=== PATIENT | female | born 1945 | race Caucasian/White ===

== ENCOUNTER 2019-07-12 19:02 | Inpatient (IN) | payer MEDICARE, SELFPAY ==
[2019-07-12 19:03] VITALS: BP 140/75; PULSE 77; RESP 18; TEMP 36.3; O2SAT 95; BMI 32.1
--- NOTE | 2019-07-12 19:20 | US_ITS ---
HISTORY: Right upper quadrant pain for one day. Intolerance to greasy foods. TECHNIQUE: Peoples scale and color doppler imaging was performed of the pancreas, liver, and gallbladder. COMPARISON: None FINDINGS: # of images incl. paperwork: 90 The liver is coarse in echotexture. Within the perceived right hepatic lobe there is an anechoic structure with well-defined margins and increased through transmission measuring 2.2 x 1.7 x 1.3 cm. Color Doppler imaging over this lesion fails to demonstrate flow. This likely represents a benign hepatic cyst.. No biliary dilatation. Within the gallbladder there are gallstones. One of the larger stones measures 4 x 2.4 x 2.9 cm Gallbladder wall measures 4 mm. Common bile duct measures 3 mm. Tenderness upon insonation the gallbladder. Visualized pancreas is normal in appearance. Right is atrophic, with echogenic parenchyma, but without hydronephrosis or evidence of nephrolithiasis within the periphery of the right kidney there is an anechoic structure with well-defined margins and increased through transmission measuring 9 x 7 mm consistent with a benign cyst. Visualized abdominal aorta has normal caliber. IVC is patent. Hepatopedal flow is present within the central portal vein. US/Gallbladder IMPRESSION: Distended gallbladder with gallstones and pain upon insonation of the gallbladder consistent with acute cholecystitis and cholelithiasis. at 2211 Reported and signed by: Tristian Farrar MD Electronically Signed: Tristian Farrar MD at 22:10 EDT Tel , Service support ,
--- NOTE | 2019-07-12 19:21 | ED.DCSUM_ITS ---
History of Present Illness Chief Complaint: Abd Pain Informant: Patient, Significant Other Onset: Today - Context: Sudden Onset Timing: Continuous, Waxes and wanes Quality: Pain Location: Right upper quadrant radiating to back Current Severity: Moderate Maximum Severity: Severe Worsened by: [place] and fried foods Relieved by: Nothing Associated Symptoms: Nausea and dry heaves Narrative: Patient's an elderly woman whose had intermittent intolerance to greasy and fried foods for greater than 1 year. She has been awakened several times a little night with right upper quadrant pain rating through to back. This morning the pain did not subside. She has had nothing to eat today. She denies fever, chills night sweats. She denies HEENT symptoms. Denies cardiac or respiratory symptoms. She denies dysuria, frequency, urgency or hematuria. There is no history of renal or ureterolithiasis. She is status post x3 and bilateral total knee arthroplasty. There is no history of trauma. She has not noted a rash. Prior similar symptoms: Yes Recent Illness/Hospitalization: No Past Medical History - Allergies and Home Meds Allergies/Adverse Reactions: Allergies amoxicillin trihydrate [From Augmentin] Adverse Reaction (Verified 07/12/19 19:05) Upset Stomach potassium clavulanate [From Augmentin] Adverse Reaction (Verified 07/12/19 19:05) Upset Stomach Primary Care Physician: Ammy Avery MD [Primary Care Provider] - Prior records reviewed: Yes - Of type 2 diabetes and hypertension Surgical History: total knee arthroplasty - Bilateral, - - x3 Lives: Spouse/ Significant Other Smoking Status: Unknown if ever smoked Alcohol: None Drugs: None Review of Systems General: Denies: Chills, Fever, Malaise, Sweats ENT: Denies: Rhinorrhea, Sore throat Cardiovascular: Denies: Chest pain, Palpitations Respiratory: Denies: Dyspnea, Cough, Dyspnea on exertion Gastrointestinal: Reports: Abdominal pain, Nausea. Denies: Vomiting, Diarrhea, Constipation, Melena, Hematochezia, -, - Genitourinary: Denies: Dysuria, Hematuria, Frequency Musculoskeletal: Reports: Back pain. Denies: Myalgias, Arthralgias, Neck pain, Swelling, Extremity Pain, -, - Neurological: Denies: Headache, Weakness Hematologic: Denies: Easy bruising, Easy bleeding Physical Exam Vital Signs/Narrative: Vital Signs Temp Pulse Resp BP Pulse Ox 07/12/19 19:03 97.3 F L 77 18 140/75 H 95 Inital Vital Signs reviewed: Yes General: Well nourished, Well developed, Acute Distress Head: Normocephalic, Atraumatic Eyes: Perrl, EOMI. Negative for: Pale conjunctiva, Scleral icterus ENT: Moist mucous membranes, No rhinorrhea Neck: Supple, Nontender, No lymphadenopathy, No JVD Cardiovascular: Regular rate, Regular rhythm, No murmurs, Normal S1, Normal S2 Respiratory: No distress, CTA bilaterally, Chest nontender Abdomen: Soft, Nondistended, No masses, Tender, Guarding, Hypoactive bowel sounds, Alvarado's sign. Negative for: Nontender, Normal bowel sounds, Rebound tenderness, Hepatomegaly, Splenomegaly Rectal: Deferred Back: Nontender, Normal Inspection. Negative for: CVA tenderness Extremities: Nontender, No edema Skin: Normal color, No rash Neurological: Alert, Oriented x3, Cranial nerves II-XII grossly intact, Normal Strength, Normal Sensation Psychological: Normal affect, Normal Mood Diagnostic/Tx/Re-eval Impressions Gallbladder Ultrasound 07/12/19 19:20 IMPRESSION: Distended gallbladder with gallstones and pain upon insonation of the gallbladder consistent with acute cholecystitis and cholelithiasis. at 2211 Reported and signed by: Tristian Farrar MD Electronically Signed: Tristian Farrar MD at 22:10 EDT Tel , Service support , 07/12/19 19:20 Gallbladder [US] Stat Laboratory Results 07/12/19 07/12/19 19:17 19:17 WBC 10.1 RBC 5.08 Hgb 14.4 Hct 43.2 MCV 85.0 MCH 28.3 MCHC 33.3 RDW Std Deviation 38.1 RDW Coeff of Kvng 12.4 Plt Count 164 MPV 9.8 Immature Gran % (Auto) 0.300 Neut % (Auto) 82.5 H Lymph % (Auto) 8.2 L Dukes % (Auto) 7.4 Eos % (Auto) 1.2 Baso % (Auto) 0.4 Absolute Neuts (auto) 8.4 H Absolute Lymphs (auto) 0.83 Nucleated RBC % 0 Sodium 136 Potassium 3.7 Chloride 103 Carbon Dioxide 25.0 Anion Gap 8 BUN 16 Creatinine 1.09 H Estim Creat Clear Calc 46.04 Est GFR (MDRD) Af Amer 64 Est GFR (MDRD) Non-Af 53 L BUN/Creatinine Ratio 14.7 Glucose 172 H Calcium 10.1 Total Bilirubin 0.70 AST 20 ALT 35 Alkaline Phosphatase 120 H Total Protein 7.3 Albumin 4.1 Globulin 3.2 Albumin/Globulin Ratio 1.3 Lipase 122 Ultrasound reveals acute cholecystitis with cholelithiasis. Dr. Angel John was paged who is on-call for surgery. - EKG Initial EKG Interpretation: Sinus Rhythm - Ventricular rate is 64. WA interval is 136 ms. QS duration 84 ms. QT duration 402 ms. The EKG is absolutely normal. - Medical Decision Making IV was established. She was medicated with Zofran and morphine. Patient was made n.p.o. With right upper quadrant pain need to evaluate for biliary pathology, hepatic pathology, pancreatitis gastritis lower lobe pneumonia. Based on history and physical exam concern for acute on chronic cholecystitis. Appropriate blood work was ordered as well as ultrasound right upper quadrant. Dr. John was made aware the patient at 2220. He will evaluate patient determine if he will admit to his service or to hospitalist. Dr. John spoke with me after reviewing images. He requested CT of the abdomen with IV contrast to evaluate the 4 mm mass. He is concerned this may not be a stone. ED Disposition - Plan for ED Patient: Disposition: Acute Care Hospital [facility] Diagnosis: Cholecystitis, acute with cholelithiasis Referrals: Ammy Avery MD [Primary Care Provider] -
[2019-07-12] MEDS: Morphine 4 MG/ML Syringe IV (19:33)
[2019-07-12] MEDS: Ondansetron 4 MG/2 ML Vial IV (19:33)
[2019-07-12 19:40] LABS: Absolute Lymphocyte Count 0.83 X10^3/uL (0.83-4.51); Absolute Neutrophil Count 8.4 X10^3/uL (2.0-7.7); Basophil# 0.04 X10^3/uL; Basophil% 0.4 % (0-1); Eosinophil# 0.12 X10^3/uL; Eosinophils% 1.2 % (0-5); Hematocrit 43.2 % (37-47); Hemoglobin 14.4 g/dL (12.0-15.0); Lymphocyte # 0.83 X10^3/ul (4.0); Lymphocyte % 8.2 % (19-41); Mean Corp Hgb Conc 33.3 g/dL (32-36); Mean Corpuscular Hgb 28.3 pg (27.0-32.0); Mean Platelet Vol. 9.8 fl (6.2-12.0); Monocyte# 0.75 X10^3/uL; Monocyte% 7.4 % (0-10); NRBC Flagged by Analyzer 0 % (0-5); Neutrophil # 8.35 X10^3/uL (2.7-7.7); Neutrophil % 82.5 % (47-70); Platelet Count 164 K/mm3 (150-450); RBC Distribution Width CV 12.4 % (11.6-14.6); RBC Distribution Width SD 38.1 fl (35.1-43.9); Red Blood Count 5.08 M/mm3 (4.2-5.4); White Blood Count 10.1 K/mm3 (4.4-11.0)
[2019-07-12 19:50] LABS: ALB/GLOB Ratio 1.3 RATIO (0.9-2.4); AST(SGOT) 20 U/L (15-37); Alanine Aminotransfer ALT/SGPT 35 U/L (13-56); Albumin, Serum 4.1 g/dL (3.2-5.0); Alkaline Phosphatase 120 U/L (45-117); Anion Gap 8 (5-15); BUN 16 mg/dL (7-18); BUN/Creat Ratio 14.7 RATIO (10-20); Calcium,Total 10.1 mg/dL (8.5-10.1); Chloride 103 mmol/L (98-107); Creatinine, Serum 1.09 mg/dL (0.55-1.02); EST Glomerular Filtration Rate 53 mL/min (>60); Est Glom Filt Rate - Afr Amer 64 mL/min (>60); Estimated Creatinine Clearance 46.04 ml/min; Globulin 3.2 g/dL (2.2-4.2); Glucose 172 mg/dL (74-106); Lipase 122 U/L (73-393); Potassium 3.7 mmol/L (3.5-5.1); Protein, Total 7.3 g/dL (6.4-8.2); Sodium Level 136 mmol/L (136-145)
[2019-07-12] MEDS: 0.9% Normal Saline 1,000 ML 125 ML IV (19:58)
--- NOTE | 2019-07-12 22:22 | EKG12_ITS ---
Test Reason : PRE-OP Blood Pressure : / mmHG Vent. Rate : 064 BPM Atrial Rate : 064 BPM P-R Int : 136 ms QRS Dur : 084 ms QT Int : 402 ms P-R-T Axes : 045 008 059 degrees QTc Int : 414 ms Normal sinus rhythm Normal ECG Confirmed by DAVID BURNS ([id number]), clinical editor MICHAEL AUSTIN ([id number]) on 07/20/2019 3:51:53 PM Referred By: Angel John Confirmed By:DAVID BURNS
--- NOTE | 2019-07-12 22:36 | CT_ITS ---
HISTORY: ABD PAIN RUQ SINCE 200 WITH PAIN RADIATING TO THE BACK, CONSTIPATION, NAUSEA, HX HTN, DIAB, C-SECTIONS TECHNIQUE: Helically acquired images were obtained of the abdomen following the intravenous administration of 100ML ml of 100mL Isovue-300 Iodinated contrast. No oral contrast was administered. A radiation dose optimization technique was used for this scan. COMPARISON: Ultrasound from about an hour and a half earlier that demonstrated acute cholecystitis FINDINGS: # of images incl. paperwork: 415 Atherosclerotic plaque within the aortic arch. Pulmonary hypoexpansion. Elevation of the right hemidiaphragm. Right basilar atelectasis and additional airspace disease which could possibly be pneumonia. Minimal cardiomegaly. No significant pericardial or pleural effusion. The gallbladder is distended with many calcified gallstones. One of these gallstones is likely within the cystic duct causing obstruction. The common bile duct is not pathologically dilated. Within the medial segment of the left hepatic lobe, consistent with the findings from the ultrasound there is a 19 mm cyst. Contrary to the findings on the ultrasound of the common bile duct above the pancreatic head is distended to 8 mm. No common bile duct or common hepatic duct stones are perceived. The 2 stones within the cystic duct, likely occluding the cystic duct, measuring 13 mm. The spleen, pancreas, adrenal glands are normal. Kidneys are atrophic. Atherosclerotic plaque within the abdominal aorta without aneurysm or dissection. The stomach is decompressed. Bowel gas pattern is normal. Gallbladder wall thickening is suggested. No significant pericholecystic fluid. Minimal induration of the fat adjacent to the stone within the cystic duct. CT/Abdomen WITH IV Contrast IMPRESSION: Two, 13 mm cystic duct stones with many additional gallbladder stones and findings consistent with acute cholecystitis Individualized dose optimization techniques were used for this CT. at 2325 Reported and signed by: Tristian Farrar MD Electronically Signed: Tristian Farrar MD at 23:24 EDT Tel , Service support ,
[2019-07-12 23:22] VITALS: BP 153/67; PULSE 65; RESP 17; O2SAT 97
--- NOTE | 2019-07-12 23:25 | HP.PCM_ITS ---
Problem List (1) Cholecystitis, acute with cholelithiasis Status: Acute Qualifiers: Biliary obstruction: without biliary obstruction Qualified Code(s): K80.00 - Calculus of gallbladder with acute cholecystitis without obstruction History of Present Illness Date of Admission: 07/12/19 The patient is a 73 year old F presented with pain for the last 20 hours. She reports that the pain is in her right upper quadrant radiates the back. She does have subjective fever and chills. She is also having nausea with no vomiting. She says she has been having intolerance of greasy foods for the last 2 years with intermittent right upper quadrant pain. She has never had acute cholecystitis in the past. She denies any other symptoms. Past Medical History Allergies amoxicillin trihydrate [From Augmentin] Adverse Reaction (Verified 07/12/19 19:05) Upset Stomach potassium clavulanate [From Augmentin] Adverse Reaction (Verified 07/12/19 19:05) Upset Stomach Home Medications: Ambulatory Orders Medication Instructions Recorded Amlodipine Besylate/Benazepril 1 tab PO DAILY 07/12/19 [Amlodipine-Benazepril 10-20 mg] Aspirin [Aspirin, Baby] 81 mg PO DAILY@0800 07/12/19 Carvedilol [Coreg] 12.5 mg PO BID 07/12/19 Metformin HCl 500 mg PO BID 07/12/19 Rosuvastatin Calcium 10 ng PO DAILY 07/12/19 Surgical History: total knee arthroplasty - Bilateral, - - x3 Lives: Spouse/ Significant Other Smoking Status: Never smoker Alcohol: None Drugs: None - *Family History Maternal History Items: No pertinent history Review of Systems Constitutional: Reports: Anorexia, Chills, Fever Eyes: Denies: Blurred vision HEENT: Denies: Difficulty Swallowing Cardiovascular: Denies: Chest Pain Respiratory: Denies: Cough, Shortness of Breath Gastrointestinal: Reports: Abdominal Pain, Nausea. Denies: Constipation, Diarrhea, Hematemesis, Hematochezia, Vomiting Genitourinary: Reports: Frequency. Denies: Dysuria Skin: Denies: Dryness, Jaundice Neurological: Denies: Balance problems Hematologic/ Lymphatic: Denies: Anemia VTE Information - Inpt Only VTE Present on Admission: No VTE Mechan Device Prophylaxis: SCD's Patient Problems: Active and Suspected Problems Cholecystitis, acute with cholelithiasis (Acute) - Physical Exam General: Alert, Oriented x3, Cooperative, No apparent distress HEENT: Atraumatic Neck: No JVD Lungs: Clear to auscultation, Normal air movement Cardiovascular: Regular rate, Regular Rhythm Abdomen: Soft, Non-Distended, Tender - Tender in the right upper quadrant with no guarding or rebound. Extremities: No clubbing Skin: No rashes Musculoskeletal: No Muscle Wasting Neurological: Cranial nerves II-XII grossly intact Psych/Mental Status: Normal Affect Vital Signs Temp Pulse Resp BP Pulse Ox 97.3 F L 65 17 153/67 H 97 07/12/19 19:03 07/12/19 23:22 07/12/19 23:22 07/12/19 23:22 07/12/19 23:22 Oxygen Delivery Method Room Air Weight: 205 lb Body Mass Index (BMI) 32.1 Laboratory Tests Past 24 Hrs 07/12/19 07/12/19 19:17 19:17 WBC 10.1 RBC 5.08 Hgb 14.4 Hct 43.2 MCV 85.0 MCH 28.3 MCHC 33.3 RDW Std Deviation 38.1 RDW Coeff of Kvng 12.4 Plt Count 164 MPV 9.8 Immature Gran % (Auto) 0.300 Neut % (Auto) 82.5 H Lymph % (Auto) 8.2 L Bath % (Auto) 7.4 Eos % (Auto) 1.2 Baso % (Auto) 0.4 Absolute Neuts (auto) 8.4 H Absolute Lymphs (auto) 0.83 Nucleated RBC % 0 Sodium 136 Potassium 3.7 Chloride 103 Carbon Dioxide 25.0 Anion Gap 8 BUN 16 Creatinine 1.09 H Estim Creat Clear Calc 46.04 Est GFR (MDRD) Af Amer 64 Est GFR (MDRD) Non-Af 53 L BUN/Creatinine Ratio 14.7 Glucose 172 H Calcium 10.1 Total Bilirubin 0.70 AST 20 ALT 35 Alkaline Phosphatase 120 H Total Protein 7.3 Albumin 4.1 Globulin 3.2 Albumin/Globulin Ratio 1.3 Lipase 122 Clinical Impression(s) from Imaging Studies Gallbladder Ultrasound 07/12/19 19:20 IMPRESSION: Distended gallbladder with gallstones and pain upon insonation of the gallbladder consistent with acute cholecystitis and cholelithiasis. at 2211 Reported and signed by: Tristian Farrar MD Electronically Signed: Tristian Farrar MD at 22:10 EDT Tel , Service support , Abdomen CT 07/12/19 22:36 IMPRESSION: Two, 13 mm cystic duct stones with many additional gallbladder stones and findings consistent with acute cholecystitis Individualized dose optimization techniques were used for this CT. at 2325 Reported and signed by: Tristian Farrar MD Electronically Signed: Tristian Farrar MD at 23:24 EDT Tel , Service support , Assessment/Plan All Active Problems Cholecystitis, acute with cholelithiasis (Acute) 73-year-old female with acute cholecystitis 1. Patient has left shift and acute right upper quadrant pain with fevers. CT scan shows multiple calcified gallstones 2 of which are lodged in the cystic duct. Patient has gallbladder wall thickening as well suggestive of acute cholecystitis. 2. I discussed the patient's findings with her. I discussed the treatment including laparoscopic cholecystectomy. I discussed the procedure in detail with the patient. I discussed the risks, benefits, and alternatives of the procedure. I discussed the risks including but not limited to bleeding, infection, injury to surrounding organs such as the liver, bile duct, bowels. I did discuss the possibility of having to convert to an open procedure as well as the possibility that if any injuries occurred this may necessitate further surgery at a tertiary care center. 3. I will admit the patient to the floor and start Zosyn. Patient reports that her penicillin allergy is only upset stomach and was many years ago. There is no sign of anaphylaxis or hives. I also start IV fluids and hold metformin due to the IV contrast. Start insulin sliding scale for diabetes. SCDs for DVT prophylaxis. Angel John MD Pager: [facility] [address] [place] [address], [address] [place] [address] Office:
[2019-07-13] VITALS (13 sets, daily range): BP systolic 104–136; BP diastolic 56–75; PULSE 63–75; RESP 14–18; TEMP 35.9–37.1; O2SAT 87–98; BMI 31.8
--- NOTE | 2019-07-13 | GALL_PTH ---
PATIENT: MABEL RAZA LOC: MS3 U#:[id number] AGE/SX: 73/F ROOM: MS316 RE07/12/[address]: Dr. Angel John MD : 1945 BED: 1 DIS: 07/14/2019 SPEC #: [id number] RECD: 07/14/19 08:14 STATUS: PARVEEN LOPEZFredrick #: [id number] DEMETRIUS: 07/13/19 00:[address]: Angel John DEPT: SURGICAL PATHOLOGY RECD BY: Mich Duncan ENTERED: 07/14/19 09:30 SP TYPE: VIVIAN ECHEVERRIA DR: Dr. Ammy Avery MD Tissues: Gallbladder, NOS Procedures: Surgery Specimen Level III HEADER OPERATION: Laparoscopic cholecystectomy with IOC PRE-OP DIAGNOSIS: Acute cholecystitis with cholelithiasis TISSUE SUBMITTED: Gallbladder MICROSCOPIC DIAGNOSIS Gallbladder, cholecystectomy: Chronic cholecystitis and cholelithiasis. AM:neha 07/15/19 MICROSCOPIC DESCRIPTION Slides are reviewed. GROSS DESCRIPTION Received is one container labeled with the patient's name and designated gallbladder. The specimen consists of a gallbladder measuring 8 cm in length and 3.5 cm in diameter. The external surface is pink-reyes, smooth and glistening for the most part. Focally it is granular, hemorrhagic and contains cautery artifact. The gallbladder contains a small amount of green-yellow mucoid bile, bile sludge and multiple brownish, multifaceted stones measuring in aggregate 4.5 x 3 x 1.5 cm and 0.2 to 1.5 cm in greatest dimension. The mucosa is bile-stained and without any mass lesions. The gallbladder wall measures up to 0.7 cm in thickness. An increased amount of subserosal fat is noted. Interviewing Clerk sections from the gallbladder and the cystic duct are submitted in one cassette. / ANG:neha 07/14/19 TC:3 CPT: 93891
[2019-07-13] MEDS: Piperacil/Tazobactam 3.375 GM/50 ML ML IV ×4 (00:56→21:40)
[2019-07-13] MEDS: Acetaminophen 325 MG Tablet 650 MG PO (00:58)
[2019-07-13] MEDS: 0.9% Normal Saline 1,000 ML 100 ML IV ×2 (01:05→11:09)
[2019-07-13 01:16] LABS: Bedside Glucose 150 mg/dL (70-110)
[2019-07-13 04:35] LABS: Bacteria 0 SEEN /hpf (None Seen); Mucous, Urine 0 SEEN /hpf (<or=2+); Red Blood Cells-Urine 0 SEEN /hpf (0-5); Squamous Epithelial Cells - UA 0 SEEN /hpf (5-10); White Blood Cells 0 SEEN /hpf (0-5)
[2019-07-13 05:10] LABS: Color, Urine Yellow (Yellow); Glucose, Dipstick 100 mg/dl (Normal); Ketone-Dipstick 5 mg/dl (Negative); Leukocyte Esterase-Dipstick Negative /ul (Negative); Nitrite-Dipstick Negative (Negative); Occult Blood-Urine Negative /ul (Negative); Protein-Dipstick Negative (Negative); Urine Bilirubin Dipstick Negative (Negative); Urine Clarity Clear (Clear); Urine Urobilinogen Normal (Normal)
[2019-07-13] MEDS: Insulin Lispro 100 UNIT/ML INSULN.PEN SC ×2 (06:27→11:11)
[2019-07-13 06:36] LABS: Bedside Glucose 175 mg/dL (70-110)
[2019-07-13 06:55] LABS: Absolute Lymphocyte Count 0.88 X10^3/uL (0.83-4.51); Absolute Neutrophil Count 5.7 X10^3/uL (2.0-7.7); Basophil# 0.03 X10^3/uL; Basophil% 0.4 % (0-1); Eosinophil# 0.19 X10^3/uL; Eosinophils% 2.6 % (0-5); Hemoglobin 12.5 g/dL (12.0-15.0); Lymphocyte # 0.88 X10^3/ul (4.0); Lymphocyte % 11.9 % (19-41); Mean Corp Hgb Conc 32.9 g/dL (32-36); Mean Corpuscular Hgb 28.3 pg (27.0-32.0); Mean Platelet Vol. 9.9 fl (6.2-12.0); Monocyte# 0.57 X10^3/uL; Monocyte% 7.7 % (0-10); NRBC Flagged by Analyzer 0 % (0-5); Neutrophil # 5.72 X10^3/uL (2.7-7.7); Neutrophil % 77.1 % (47-70); Platelet Count 141 K/mm3 (150-450); RBC Distribution Width CV 12.8 % (11.6-14.6); RBC Distribution Width SD 39.5 fl (35.1-43.9); Red Blood Count 4.42 M/mm3 (4.2-5.4); White Blood Count 7.4 K/mm3 (4.4-11.0)
[2019-07-13 07:16] LABS: ALB/GLOB Ratio 1.3 RATIO (0.9-2.4); AST(SGOT) 18 U/L (15-37); Alanine Aminotransfer ALT/SGPT 30 U/L (13-56); Albumin, Serum 3.5 g/dL (3.2-5.0); Alkaline Phosphatase 96 U/L (45-117); Anion Gap 9 (5-15); BUN 13 mg/dL (7-18); BUN/Creat Ratio 12.5 RATIO (10-20); Chloride 108 mmol/L (98-107); Creatinine, Serum 1.04 mg/dL (0.55-1.02); EST Glomerular Filtration Rate 55 mL/min (>60); Est Glom Filt Rate - Afr Amer 67 mL/min (>60); Estimated Creatinine Clearance 48.25 ml/min; Globulin 2.7 g/dL (2.2-4.2); Glucose 164 mg/dL (74-106); Potassium 3.7 mmol/L (3.5-5.1); Protein, Total 6.2 g/dL (6.4-8.2); Sodium Level 142 mmol/L (136-145)
[2019-07-13 08:13] LABS: Hemoglobin A1c 7.9 % (4.2-6.3)
[2019-07-13] MEDS: amLODIPine 10 MG Tablet PO (10:28)
[2019-07-13] MEDS: Lisinopril 20 MG Tablet PO (10:28)
[2019-07-13] MEDS: Carvedilol 12.5 MG Tablet PO ×2 (10:28→21:18)
--- NOTE | 2019-07-13 11:20 | CASEMGMT ---
RN ZAINAB Face to Face with patient for initial transition planning/care coordination assessment. RN CM introduced self and role at [facility]. Patient lying in bed, alert and oriented, daughter at bedside. Patient willing to participate in assessment and is able to answer all questions appropriately. Care providers, pharmacy, and demographics verified. Patient wishes to discharge home, denies need for home health at this time. Patient states she has no further needs or concerns at this time. CM to follow for discharge planning needs that may arise. PCP: Bennie Specialists: none Preferred Pharmacy: [facility], [place] Insurance: [employer] [facility] Prescription Benefit: yes Living Will/HPOA: none LNOK: , daughter Living Arrangements: Patient lives with in 1 story home with 2 steps and railing to enter the home. Transportation: self/ DME/HHC: Patient has raised toilet seat, cane, and walker. Patient denies previous SNF or HHC Disposition Plan: Patient to discharge home with family support and follow-up plans in place. Peace SILVAN, RN, CM
[2019-07-13 11:30] LABS: Bedside Glucose 170 mg/dL (70-110)
--- NOTE | 2019-07-13 14:01 | CHAPLAIN ---
Type of Pastoral Visit _x__ Initial Visit ___ Follow-up Visit ___ On-call Visit ___ General Patient Visit ___ Spiritual Assessment ___ Family Conference ___ Bereavement ___ Rapid Response ___ Code Blue ___ Other (describe below) Pastoral Care Referral From _x__ Patient ___ Family ___ Nurse ___ Physician ___ Curriculum Designer ___ [employer] ___ Other (describe below) Sacrament/Intervention _x__ Active listening ___ Anointing ___ Oriental Orthodox ___ Bereavement ___ Communion ___ Huma exploration ___ ___ Life review ___ Prayer ___ Reconciliation ___ Sacrament of Sick _x__ Supportive presence ___ Wedding ___ Other (describe below) Pastoral Comments
--- NOTE | 2019-07-13 16:35 | RAD_ITS ---
PROCEDURE: INTRAOPERATIVE CHOLANGIOGRAM. REASON FOR EXAM: Female, 73 years old. Abdominal pain. Cholelithiasis with stone caught in cystic duct. FLUOROSCOPY TIME: 28.6 seconds. RADIATION DOSAGE (If Supplied By Facility): 12.75 mGy TECHNIQUE: Real-time fluoroscopy was provided during intraoperative contrast infusion via the cystic duct. A cine run comprising 187 images was submitted. COMPARISON: CT abdomen and ultrasound abdomen July 12, 2019. FINDINGS: A filling defect consistent with a retained stone is seen in the cystic duct near the point of injection. There is an elongated, normal caliber cystic duct with a relatively low insertion area and no extravasation. Normal caliber intra-and extrahepatic bile ducts. A few very small filling defects consistent with small stones, debris, or gas bubbles noted in the common bile duct just below the cystic duct confluence. Contrast flows to the duodenum. RAD/Cholangiogram/ O R,Initial IMPRESSION: 1. Retained stone in the cystic duct near the point of injection. There is a normal caliber, elongated, low inserting cystic duct beyond this point. 2. Very small stones, debris, or gas-filled seen in the common bile duct below the cystic duct confluence. There is normal antegrade emptying into the duodenum. 3. Normal visualized proximal hepatic ducts. Electronically Signed: Carlos Jackson MD at 19:55 EDT , Service support ,
[2019-07-13] MEDS: Lactated Ringers 1,000 ML 100 ML IV ×2 (17:00→19:32)
--- NOTE | 2019-07-13 17:57 | OP.PCM_ITS ---
Problem List (1) Cholecystitis, acute with cholelithiasis Status: Acute Qualifiers: Biliary obstruction: without biliary obstruction Qualified Code(s): K80.00 - Calculus of gallbladder with acute cholecystitis without obstruction Report of Operation Date of Procedure: 07/13/19 Pre-Operative Diagnosis: Acute cholecystitis Post-Operative Diagnosis: Same Surgery/Procedure Performed:: Laparoscopic cholecystectomy with cholangiogram Specimen's removed: Gallbladder and contents Description of Procedure: After obtaining informed consent patient was brought back to the operating room. General anesthesia was induced. The abdomen was prepped and draped in usual sterile fashion. A small midline incision was made superior to the umbilicus and deepened to the level of fascia. The fascia was elevated and incised. Next the peritoneum was elevated and incised in the same fashion. Finger sweep was performed and the Wiggins trocar was placed into the abdomen. The balloon was inflated. The abdomen was inflated to 15 mmHg. Next a camera was introduced into the abdomen and the abdomen was inspected. Next under direct visualization three 5-mm ports were placed one subxiphoid and 2 subcostal. Next the gallbladder was elevated and retracted toward the right shoulder. The gallbladder was extremely thickened and very inflamed. The peritoneum was stripped from the gallbladder. The infundibulum was located and retracted laterally. The gallbladder was dissected free from the liver bed and its medial portion. A Jose Rafael drain was placed around the gallbladder and this was used to retract the gallbladder laterally. Dissection was carried inferiorly. Next the triangle of Calot was dissected and the cystic duct and cystic artery were identified. Cholangiograms were performed. The Seth clamp was used to clamp across the infundibulum and the catheter needle was inserted into the gallbladde r. Under fluoroscopy contrast was instilled into the gallbladder and the common duct, cystic duct as well as proximal hepatic ducts were identified. There was good filling of the duodenum. There were no filling defects noted in the common bile duct. There was a filling defect in the cystic duct. The clamp was removed as well as the needle and the infundibulum was grasped once more. Three hemolock clips were placed across the cystic duct distal to the filling defect. The cystic duct was then divided leaving 2 clips on the stump. The cystic artery was clipped and divided in the same fashion. The hook cautery was then used to take the gallbladder off of the gallbladder bed. Hemostasis was obtained. Gallbladder fossa was irrigated and no active bleeding or bile leakage was noted. Next the camera switched to a 5 mm camera and introduced in the subxiphoid port. An Endopouch bag was placed through the umbilical port and the gallbladder was placed into it. The gallbladder was then removed through the umbilical incision. The camera was then reinserted through the umbilical port. The gallbladder fossa was inspected once more and noted to be hemostatic with no leaking bile. The abdomen was suctioned dry. The 5 mm ports were removed under direct visualization. The umbilical port was then removed and the air was removed from the abdomen. Next using 2 0-Vicryl sutures the umbilical fascia was closed in a [id number] fashion. The umbilical port site was irrigated local anesthetic was administered to all the incisions. All the incisions were closed with interrupted subcuticular 4-0 Monocryl sutures followed by Steri-Strips and dressings. The patient was awoken and taken to PACU in stable condition. - Admit VTE Documentation VTE Present on Admission: No VTE Mechan Device Prophylaxis: SCD's
[2019-07-13 18:25] LABS: Bedside Glucose 256 mg/dL (70-110)
[2019-07-13] MEDS: Insulin Lispro 100 UNIT/ML INSULN.PEN 6 UNIT SC (18:30)
[2019-07-13] MEDS: Atorvastatin Calcium 20 MG Tablet PO (21:18)
[2019-07-13] MEDS: 0.9% NaCl IVPB Med Flush (250 mL) 15 ML IV (21:40)
[2019-07-14] MEDS: Insulin Lispro 100 UNIT/ML INSULN.PEN SC (00:01)
[2019-07-14 00:06] LABS: Bedside Glucose 175 mg/dL (70-110)
[2019-07-14 05:00] VITALS: BP 112/59; PULSE 69; RESP 18; TEMP 36.6; O2SAT 95
[2019-07-14] MEDS: Piperacil/Tazobactam 3.375 GM/50 ML ML IV (05:05)
[2019-07-14 07:01] LABS: Bedside Glucose 127 mg/dL (70-110)
[2019-07-14 07:31] LABS: ALB/GLOB Ratio 1.1 RATIO (0.9-2.4); AST(SGOT) 241 U/L (15-37); Alanine Aminotransfer ALT/SGPT 299 U/L (13-56); Albumin, Serum 3.1 g/dL (3.2-5.0); Alkaline Phosphatase 109 U/L (45-117); Anion Gap 9 (5-15); BUN 15 mg/dL (7-18); BUN/Creat Ratio 15.8 RATIO (10-20); Calcium,Total 8.8 mg/dL (8.5-10.1); Chloride 108 mmol/L (98-107); Creatinine, Serum 0.95 mg/dL (0.55-1.02); EST Glomerular Filtration Rate 62 mL/min (>60); Est Glom Filt Rate - Afr Amer 75 mL/min (>60); Estimated Creatinine Clearance 52.82 ml/min; Globulin 2.8 g/dL (2.2-4.2); Glucose 133 mg/dL (74-106); Potassium 3.9 mmol/L (3.5-5.1); Protein, Total 5.9 g/dL (6.4-8.2); Sodium Level 142 mmol/L (136-145)
--- NOTE | 2019-07-14 07:51 | DCINST_ITS ---
Discharge Diet: Light diet - advance as tolerated Discharge Activity: Return to Normal Activity, May Not Drive - for 2-3 days or while taking narcotic pain medicataions., May Shower Additional Activity Instructions:: Pain medication may cause nausea. You should typically eat light foods as you take your pain medications. Pain medication may also cause constipation. If this is a problem for you, please discuss with your doctor. Call your doctor if your incision/area has: Continuous Slow Oozing, Sudden Increased Bleeding, Increased Pain/ Swelling, Increased Redness, Foul Smelling Discharge, Fever of 101 or Higher Call your doctor if you observe: Fever of 101 or Higher Suture Line Care: Avoid Pulling/Pushing, Avoid Pinching/Bending Additional Dressing/Incision Instructions:: Leave operative bandaids on for 2 days. When you remove dressing, leave Steri-Strips on until your follow-up appointment, or until the Steri-Strips fall off on their own. Additional Instructions: Resume metformin Saturday Allergies/Adverse Reactions: Allergies amoxicillin trihydrate [From Augmentin] Adverse Reaction (Verified 07/12/19 19:05) Upset Stomach potassium clavulanate [From Augmentin] Adverse Reaction (Verified 07/12/19 19:05) Upset Stomach Medications to take at Discharge Amlodipine Besylate/Benazepril [Amlodipine-Benazepril 10-20 mg] 1 tab PO DAILY 07/12/19 Aspirin [Aspirin, Baby] 81 mg PO DAILY@0800 07/12/19 Carvedilol [Coreg] 12.5 mg PO BID 07/12/19 Metformin HCl 500 mg PO BID 07/12/19 Rosuvastatin Calcium 10 ng PO QHS 07/12/19 Acetaminophen [Tylenol Tablet] 650 mg PO Q6H PRN PRN tablet 07/14/19 Primary Care Physician: Ammy Avery MD [Primary Care Provider] - Test Results: Test results from this visit will be discussed in further detail at your follow- up appointment, if applicable. Please Follow Up With: Angel John MD When: Please call to schedule 2 week follow up appointment. [phone]
[2019-07-14 07:54] VITALS: BP 119/68; PULSE 67; RESP 16; TEMP 36.7; O2SAT 92
[2019-07-14] MEDS: Acetaminophen 325 MG Tablet 650 MG PO (08:27)
[2019-07-14 10:11] VITALS: BP 120/70; PULSE 69; O2SAT 94
[2019-07-14 14:24] LABS: Absolute Neutrophil Count 5.3 X10^3/uL (2.0-7.7); Basophil# 0.04 X10^3/uL; Basophil% 0.6 % (0-1); Eosinophil# 0.14 X10^3/uL; Eosinophils% 2.1 % (0-5); Hematocrit 37.2 % (37-47); Hemoglobin 12.2 g/dL (12.0-15.0); Lymphocyte % 7.5 % (19-41); Mean Corp Hgb Conc 32.8 g/dL (32-36); Mean Corpuscular Hgb 28.7 pg (27.0-32.0); Mean Corpuscular Volume 87.5 fL (81-99); Mean Platelet Vol. 9.8 fl (6.2-12.0); Monocyte# 0.68 X10^3/uL; Monocyte% 10.2 % (0-10); NRBC Flagged by Analyzer 0 % (0-5); Neutrophil # 5.26 X10^3/uL (2.7-7.7); Neutrophil % 79.1 % (47-70); POSITIVE DIFFERENTIAL YES; Platelet Count 129 K/mm3 (150-450); RBC Distribution Width SD 40.9 fl (35.1-43.9); Red Blood Count 4.25 M/mm3 (4.2-5.4); White Blood Count 6.7 K/mm3 (4.4-11.0)
[2019-07-14 14:28] LABS: Differential Indicated SCAN CRITERIA MET
== END 2019-07-14 10:53 | disposition home or self-care (01) | DRG 419 ==
LOC: ED 22:22 → MS3 07-13 00:01
PROVIDERS: Anesthesiology; Admitting Provider Surgery; Emergency Provider Emergency Medicine; Family Provider Family Medicine; PCP Family Medicine; Referring Provider Surgery; Visit Provider Surgery
PROC: 0FT44ZZ Resection of Gallbladder, Percutaneous Endoscopic Approach (ICD-10-PCS; CPT 47610; principal; 2019-07-13 16:00)
DX: K80.12 Calculus of gallbladder with acute and chronic cholecystitis without obstruction (principal); Z96.653 Presence of artificial knee joint, bilateral; E11.9 Type 2 diabetes mellitus without complications; Z79.84 Long term (current) use of oral hypoglycemic drugs; Z79.82 Long term (current) use of aspirin; I10 Essential (primary) hypertension; Z79.899 Other long term (current) drug therapy
CPT/HCPCS: 36415; 74160; 74300; 76000; 76705; 80053; 81001; 82962; 83036; 83690; 85025; 88304; 93005; 99284; J7030; J7040; J7050; J7120; Q9967; J1610; J2405

== ENCOUNTER → 2021-01-16 14:23 | Outpatient (CLI) | payer MEDICARE, SELFPAY ==
[2021-01-16 13:44] VITALS: BMI 31.3
[2021-01-16 15:20] LABS: Absolute Lymphocyte Count 1.13 X10^3/uL (0.83-4.51); Absolute Neutrophil Count 4.4 X10^3/uL (2.0-7.7); Basophil# 0.06 X10^3/uL; Basophil% 0.9 % (0-1); Eosinophil# 0.69 X10^3/uL; Hematocrit 43.2 % (37-47); Hemoglobin 14.2 g/dL (12.0-15.0); Lymphocyte # 1.13 X10^3/ul (4.0); Lymphocyte % 16.4 % (19-41); Mean Corp Hgb Conc 32.9 g/dL (32-36); Mean Corpuscular Hgb 28.7 pg (27.0-32.0); Mean Corpuscular Volume 87.3 fL (81-99); Mean Platelet Vol. 10.7 fl (6.2-12.0); Monocyte% 8.7 % (0-10); NRBC Flagged by Analyzer 0 % (0-5); Neutrophil # 4.38 X10^3/uL (2.7-7.7); Neutrophil % 63.6 % (47-70); Platelet Count 157 K/mm3 (150-450); RBC Distribution Width CV 12.8 % (11.6-14.6); RBC Distribution Width SD 40.6 fl (35.1-43.9); Red Blood Count 4.95 M/mm3 (4.2-5.4); White Blood Count 6.9 K/mm3 (4.4-11.0)
[2021-01-16 15:54] LABS: ALB/GLOB Ratio 1.2 RATIO (0.9-2.4); AST(SGOT) 18 U/L (15-37); Alanine Aminotransfer ALT/SGPT 31 U/L (13-56); Albumin, Serum 4.1 g/dL (3.2-5.0); Alkaline Phosphatase 90 U/L (45-117); Anion Gap 6 (5-15); BUN 22 mg/dL (7-18); BUN/Creat Ratio 19.6 RATIO (10-20); Calcium,Total 10.5 mg/dL (8.5-10.1); Chloride 107 mmol/L (98-107); Cholesterol 162 mg/dL (200); Creatinine, Serum 1.12 mg/dL (0.55-1.02); EST Glomerular Filtration Rate 51 mL/min (>60); Est Glom Filt Rate - Afr Amer 61 mL/min (>60); Globulin 3.4 g/dL (2.2-4.2); Glucose 142 mg/dL (74-106); High Density Lipoprotein 41 mg/dL; Potassium 4.5 mmol/L (3.5-5.1); Protein, Total 7.5 g/dL (6.4-8.2); Sodium Level 138 mmol/L (136-145); Triglycerides 334 mg/dL; Very Low Density Lipoprotein 67 mg/dL (5-40)
== END ==
PROVIDERS: PCP Internal Medicine; Visit Provider Internal Medicine
DX: E11.9 Type 2 diabetes mellitus without complications (principal); I10 Essential (primary) hypertension
CPT/HCPCS: 36415; 80053; 80061; 85025

== ENCOUNTER → 2021-01-25 09:17 | Outpatient (CLI) | payer MEDICARE, SELFPAY ==
[2021-01-16 13:44] VITALS: BMI 31.3
--- NOTE | 2021-01-25 09:23 | BD_ITS ---
STUDY: DUAL ENERGY X-RAY ABSORPTIOMETRY / DXA REASON FOR EXAM: Female, 75 years old. Osteopenia TECHNIQUE: Bone Mineral Density (BMD) measurements of lumbar spine and bilateral hips were obtained. COMPARISON: None. FINDINGS: Lumbar Spine (L1-L4): g/cm2 (1.266) / T-score (0.8) / Z-score (2.6) Findings are suggestive of normal bone density with a low fracture risk. Left Femur Total: g/cm2 (0.818) / T-score (-1.5) / Z-score (0.1) Left Femoral Neck: g/cm2 (0.777) / T-score (-1.9) / Z-score (0.0) Right Femur Total: g/cm2 (0.876) / T-score (-1.0) / Z-score (0.6) Right Femoral Neck: g/cm2 (0.778) / T-score (-1.9) / Z-score (0.0) BD/Dexa Bone Density Study IMPRESSION: The patient is considered osteopenic as outlined below according to World [employer] Organization (WHO) criteria with a moderate fracture risk. Reference Information: The T-score is the number of standard deviations above or below the standard which is normal for young adults at their peak bone mineral density. The World Health Organization (WHO) interprets the T-scores as follows: Above -1 Normal bone density Between -1 and -2.5 Osteopenia Equal to / or below -2.5 Osteoporosis As a practical clinical guideline, osteopenia may be graded as follows: Mild -1 through -1.5 Moderate -1.6 through -2.0 Severe -2.1 through -2.4 The Z-score is the number of standard deviations above or below age-matched controls. A Z-score of less than -1.5 would be considered abnormal. References: 1. NIH Osteoporosis and Related Bone Diseases www osteo.org 2. International Society for Clinical Densitometry www iscd.org 3. National Osteoporosis Foundation www nof.org Electronically Signed: Aureliano Scott MD at 15:38 EDT , Service support ,
== END ==
PROVIDERS: PCP Internal Medicine; Referring Provider Internal Medicine; Visit Provider Internal Medicine
DX: Z78.0 Asymptomatic menopausal state (principal)
CPT/HCPCS: 77080

== ENCOUNTER → 2021-05-18 08:05 | Outpatient (CLI) | payer MEDICARE, SELFPAY ==
[2021-04-17 10:54] VITALS: BMI 31.3
[2021-05-18 12:27] LABS: ALB/GLOB Ratio 1.3 RATIO (0.9-2.4); AST(SGOT) 17 U/L (15-37); Alanine Aminotransfer ALT/SGPT 40 U/L (13-56); Albumin, Serum 3.9 g/dL (3.2-5.0); Alkaline Phosphatase 77 U/L (45-117); Anion Gap 9 (5-15); BUN 20 mg/dL (7-18); Calcium,Total 10.2 mg/dL (8.5-10.1); Chloride 104 mmol/L (98-107); Cholesterol 218 mg/dL (200); Creatinine, Serum 1.11 mg/dL (0.55-1.02); EST Glomerular Filtration Rate 51 mL/min (>60); Est Glom Filt Rate - Afr Amer 62 mL/min (>60); Glucose 154 mg/dL (74-106); High Density Lipoprotein 35 mg/dL; Potassium 4.1 mmol/L (3.5-5.1); Protein, Total 6.9 g/dL (6.4-8.2); Sodium Level 137 mmol/L (136-145); Triglycerides 348 mg/dL; Very Low Density Lipoprotein 70 mg/dL (5-40)
== END ==
PROVIDERS: PCP Internal Medicine; Referring Provider Internal Medicine; Visit Provider Internal Medicine
DX: I10 Essential (primary) hypertension (principal); E11.9 Type 2 diabetes mellitus without complications
CPT/HCPCS: 36415; 80053; 80061

== ENCOUNTER → 2021-08-30 09:16 | Outpatient (CLI) | payer MEDICARE, SELFPAY ==
[2021-08-30 12:18] LABS: Anion Gap 9 (5-15); BUN 32 mg/dL (7-18); BUN/Creat Ratio 25.4 RATIO (10-20); Chloride 106 mmol/L (98-107); Cholesterol 218 mg/dL (200); Creatinine, Serum 1.26 mg/dL (0.55-1.02); EST Glomerular Filtration Rate 44 mL/min (>60); Est Glom Filt Rate - Afr Amer 53 mL/min (>60); Glucose 156 mg/dL (74-106); High Density Lipoprotein 44 mg/dL; Potassium 4.4 mmol/L (3.5-5.1); Sodium Level 140 mmol/L (136-145); Triglycerides 122 mg/dL; Very Low Density Lipoprotein 24 mg/dL (5-40)
[2021-08-30 12:22] LABS: Hemoglobin A1c 6.5 % (3.8-5.6)
[2021-08-30 12:26] LABS: Microalbumin,Random Urine 16.5 mg/L (NO RANGE EST.); Microalbumin:Creatinine Ratio 15.3 mg/g CRE (<30 mg/g CRE)
[2021-08-30 13:25] LABS: PTHIN 100.1 pg/mL (18.4-80.1)
== END ==
PROVIDERS: PCP Internal Medicine; Visit Provider Internal Medicine
DX: I10 Essential (primary) hypertension (principal); E11.9 Type 2 diabetes mellitus without complications
CPT/HCPCS: 36415; 80048; 80061; 82043; 82570; 83036; 83970

== ENCOUNTER → 2021-09-01 09:53 | Outpatient (CLI) | payer MEDICARE, SELFPAY ==
[2021-04-17 10:54] VITALS: BMI 31.3
--- NOTE | 2021-09-01 09:58 | BI_ITS ---
MAMMOGRAPHY - BILATERAL SCREENING REASON FOR EXAM: Female, 76 years old. Routine annual screening examination. PERTINENT HISTORY: Non-contributory. TECHNIQUE: Digital bilateral breast cristóbal (3D mammographic acquisition) in the CC and MLO projections. 2-D mediolateral oblique (MLO) and craniocaudad (CC) views of both breasts were obtained. CAD: Full Field Digital Mammography with Computer Added Detection was performed. COMPARISON: Comparison is made with prior outside examination dated 07/01/2020. FINDINGS: Breast Composition: The breasts are heterogeneously dense, which may obscure small masses. There are no dominant masses or suspicious calcifications. No other significant abnormalities are identified. There has been no significant change since the prior study. BI/SCRN MAMM (CAD)W/CRISTÓBAL BILAT IMPRESSION: Stable bilateral screening mammogram. Yearly follow-up mammogram recommended. (A) ASSESSMENT CATEGORY: BIRADS Category 1: Negative. A letter regarding these results will be sent to the patient by the facility within 30 days. Approximately 10% of breast cancers are not detected by mammography. A normal mammogram should not delay biopsy of a clinically suspicious abnormality. [id number] Electronically Signed: Aureliano Scott MD at 14:50 EST , Service support ,
== END ==
PROVIDERS: PCP Internal Medicine; Referring Provider Internal Medicine; Visit Provider Internal Medicine
DX: Z12.31 Encounter for screening mammogram for malignant neoplasm of breast (principal)
CPT/HCPCS: 77063; 77067

== ENCOUNTER 2022-01-17 09:57 | Outpatient (CLI) | payer MEDICARE, SELFPAY ==
--- NOTE | 2022-01-17 09:58 | US_ITS ---
STUDY: THYROID ULTRASOUND REASON FOR EXAM: Female, 76 years old. Hyperparathyroidism -- attn parathyroid also pls TECHNIQUE: Ultrasound evaluation of the thyroid was performed with real-time and static zhu-scale imaging. COMPARISON: None. FINDINGS: RIGHT LOBE: The right lobe of the thyroid gland is enlarged and measures 5.8 cm x 2.7 cm x 2.6 cm. There is a heterogeneous echotexture. There is a 4 mm x 4 mm x 4 mm hypoechoic nodule with thick calcification in the midpole. There is a 5 mm x 5 mm x 3 mm cyst in the right lobe as well as a 6 mm x 4 mm x 4 mm heterogeneous nodule in the lower pole. LEFT LOBE: The left lobe of the thyroid gland is enlarged and measures 6.2 cm x 1.9 cm x 2.5 cm. There is a homogeneous echotexture. There is a solid heterogeneous nodule measuring 1.97 x 2 side of by 1.5 cm in the upper pole. A similar appearing nodule measuring 1.4 cm x 1.1 cm x 0.9 cm is seen in the upper pole. ISTHMUS: The isthmus measures 4 mm. The parathyroid glands were not visualized. The regional lymph nodes are normal. US/Thyroid IMPRESSION: Enlargement of the left lobe of the thyroid with 2 dominant solid nodules as described. Biopsy recommended. Electronically Signed: Aureliano Scott MD at 13:09 EDT ,
== END 2022-01-17 23:59 | disposition home or self-care (01) ==
PROVIDERS: PCP Internal Medicine; Visit Provider Surgery
DX: E21.3 Hyperparathyroidism, unspecified (principal); E83.52 Hypercalcemia
CPT/HCPCS: 76536

== ENCOUNTER 2022-01-22 14:52 | Outpatient (CLI) | payer MEDICARE, SELFPAY ==
[2022-01-22 16:47] LABS: Vitamin D,25 Hydroxy 53.5 ng/mL
[2022-01-22 16:48] LABS: Free T3 2.2 pg/mL (2.18-3.98); T4 Total, Thyroxin 8.2 ug/dL (4.8-13.9); Thyroid Stim Hormone (TSH) 0.54 uIU/mL (0.358-3.74)
[2022-01-23 09:03] LABS: PTHIN 64.3 pg/mL (18.4-80.1)
== END 2022-01-22 23:59 | disposition home or self-care (01) ==
LOC: BIMLAB 14:55
PROVIDERS: PCP Internal Medicine; Referring Provider Surgery; Visit Provider Surgery
DX: E21.3 Hyperparathyroidism, unspecified (principal); E83.52 Hypercalcemia
CPT/HCPCS: 36415; 82306; 82310; 83970; 84436; 84443; 84481

== ENCOUNTER → 2022-02-15 | Outpatient (CLI) | payer MEDICARE, SELFPAY ==
[2022-02-15 10:29] VITALS: BP 137/72; PULSE 68; RESP 16; TEMP 36.4; O2SAT 97; BMI 29.2
[2022-02-15] MEDS: 0.9% NaCl Peripheral Flush Adult/Peds IV (10:40)
[2022-02-15] MEDS: Zoledronic Acid 5 MG 100 ML 300 MG IV (10:40)
[2022-02-15 11:16] VITALS: BP 137/69; PULSE 66; RESP 16; TEMP 36.3; O2SAT 97
[2022-02-15 12:40] LABS: Cholesterol 213 mg/dL (200); High Density Lipoprotein 34 mg/dL; Triglycerides 326 mg/dL; Very Low Density Lipoprotein 65 mg/dL (5-40)
== END | disposition home or self-care (01) ==
PROVIDERS: PCP Internal Medicine; Referring Provider Internal Medicine Endocrinology, Diabetes & Metabolism; Visit Provider Internal Medicine Endocrinology, Diabetes & Metabolism
DX: M85.80 Other specified disorders of bone density and structure, unspecified site (principal); E11.69 Type 2 diabetes mellitus with other specified complication
CPT/HCPCS: 96365; 36415; 80061; A4216; J3489

== ENCOUNTER 2022-04-11 18:57 | Emergency (ER) | payer MEDICARE, SELFPAY ==
[2022-04-11 19:01] VITALS: BP 161/84; PULSE 72; RESP 16; TEMP 36.2; O2SAT 96; BMI 29.0
--- NOTE | 2022-04-11 19:13 | CT_ITS ---
STUDY: CT BRAIN WITHOUT CONTRAST REASON FOR EXAM: Female, 76 years old. HEADACHE fall Technologist Notes Fell, hit head, on blood thinners. TECHNIQUE: Transaxial CT imaging of the brain was performed without administration of intravenous contrast material. Individualized dose optimization techniques were used for this CT. COMPARISON: None FINDINGS: Normal calvarium. Normal soft tissues. Normal size ventricles and extra-axial spaces for the patient''s age. There are areas of decreased attenuation within the white matter tracts of the supratentorial brain, consistent with microvascular disease changes. Normal basal ganglia and thalami. Normal brainstem. Normal cerebellum. There is no intracranial hemorrhage. There are no findings of an acute ischemic infarction. There are calcifications noted in the distal vertebral arteries. There are calcifications noted in the cavernous carotid arteries. This is consistent for atherosclerotic disease. Normal visualized paranasal sinuses. ASPECTS 10 CT/Brain/Head without Contrast IMPRESSION: There are no acute intracranial findings. Electronically Signed: Guanaco Marin MD at 19:55 EDT ,
--- NOTE | 2022-04-11 19:15 | EDS_ITS ---
HPI History of Present Illness Chief Complaint: Fall Informant: patient Onset/Context/Timing Onset: Today Location of pain/injuries: Left knee Quality of Pain: Aching and Throbbing Current Severity: Mild Maximum Severity: Moderate Worsened by: Movement Narrative Narrative: Patient presents after fall. Patient states that she and her were walking down the street and she slipped in mud. Her left leg went behind her. She did strike her head but denies loss of consciousness. She is complaining of left knee pain. She has not been able to bear weight. 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 [facility] Medical History Cholecystitis, acute with cholelithiasis Diabetes Flu vaccine need GERD (gastroesophageal reflux disease) Health care maintenance Hoarseness Hypercalcemia Hyperlipidemia Hyperparathyroidism Osteopenia determined by x-ray Other and unspecified hyperlipidemia Home Medications aspirin 81 mg chewable tablet 81 mg PO DAILY@0800 heart [facility] 07/12/19 [History Last Taken 07/10/19] acetaminophen 325 mg tablet 650 mg PO Q6H PRN PRN Pain Score 1-07/1607/14/19 [Rx Last Taken Unknown] amlodipine 5 mg tablet 5 mg PO DAILY #90 tabs 06/22/21 [Rx Last Taken Unknown] benazepril 20 mg tablet 20 mg PO DAILY #90 tabs 06/22/21 [Rx Last Taken Unknown] gemfibrozil 600 mg tablet 600 mg PO BID #120 tabs 09/25/21 [Rx Last Taken Unknown] metformin 500 mg tablet 1,000 mg PO BID diabetes 3 months #360 tabs 11/24/21 [Rx Last Taken Unknown] cholecalciferol (vitamin D3) 25 mcg (1,000 unit) capsule 25 mcg PO DAILY 01/22/22 [History Last Taken Unknown] elderberry fruit 200 mg capsule 1,000 mg PO DAILY 01/22/22 [History Last Taken Unknown] flaxseed oil 1,000 mg capsule 1,000 mg PO DAILY 01/22/22 [History Last Taken Unknown] multivitamin 1 tab PO DAILY 01/22/22 [History Last Taken Unknown] zoledronic acid 5 mg/100 mL in mannitol 5 %-water intravenous piggybck 1 ea .Route ONCE #100 mL 01/23/22 [Rx Last Taken Unknown] omeprazole 40 mg capsule,delayed release 40 mg PO DAILY #60 caps 01/24/22 [Rx Last Taken Unknown] carvedilol 12.5 mg tablet 12.5 mg PO BID blood pressure #180 tabs 04/06/22 [Rx Last Taken Unknown] Allergy/AdvReac Type Severity Reaction Status Date / Time adhesive tape AdvReac Other Verified 04/11/22 19:00 amoxicillin trihydrate AdvReac Upset Verified 04/11/22 19:00 [From Augmentin] Stomach potassium clavulanate AdvReac Upset Verified 04/11/22 19:00 [From Augmentin] Stomach Family History Mother Cancer Thyroid disorder Sister Cancer Surgical History History of section Hx of cholecystectomy Total knee replacement status Total knee replacement status Social History Smoking Status: Never smoker alcohol intake: never substance use type: does not use ROS ROS ED Constitutional Constitutional ED: Denies chills or fever(s) Eyes Eyes: Denies change in vision or discharge from eye(s) ENT ENT ED: Denies discharge from eye(s), rhinorrhea or sore throat Cardiovascular Cardiovascular: Denies chest pain or palpitations Respiratory/Chest Respiratory/Chest: Denies cough or dyspnea Gastrointestinal Gastrointestinal: Denies abdominal pain, diarrhea, nausea or vomiting Genitourinary Genitourinary ED: Denies dysuria Musculoskeletal Musculoskeletal: Reports extremity pain; Denies back pain Integumentary Denies Abrasions or rash Neurologic Neurologic: Denies headache(s) or weakness Psychiatric Psychiatric: Denies anxiety or depression Allergic/Immunologic Allergic/Immunologic ED: Denies lip swelling or urticaria EXAM Physical Exam Const Vital Signs: 04/11/22 19:01 04/11/22 19:09 Temperature 97.1 F L Temperature Source Temporal Pulse Rate 72 Respiratory Rate 16 Respiratory Effort Normal Respiratory Depth Normal Respiratory Pattern Normal Blood Pressure 161/84 H Blood Pressure Mean 109 Pulse Ox 96 Oxygen Delivery Method Room Air Room Air Positive well nourished and well developed General Appearance ED: well developed HEENT Reports normocephalic and head/scalp atraumatic Eyes PERRL and EOMs intact bilaterally Neck supple Neck Narrative: No C-spine tenderness. Chest Wall inspection of chest normal and palpation of chest normal Resp normal respiratory effort and clear to auscultation bilaterally Cardio regular rate and regular rhythm GI non-tender Palpation: soft Extremity Extremity Narrative: Mild edema noted to the left knee. No calf tenderness. No tenderness of the left hip. Decreased range of motion secondary to pain. Other extremities unremarkable. Neuro oriented x3 and no sensory deficits noted Sensorium / Orientation: alert Psych mental status grossly normal Skin no rashes or lesions noted MDM MDM MDM Narrative Medical decision making narrative: Head CT obtained along with left knee x-rays. Patient given Tylenol. Ice packs applied to the left knee. Radiography Diagnostic Testing: Clinical Impression(s) from Imaging Studies Brain CT 04/11/22 19:13 IMPRESSION: There are no acute intracranial findings. Electronically Signed: Guanaco Marin MD at 19:55 EDT , Knee X-Ray 04/11/22 19:31 IMPRESSION: Effusion, as described above. Electronically Signed: Guanaco Marin MD at 19:51 EDT , Treatment and Re-Evaluation Narrative: Left knee x-rays per my interpretation reveal no acute hardware or bony injury. Radiology interpretation is reviewed. Head CT is unremarkable. Test results discussed with patient and at bedside. She will be placed in an Jaciel wrap and has a walker at home to use. She will be given information for [place] orthopedic follow-up as needed. Discharge Plan Triage Chief Complaint: Fall ED Provider: Eliana Melendez Dx/Rx/DC Orders Clinical Impression: Left knee sprain, Fall, Contusion of head Instructions: ED Mechanical Fall, ED Head Injury (Adult), ED Knee Sprain Prescriptions: No Action amlodipine 5 mg tablet 5 mg PO DAILY Qty: 90 3RF benazepril 20 mg tablet 20 mg PO DAILY Qty: 90 3RF omeprazole 40 mg capsule,delayed release(DR/EC) 40 mg PO DAILY Qty: 60 2RF zoledronic [id number] 5 mg/100 mL piggyback 1 ea .Route ONCE Qty: 100 0RF Rx Instructions: infuse over 20 minutes cholecalciferol (vitamin D3) 25 mcg (1,000 unit) capsule 25 mcg PO DAILY multivitamin Tablet 1 tab PO DAILY flaxseed oil 1,000 mg capsule 1,000 mg PO DAILY Rx Instructions: administer with a meal elderberry fruit 200 mg capsule 1,000 mg PO DAILY aspirin 81 MG tablet,chewable 81 mg PO DAILY@0800 acetaminophen 325 MG tablet 650 mg PO Q6H PRN PRN (Reason: Pain Score 1-10/10) 0RF gemfibrozil 600 mg tablet 600 mg PO BID Qty: 120 1RF Label Comments: pt not currently taking metformin 500 mg tablet 1,000 mg PO BID 90 Days Qty: 360 2RF carvedilol 12.5 mg tablet 12.5 mg PO BID Qty: 180 2RF Primary Care Provider: Robby Riddle Referrals: Robby Riddle MD [Primary Care Provider] - Rashaad Martinez DO [STAFF PHYSICIAN] - As Needed Disposition Disposition: Home, Self Care
--- NOTE | 2022-04-11 19:31 | RAD_ITS ---
STUDY: XR Knee Complete 4 Views or More 04/11/2022 7:49 PM REASON FOR EXAM: Female, 76 years old. injury pain TECHNIQUE: XR Knee Complete 4 Views or More LEFT COMPARISON: None FINDINGS: Total knee arthroplasty. Normal visualized proximal tibia and fibula. Normal proximal tibiofibular articulation. There are atherosclerotic vascular calcifications. Normal medial femorotibial compartment. Normal lateral femorotibial compartment. Normal patellofemoral articulation. There is a soft tissue prominence in the suprapatellar region suggesting a small volume joint effusion. The soft tissue structures are unremarkable. RAD/Knee 4 or More Views IMPRESSION: Effusion, as described above. Electronically Signed: Guanaco Marin MD at 19:51 EDT ,
[2022-04-11] MEDS: Acetaminophen 500 MG Tablet 1000 MG PO (20:01)
[2022-04-11 21:00] VITALS: BP 132/78; PULSE 66; RESP 14; TEMP 37.1; O2SAT 100
== END 2022-04-11 21:17 | disposition home or self-care (01) ==
PROVIDERS: Emergency Provider Emergency Medicine; PCP Internal Medicine; Visit Provider Emergency Medicine
DX: S83.92XA Sprain of unspecified site of left knee, initial encounter (principal); S00.93XA Contusion of unspecified part of head, initial encounter; W19.XXXA Unspecified fall, initial encounter
CPT/HCPCS: 70450; 73564; 99283

== ENCOUNTER → 2022-05-09 | Outpatient (CLI) | payer MEDICARE, SELFPAY ==
[2022-05-09 12:07] LABS: Absolute Lymphocyte Count 1.09 X10^3/uL (0.83-4.51); Absolute Neutrophil Count 3.6 X10^3/uL (2.0-7.7); Basophil# 0.04 X10^3/uL; Basophil% 0.7 % (0-1); Eosinophil# 0.33 X10^3/uL; Eosinophils% 5.9 % (0-5); Hematocrit 38.4 % (37-47); Hemoglobin 12.5 g/dL (12.0-15.0); Lymphocyte # 1.09 X10^3/ul (0.83-4.51); Lymphocyte % 19.6 % (19-41); Mean Corp Hgb Conc 32.6 g/dL (32-36); Mean Corpuscular Hgb 29.2 pg (27.0-32.0); Mean Corpuscular Volume 89.7 fL (81-99); Mean Platelet Vol. 10.3 fl (6.2-12.0); Monocyte# 0.51 X10^3/uL; Monocyte% 9.2 % (0-10); NRBC Flagged by Analyzer 0 % (0-5); Neutrophil # 3.57 X10^3/uL (2.7-7.7); Neutrophil % 64.4 % (47-70); Platelet Count 156 K/mm3 (150-450); RBC Distribution Width CV 13.3 % (11.6-14.6); RBC Distribution Width SD 43.4 fl (35.1-43.9); Red Blood Count 4.28 M/mm3 (4.2-5.4); White Blood Count 5.6 K/mm3 (4.4-11.0)
[2022-05-09 12:26] LABS: ALB/GLOB Ratio 1.3 RATIO (0.9-2.4); AST(SGOT) 19 U/L (15-37); Alanine Aminotransfer ALT/SGPT 33 U/L (13-56); Albumin, Serum 3.8 g/dL (3.2-5.0); Alkaline Phosphatase 69 U/L (45-117); Anion Gap 6 (5-15); BUN 19 mg/dL (7-18); Calcium,Total 10.1 mg/dL (8.5-10.1); Chloride 105 mmol/L (98-107); Creatinine, Serum 1.12 mg/dL (0.55-1.02); EST Glomerular Filtration Rate 50 mL/min (>60); Est Glom Filt Rate - Afr Amer 61 mL/min (>60); Glucose 140 mg/dL (74-106); Potassium 4.5 mmol/L (3.5-5.1); Protein, Total 6.8 g/dL (6.4-8.2); Sodium Level 137 mmol/L (136-145)
[2022-05-09 12:33] LABS: PTHIN 76.8 pg/mL (18.4-80.1)
== END | disposition home or self-care (01) ==
LOC: BIMLAB 08:26
PROVIDERS: PCP Internal Medicine; Visit Provider Internal Medicine
DX: K80.00 Calculus of gallbladder with acute cholecystitis without obstruction (principal); E11.9 Type 2 diabetes mellitus without complications; E83.52 Hypercalcemia
CPT/HCPCS: 36415; 80053; 83970; 85025

== ENCOUNTER → 2022-10-12 | Outpatient (CLI) | payer MEDICARE, SELFPAY ==
--- NOTE | 2022-10-12 10:05 | BI_ITS ---
MAMMOGRAPHY - BILATERAL SCREENING REASON FOR EXAM: Female, 77 years old. Routine annual screening examination. PERTINENT HISTORY: Non-contributory. TECHNIQUE: Digital bilateral breast cristóbal (3D mammographic acquisition) in the CC and MLO projections. 2-D mediolateral oblique (MLO) and craniocaudad (CC) views of both breasts were obtained. CAD: Full Field Digital Mammography with Computer Added Detection was performed. COMPARISON: Comparison is made with prior examination dated 09/01/2021. FINDINGS: Breast Composition: The breasts are heterogeneously dense, which may obscure small masses. There are no dominant masses or suspicious calcifications. No other significant abnormalities are identified. There has been no significant change since the prior study. BI/SCRN MAMM (CAD)W/CRISTÓBAL BILAT IMPRESSION: Stable bilateral screening mammogram. Yearly follow-up mammogram recommended. (A) ASSESSMENT CATEGORY: BIRADS Category 1: Negative. A letter regarding these results will be sent to the patient by the facility within 30 days. Approximately 10% of breast cancers are not detected by mammography. A normal mammogram should not delay biopsy of a clinically suspicious abnormality. [id number] Electronically Signed: Aureliano Scott MD at 12:06 EST ,
== END | disposition home or self-care (01) ==
LOC: OPBI 10:03
PROVIDERS: PCP Internal Medicine; Visit Provider Obstetrics & Gynecology
DX: Z12.31 Encounter for screening mammogram for malignant neoplasm of breast (principal)
CPT/HCPCS: 77063; 77067

== ENCOUNTER → 2022-10-31 | Outpatient (CLI) | payer MEDICARE, SELFPAY ==
[2022-10-31 12:16] LABS: Absolute Lymphocyte Count 0.76 X10^3/uL (0.83-4.51); Absolute Neutrophil Count 5.8 X10^3/uL (2.0-7.7); Basophil# 0.05 X10^3/uL; Basophil% 0.7 % (0-1); Eosinophil# 0.37 X10^3/uL; Eosinophils% 4.9 % (0-5); Hematocrit 41.9 % (37-47); Hemoglobin 13.6 g/dL (12.0-15.0); Lymphocyte # 0.76 X10^3/ul (0.83-4.51); Lymphocyte % 10.1 % (19-41); Mean Corp Hgb Conc 32.5 g/dL (32-36); Mean Corpuscular Hgb 28.2 pg (27.0-32.0); Mean Corpuscular Volume 86.7 fL (81-99); Mean Platelet Vol. 9.9 fl (6.2-12.0); Monocyte# 0.51 X10^3/uL; Monocyte% 6.7 % (0-10); NRBC Flagged by Analyzer 0 % (0-5); Neutrophil # 5.82 X10^3/uL (2.7-7.7); Neutrophil % 76.9 % (47-70); Platelet Count 197 K/mm3 (150-450); RBC Distribution Width SD 40.2 fl (35.1-43.9); Red Blood Count 4.83 M/mm3 (4.2-5.4); White Blood Count 7.6 K/mm3 (4.4-11.0)
[2022-10-31 12:42] LABS: ALB/GLOB Ratio 1.2 RATIO (0.9-2.4); AST(SGOT) 25 U/L (15-37); Alanine Aminotransfer ALT/SGPT 42 U/L (13-56); Albumin, Serum 3.8 g/dL (3.2-5.0); Alkaline Phosphatase 66 U/L (45-117); Anion Gap 7 (5-15); BUN 18 mg/dL (7-18); BUN/Creat Ratio 15.5 RATIO (10-20); Calcium,Total 10.3 mg/dL (8.5-10.1); Chloride 107 mmol/L (98-107); Creatinine, Serum 1.16 mg/dL (0.55-1.02); EST Glomerular Filtration Rate 48 mL/min (>60); Est Glom Filt Rate - Afr Amer 59 mL/min (>60); Ferritin 210 ng/mL (8-252); Globulin 3.2 g/dL (2.2-4.2); Glucose 233 mg/dL (74-106); Iron 93 ug/dL (50-170); Iron Binding Capacity,Total 269 ug/dL (250-450); Potassium 4.3 mmol/L (3.5-5.1); Sodium Level 138 mmol/L (136-145); Thyroid Stim Hormone (TSH) 0.77 uIU/mL (0.358-3.74)
== END | disposition home or self-care (01) ==
LOC: BIMLAB 09:48
PROVIDERS: PCP Internal Medicine; Referring Provider Internal Medicine; Visit Provider Internal Medicine
DX: K80.00 Calculus of gallbladder with acute cholecystitis without obstruction (principal); E21.3 Hyperparathyroidism, unspecified; E11.9 Type 2 diabetes mellitus without complications; L65.9 Nonscarring hair loss, unspecified
CPT/HCPCS: 36415; 80053; 82728; 83540; 83550; 84439; 84443; 85025

== ENCOUNTER → 2023-01-23 | Outpatient (CLI) | payer MEDICARE, SELFPAY ==
--- NOTE | 2023-01-23 12:04 | US_ITS ---
STUDY: THYROID ULTRASOUND REASON FOR EXAM: Female, 77 years old. Compare 2021, TIRADS please -- f/u nodules TECHNIQUE: Ultrasound evaluation of the thyroid was performed with real-time and static zhu-scale imaging. COMPARISON: Thyroid ultrasound 01/17/2022. FINDINGS: RIGHT LOBE: The right lobe of the thyroid gland measures 5.7 x 2.9 x 2.4 cm. There is a homogeneous echotexture. There are multiple thyroid nodules. Nodule 1 located in the upper pole measures 0.7 x 0.7 x 0.5 cm and is solid. Nodule 2 located in the mid thyroid lobe measures 0.8 x 0.6 x 0.4 cm. Nodule 3:00 in the lower thyroid lobe is calcified nodule measuring 0.4 x 0.4 x 0.4 cm. Nodule 4 located in the lower thyroid lobe is cystic measuring 0.6 x 0.6 x 0.3 cm. LEFT LOBE: The left lobe of the thyroid gland measures 6.0 x 2.9 x 2.4 cm. There is a homogeneous echotexture. There are multiple thyroid nodules. Nodule 1 located in the upper pole measures 1.4 x 1.5 x 1.0 cm. This is solid nodule. Nodule 2 located in the lower pole measures 2.8 x 2.6 x 1.8 cm. This is solid and vascular nodule. Nodule 3 located in the upper pole is cyst measuring 0.4 x 0.4 x 0.3 cm. ISTHMUS: The isthmus measures 5 mm. US/Thyroid IMPRESSION: 1. Right upper thyroid solid nodule 1 measures 0.7 x 0.7 x 0.5 cm, previously 0.6 x 0.4 x 0.4 cm. This nodule is solid or almost completely solid, hyperechoic or isoechoic, [id number], smoothly marginated and contains no echogenic foci. This nodule is mildly suspicious but no FNA or follow-up is necessary given the small size of this nodule. 2. Right mid thyroid lobe solid nodule 2 measures 0.8 x 0.6 x 0.4 cm. This was not mentioned but reported previously. This is most likely technique related due to small size. This nodule is solid or almost completely solid, hypoechoic, [id number], smoothly marginated and contains no echogenic foci. This nodule is moderately suspicious but no FNA or follow-up is necessary given the small size of this nodule. 3. Right lower thyroid lobe nodule 3 is calcified nodule measuring 0.4 x 0.4 x 0.4 cm. The calcifications obscure most of the thyroid nodule. This is unchanged. This nodule is of uncertain composition due to calcification, is of indeterminate echogenicity, [id number], margins cannot be determined, contains microcalcifications and is peripherally calcified. This nodule is moderately suspicious but no FNA or follow-up is necessary given the small size of this nodule. 4. Right lower nodule 4 is cystic measuring 0.6 x 0.6 x 0.3 cm, previously 0.5 x 0.5 x 0.3 cm. Considering multi purpose machine operator dependency, this is most likely unchanged. This nodule is cystic or nearly completely cystic. This nodule is benign and no FNA or follow-up is necessary. 5. Left upper thyroid solid nodule 1 measures 1.4 x 1.5 x 1.0 cm, previously 1.4 x 1.1 x 0.9 cm. There is slight increase in size but this is multi purpose machine operator dependent. This nodule is solid or almost completely solid, hyperechoic or isoechoic, [id number], smoothly marginated and contains no echogenic foci. This nodule is mildly suspicious but no FNA or follow-up is necessary given the small size of this nodule. 6. Left lower thyroid solid nodule 2 measures 2.8 x 2.6 x 1.8 cm, previously 1.9 x 2.0 x 1.5 cm. This has increased in size. This nodule is solid or almost completely solid, hyperechoic or isoechoic, [id number], smoothly marginated and contains no echogenic foci. This nodule is mildly suspicious. Recommend FNA evaluation. 7. Left upper thyroid lobe nodule 3 cystic measuring 0.4 x 0.4 x 0.3 cm. This was not found report described previously. This is most likely multi purpose machine operator dependent rather than de emerita cyst. This nodule is cystic or nearly completely cystic. This nodule is benign and no FNA or follow-up is necessary. Electronically Signed: Thomas Chaudhry MD at 10:30 EDT ,
== END | disposition home or self-care (01) ==
PROVIDERS: PCP Internal Medicine; Referring Provider Internal Medicine Endocrinology, Diabetes & Metabolism; Visit Provider Internal Medicine Endocrinology, Diabetes & Metabolism
DX: E04.2 Nontoxic multinodular goiter (principal)
CPT/HCPCS: 76536

== ENCOUNTER → 2023-02-01 | Outpatient (CLI) | payer MEDICARE, SELFPAY ==
--- NOTE | 2023-02-01 11:28 | RAD_ITS ---
EXAM: XR RIGHT HIP WITH PELVIS WHEN PERFORMED, 2 OR 3 VIEWS CLINICAL INDICATION: Right Hip Pain TECHNIQUE: Two or three views of the right hip with pelvis when performed. COMPARISON: No relevant prior studies available. FINDINGS: BONES/JOINTS: Unremarkable. No displaced fracture. No destructive or sclerotic lesions. Note that overlapping bowel shadows may however obscure fine detail. Sacroiliac joint is unremarkable. No widening of the pubic symphysis. The articular structures are unremarkable. SOFT TISSUES: Unremarkable. No soft tissue swelling or gas. RAD/HIP, UNI W/ Pelvis 2-3 Views IMPRESSION: No evidence of displaced pelvic or hip fracture. Electronically Signed: Alexandru Espinoza MD at 0:02 EDT ,
--- NOTE | 2023-02-01 11:28 | RAD_ITS ---
HISTORY: Low back pain. TECHNIQUE: XR Spine Lumbar Min 4 Views. COMPARISON: CT 07/12/2019. FINDINGS: VERTEBRAE: Vertebral body heights preserved. Degenerative changes of the posterior elements. Bridging osteophyte of L3-4. ALIGNMENT: No significant anterior or posterior subluxation. Mild levoscoliosis. INTERVERTEBRAL DISCS: Moderate intervertebral disc space narrowing with endplate change and anterior osteophytes of L1-2, L2-3, and L3-4. RAD/L/S Spine Min 4 Views IMPRESSION: No acute fracture or dislocation identified in the lumbar spine. Moderate multilevel degenerative change. Mild scoliosis. Electronically Signed: Ammy Bowman MD at 10:40 EDT ,
== END | disposition home or self-care (01) ==
LOC: RAD 11:26
PROVIDERS: PCP Internal Medicine; Referring Provider Internal Medicine; Visit Provider Internal Medicine
DX: M25.551 Pain in right hip (principal); M54.50 Low back pain, unspecified
CPT/HCPCS: 72110; 73502

== ENCOUNTER → 2023-02-15 | Outpatient (CLI) | payer MEDICARE, SELFPAY ==
--- NOTE | 2023-02-15 10:15 | FLU_PTH ---
PATIENT: MABEL RAZA LOC: [facility] U#:[id number] AGE/SX: 77/F ROOM: RE02/15/[address]: Dr. Aquiles Marin MD : 1945 BED: DIS: 02/15/2023 SPEC #: [id number] RECD: 02/15/23 11:36 STATUS: PARVEEN GOLDEN #: [id number] DEMETRIUS: 02/15/23 10:[address]: Aquiles Marin DEPT: CYTOLOGY RECD BY: Theresa Mishra ENTERED: 02/15/23 13:16 SP TYPE: Fluid OTHR DR: Dr. Robby Riddle MD Tissues: A - Thyroid gland, NOS B - Thyroid gland, NOS C - Thyroid gland, NOS D - Thyroid gland, NOS Procedures: Special Stain Group II Surgery Specimen Level IV Cytospin Fluid Cytology Other HEADER OPERATION: Left thyroid nodule fine needle aspiration x2 PRE-OP DIAGNOSIS: Thyroid nodules TISSUE SUBMITTED: A - Left thyroid nodule mid fluid, B - Left thyroid nodule mid x4 slides, C - Left thyroid nodule inferior fluid, D - Left thyroid nodule inferior x4 slides DIAGNOSIS CYTOLOGY A. Left thyroid nodule mid fluid, fine needle aspiration (cytospin and cell block): Consistent with benign follicular/colloid nodule ([place] Category II). Adequate for evaluation. See comment. B. Left thyroid nodule mid, fine needle aspiration (smears): Consistent with benign follicular/colloid nodule ([place] Category II). Adequate for evaluation. See comment. C. Left thyroid nodule inferior fluid, fine needle aspiration (cytospin and cell block): Consistent with benign follicular/colloid nodule ([place] Category II). Adequate for evaluation. See comment. D. Left thyroid nodule inferior, fine needle aspiration (smears): Consistent with benign follicular/colloid nodule ([place] Category II). Adequate for evaluation. See comment. SJ:rg 02/18/2023 COMMENT A-D. Correlation with clinical, radiologic findings and appropriate follow up are necessary. The [place] System for thyroid diagnostic categorization was used in the evaluation of this case. CYTOLOGY STUDY Slides are reviewed. CYTOLOGY GROSS A - Received is 20 ml of red cloudy fluid labeled with the patient's name and and designated per the requisition as left thyroid nodule mid. Submitted for cytology preparation including cell block. B - Received are four smears labeled with the patient's name and designated per the requisition as left thyroid nodule mid. Submitted for staining. C - Received is 20 ml of red cloudy fluid labeled with the patient's name and and designated per the requisition as left thyroid nodule inferior. Submitted for cytology preparation including cell block. D - Received are four smears labeled with the patient's name and designated per the requisition as left thyroid nodule inferior. Submitted for staining. / neha 02/15/2023 TC:5 CPT: 24405 x4, 06836 x2
== END | disposition home or self-care (01) ==
LOC: LABSPEC 12:20
PROVIDERS: PCP Internal Medicine; Referring Provider Surgery; Visit Provider Surgery
DX: E04.1 Nontoxic single thyroid nodule (principal)
CPT/HCPCS: 88108; 88161; 88305; 88313

== ENCOUNTER → 2023-02-18 | Outpatient (CLI) | payer MEDICARE, SELFPAY ==
[2023-02-18 13:09] LABS: Cholesterol 216 mg/dL (200); High Density Lipoprotein 34 mg/dL; Triglycerides 417 mg/dL
[2023-02-18 13:16] LABS: PTHIN 72.1 pg/mL (18.4-80.1)
[2023-02-18 13:18] LABS: Vitamin D,25 Hydroxy 87.3 ng/mL
[2023-02-18 14:25] LABS: ALB/GLOB Ratio 1.3 RATIO (0.9-2.4); AST(SGOT) 20 U/L (15-37); Alanine Aminotransfer ALT/SGPT 33 U/L (13-56); Albumin, Serum 3.7 g/dL (3.2-5.0); Alkaline Phosphatase 64 U/L (45-117); Anion Gap 9 (5-15); BUN 23 mg/dL (7-18); BUN/Creat Ratio 21.5 RATIO (10-20); Calcium,Total 10.6 mg/dL (8.5-10.1); Chloride 108 mmol/L (98-107); Creatinine, Serum 1.07 mg/dL (0.55-1.02); EST Glomerular Filtration Rate 53 mL/min (>60); Est Glom Filt Rate - Afr Amer 64 mL/min (>60); Globulin 2.9 g/dL (2.2-4.2); Glucose 171 mg/dL (74-106); Potassium 4.1 mmol/L (3.5-5.1); Protein, Total 6.6 g/dL (6.4-8.2); Sodium Level 141 mmol/L (136-145)
== END | disposition home or self-care (01) ==
LOC: BIMLAB 09:09
PROVIDERS: PCP Internal Medicine; Visit Provider Internal Medicine Endocrinology, Diabetes & Metabolism
DX: E21.3 Hyperparathyroidism, unspecified (principal); E11.69 Type 2 diabetes mellitus with other specified complication; E55.9 Vitamin D deficiency, unspecified
CPT/HCPCS: 36415; 80053; 80061; 82306; 83970

== ENCOUNTER 2023-02-25 08:20 | Outpatient (CLI) | payer MEDICARE, SELFPAY ==
[2023-02-25 08:35] VITALS: BP 128/71; PULSE 79; RESP 16; TEMP 36.2; O2SAT 95; BMI 29.7
[2023-02-25] MEDS: 0.9% NaCl Peripheral Flush Adult/Peds IV (08:52)
[2023-02-25] MEDS: Zoledronic Acid 5 MG 100 ML 300 MG IV (08:52)
[2023-02-25 09:21] VITALS: BP 128/70; PULSE 73; RESP 16; TEMP 36.4; O2SAT 96
== END 2023-02-25 08:21 | disposition home or self-care (01) ==
LOC: MEDOUTP 08:21
PROVIDERS: PCP Internal Medicine; Referring Provider Internal Medicine Endocrinology, Diabetes & Metabolism; Visit Provider Internal Medicine Endocrinology, Diabetes & Metabolism
DX: M85.80 Other specified disorders of bone density and structure, unspecified site (principal)
CPT/HCPCS: 96365; A4216; J3489

== ENCOUNTER → 2023-03-08 | Outpatient (CLI) | payer MEDICARE, SELFPAY ==
--- NOTE | 2023-03-08 09:59 | NM_ITS ---
CLINICAL: 77-year-old female with history of thyroid nodularity. 99m Tc SESTAMIBI DUAL PHASE PLANAR and SPECT-CT PARATHYROID SCINTIGRAPHY COMPARISON: Thyroid ultrasound report 01/23/2023 FINDINGS: Following the intravenous administration of 26.0 mCi of 99m Tc sestamibi, planar image acquisitions of the anterior neck at approximately 15 minutes and 2.0 hours post radiopharmaceutical provision and SPECT reconstructions obtained at 2 hours reveal: 1. Immediate static blood pool acquisitions demonstrate distribution of the radiopharmaceutical in the right height and left lobes of a U-shaped thyroid gland. 2. Delayed planar images depict incomplete washout symmetrically apparent in the right and left thyroid colloid. Emission computed tomographic reconstructions of the anterior neck reveal confirmation of the planar projection findings. NM/Parathyroid SPECT w/ CONCUR CT IMPRESSION: 1. NEGATIVE 99m Tc SESTAMIBI PLANAR-SPECT PARATHYROID IMAGING DUAL PHASE EXAMINATION. 2. Incomplete-delayed washout of the radiopharmaceutical from the entire functioning thyroid colloid may be secondary to multinodular goiter, chronic lymphocytic thyroiditis. (Villavicencio, Radiographics 19: 601, 1999). Electronically Signed: Chip Maldonado, at 7:51 EDT ,
== END | disposition home or self-care (01) ==
PROVIDERS: PCP Internal Medicine; Referring Provider Surgery; Visit Provider Surgery
DX: E04.2 Nontoxic multinodular goiter (principal)
CPT/HCPCS: 78072; A9500

== ENCOUNTER → 2023-04-04 | Outpatient (CLI) | payer MEDICARE, SELFPAY ==
--- NOTE | 2023-04-04 08:00 | RAD_ITS ---
STUDY: X-RAY - ESOPHAGUS (BARIUM SWALLOW) WITH FLUOROSCOPY REASON FOR EXAM: Female, 77 years old. DYSPHAGIA TECHNIQUE: 22 view(s) of the esophagus were obtained following swallowing of barium. FLUOROSCOPY TIME (if supplied): (1 minute and 5 seconds) minutes/seconds. 6.3 mGy COMPARISON: None. FINDINGS: There is no demonstrated esophageal foreign body. There is no demonstrated stricture or mucosal abnormality. Normal gastroesophageal junction, without a demonstrated hiatal hernia. The patient ingested a 12 mm tablet of barium without any difficulty. There is atherosclerotic tortuosity of the aortic arch and descending thoracic aorta. Normal visualized pulmonary parenchyma. There are diffuse degenerative changes of the visualized thoracic spine. RAD/Esophagus Dual Contrast IMPRESSION: Normal plain film x-ray examination (barium swallow) of the esophagus. Electronically Signed: Aureliano Scott MD at 13:42 EDT ,
== END | disposition home or self-care (01) ==
LOC: RAD 07:48
PROVIDERS: PCP Internal Medicine; Referring Provider Otolaryngology; Visit Provider Otolaryngology
DX: R13.14 Dysphagia, pharyngoesophageal phase (principal)
CPT/HCPCS: 74221

== ENCOUNTER → 2023-07-12 | Outpatient (CLI) | payer MEDICARE, SELFPAY ==
[2023-07-12 12:14] LABS: Absolute Lymphocyte Count 0.96 X10^3/uL (0.83-4.51); Absolute Neutrophil Count 4.5 X10^3/uL (2.0-7.7); Basophil# 0.05 X10^3/uL; Basophil% 0.8 % (0-1); Eosinophil# 0.33 X10^3/uL; Eosinophils% 5.2 % (0-5); Hemoglobin 13.1 g/dL (12.0-15.0); Lymphocyte # 0.96 X10^3/ul (0.83-4.51); Lymphocyte % 15.2 % (19-41); Mean Corp Hgb Conc 32.8 g/dL (32-36); Mean Corpuscular Volume 88.5 fL (81-99); Mean Platelet Vol. 10.1 fl (6.2-12.0); Monocyte# 0.47 X10^3/uL; Monocyte% 7.4 % (0-10); NRBC Flagged by Analyzer 0 % (0-5); Neutrophil # 4.46 X10^3/uL (2.7-7.7); Neutrophil % 70.8 % (47-70); Platelet Count 166 K/mm3 (150-450); RBC Distribution Width CV 12.9 % (11.6-14.6); RBC Distribution Width SD 41.4 fl (35.1-43.9); Red Blood Count 4.52 M/mm3 (4.2-5.4); White Blood Count 6.3 K/mm3 (4.4-11.0)
[2023-07-12 13:13] LABS: Anion Gap 5 (5-15); BUN 21 mg/dL (7-18); BUN/Creat Ratio 18.1 RATIO (10-20); Chloride 107 mmol/L (98-107); Creatinine, Serum 1.16 mg/dL (0.55-1.02); EST Glomerular Filtration Rate 48 mL/min (>60); Est Glom Filt Rate - Afr Amer 58 mL/min (>60); Glucose 211 mg/dL (74-106); Hemoglobin A1c 7.6 % (3.8-5.6); Potassium 4.2 mmol/L (3.5-5.1); Sodium Level 138 mmol/L (136-145)
== END | disposition home or self-care (01) ==
LOC: BIMLAB 08:36
PROVIDERS: PCP Internal Medicine; Referring Provider Internal Medicine; Visit Provider Internal Medicine
DX: E11.69 Type 2 diabetes mellitus with other specified complication (principal); I10 Essential (primary) hypertension
CPT/HCPCS: 36415; 80048; 83036; 85025

== ENCOUNTER → 2023-12-11 | Outpatient (CLI) | payer MEDICARE, SELFPAY ==
--- NOTE | 2023-12-11 16:04 | BI_ITS ---
MAMMOGRAPHY - BILATERAL SCREENING 3-D TOMOSYNTHESIS REASON FOR EXAM: Female, 78 years old. SCREENING PERTINENT HISTORY: No significant family history. TECHNIQUE: 2-D mammograms and 3-D Tomosynthesis of the breast (s) were performed. CAD was performed. COMPARISON: 10/12/2022 FINDINGS: The breast composition is heterogeneously dense that can obscure small breast masses. Scattered benign calcifications are seen. No dense spiculated masses or suspicious microcalcifications are identified. No architectural distortion is identified. There is no skin thickening or retraction. There has been no significant change since the prior study. BI/SCRN MAMM (CAD)W/CRISTÓBAL BILAT IMPRESSION: No mammographic signs of malignancy. Routine yearly mammograms recommended. ASSESSMENT CATEGORY: BIRADS Category 1: Negative. A letter regarding these results will be sent to the patient by the facility within 30 days. FOLLOW UP RECOMMENDATION: Yearly follow up mammogram recommended. (A) Approximately 10% of breast cancers are not detected by mammography. A normal mammogram should not delay biopsy of a clinically suspicious abnormality. Electronically Signed: Chip Boyd MD at 18:24 EST ,
== END | disposition home or self-care (01) ==
LOC: OPBI 16:03
PROVIDERS: PCP Internal Medicine; Referring Provider Obstetrics & Gynecology; Visit Provider Obstetrics & Gynecology
DX: Z12.31 Encounter for screening mammogram for malignant neoplasm of breast (principal)
CPT/HCPCS: 77063; 77067

== ENCOUNTER → 2024-01-15 | Outpatient (CLI) | payer MEDICARE, SELFPAY ==
[2024-01-15 12:13] LABS: Absolute Lymphocyte Count 1.01 X10^3/uL (0.83-4.51); Absolute Neutrophil Count 3.6 X10^3/uL (2.0-7.7); Basophil# 0.05 X10^3/uL; Basophil% 0.9 % (0-1); Eosinophil# 0.42 X10^3/uL; Eosinophils% 7.4 % (0-5); Hematocrit 41.2 % (37-47); Hemoglobin 13.5 g/dL (12.0-15.0); Lymphocyte # 1.01 X10^3/ul (0.83-4.51); Lymphocyte % 17.8 % (19-41); Mean Corp Hgb Conc 32.8 g/dL (32-36); Mean Corpuscular Hgb 28.4 pg (27.0-32.0); Mean Corpuscular Volume 86.7 fL (81-99); Mean Platelet Vol. 10.2 fl (6.2-12.0); Monocyte# 0.57 X10^3/uL; Monocyte% 10.1 % (0-10); NRBC Flagged by Analyzer 0 % (0-5); Neutrophil % 63.4 % (47-70); Platelet Count 142 K/mm3 (150-450); RBC Distribution Width CV 12.8 % (11.6-14.6); Red Blood Count 4.75 M/mm3 (4.2-5.4); White Blood Count 5.7 K/mm3 (4.4-11.0)
[2024-01-15 12:36] LABS: ALB/GLOB Ratio 1.3 RATIO (0.9-2.4); AST(SGOT) 41 U/L (15-37); Alanine Aminotransfer ALT/SGPT 55 U/L (13-56); Albumin, Serum 3.7 g/dL (3.2-5.0); Alkaline Phosphatase 67 U/L (45-117); Anion Gap 6 (5-15); BUN 18 mg/dL (7-18); BUN/Creat Ratio 16.1 RATIO (10-20); Calcium,Total 10.2 mg/dL (8.5-10.1); Chloride 106 mmol/L (98-107); Cholesterol 206 mg/dL (200); Creatinine, Serum 1.12 mg/dL (0.55-1.02); EST Glomerular Filtration Rate 50 mL/min (>60); Est Glom Filt Rate - Afr Amer 61 mL/min (>60); Globulin 2.9 g/dL (2.2-4.2); Glucose 167 mg/dL (74-106); High Density Lipoprotein 34 mg/dL; Potassium 4.1 mmol/L (3.5-5.1); Protein, Total 6.6 g/dL (6.4-8.2); Sodium Level 137 mmol/L (136-145); Triglycerides 303 mg/dL; Very Low Density Lipoprotein 61 mg/dL (5-40)
[2024-01-15 18:33] LABS: Microalbumin,Random Urine 56.5 mg/L (NO RANGE EST.); Microalbumin:Creatinine Ratio 32.1 mg/g CRE (<30 mg/g CRE)
== END | disposition home or self-care (01) ==
LOC: BIMLAB 09:37
PROVIDERS: PCP Internal Medicine; Referring Provider Internal Medicine; Visit Provider Internal Medicine
DX: E11.9 Type 2 diabetes mellitus without complications (principal); K80.00 Calculus of gallbladder with acute cholecystitis without obstruction
CPT/HCPCS: 36415; 80053; 80061; 82043; 82570; 85025

== ENCOUNTER → 2024-02-01 | Outpatient (CLI) | payer MEDICARE, SELFPAY ==
--- NOTE | 2024-02-01 10:13 | US_ITS ---
STUDY: THYROID ULTRASOUND REASON FOR EXAM: Female, 78 years old. Known nodules, previous biopsies TECHNIQUE: Ultrasound evaluation of the thyroid was performed with real-time and static zhu-scale imaging. COMPARISON: None. FINDINGS: RIGHT LOBE: The right lobe of the thyroid gland measures 5.7 x 2. 4 x 2.2 cm. There is a heterogeneous echotexture. There are stable partially calcified and solid and cystic nodules in the right thyroid lobe largest again measures 1.3 cm. No interval change is noted since the previous study. LEFT LOBE: The left lobe of the thyroid gland measures 6.3 x 1.9 x 2.8 cm. There is a heterogeneous echotexture. 2 separate solid nodules, larger solid measuring 3 cm, smaller is complex solid and cystic measuring 1.5 cm. No interval change is noted since the previous study ISTHMUS: The isthmus measures 0.52 cm. The regional lymph nodes are normal. US/Thyroid IMPRESSION: Enlarged heterogeneous thyroid gland with stable bilateral nodules unchanged dating back to 01/17/2022. Findings again suggestive of goiter. Continued yearly follow-up to assess stability Electronically Signed: Carlos Glass MD at 15:33 EDT ,
== END | disposition home or self-care (01) ==
LOC: US 10:09
PROVIDERS: PCP Internal Medicine; Referring Provider Internal Medicine Endocrinology, Diabetes & Metabolism; Visit Provider Internal Medicine Endocrinology, Diabetes & Metabolism
DX: E04.2 Nontoxic multinodular goiter (principal)
CPT/HCPCS: 76536

== ENCOUNTER 2024-03-06 08:17 | Outpatient (CLI) | payer MEDICARE, SELFPAY ==
[2024-03-06 08:28] VITALS: BP 133/75; PULSE 70; RESP 16; TEMP 36.5; O2SAT 95
[2024-03-06] MEDS: Zoledronic Acid 5 MG 100 ML 300 MG IV (08:40)
[2024-03-06] MEDS: 0.9% NaCl Peripheral Flush Adult/Peds IV (08:40)
[2024-03-06 09:04] VITALS: BP 120/61; PULSE 64; RESP 16; TEMP 36.6; O2SAT 97
== END 2024-03-06 23:59 | disposition home or self-care (01) ==
LOC: MEDOUTP 08:18
PROVIDERS: PCP Internal Medicine; Referring Provider Internal Medicine Endocrinology, Diabetes & Metabolism; Visit Provider Internal Medicine Endocrinology, Diabetes & Metabolism
DX: M85.80 Other specified disorders of bone density and structure, unspecified site (principal); E21.3 Hyperparathyroidism, unspecified
CPT/HCPCS: 96365; A4216; J3489

== ENCOUNTER → 2024-04-10 | Outpatient (CLI) | payer MEDICARE, SELFPAY ==
[2024-04-10 12:28] LABS: Anion Gap 10 (5-15); BUN 22 mg/dL (7-18); BUN/Creat Ratio 16.7 RATIO (10-20); Calcium,Total 10.2 mg/dL (8.5-10.1); Chloride 111 mmol/L (98-107); Creatinine, Serum 1.32 mg/dL (0.55-1.02); EST Glomerular Filtration Rate 42 mL/min (>60); Est Glom Filt Rate - Afr Amer 50 mL/min (>60); Glucose 201 mg/dL (74-106); Potassium 4.1 mmol/L (3.5-5.1); Sodium Level 142 mmol/L (136-145)
[2024-04-10 13:04] LABS: Microalbumin,Random Urine 12.1 mg/L (NO RANGE EST.); Microalbumin:Creatinine Ratio 6.6 mg/g CRE (<30 mg/g CRE)
== END | disposition home or self-care (01) ==
LOC: BIMLAB 10:01
PROVIDERS: PCP Internal Medicine; Referring Provider Internal Medicine; Visit Provider Internal Medicine
DX: E11.22 Type 2 diabetes mellitus with diabetic chronic kidney disease (principal); N18.31 Chronic kidney disease, stage 3a
CPT/HCPCS: 36415; 80048; 82043; 82570

== ENCOUNTER → 2024-12-16 | Outpatient (CLI) | payer MEDICARE, SELFPAY ==
[2024-12-16 12:48] LABS: ALB/GLOB Ratio 1.8 RATIO (0.9-2.4); AST(SGOT) 31 U/L (<=31); Alanine Aminotransfer ALT/SGPT 33 U/L (<=34); Albumin, Serum 4.4 g/dL (3.4-4.8); Alkaline Phosphatase 67 U/L (35-104); Anion Gap 12 (5-15); BUN 23 mg/dL (4-19); BUN/Creat Ratio 19.1 RATIO (10-20); Calcium,Total 11.4 mg/dL (7.6-11.0); Carbon Dioxide 23.5 mmol/L (21.0-32.0); Chloride 104 mmol/L (98-108); Cholesterol 217 mg/dL (<=200); Creatinine, Serum 1.19 mg/dL (0.70-1.20); EST Glomerular Filtration Rate 47 (>60); Globulin 2.5 g/dL (2.2-4.2); Glucose 129 mg/dL (70-99); High Density Lipoprotein 39 mg/dL; Low Density Lipoprotein Calc. 130 mg/dL; Potassium 4.8 mmol/L (3.3-5.1); Protein, Total 6.8 g/dL (5.9-8.4); Sodium Level 139 mmol/L (133-145); Triglycerides 240 mg/dL; Very Low Density Lipoprotein 48 mg/dL (5-40); cholesterol:hdl ratio screen 5.55
[2024-12-16 12:57] LABS: PTHIN 65 pg/mL (11-61)
[2024-12-16 18:08] LABS: Vitamin D,25 Hydroxy 99.9 ng/mL (30-100)
== END | disposition home or self-care (01) ==
PROVIDERS: Internal Medicine Endocrinology, Diabetes & Metabolism; PCP Internal Medicine; Referring Provider Internal Medicine; Visit Provider Internal Medicine
DX: E78.2 Mixed hyperlipidemia (principal); E11.9 Type 2 diabetes mellitus without complications; E21.3 Hyperparathyroidism, unspecified; I10 Essential (primary) hypertension
CPT/HCPCS: 80053; 80061; 82306; 83036; 83970

== ENCOUNTER → 2025-02-01 | Outpatient (CLI) | payer MEDICARE, SELFPAY ==
--- NOTE | 2025-02-01 13:50 | US_ITS ---
PROCEDURE: THYROID 02/01/2025 REASON FOR EXAM: FU THYROID NODULES TECHNIQUE: High-frequency thyroid ultrasound, including grayscale and color-flow images. REFERENCE LINKS: TI-RADS Chart: [email or web address] TI-RADS Calculator Tool with Reference Images: [email or web address]/ FINDINGS: Right thyroid lobe size: 5.6 x 2.1 x 2.2 cm Left thyroid lobe size: 5.4 x 2.1 x 1.6 cm Isthmus: 0.3 cm Background parenchymal echotexture is heterogeneous Nodules: Multiple subcentimeter hypoechoic and anechoic nodules consistent with adenomas and colloid cysts. US/Thyroid IMPRESSION: Thyroiditis with a multiple tiny adenomas and colloid cyst. RECOMMENDATION: Based on most suspicious nodule. Nodule size = largest diameter Only evaluate nodule if =>5 mm. Growth > 20% in 2 dimensions = worsening. Follow up to 4 nodules. Recommend biopsy for no more than 2 nodules. Reading Location: [id number]
--- NOTE | 2025-02-01 14:00 | BI_ITS ---
EXAM: SCRN MAMM (CAD)W/CRISTÓBAL BILAT DATE: 02/01/2025 CLINICAL HISTORY: F, Age 79 y/o , BREAST CANCER SCREENING BREAST CANCER RISK ASSESSMENT: Has not been calculated. TECHNIQUE: Bilateral screening digital breast tomosynthesis with 2D and 3D images. Computer aided detection. COMPARISON: Prior exam(s) dated 12/11/2023 and 10/12/2022. FINDINGS: TISSUE DENSITY: The breast tissue is composed of scattered area of fibroglandular density. Bilateral Breast Mammographic Findings: There are no suspicious masses, suspicious cluster of microcalcifications, architectural distortion or secondary sign of malignancy is identified in either breast. Benign-appearing round calcifications are seen in both breasts. Stable nodular masslike densities are seen in both breasts. BI/SCRN MAMM (CAD)W/CRISTÓBAL BILAT IMPRESSION: OVERALL FINAL ASSESSMENT: BIRADS 2 BENIGN FINDING RECOMMENDATION: Routine annual follow-up in 1 Year A letter with findings and recommendations will be mailed to the patient. Reading Location: [id number]
== END | disposition home or self-care (01) ==
PROVIDERS: PCP Internal Medicine; Referring Provider Internal Medicine; Visit Provider Internal Medicine
DX: Z12.31 Encounter for screening mammogram for malignant neoplasm of breast (principal); E04.1 Nontoxic single thyroid nodule
CPT/HCPCS: 76536; 77063; 77067

== ENCOUNTER 2025-03-17 12:44 | Outpatient (CLI) | payer MEDICARE, SELFPAY ==
[2025-03-17 12:58] VITALS: BP 133/67; PULSE 74; RESP 16; TEMP 35.7; O2SAT 96
[2025-03-17] MEDS: 0.9% NaCl IVPB Med Flush (100mL) 15 ML IV (13:09)
[2025-03-17] MEDS: 0.9% NaCl Peripheral Flush Adult IV (13:09)
[2025-03-17] MEDS: Zoledronic Acid 5 MG 100 ML 300 MG IV (13:17)
[2025-03-17 13:51] VITALS: BP 117/59; PULSE 69; RESP 14; TEMP 36.1; O2SAT 93
== END 2025-03-17 23:59 | disposition home or self-care (01) ==
LOC: MEDOUTP 12:46
PROVIDERS: PCP Internal Medicine; Referring Provider Internal Medicine Endocrinology, Diabetes & Metabolism; Visit Provider Internal Medicine Endocrinology, Diabetes & Metabolism
DX: M85.80 Other specified disorders of bone density and structure, unspecified site (principal)
CPT/HCPCS: 96365; A4216; J3489

== ENCOUNTER → 2025-04-02 | Outpatient (CLI) | payer MEDICARE, SELFPAY ==
--- NOTE | 2025-04-02 14:18 | CT_ITS ---
PROCEDURE: SOFT TISSUE NECK W/WO CONTRAST 04/02/2025 REASON FOR EXAM: PARATHYROID/ THYROID NODULE TECHNIQUE: SOFT TISSUE NECK W/WO CONTRAST CONTRAST: 75 cc Isovue 370 One or more dose reduction techniques were used (e.g., Automated exposure control, adjustment of the mA and/or kV according to patient size, use of iterative reconstruction technique). RADIATION DOSE SUMMARY: DLP: 839.30 mGycm COMPARISON: February 01, 2025 thyroid ultrasound FINDINGS: Airway: Patent Salivary glands: Symmetric Lymph nodes: There is no pathologic adenopathy by size criteria Thyroid: A multinodular goiter is noted. Vasculature: Atherosclerotic calcifications are noted. Orbits: Unremarkable Paranasal sinuses and mastoids: Clear Lung apices: There is a 1.2 cm solid nodule in the left upper lung, image 105/111. Upper mediastinum: Unremarkable Bones: There is no acute bony abnormality CT/Soft Tissue Neck W/WO Contrast IMPRESSION: A multinodular goiter is noted. There is a 1.2 cm solid nodule in the left upper lung, image 105/111. chest CT correlation is recommended. Reading Location: [facility]
[2025-04-02 14:50] LABS: CREATININE FINGERSTICK 1.2 mg/dL (0.55-1.02)
== END | disposition home or self-care (01) ==
LOC: CT 14:15
PROVIDERS: PCP Internal Medicine; Referring Provider Surgery; Visit Provider Surgery
DX: E04.1 Nontoxic single thyroid nodule (principal); R05.3 Chronic cough; E83.52 Hypercalcemia
CPT/HCPCS: 70492; Q9967

== ENCOUNTER → 2025-04-20 | Outpatient (CLI) | payer MEDICARE, SELFPAY ==
--- NOTE | 2025-04-20 12:16 | CT_ITS ---
PROCEDURE: CHEST WITHOUT CONTRAST 04/20/2025 REASON FOR EXAM: CHECK LUNG NODULE History of small nodule in the left lung apex on prior CT scan of the neck. TECHNIQUE: Chest CT without contrast. Coronal and Sagittal reconstruction series were provided. One or more dose reduction techniques were used (e.g., Automated exposure control, adjustment of the mA and/or kV according to patient size, use of iterative reconstruction technique RADIATION DOSE SUMMARY: CTDlvol: 13.72 mGy DLP: 395.07 mGycm COMPARISON: None FINDINGS: Punctate calcification in the posterior aspect of the upper pole of the enlargement of the left lobe of the thyroid with substernal extension. Hardware: None Lymph nodes: Small benign-appearing mediastinal lymph nodes. Heart and Vasculature: The heart is nonenlarged. Atherosclerotic calcifications of the thoracic aorta. Thoracic aorta and pulmonary arteries have normal contours; noncontrast technique limits evaluation. Coronary Artery Calcifications: Present Lungs and Airways: There is a 10.5 mm noncalcified nodule in the peripheral lateral aspect of the left upper lobe as seen on axial image number 45. Six-month follow-up recommended. There is elevation of the right hemidiaphragm with the atelectasis and/or scarring at the right lung base. Pleura: No evidence of pleural effusion. Upper Abdomen: 1.9 cm cyst in the right lobe of the liver. The patient is status post cholecystectomy. Bones: Degenerative changes of the thoracic spine. CT/Chest without Contrast IMPRESSION: Coronary artery calcification (CAC) is is present 10.5 mm noncalcified nodule in the peripheral lateral aspect of the left upper lobe as seen on axial image number 45 six-month follow-up recommended. Elevation of the right hemidiaphragm with right basilar atelectasis. Reading Location: [place] [id number]
== END | disposition home or self-care (01) ==
LOC: CT 12:15
PROVIDERS: PCP Internal Medicine; Referring Provider Surgery; Visit Provider Surgery
DX: R91.1 Solitary pulmonary nodule (principal)
CPT/HCPCS: 71250

== ENCOUNTER → 2025-05-07 | Outpatient (CLI) | payer MEDICARE, SELFPAY ==
[2025-05-07 16:18] LABS: PTHIN 68 pg/mL (11-61)
[2025-05-07 16:38] LABS: Free T3 2.7 pg/mL (2.18-3.98); Vitamin D,25 Hydroxy 64.2 ng/mL (30-100)
== END | disposition home or self-care (01) ==
LOC: BIMLAB 13:09
PROVIDERS: PCP Internal Medicine; Referring Provider Surgery; Visit Provider Surgery
DX: E04.2 Nontoxic multinodular goiter (principal); E21.3 Hyperparathyroidism, unspecified
CPT/HCPCS: 36415; 82306; 83970; 84439; 84443; 84481

== ENCOUNTER → 2025-05-20 | Outpatient (CLI) | payer MEDICARE, SELFPAY ==
--- NOTE | 2025-05-20 09:30 | BD_ITS ---
PROCEDURE: DEXA BONE DENSITY STUDY 05/20/2025 REASON FOR EXAM: HYPERPARATHYROIDISM F, age 79 y/o . Postmenopausal. TECHNIQUE: DEXA BONE DENSITY STUDY COMPARISON: 2020 FINDINGS: BMD and T-SCORES Lumbar spine: 1.258 g/cm2, T-score 1.9 Levels: L1 through L4 Change from prior: Increase of 1.9%. Left femoral neck: 0.675 g/cm2, T-score -1.6 Femoral neck comparison data not recommended for monitoring change. Prior T-score Left total hip: 0.820 g/cm2, T-score -1.0 Change from prior: Increase of 8.3%. Right femoral neck: 0.718 g/cm2, T-score -1.2 Femoral neck comparison data not recommended for monitoring change. Prior T-score Right total hip: 0.852 g/cm2, T-score -0.7 Change from prior: Increase of 4.7%. The World Health Organization has defined the following categories based on bone density: Normal bone density: T-score equal to or greater than -1.0 Osteopenia: T-score between -1.0 and -2.5 Osteoporosis: T-score equal to or less than -2.5 FRAX (or Comparable) Fracture Risk Assessment: 10 Year Probability of Fracture: Major Osteoporotic Fracture: 12% Hip Fracture: 2.5% (Note: FRAX is not to be reported in setting of normal range bone density, osteoporosis on DEXA, known history of osteoporosis, prior osteoporotic hip or vertebral fracture, or for any patient undergoing pharmacological treatment for bone loss.) The National Osteoporosis Foundation (NOF) recommends pharmacological treatment for patients with a FRAX 10-year risk of 3% or higher for a hip fracture, or 20% or higher for a major osteoporotic fracture, to prevent osteoporosis and reduce fracture risk. The patient does not meet the pharmacological treatment recommendations for prevention of osteoporosis. BD/Dexa Bone Density Study IMPRESSION: OSTEOPENIA. Recommend follow-up as clinically warranted. Reading Location: [id number]
--- OUTSIDE RECORDS SUMMARY | 2025-05-20 10:26 | XMS RPT_ITS | CCD ---
Author Organization [facility] CliniSyin Care Team Providers Care Master Control Supervisor Name Role Phone Dr. Robby Riddle Primary Care Provider [phone]) Dr. Robby Riddle Referring Provider [phone] Dr. Aquiles Marin Attending Provider [phone] Drake Cifuentes Attending Provider Dr. Robby Riddle Attending Provider [phone] Dr. Robby Riddle Primary Care Provider 1(33 0) Dr. Robby Riddle Attending Provider [phone])2 Dr. Robby Riddle Referring Provider [phone])2 Dr. Drake Cifuentes Attending Provider Dr. Robby Riddle Primary Care Provider 1(33 0) Dr. Robby Riddle Referring Provider [phone])2 Dr. Robby Riddle Attending Provider [phone])2 Dr. Aquiles Marin Attending Provider Dr. Robby Riddle Primary Care Provider 1(33 0) Dr. Robby Riddle Referring Provider [phone])2 Dr. Eliana Chung Attending Provider 1(3 30) Dr. Robby Riddle Attending Provider [phone] Dr. Drake Cifuentes Attending Provider Dr. Robby Riddle MD Primary Care Provider Janessa HILL, Dr. Bustamante Attending Provider 1(33 0) Janessa HILL, Dr. Bustamante Referring Provider 1(33 0) Tania HILL, Dr. Kwan Attending Provider King SERGIO, Dr. Juan Attending Provider King SERGIO, Dr. Juan Referring Provider Tania HILL, Dr. Kwan Referring Provider Janessa HILL, Dr. Bustamante Primary Care Provider Janessa HILL, Dr. Bustamante Attending Provider 1(33 0) Janessa HILL, Dr. Bustamante Referring Provider 1(33 0) Drake Cifuentes Attending Unavailable Drake Cifuentes Referring Unavailable Oleghe, Efewongbe Primary Care Unavailable Aquiles Marin Attending Unavailable Aquiles Marin Referring Unavailable Oleghe, Efewongbe Primary Care Unavailable Oleghe, Efewongbe Attending Unavailable Oleghe, Efewongbe Referring Unavailable Oleghe, Efewongbe Primary Care Unavailable Oleghe, Efewongbe Attending Unavailable Oleghe, Efewongbe Referring Unavailable Oleghe, Efewongbe Primary Care Unavailable Aquiles Marin Attending Unavailable Aquiles Marin Referring Unavailable Oleghe, Efewongbe Primary Care Unavailable Aquiles Marin Attending Unavailable Oleghe, Efewongbe Primary Care Unavailable Aquiles Marin Attending Unavailable Aquiles Marin Referring Unavailable Oleghe, Efewongbe Primary Care Unavailable Drake Cifuentes Attending Unavailable Oleghe, Efewongbe Referring Unavailable Oleghe, Efewongbe Primary Care Unavailable Aquiles Marin Attending Unavailable Oleghe, Efewongbe Referring Unavailable Oleghe, Efewongbe Primary Care Unavailable Aquiles Marin Attending Unavailable Oleghe, Efewongbe Referring Unavailable Oleghe, Efewongbe Primary Care Unavailable Oleghe, Efewongbe Attending Unavailable Oleghe, Efewongbe Referring Unavailable Oleghe, Efewongbe Primary Care Unavailable Aquiles Marin Attending Unavailable Aquiles Marin Referring Unavailable Oleghe, Efewongbe Primary Care Unavailable Allergies Allergy Classification Reported Allergen(s) Allergy Type Date of Onset Reaction(s) Facility (19 sources) Amoxicillin; Translations: [amoxicillin trihydrate] Drug Allergy 2 Upset Stomach [facility] (19 sources) potassium clavulanate; Translations: [potassium clavulanate] Propensity to adverse reactions 2 Upset Stomach [facility] (17 sources) Adhesive Tape; Translations: [adhesive tape] Propensity to adverse reactions 2 Other [facility] Comment on above: redness/irritation Medications Current Medications Medication Drug Class(es) Dates Sig (Normalized) Sig (Original) acetaminophen 325 mg oral tablet (18 sources) Start: 07-14-2019 take 2 tablets by mouth every six hours as needed for pain Acetaminophen 325 MG tablet Active 650 mg PO EVERY 6 HOURS NEEDED as needed for Pain Score 1-07/16 0 July 14, 2019 12:00am Start: 07-14-2019 take 650 mg by mouth every six hours as needed Acetaminophen Active 650 MG PO EVERY 6 HOURS NEEDED July 14, 2019 12:00am aspirin 81 mg chewable tablet (18 sources) Platelet Aggregation Inhibitor, Nonsteroidal Anti-inflammatory Drug Start: 07-12-2019 take 1 tablet by mouth once daily Aspirin 81 MG tablet,chewable Active 81 mg PO DAILY@0800 July 12, 2019 12:00am [employer] Biotin-Lutein (7 sources) Start: 01-28-2023 take 1 tablet by mouth once daily Biotin-Lutein Active 1 TABLET PO DAILY January 28, 2023 12:00am Start: 01-28-2023 Biotin-Lutein Active TABLET PO January 28, 2023 12:00am Biotin-Lutein 5,000 mcg- 10 mg tablet (7 sources) Start: 01-28-2023 Biotin-Lutein 5,000 mcg- 10 mg tablet Active 1 {tbl} PO DAILY January 28, 2023 12:00am cholecalciferol 0.125 mg oral capsule (20 sources) Vitamin D Start: 03-13-2024 End: 03-16-2025 take 1 capsule by mouth once daily Cholecalciferol (Vitamin D3) 125 mcg (5,000 unit) capsule Active 5000 U PO DAILY 90 90 3 March 16, 2025 11:20am Start: 01-27-2024 End: 03-13-2024 take 1 capsule by mouth once daily Cholecalciferol (Vitamin D3) 25 mcg (1,000 unit) capsule Discontinued 5000 U PO DAILY January 27, 2024 10:07am March 13, 2024 2:24pm Start: 01-22-2022 End: 01-27-2024 take 1 capsule by mouth once daily Cholecalciferol (Vitamin D3) 25 mcg (1,000 unit) capsule Discontinued 25 ug PO DAILY January 22, 2022 12:00am January 27, 2024 10:07am ELDERBERRY FRUIT (18 sources) Start: 01-22-2022 take 1000 mg by mout h once daily Elderberry Fruit Active 1000 MG PO DAILY January 22, 2022 1:22pm Start: 01-22-2022 take 1 capsule by mo uth once daily Elderberry Fruit 200 mg capsule Active 1000 mg PO DAILY January 22, 2022 12:00am Start: 01-22-2022 take 1000 mg by mouth once yassine ly Elderberry Fruit Active 1000 MG PO DAILY January 22, 2022 12:00am linseed oil 1000 mg oral capsule (18 sources) Start: 01-22-2022 take 1 capsule by mouth once daily Flaxseed Oil 1,000 mg capsule Active 1000 mg PO DAILY January 22, 2022 12:00am administer with a meal Multivitamin preparation (11 sources) Start: 01-22-2022 take 1 tablet by mouth once daily Multivitamin Active 1 TABLET PO DAILY January 22, 2022 1:20pm Start: 01-22-2022 take 1 tablet by natali th once daily Multivitamin Active 1 TABLET PO DAILY January 22, 2022 12:00am Multivitamin tablet (7 sources) Start: 01-22-2022 Multivitamin t ablet Active 1 {tbl} PO DAILY January 22, 2022 12:00am [place]-3 Fatty Acids-Fish Oil (Fish Oil) 300-500 mg capsule (10 sources) Start: 07-12-2023 [place]-3 Fatty Acids-Fish Oil (Fish Oil) 300-500 mg capsule Active 1 NMA PO DAILY July 12, 2023 12:00am Start: 07-12-2023 [place]-3 Fatty Acids-Fish Oil (Fish Oil) 300-500 mg capsule Active NMA PO DAILY July 12, 2023 12:00am Start: 07-12-2023 [place]-3 Fatty Acids-Fish Oil (Fish Oil) 300-500 mg capsule Active CAP PO July 12, 2023 12:00am Completed/Discontinued Medications Medication Drug Class(es) Dates Sig (Normalized) Sig (Original) alendronic acid 35 mg oral tablet (18 sources) Bisphosphonate Start: 09-04-2021 End: 01-23-2022 take 1 tablet by mouth every week Alendronate 35 mg tablet Discontinued 35 mg PO EVERY WEEK 30 0 September 04, 2021 1:00am January 23, 2022 11:00am amLODIPine 5 mg oral tablet (20 sources) Dihydropyridine Calcium Channel Angelo Start: 06-22-2021 End: 03-22-2025 take 1 tablet by mouth once daily Amlodipine 5 mg tablet Discontinued 5 mg PO DAILY 90 March 13, 2024 2:23pm March 22, 2025 8:01am amLODIPine 10 mg / benazepril hydrochloride 20 mg oral capsule (20 sources) Dihydropyridine Calcium Channel Angelo, Angiotensin Converting Enzyme Inhibitor Start: 07-12-2019 End: 06-22-2021 Amlodipine-Benaze pril 10-20 mg capsule Discontinued 1 NMA PO DAILY 90 March 09, 2021 2:01pm June 22, 2021 6:05pm bp Start: 07-12-2019 End: 06-22-2021 take 1 capsule by mouth once daily Amlodipine-Benazepril Discontinued 1 CAP PO DAILY March 09, 2021 2:01pm June 22, 2021 6:05pm benazepril hydrochloride 20 mg oral tablet (20 sources) Angiotensin Converting Enzyme Inhibitor Start: 07-12-2023 End: 07-12-2023 take 1 tablet by mouth every other day Benazepril 20 mg tablet Discontinued 20 mg PO .qod July 12, 2023 7:57am July 12, 2023 8:24am Start: 06-22-2021 End: 07-12-2023 take 1 tablet by mouth once daily Benazepril 20 mg tablet Discontinued 20 mg PO DAILY 90 3 June 22, 2022 4:40pm July 12, 2023 7:58am calcium carbonate 1500 mg oral tablet (18 sources) Start: 01-22-2022 End: 01-24-2022 take 1 tablet by mouth twice daily Calcium Carbonate (Calcium 600) 600 mg calcium (1,500 mg) tablet Discontinued 600 mg PO TWICE A DAY January 22, 2022 12:00am January 24, 2022 10:59am carvedilol 12.5 mg oral tablet (20 sources) alpha-Adrenergic Angelo, beta-Adrenergic Angelo Start: 07-12-2019 End: 03-11-2025 take 1 tablet by mouth twice daily Carvedilol 12.5 mg tablet Discontinued 0 .ROUTE .COMPLEX 180 September 09, 2024 11:15am March 11, 2025 9:41am TAKE 1 TABLET BY MOUTH TWICE DAILY FOR BLOOD PRESSURE dapagliflozin 10 mg oral tablet (20 sources) Sodium-Glucose Cotransporter 2 Inhibitor Start: 01-27-2024 End: 07-27-2024 take 1 tablet by mouth once daily Dapagliflozin Propanediol (Farxiga) 10 mg tablet Discontinued 10 mg PO DAILY 90 July 01, 2024 12:33pm July 27, 2024 9:26am gemfibrozil 600 mg oral tablet (20 sources) Peroxisome Proliferator Receptor alpha Agonist Start: 05-18-2021 End: 04-27-2022 take 1 tablet by mouth twice daily Gemfibrozil 600 mg tablet Discontinued 600 mg PO TWICE A DAY 120 September 25, 2021 2:14pm April 27, 2022 10:17am glimepiride 2 mg oral tablet (20 sources) Sulfonylurea Start: 01-13-2024 End: 09-10-2024 take 1 tablet by mouth once daily at breakfast Glimepiride 2 mg tablet Discontinued 2 mg PO EVERY MORNING 90 March 24, 2024 7:59am July 27, 2024 9:26am administer with breakfast metFORMIN hydrochloride 500 mg oral tablet (20 sources) Biguanide Start: 01-16-2021 End: 03-11-2025 take 2 tablets by mouth twice daily Metformin 500 mg tablet Discontinued 1000 mg PO TWICE A DAY 360 90 September 09, 2024 11:15am March 11, 2025 1:50pm diabetes Start: 01-16-2021 End: 10-01-2023 take 1000 mg by mouth twice daily Metformin Discontinued 1000 MG PO TWICE A DAY 360 90 September 11, 2022 10:28am October 01, 2023 2:53pm Start: 07-12-2019 End: 01-16-2021 take 1 tablet by mouth twice daily Metformin 500 MG tablet Discontinued 500 mg PO TWICE A DAY July 12, 2019 12:00am January 16, 2021 2:19pm diabetes omeprazole 40 mg delayed release oral capsule (18 sources) Proton Pump Inhibitor Start: 01-24-2022 End: 04-27-2022 take 1 capsule by mouth once daily Omeprazole 40 mg capsule,delayed release(DR/EC) Discontinued 40 mg PO DAILY 60 2 January 24, 2022 12:00am April 27, 2022 10:17am rosuvastatin calcium 10 mg oral tablet (20 sources) HMG-CoA Reductase Inhibitor Start: 03-09-2021 End: 04-17-2021 take 1 tablet by mouth at bedtime Rosuvastatin 10 mg tablet Discontinued 10 mg PO AT BEDTIME 90 March 09, 2021 2:00pm April 17, 2021 10:53am cholesterol Start: 07-12-2019 End: 03-09-2021 Rosuvastatin 10 MG tablet Di scontinued 10 ng PO AT BEDTIME July 12, 2019 12:00am March 09, 2021 2:01pm cholesterol Start: 07-12-2019 End: 03-09-2021 Rosuvastatin Discontinued 10 NG PO AT BEDTIME July 12, 2019 12:00am March 09, 2021 2:01pm valsartan 80 mg oral tablet (20 sources) Angiotensin 2 Receptor Angelo Start: 11-04-2023 End: 12-30-2023 take 1 tablet by mouth once daily Valsartan Discontinued 0 .ROUTE .COMPLEX November 04, 2023 9:17am December 30, 2023 4:00pm Take 1 tablet by mouth once daily Start: 11-04-2023 take 1 tablet by natali once daily Valsartan Active 0 .ROUTE .COMPLEX November 04, 2023 9:17am Take 1 tablet by mouth once daily Start: 07-12-2023 End: 03-11-2025 take 1 tablet by mouth once daily Valsartan 80 mg tablet Discontinued 80 mg PO DAILY 90 September 09, 2024 11:15am March 11, 2025 9:41am 100 ml zoledronic acid 0.05 mg/ml injection (20 sources) Bisphosphonate Start: 01-23-2022 End: 01-29-2025 Zoledronic Dqpx-Tmriwiwf-Apbwx 5 mg/100 mL piggyback Discontinued 1 NMA .Route ONCE 100 0 January 27, 2024 10:35am January 29, 2025 7:12am infuse over 20 minutes Problems Active Problems Problem Classification Problem Date Documented Date Episodic/Chronic Biliary tract disease (18 sources) Calculus of gallbladder with acute cholecystitis; Translations: [Calculus of gallbladder with acute cholecystitis without obstruction] 07-27-2019 Episodic Chronic kidney disease (1 source) Chronic kidney disease; Translations: [Chronic kidney disease, stage 3a] Onset: 4 Diabetes mellitus with complications (1 source) Type 2 diabetes mellitus with diabetic chronic kidney disease; Translations: [Type 2 diabetes mellitus with diabetic chronic kidney disease] Onset: 4 Chronic Diabetes mellitus without complication (20 sources) Type 2 diabetes mellitus; Translations: [Type 2 diabetes mellitus without complications] Chronic Disorders of lipid metabolism (20 sources) Hyperlipidemia; Translations: [Hyperlipidemia, unspecified] Onset: 5 08-30-2021 Chronic E Codes: Fall (16 sources) Fall; Translations: [Unspecified fall, initial encounter] 04-19-2022 Episodic Esophageal disorders (20 sources) Gastroesophageal reflux disease; Translations: [Gastro-esophageal reflux disease without esophagitis] Chronic Essential hypertension (20 sources) Hypertensive disorder; Translations: [Essential (primary) hypertension] Chronic Immunizations and screening for infectious disease (18 sources) Needs influenza immunization; Translations: [Encounter for immunization] 07-30-2022 Episodic Comment on above: Patient declined. Other bone disease and musculoskeletal deformities (8 sources) X-ray evidence of poor mineralization; Translations: [Other specified disorders of bone density and structure, unspecified site] 01-23-2022 Episodic Other bone disease and musculoskeletal deformities (10 sources) Other specified disorders of bone density and structure, unspecified site; Translations: [Disorder of bone and cartilage, unspecified] Onset: 5 Episodic Other bone disease and musculoskeletal deformities (10 sources) Osteopenia; Translations: [Other specified disorders of bone density and structure, unspecified site] 01-23-2022 Episodic Other connective tissue disease (4 sources) Plantar fasciitis; Translations: [Plantar fascial fibromatosis] 10-31-2022 Episodic Other connective tissue disease (2 sources) Plantar fascial fibromatosis; Translations: [Plantar fascial fibromatosis] 10-31-2022 Episodic Other connective tissue disease (10 sources) Plantar fasciitis of left foot; Translations: [Plantar fascial fibromatosis] 10-31-2022 Episodic Other ear and sense organ disorders (11 sources) Impacted cerumen; Translations: [Impacted cerumen, unspecified ear] 12-16-2024 Episodic Other endocrine disorders (20 sources) Hyperparathyroidism; Translations: [Hyperparathyroidism, unspecified] 08-30-2021 Chronic Comment on above: Patient with what ap pears to be stable hyperparathyroidism that was nonlocalizing at first evaluation. Patient does have a history of osteopenia. Is difficult to interpret her calcium in light of a change in the reference range. I shared with patient that I believe any consideration of repeating her sestamibi will be low yield given her multiple thyroid nodules. I repeated her thyroid ultrasound during today's visit and find 2 candidates in both the mid polar and inferior pole regions on the left. I suggested to her that this could make for an optimal arrangement if we ultimately concluded that she does have some compressive signs that can be attributed to her left thyroid lobe which morphologically is significantly more abnormal than the right side. I suggested that we could potentially consider left thyroid lobectomy with isthmusectomy and concurrent parathyroidectomy. I also suggested that a 4D CT scan is generally reserved for nonlocalizing parathyroid disease in a reoperative phase but could be duly beneficial in her case as it may give us a more definitive indication for an adenoma and provide information to clarify whether she is suffering any compressive signs (see multiple thyroid nodules above). Patient with what ap pears to be stable hyperparathyroidism that was nonlocalizing at first evaluation. Patient does have a history of osteopenia. Is difficult to interpret her calcium in light of a change in the reference range. I shared with patient that I believe any consideration of repeating her sestamibi will be low yield given her multiple thyroid nodules. I repeated her thyroid ultrasound during today's visit and find 2 candidates in both the mid polar and inferior pole regions on the left. I suggested to her that this could make for an optimal arrangement if we ultimately concluded that she does have some compressive signs that can be attributed to her left thyroid lobe which morphologically is significantly more abnormal than the right side. I suggested that we could potentially consider left thyroid lobectomy with isthmusectomy and concurrent parathyroidectomy. I also suggested that a 4D CT scan is generally reserved for nonlocalizing parathyroid disease in a reoperative phase but could be duly beneficial in her case as it may give us a more definitive indication for an adenoma and provide information to clarify whether she is suffering any compressive signs (see multiple thyroid nodules above).Update 05/11/2025: Patient with rather stable hyperparathyroidism. Last PTH noted at 68. Calcium remains elevated. I reviewed the surgical indications for hyperparathyroidism and discussed that we have not obtained a recent bone density study (last being 2020). Recommended we obtain a baseline. 4D CT imaging was positive with probable parathyroid localized posterior to the inferior pole on the left. I shared with family that this is advantageous given that the patient's largest lobe was also on the left side. I discussed the possibility of concurrent left thyroid lobectomy and parathyroidectomy. Procedure specific risks were discussed to include risk for hypoparathyroidism. I also discussed that patient's marginally elevated PTH puts her at somewhat higher associative risk for 4 gland hyperplasia. I discussed the different operations available for management of hyperparathyroidism, however, patient reiterated to her conservative stance and clearly articulates that she would prefer I limit my operation to removal of the parathyroid gland seen on CT and examination for a superior parathyroid gland but not proceed to the contralateral side even if indicated by failure of the PTH to drop. I stressed that hyperparathyroidism is 80 to 90% of the time caused by a single adenoma so I would hope patient abides by his population statistic, however, I did discuss there would be a potential risk for persistent hyperparathyroidism. I shared that and marking the left superior parathyroid gland we could potentially create a more advantageous situation if patient were to go on to require reoperation by not inciting inflammatory change on the right. Patient and her family discussed this at some length but ultimately provided their consensus that they would like to proceed with left thyroid lobectomy and isthmusectomy and concurrent parathyroidectomy. I shared with family possibility of needing to observe patient overnight for ongoing calcium/PTH monitoring, but favored outpatient disposition. Other endocrine disorders (13 sources) Hyperparathyroidism, unspecified; Translations: [Hyperparathyroidism, unspecified] Onset: 5 Chronic Other lower respiratory disease (14 sources) Dry cough; Translations: [Persistent dry cough] 03-14-2023 Episodic Other lower respiratory disease (3 sources) Nodule of lung; Translations: [Solitary pulmonary nodule] 04-08-2025 Episodic Other lower respiratory disease (1 source) Solitary pulmonary nodule; Translations: [Solitary pulmonary nodule] Onset: 5 Episodic Other non-traumatic joint disorders (16 sources) Pain in left knee; Translations: [Left knee pain] Episodic Other non-traumatic joint disorders (14 sources) Hip pain; Translations: [Pain in right hip] 01-28-2023 Episodic Other non-traumatic joint disorders (4 sources) Pain in right hip; Translations: [Pain in joint, pelvic region and thigh] 01-28-2023 Episodic Other nutritional; endocrine; and metabolic disorders (18 sources) Hypercalcemia; Translations: [Hypercalcemia] 01-24-2022 Chronic Other nutritional; endocrine; and metabolic disorders (12 sources) Hypercalcemia; Translations: [Hypercalcemia] Chronic Other skin disorders (14 sources) Non-scarring alopecia; Translations: [Nonscarring hair loss, unspecified] 10-31-2022 Episodic Other skin disorders (2 sources) Nonscarring hair loss, unspecified; Translations: [Other alopecia] 10-31-2022 Episodic Other upper respiratory disease (18 sources) Hoarse; Translations: [Dysphonia] 01-23-2022 Episodic Other upper respiratory disease (6 sources) Dysphonia; Translations: [Dysphonia] Episodic Spondylosis; intervertebral disc disorders; other back problems (18 sources) Low back pain; Translations: [Low back pain] 01-28-2023 Episodic Sprains and strains (16 sources) Sprain of knee; Translations: [Sprain of unspecified site of left knee, initial encounter] 04-19-2022 Episodic Superficial injury; contusion (16 sources) Contusion of head; Translations: [Contusion of unspecified part of head, initial encounter] 04-19-2022 Episodic Thyroid disorders (20 sources) Multinodular goiter; Translations: [Nontoxic multinodular goiter] Onset: Chronic Comment on above: Patient is a 79-year -old female known to me for history of multiple thyroid nodule status post FNA with Sutton 2 diagnosis who presents for surveillance after thyroid ultrasound was repeated by her primary care provider 02/01/2025. Interestingly, radiology did not draw out any significant nodules but stated that she simply exhibited appearance of thyroiditis with multiple tiny adenomas and a colloid cyst. In review of her imaging there does appear to be a dominant left-sided thyroid nodule, however, when I compare this to her imaging from 2022 and performed a dimensional comparison using the [employer] change in volume calculator this nodule has only increased in volume by approximately 25%. At the same time I examined the overall size of her thyroid from 2022 to 2024 and find a general reduction in the size of the gland as a whole. Therefore I am cautious about interpreting her interval health update that suggest possible progression of some compressive symptoms. I suggest possible workup could include laryngoscopy versus EGD versus CT imaging to assess for spatial relationship to surrounding anatomy. Patient reminds me that we did complete laryngoscopy in 2022 when she first complained raspiness and ENT reported normal cord mobility. There is also no suggestion of reflux disease with that exam. Therefore combined with items to I recommend that we proceed with CT imaging to assess for any signs of compression from the thyroid. Patient is a 79-year -old female known to me for history of multiple thyroid nodule status post FNA with Sutton 2 diagnosis who presents for surveillance after thyroid ultrasound was repeated by her primary care provider 02/01/2025. Interestingly, radiology did not draw out any significant nodules but stated that she simply exhibited appearance of thyroiditis with multiple tiny adenomas and a colloid cyst. In review of her imaging there does appear to be a dominant left-sided thyroid nodule, however, when I compare this to her imaging from 2022 and performed a dimensional comparison using the [employer] change in volume calculator this nodule has only increased in volume by approximately 25%. At the same time I examined the overall size of her thyroid from 2022 to 2024 and find a general reduction in the size of the gland as a whole. Therefore I am cautious about interpreting her interval health update that suggest possible progression of some compressive symptoms. I suggest possible workup could include laryngoscopy versus EGD versus CT imaging to assess for spatial relationship to surrounding anatomy. Patient reminds me that we did complete laryngoscopy in 2022 when she first complained raspiness and ENT reported normal cord mobility. There is also no suggestion of reflux disease with that exam. Therefore combined with items to I recommend that we proceed with CT imaging to assess for any signs of compression from the thyroid.Update 05/11/2025: CT imaging of the neck was obtained, however, radiology did not comment significantly on the impact of the thyroid to the surrounding anatomy. My independent review I do not see significant compression of the trachea by the thyroid, however, patient's thyroid nodule is growing posteriorly and looks to be nearing impingement of the esophagus. Associated with this observation, there looks to be risk for distraction of the left recurrent laryngeal nerve. Patient is now complaining of more swallowing difficulty, hoarseness of her voice, and cough corroborating these concerns. Notably, however, there is no evidence of substernal extension. With these observations I have recommended we consider left thyroid lobectomy with isthmusectomy using intraoperative nerve monitoring. Original CT imaging was reviewed with patient and her family. I reviewed use of intraoperative nerve monitoring as a means of trying to minimize the risk to the recurrent laryngeal nerve. Hand drawings were used to illustrate relevant points. Patient emphasizes that she would like to proceed conservatively and is interested in minimizing her anesthetic time where possible. Past or Other Problems Problem Classification Problem Date Documented Da te Episodic/Chronic Other ear and sense organ disorders (1 source) Impacted cerumen, bilateral; Translations: [Impacted cerumen, bilateral] Onset: 12-16-2024 Episodic Other screening for suspected conditions (not mental disorders or infectious disease) (1 source) Encounter for screening mammogram for malignant neoplasm of breast; Translations: [Encounter for screening mammogram for malignant neoplasm of breast] Onset: 02-04-2025 Episodic Results Test Name Value Interpretation Reference Range Facility Surgery Visit Reporton 05-11 Surgery Visit Report [facility] [address] [place], [place] [address] OFFICE VISIT Date of Service: 05/11/25 MR#: [id number] Acct: [id number] Name: MABEL RAZA Rep #: [id number] : 1945 Provider: Dr. Aquiles renee MD Age/Sex: 79/F Location: [facility] Status: Signed Intake Vital Signs 03/17/25 12:58 05/11/25 10:07 Height 5 ft 7 in 5 ft 7 in Weight: 198 lb BMI 31.0 BP 138/84 H Blood Pressure Location Rt brachial Position Sitting Respiration 16 Intake Visit Reasons: DISCUSS THYROID SX Chief Complaint: discuss parathyroidectomy Inventory Specialist Manager Required: No Is patient in pain?: No Allergies adhesive tape Adverse Reaction (Verified 05/11/25 10:07) Other amoxicillin trihydrate (From Augmentin) Adverse Reaction (Verified 05/11/25 10:07) Upset Stomach potassium clavulanate (From Augmentin) Adverse Reaction (Verified 05/11/25 10:07) Upset Stomach Medications ???Medication ???Instructions ???Recorded ???Confirmed ???Type aspirin 81 mg chewable tablet 81 mg PO DAILY@0800 heart health 1 05/11/25 History acetaminophen 325 mg tablet 650 mg (2 x 325 mg) PO Q6H PRN PRN 07/14/19 05/11/25 Rx Pain Score 1-07/16 elderberry fruit 200 mg capsule 1,000 mg PO DAILY 01/22/22 5 History flaxseed oil 1,000 mg capsule 1,000 mg PO DAILY 01/22/22 5 History multivitamin 1 tab PO DAILY 01/22/22 05/11/25 H istory biotin 5,000 mcg-lutein 10 mg 1 tab PO DAILY 01/28/23 05/11/25 H istory tablet omega-3 fatty acids-fish oil 300 1 cap PO DAILY 07/12/23 05/11/25 H istory mg-500 mg capsule (Fish Oil) blood sugar diagnostic (OneTouch #200 ea 04/15/24 05/11/25 Rx Ultra Test strips) lancets 30 gauge (OneTouch #200 ea 04/15/24 05/11/25 Rx UltraSoft 2 Lancet) dapagliflozin propanediol 10 mg 10 mg PO DAILY #90 tabs 07/27/24 0 05/11/25 Rx tablet (Farxiga) glimepiride 2 mg tablet 2 mg PO QAM #90 tabs 09/10/2402/28 Rx zoledronic acid 5 mg/100 mL in 1 ea .Route ONCE #100 mL 01/29/25 05/11/25 Rx mannitol 5 %-water intravenous piggybck carvedilol 12.5 mg tablet See Rx Instructions .Route 5 05/11/25 Rx .COMPLEX #180 tabs metformin 500 mg tablet 1,000 mg (2 x 500 mg) PO BID 03/1105/11/25 Rx diabetes 3 months #360 tabs valsartan 80 mg tablet 80 mg PO DAILY #90 TABLETS 5 05/11/25 Rx cholecalciferol (vitamin D3) 125 5,000 unit PO DAILY 3 months #90 0 03/16/25 05/11/25 Rx mcg (5,000 unit) capsule caps amlodipine 5 mg tablet 5 mg PO DAILY #90 tabs 03/22/25 Rx Have you fallen in the past year?: No PFSH Medical History Cerumen impaction Thyroid nodule Low back pain Right hip pain Plantar fasciitis of left foot Nonscarring hair loss Left knee pain GERD (gastroesophageal reflux disease) Osteopenia determined by x-ray Hoarseness Hyperparathyroidism Hypercalcemia Flu vaccine need Health care maintenance Hyperlipidemia Other and unspecified hyperlipidemia Diabetes Cholecystitis, acute with cholelithiasis Surgical History Total knee replacement status History of section Total knee replacement status Hx of cholecystectomy Family History Mother Cancer liver Thyroid disorder Heart disease Sister Cancer leukemia Brother Diabetes Pancreatitis Social History Smoking Status: Never smoker alcohol intake: never substance use type: does not use caffeine: No additional social history: -Balwinder HPI HPI HPI: Last visit 03/05/2025. Patient is 79-year-old female who arrives today to discuss operative planning. She is followed for a history of thyroid nodularity (particularly left) as well as hyperparathyroidism. She was last seen 03/05/2025. She is joined today by both her and her daughter. She initially denies any new developments, however, later in the course of our discussion she notes that she is choked twice in the last week on food. She reports ongoing difficulty with changes of her voice and a cough. Below is recapitulated from patient's prior visit for ease of review: Patient makes follow-up for surveillance of thyroid nodularity as well as a diagnosis of primary hyperparathyroidism. Patient last seen 02/15/2023. She presents today by herself. She states that she has some occasional raspiness but questions whether this is age-related. She states she is still singing. She had previously complained of this issue but states that it has been pretty consistent over the past 6 months. She denies any new dry cough. She also reports some difficulty swallowing whe (more content not included)... Normal [facility] Free T3on 05-07-2025 Free T3 [Mass/Vol] 2.7 pg/mL Normal 2.18-3.98 [facility] Comment on above: Performed By: #### L 501.20514, L501.9520, L506.0400, L509.1000, L506.1001 ####[facility] [address] [place], [address] Free R0Nsqgrkv By: Aquiles heredia on 05-07-2025 Free T3 [Mass/Vol] 2.7 pg/mL 2.18-3.98 [facility] PTHINon 05-07-2025 PTH 68 pg/mL High 11-61 [facility] Comment on above: Performed By: #### L 501.59077, L501.9520, L506.0400, L509.1000, L506.1001 ####[facility] [address] [place], [address] T4 Free Directon 05-07-2025 T4 FREE DIRECT 1.30 ng/dL Normal 0.76-1.46 [facility] Comment on above: Performed By: #### L 501.21256, L501.9520, L506.0400, L509.1000, L506.1001 ####[facility] [address] [place], [address] T4 freeOrdered By: Aquiles heredia on 05-07-2025 Free T4 [Mass/Vol] 1.30 ng/dL 0.76-1.46 [facility] TSH DL <= 0.005 mIU/L QnOrde red By: Aquiles Marin on 05-07-2025 TSH Qn 0.637 uIU/mL 0.300-4.200 [facility] Thyroid Stim Hormone (TSH)on 05-07-2025 TSH 0.637 uIU/mL Normal 0.300-4.200 [facility] Comment on above: Performed By: #### L 501.49467, L501.9520, L506.0400, L509.1000, L506.1001 ####[facility] [id number], [address] Vitamin D,25 Hydroxyon 05-07 Vitamin D 25-OH 64.2 ng/mL Normal 30-100 [facility] Comment on above: Result Comment: Pat min D Status Deficiency: <20 ng/mL (50nmol/L) Insufficiency: 20-30 ng/mL (50-75 nmol/L) Sufficiency: 30-100 ng/mL (75-250 nmol/L) Toxicity: >100 ng/mL (>250 nmol/L) Performed By: #### L 501.29856, L501.9520, L506.0400, L509.1000, L506.1001 ####[facility] [id number] [facility] [place], [address] Chest without Contraston Chest without Contrast [facility] Services [address] [place] [address] Chest without Contrast MR#: [id number] Acct: [id number] Name: MABEL RAZA Rep #: [id number] : 1945 F 79 From: Aureliano murillo MD PCP: Dr. Robby Riddle MD Status: REG CLI Study: Chest without Contrast Date of Exam: 04/20/25 Exam# [id number] Ordering Dr: Aquiles Marin MD PROCEDURE: CHEST WITHOUT CONTRAST 04/20/2025 REASON FOR EXAM: CHECK LUNG NODULE History of small nodule in the left lung apex on prior CT scan of the neck. TECHNIQUE: Chest CT without contrast. Coronal and Sagittal reconstruction series were provided. One or more dose reduction techniques were used (e.g., Automated exposure control, adjustment of the mA and/or kV according to patient size, use of iterative reconstruction technique RADIATION DOSE SUMMARY: CTDlvol: 13.72 mGy DLP: 395.07 mGycm COMPARISON: None FINDINGS: Punctate calcification in the posterior aspect of the upper pole of the enlargement of the left lobe of the thyroid with substernal extension. Hardware: None Lymph nodes: Small benign-appearing mediastinal lymph nodes. Heart and Vasculature: The heart is nonenlarged. Atherosclerotic calcifications of the thoracic aorta. Thoracic aorta and pulmonary arteries have normal contours; noncontrast technique limits evaluation. Coronary Artery Calcifications: Present Lungs and Airways: There is a 10.5 mm noncalcified nodule in the peripheral lateral aspect of the left upper lobe as seen on axial image number 45. Six-month follow-up recommended. There is elevation of the right hemidiaphragm with the atelectasis and/or scarring at the right lung base. Pleura: No evidence of pleural effusion. Upper Abdomen: 1.9 cm cyst in the right lobe of the liver. The patient is status post cholecystectomy. Bones: Degenerative changes of the thoracic spine. CT/Chest without Contrast IMPRESSION: Coronary artery calcification (CAC) is is present 10.5 mm noncalcified nodule in the peripheral lateral aspect of the left upper lobe as seen on axial image number 45 six-month follow-up recommended. Elevation of the right hemidiaphragm with right basilar atelectasis. Reading Location: [place] [address] CC: Dr. Robby Riddle MD; Dr. Aquiles Marin MD Development Director: Signed Normal [facility] CREATININE FINGERSTICKon Creatinine [Mass/Vol] 1.2 mg/dL High 0.55-1.02 [facility] Comment on above: Performed By: #### L 9100.0200 #### [facility] Laboratory [address] [place], [address] GFR/1.73 sq M.predicted among non-blacks MDRD (S/P/Bld) [Vol rate/Area] 44.0000 mL/min/{1.73_m2} Low >60 [facility] Comment on above: Performed By: #### L 9100.0200 #### [facility] [address] [place], [address] Creatinine measurement at dsideOrdered By: Aquiles Marin on 04-02-2025 Creatinine [Mass/Vol] 1.2 mg/dL High 0.55-1.02 [facility] EGFROrdered By: Aquiles renee on 04-02-2025 GFR/1.73 sq M.predicted among non-blacks MDRD (S/P/Bld) [Vol rate/Area] 44.0000 mL/min/{1.73_m2} Low >60 [facility] Soft Tissue Neck W/WO Contra ston 04-02-2025 Soft Tissue Neck W/WO Contrast [facility] Imaging Services [address] [place], [place] [address] Soft Tissue Neck W/WO Contrast MR#: [id number] Acct: [id number] Name: MABEL RAZA Rep #: [id number] : 1945 F 79 From: Alejandro Hinds MD PCP: Dr. Robby Riddle MD Status: DEP CLI Study: Soft Tissue Neck W/WO Contrast Date of Exam: 0 04/02/25 Exam# [id number] Ordering Dr: Aquiles Marin MD ADDENDUM by Dr. Alejandro Hinds MD on 04/08/25 at 0905 There is a candidate for parathyroid adenoma at the posterior inferior margin of the left thyroid lobe, axial image 87/111, measuring 1 point 0 cm x 1.2 cm, with the superior aspect of this density at the level of the superior margin of the manubrium, sagittal image 49/97, and with the posterior margin of the density adjacent to the left anterior aspect of the trachea. This lesion shows decreased density compared to the adjacent thyroid on the delayed series with washout noted. Reading Location[facility] 04/08/25 0906 Date cc: Dr. Robby Riddle MD; Dr. Aquiles Marin MD * Signed PROCEDURE: SOFT TISSUE NECK W/WO CONTRAST 04/02/2025 REASON FOR EXAM: PARATHYROID/ THYROID NODULE TECHNIQUE: SOFT TISSUE NECK W/WO CONTRAST CONTRAST: 75 cc Isovue 370 One or more dose reduction techniques were used (e.g., Automated exposure control, adjustment of the mA and/or kV according to patient size, use of iterative reconstruction technique). RADIATION DOSE SUMMARY: DLP: 839.30 mGycm COMPARISON: February 01, 2025 thyroid ultrasound FINDINGS: Airway: Patent Salivary glands: Symmetric Lymph nodes: There is no pathologic adenopathy by size criteria Thyroid: A multinodular goiter is noted. Vasculature: Atherosclerotic calcifications are noted. Orbits: Unremarkable Paranasal sinuses and mastoids: Clear Lung apices: There is a 1.2 cm solid nodule in the left upper lung, image 105/111. Upper mediastinum: Unremarkable Bones: There is no acute bony abnormality CT/Soft Tissue Neck W/WO Contrast IMPRESSION: A multinodular goiter is noted. There is a 1.2 cm solid nodule in the left upper lung, image 105/111. chest CT correlation is recommended. Reading Location: [facility] CC: Dr. Robby Riddle MD; Dr. Aquiles Marin MD Development Director: Signed Normal [facility] Surgery Visit Reporton 03-05 Surgery Visit Report [facility] [address] [place] [address] OFFICE VISIT Date of Service: 03/05/25 MR#: [id number] Acct: [id number] Name: MABEL RAZA Rep #: [id number] : 1945 Provider: Dr. Aquiles renee MD Age/Sex: 79/F Location: [facility] Status: Signed Intake Vital Signs 12/16/24 10:08 03/05/25 13:10 Height 5 ft 7 in 5 ft 7 in Weight: 201 lb BMI 31.4 BP 135/84 H Blood Pressure Location Rt brachial Position Sitting Respiration 17 Pulse 76 Pulse Source Monitor Pulse Oximetry (%) 97 Oxygen Delivery Method room air Intake Visit Reasons: THYROID NODULE Chief Complaint: thyroid nodule Is patient in pain?: No Allergies adhesive tape Adverse Reaction (Verified 03/05/25 13:11) Other amoxicillin trihydrate (From Augmentin) Adverse Reaction (Verified 03/05/25 13:11) Upset Stomach potassium clavulanate (From Augmentin) Adverse Reaction (Verified 03/05/25 13:11) Upset Stomach Medications ???Medication ???Instructions ???Recorded ???Confirmed ???Type aspirin 81 mg chewable tablet 81 mg PO DAILY@0800 heart health 1 03/05/25 History acetaminophen 325 mg tablet 650 mg (2 x 325 mg) PO Q6H PRN PRN 07/14/19 03/05/25 Rx Pain Score 1-07/16 elderberry fruit 200 mg capsule 1,000 mg PO DAILY 01/22/22 5 History flaxseed oil 1,000 mg capsule 1,000 mg PO DAILY 01/22/22 5 History multivitamin 1 tab PO DAILY 01/22/22 03/05/25 H istory biotin 5,000 mcg-lutein 10 mg 1 tab PO DAILY 01/28/23 03/05/25 H istory tablet omega-3 fatty acids-fish oil 300 cap PO DAILY 07/12/23 03/05/25 His tory mg-500 mg capsule (Fish Oil) amlodipine 5 mg tablet 5 mg PO DAILY #90 tabs 03/13/24 Rx cholecalciferol (vitamin D3) 125 5,000 unit PO DAILY 3 months #90 0 03/13/24 03/05/25 Rx mcg (5,000 unit) capsule caps blood sugar diagnostic (OneTouch #200 ea 04/15/24 03/05/25 Rx Ultra Test strips) lancets 30 gauge (OneTouch #200 ea 04/15/24 03/05/25 Rx UltraSoft 2 Lancet) dapagliflozin propanediol 10 mg 10 mg PO DAILY #90 tabs 07/27/24 0 03/05/25 Rx tablet (Farxiga) carvedilol 12.5 mg tablet See Rx Instructions .Route 4 03/05/25 Rx .COMPLEX #180 tabs metformin 500 mg tablet 1,000 mg (2 x 500 mg) PO BID 09/0903/05/25 Rx diabetes 3 months #360 tabs valsartan 80 mg tablet 80 mg PO DAILY #90 TABLETS 4 03/05/25 Rx glimepiride 2 mg tablet 2 mg PO QAM #90 tabs 09/10/2402/06 Rx zoledronic acid 5 mg/100 mL in 1 ea .Route ONCE #100 mL 01/29/25 03/05/25 Rx mannitol 5 %-water intravenous piggybck Have you fallen in the past year?: No PFSH Medical History Cerumen impaction Thyroid nodule Low back pain Right hip pain Plantar fasciitis of left foot Nonscarring hair loss Left knee pain GERD (gastroesophageal reflux disease) Osteopenia determined by x-ray Hoarseness Hyperparathyroidism Hypercalcemia Flu vaccine need Health care maintenance Hyperlipidemia Other and unspecified hyperlipidemia Diabetes Cholecystitis, acute with cholelithiasis Surgical History Total knee replacement status History of section Total knee replacement status Hx of cholecystectomy Family History (Updated 03/05/25 @ 13:10 by Liz Blank) Mother Cancer liver Thyroid disorder Heart disease Sister Cancer leukemia Brother Diabetes Pancreatitis Social History Smoking Status: Never smoker alcohol intake: never substance use type: does not use caffeine: No additional social history: -Balwinder HPI HPI HPI: Patient makes follow-up for surveillance of thyroid nodularity as well as a diagnosis of primary hyperparathyroidism. Patient last seen 02/15/2023. She presents today by herself. She states that she has some occasional raspiness but questions whether this is age-related. She states she is still singing. She had previously complained of this issue but states that it has been pretty consistent over the past 6 months. She denies any new dry cough. She also reports some difficulty swallowing where she states she feels a difference and slowly commits to a declaration that she has some choking with bigger bites of food (citing sandwiches as a particular problem some food). She also notes that she currently feels tight. She admits to some seasonal allergies and states that her eyes are watering presently. She denies any history of gastroesophageal reflux disease. She follows up today after ultrasound exam was performed at the request of her primary care provider because they believed her thyroid to be enlarged. This s (more content not included)... Normal [facility] SCRN MAMM (CAD)W/CRISTÓBAL Cook n 02-01-2025 SCRN MAMM (CAD)W/CRISTÓBAL BILAT [facility] Imaging Services [address] [place], [place] [address] SCRN MAMM (CAD)W/CRISTÓBAL BILAT MR#: [id number] Acct: [id number] Name: MABEL RAZA Rep #: [id number] : 1945 F 79 From: Chloé Blake PCP: Dr. Robby Riddle MD Status: REG CLI Study: SCRN MAMM (CAD)W/CRISTÓBAL BILAT Date of Exam: 01/06 05/31 Exam# [id number] Ordering Dr: Robby Riddle MD EXAM: SCRN MAMM (CAD)W/CRISTÓBAL BILAT DATE: 02/01/2025 CLINICAL HISTORY: F, Age 79 y/o , BREAST CANCER SCREENING BREAST CANCER RISK ASSESSMENT: Has not been calculated. TECHNIQUE: Bilateral screening digital breast tomosynthesis with 2D and 3D images. Computer aided detection. COMPARISON: Prior exam(s) dated 12/11/2023 and 10/12/2022. FINDINGS: TISSUE DENSITY: The breast tissue is composed of scattered area of fibroglandular density. Bilateral Breast Mammographic Findings: There are no suspicious masses, suspicious cluster of microcalcifications, architectural distortion or secondary sign of malignancy is identified in either breast. Benign-appearing round calcifications are seen in both breasts. Stable nodular masslike densities are seen in both breasts. BI/SCRN MAMM (CAD)W/CRISTÓBAL BILAT IMPRESSION: OVERALL FINAL ASSESSMENT: BIRADS 2 BENIGN FINDING RECOMMENDATION: Routine annual follow-up in 1 Year A letter with findings and recommendations will be mailed to the patient. Reading Location: [id number] CC: Dr. Robby Riddle MD Development Director: Signed Normal [facility] Thyroidon 02-01-2025 Thyroid [facility] Imaging Services [address] [place], [place] [address] Thyroid MR#: [id number] Acct: [id number] Name: MABEL RAZA Rep #: [id number] : 1945 F 79 From: Chip Boyd MD PCP: Dr. Robby Riddle MD Status: REG CLI Study: Thyroid Date of Exam: 02/01/25 Exam# [id number] Ordering Dr: Robby Riddle MD PROCEDURE: THYROID 02/01/2025 REASON FOR EXAM: FU THYROID NODULES TECHNIQUE: High-frequency thyroid ultrasound, including grayscale and color-flow images. REFERENCE LINKS: TI-RADS Chart: [email or web address]-[email or web address] TI-RADS Calculator Tool with Reference Images: [email or web address]/[email or web address] -[email or web address]/ FINDINGS: Right thyroid lobe size: 5.6 x 2.1 x 2.2 cm Left thyroid lobe size: 5.4 x 2.1 x 1.6 cm Isthmus: 0.3 cm Background parenchymal echotexture is heterogeneous Nodules: Multiple subcentimeter hypoechoic and anechoic nodules consistent with adenomas and colloid cysts. US/Thyroid IMPRESSION: Thyroiditis with a multiple tiny adenomas and colloid cyst. RECOMMENDATION: Based on most suspicious nodule. Nodule size = largest diameter Only evaluate nodule if =>5 mm. Growth > 20% in 2 dimensions = worsening. Follow up to 4 nodules. Recommend biopsy for no more than 2 nodules. Reading Location: [facility] CC: Dr. Robby Riddle MD Development Director: Signed Normal [facility] Anion gap in Serum or Plasma Ordered By: Robby Riddle on 12-16-2024 Anion gap [Moles/Vol] 12 mmol/L 5-15 [facility] BUN/creatinine ratioOrdered By: Robby Riddle on 12-16-2024 Urea nitrogen/Creatinine [Mass ratio] 19.1 mg/mg 10-20 [facility] Bilirubin, totalOrdered By: Robby Riddle on 12-16-2024 Bilirubin [Mass/Vol] 0.60 mg/dL 0.00-1.30 [facility] Calculated very low density lipoprotein (VLDL) cholesterol measurementOrdered By: Robby Riddle on 12-16-2024 Calculated very low density lipoprotein (VLDL) cholesterol measurement 48 mg/dL High 5-40 [facility] VLDL Cholesterol 48 mg/dL High 5-40 [facility] Carbon dioxide, total [Moles /volume] in Central venous bloodOrdered By: Robby Riddle on 12-16-2024 CO2 [Moles/Vol] 23.5 mmol/L 21.0-32.0 [facility] Chloride assayOrdered By: Jonny Riddle on 12-16-2024 Chloride [Moles/Vol] 104 mmol/L 98-108 [facility] Comprehensive Metabolic Prof ilon 12-16-2024 Albumin [Mass/Vol] 4.4 g/dL Normal 3.4-4.8 [facility] Comment on above: Performed By: #### L 500.4100, L500.4050, L501.9985 #### [facility] [address] [place], [address] Albumin/Globulin [Mass ratio] 1.8 {ratio} Normal 0.9-2.4 [facility] Comment on above: Performed By: #### L 500.4100, L500.4050, L501.9985 #### [facility] [address] [place], [address] ALK PHOS 67 U/L Normal 35-104 [facility] Comment on above: Performed By: #### L 500.4100, L500.4050, L501.9985 #### [facility] [address] [place], [address] ALT [Catalytic activity/Vol] 33 U/L Normal <=34 [facility] Comment on above: Performed By: #### L 500.4100, L500.4050, L501.9985 #### [facility] [address] [place], [address] AST [Catalytic activity/Vol] 31 U/L Normal <=31 [facility] Comment on above: Performed By: #### L 500.4100, L500.4050, L501.9985 #### [facility] [address] [place], [address] Bilirubin [Mass/Vol] 0.60 mg/dL Normal 0.00-1.30 [facility] Comment on above: Performed By: #### L 500.4100, L500.4050, L501.9985 #### [facility] [address] [place], [address] BUN/CRE 19.1 RATIO Normal 10-20 [facility] Comment on above: Performed By: #### L 500.4100, L500.4050, L501.9985 #### [facility] [address] [place], [address] Calcium [Mass/Vol] 11.4 mg/dL High 7.6-11.0 [facility] Comment on above: Performed By: #### L 500.4100, L500.4050, L501.9985 #### [facility] [address] [place], [address] Chloride [Moles/Vol] 104 mmol/L Normal 98-108 [facility] Comment on above: Performed By: #### L 500.4100, L500.4050, L501.9985 #### [facility] [address] [place], [address] CO2 [Moles/Vol] 23.5 mmol/L Normal 21.0-32.0 [facility] Comment on above: Performed By: #### L 500.4100, L500.4050, L501.9985 #### [facility] [address] [place], [address] Creatinine [Mass/Vol] 1.19 mg/dL Normal 0.70-1.20 [facility] Comment on above: Performed By: #### L 500.4100, L500.4050, L501.9985 #### [facility] [address] [place], [address] GAP 12 Normal 5-15 [facility] Comment on above: Performed By: #### L 500.4100, L500.4050, L501.9985 #### [facility] [address] [place], [address] GFR/1.73 sq M.predicted among non-blacks MDRD (S/P/Bld) [Vol rate/Area] 47 mL/min/{1.73_m2} Low >60 [facility] Comment on above: Result Comment: mL/m in/1.73m2 CKD-EPI Creatinine Equation (2020) Performed By: #### L 500.4100, L500.4050, L501.9985 #### [facility] [address] [place], [address] Globulin (S) [Mass/Vol] 2.5 g/dL Normal 2.2-4.2 [facility] Comment on above: Performed By: #### L 500.4100, L500.4050, L501.9985 #### [facility] [address] [place], [address] Glucose [Mass/Vol] 129 mg/dL High 70-99 [facility] Comment on above: Performed By: #### L 500.4100, L500.4050, L501.9985 #### [facility] [address] [place], [address] Potassium [Moles/Vol] 4.8 mmol/L Normal 3.3-5.1 [facility] Comment on above: Performed By: #### L 500.4100, L500.4050, L501.9985 #### [facility] [address] [place], [address] Sodium [Moles/Vol] 139 mmol/L Normal 133-145 [facility] Comment on above: Performed By: #### L 500.4100, L500.4050, L501.9985 #### [facility] [address] [place], [address] T PROT 6.8 g/dL Normal 5.9-8.4 [facility] Comment on above: Performed By: #### L 500.4100, L500.4050, L501.9985 #### [facility] [address] [place], [address] Urea nitrogen [Mass/Vol] 23 mg/dL High 4-19 [facility] Comment on above: Performed By: #### L 500.4100, L500.4050, L501.9985 #### [facility] [address] [place], [address] GFR/1.73 sq M.predicted ev g non-blacks MDRD (S/P/Bld) [Vol rate/Area]Ordered By: Robby Riddle on 12-16-2024 Estimated GFR (MDRD) Non-Af Amer 47 Low >60 [facility] Comment on above: mL/min/1.73m2 CKD-EP I Creatinine Equation (2020) Glomerular filtration rate ( GFR) estimation/1.73 sq m using serum, plasma, or whole bOrdered By: Robby Riddle on 12-16-2024 GFR/1.73 sq M.predicted among non-blacks MDRD (S/P/Bld) [Vol rate/Area] 47 mL/min/{1.73_m2} Low >60 [facility] Comment on above: mL/min/1.73m2 CKD-EP I Creatinine Equation (2020) Hemoglobin A1con 12-16-2024 HbA1c (Bld) [Mass fraction] 6.0 % Normal <=5.6 [facility] Comment on above: Performed By: #### L 500.4100, L500.4050, L501.9985 #### [facility] [address] [place], [address] Hemoglobin A1c percentageOrd ered By: Robby Riddle on 12-16-2024 HbA1c (Bld) [Mass fraction] 6.0 % >5.7 [facility] Internal Medicine Office Vis iton 12-16-2024 Internal Medicine Office Visit [facility] [address] [place] [address] [place] [address] OFFICE VISIT Date of Service: 12/16/24 MR#: [id number] Acct: [id number] Name: MABEL RAZA Rep #: [id number] : 1945 Provider: Dr. Robby powell MD Age/Sex: 79/F Location: [facility] Status: Signed Intake Vital Signs 04/10/24 09:06 07/27/24 08:59 12/16/24 10:08 Height 5 ft 7 in 5 ft 7 in 5 ft 7 in Weight: 195 lb 4 oz BMI 30.5 BP 128/76 H Blood Pressure Location Lt brachial Position Sitting Respiration 16 Pulse 67 Pulse Source Monitor Temp 96.7 F L Temp Source Temporal Pulse Oximetry (%) 97 Oxygen Delivery Method room air Intake Visit Reasons: 6 M FU Chief Complaint: Follow-up chronic conditions. Left ear fullness Inventory Specialist Manager Required: No Accompanied by: Self Is patient in pain?: No Allergies adhesive tape Adverse Reaction (Verified 12/16/24 10:07) Other amoxicillin trihydrate (From Augmentin) Adverse Reaction (Verified 12/16/24 10:07) Upset Stomach potassium clavulanate (From Augmentin) Adverse Reaction (Verified 12/16/24 10:07) Upset Stomach Medications ???Medication ???Instructions ???Recorded ???Confirmed ???Type aspirin 81 mg chewable tablet 81 mg PO DAILY@0800 heart health 1 12/16/24 History acetaminophen 325 mg tablet 650 mg (2 x 325 mg) PO Q6H PRN PRN 07/14/19 12/16/24 Rx Pain Score 1-07/16 elderberry fruit 200 mg capsule 1,000 mg PO DAILY 01/22/22 5 History flaxseed oil 1,000 mg capsule 1,000 mg PO DAILY 01/22/22 5 History multivitamin 1 tab PO DAILY 01/22/22 12/16/24 H istory biotin 5,000 mcg-lutein 10 mg 1 tab PO DAILY 01/28/23 12/16/24 H istory tablet omega-3 fatty acids-fish oil 300 cap PO DAILY 07/12/23 12/16/24 His tory mg-500 mg capsule (Fish Oil) zoledronic acid 5 mg/100 mL in 1 ea .Route ONCE #100 mL 01/27/24 12/16/24 Rx mannitol 5 %-water intravenous piggybck amlodipine 5 mg tablet 5 mg PO DAILY #90 tabs 03/13/24 Rx cholecalciferol (vitamin D3) 125 5,000 unit PO DAILY 3 months #90 0 03/13/24 12/16/24 Rx mcg (5,000 unit) capsule caps blood sugar diagnostic (OneTouch #200 ea 04/15/24 12/16/24 Rx Ultra Test strips) lancets 30 gauge (OneTouch #200 ea 04/15/24 12/16/24 Rx UltraSoft 2 Lancet) dapagliflozin propanediol 10 mg 10 mg PO DAILY #90 tabs 07/27/24 0 12/16/24 Rx tablet (Farxiga) carvedilol 12.5 mg tablet See Rx Instructions .Route 4 12/16/24 Rx .COMPLEX #180 tabs metformin 500 mg tablet 1,000 mg (2 x 500 mg) PO BID 09/0912/16/24 Rx diabetes 3 months #360 tabs valsartan 80 mg tablet 80 mg PO DAILY #90 TABLETS 4 12/16/24 Rx glimepiride 2 mg tablet 2 mg PO QAM #90 tabs 09/10/2412/05 Rx Have you fallen in the past year?: No [facility] Medical History (Updated 12/16/24 @ 12:[address] Robby Riddle MD) Cerumen impaction Thyroid nodule Low back pain Right hip pain Plantar fasciitis of left foot Nonscarring hair loss Left knee pain GERD (gastroesophageal reflux disease) Osteopenia determined by x-ray Hoarseness Hyperparathyroidism Hypercalcemia Flu vaccine need Health care maintenance Hyperlipidemia Other and unspecified hyperlipidemia Diabetes Cholecystitis, acute with cholelithiasis Surgical History Total knee replacement status History of section Total knee replacement status Hx of cholecystectomy Family History Mother Cancer Thyroid disorder Sister Cancer Social History Smoking Status: Never smoker alcohol intake: never substance use type: does not use caffeine: No additional social history: -Balwinder HPI HPI Chief Complaint: Follow-up chronic conditions. Left ear fullness Details: MABEL RAZA, is a 79 F who presents to the office today for follow-up of her chronic conditions. Also has some concerns. 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 Predominantly her left ear but happens in both. Has tried some home measures but not helpful. No significant pain or drainage. History of hypertension, blood pressure today at 128/76 mmHg. With the nicer weather, she states that she has been more active. No chest pain, palpitation or shortness of breath. History of diabetes mellitus type 2, last A1c was at 6.2. No concerns for hypoglycemia. Other chronic medical conditions are stable. ROS Const Constitutional: No body ache, excessive sweating, fatigue, fever(s), frequent falls, headache(s), snoring, weakness, weight change, sleep problems or change in appetite Eyes Eyes: No blurry vision, change in vision, bulging eyes, floaters, visual disturbance (more content not included)... Normal [facility] L506.1001on 12-16-2024 Vitamin D 25-OH 99.9 ng/mL Normal 30-100 [facility] Comment on above: Result Comment: Pat min D Status Deficiency: <20 ng/mL (50nmol/L) Insufficiency: 20-30 ng/mL (50-75 nmol/L) Sufficiency: 30-100 ng/mL (75-250 nmol/L) Toxicity: >100 ng/mL (>250 nmol/L) Performed By: #### L 509.1000, L506.1001 ####[facility] [id number] [place], [address] LDL calc ser/plasOrdered By: Robby Riddle on 12-16-2024 Cholesterol in LDL [Mass/Vol] 130 mg/dL [facility] Comment on above: Auwkhbcahv=391-451 m g/dL & Higher Phdn=377 mg/dL or greater LDL Cholesterol, Calculated 130 mg/dL [facility] Comment on above: Neyeroohrv=250-701 m g/dL & Higher Zozy=573 mg/dL or greater Laboratory - Chemistry and C hemistry - challengeOrdered By: Robby Riddle on 12-16-2024 AST [Catalytic activity/Vol] 31 U/L <32 [facility] Lipid Profileon 12-16-2024 CHOL:HDL 5.55 Normal [facility] Comment on above: Performed By: #### L 500.4100, L500.4050, L501.9985 #### [facility] [address] [place], [address] Cholesterol [Mass/Vol] 217 mg/dL High <=200 [facility] Comment on above: Result Comment: Chol esterol level, Desirable <200 mg/dL Borderline high cholesterol 200-239 mg/dL High cholesterol >=240 mg/dL Recommendations of the NCEP Adult Treatment Panel for the following risk-cutoff thresholds for the [place] population. Performed By: #### L 500.4100, L500.4050, L501.9985 #### [facility] [address] [place], [address] Cholesterol in HDL [Mass/Vol] 39 mg/dL Low [facility] Comment on above: Result Comment: Ileana onal Cholesterol Education Program (NCEP) guidelines: <40 mg/dL: Low HDL-cholesterol (major risk factor for CHD) >= 60 mg/dL: High HDL-cholesterol (negative risk factor for CHD) HDL-cholesterol is affected by a number of factors, e.g. smoking, exercise, hormones, sex and age. Performed By: #### L 500.4100, L500.4050, L501.9985 #### [facility] [address] [place], [address] Cholesterol in LDL [Mass/Vol] 130 mg/dL Normal [facility] Comment on above: Result Comment: Bord xinize=502-749 mg/dL Higher Zbcd=978 mg/dL or greater Performed By: #### L 500.4100, L500.4050, L501.9985 #### [facility] [address] [place], [address] Cholesterol in VLDL [Mass/Vol] 48 mg/dL High 5-40 [facility] Comment on above: Performed By: #### L 500.4100, L500.4050, L501.9985 #### [facility] [address] [place], [address] Triglyceride [Mass/Vol] 240 mg/dL High [facility] Comment on above: Result Comment: The drugs N-Acetylcysteine and Metamizole may falsely depress this assay. Normal range: <150 mg/dL Borderline High: 150-199 mg/dL High: 200-499 mg/dL Very High: >500 mg/dL Performed By: #### L 500.4100, L500.4050, L501.9985 #### [facility] [address] [place], [address] PTH intactOrdered By: Drake hankins on 12-16-2024 Parathyroid Hormone (Intact) 65 pg/mL High [facility] PTHINon 12-16-2024 PTH 65 pg/mL High [facility] Comment on above: Performed By: #### L 509.1000, L506.1001 ####[facility] [id number] [place], [address] Potassium (Unsp spec) [Mass/ Vol]Ordered By: Robby Riddle on 12-16-2024 Potassium [Moles/Vol] 4.8 mmol/L 3.3-5.1 [facility] Potassium measurement (mass/ volume)Ordered By: Robby Riddle on 12-16-2024 Potassium (Unsp spec) [Mass/Vol] 4.8 mmol/L 3.3-5.1 [facility] Screening total cholesterol/ high density lipoprotein (HDL) cholesterol ratioOrdered By: Robby Riddle on 12-16-2024 Cholesterol.total/Anne sterol in HDL [Mass ratio] 5.55 {ratio} [facility] Serum creatinine measurement (mass/volume)Ordered By: Robby Riddle on 12-16-2024 Creatinine [Mass/Vol] 1.19 mg/dL 0.70-1.20 [facility] Serum globulin measurementOr dered By: Robby Riddle on 12-16-2024 Globulin (S) [Mass/Vol] 2.5 g/dL 2.2-4.[address] [facility] Serum glucose measurement (m ass/volume)Ordered By: Robby Riddle on 12-16-2024 Glucose [Mass/Vol] 129 mg/dL High 70-99 [facility] Serum or plasma alanine morillo otransferase (ALT) measurementOrdered By: Robby Riddle on 12-16-2024 ALT [Catalytic activity/Vol] 33 U/L <35 [facility] Serum or plasma albumin juno urement (mass/volume)Ordered By: Robby Riddle on 12-16-2024 Albumin [Mass/Vol] 4.4 g/dL 3.4-4.8 [facility] Serum or plasma albumin/glob ulin mass ratioOrdered By: Robby Riddle on 12-16-2024 Albumin/Globulin [Mass ratio] 1.8 {ratio} 0.9-2.4 [facility] Serum or plasma alkaline winston sphatase measurementOrdered By: Robby Riddle on 12-16-2024 ALP [Catalytic activity/Vol] 67 U/L 35-104 [facility] Serum or plasma calcium juno urement (mass/volume)Ordered By: Robby Riddle on 12-16-2024 Calcium [Mass/Vol] 11.4 mg/dL High 7.6-11.0 [facility] Serum or plasma cholesterol in HDL measurement (mass/volume)Ordered By: Robby Riddle on 12-16-2024 Cholesterol in HDL [Mass/Vol] 39 mg/dL Low >40 [facility] Comment on above: National Cholesterol Education Program (NCEP) guidelines:<40 mg/dL: Low HDL-cholesterol (major risk factor for CHD)>= 60 mg/dL: High HDL-cholesterol (negative risk factor for CHD)HDL-cholesterol is affected by a number of factors, e.g. smoking, exercise, hormones, sex and age. Serum or plasma cholesterol measurement (mass/volume)Ordered By: Robby Riddle on 12-16-2024 Cholesterol [Mass/Vol] 217 mg/dL High <201 [facility] Comment on above: Cholesterol level, D esirable <200 mg/dLBorderline high cholesterol 200-239 mg/dLHigh cholesterol >=240 mg/dLRecommendations of the NCEP Adult Treatment Panel for the following risk-cutoff thresholds for the [place] population. Serum or plasma urea nitroge n measurement (mass/volume)Ordered By: Robby Riddle on 12-16-2024 Urea nitrogen [Mass/Vol] 23 mg/dL High 4-19 [facility] Sodium levelOrdered By: Katharina Riddle on 12-16-2024 Sodium [Moles/Vol] 139 mmol/L 133-145 [facility] Total proteinOrdered By: Ney Riddle on 12-16-2024 Protein [Mass/Vol] 6.8 g/dL 5.9-8.4 [facility] Triglycerides measurementOrd ered By: Robby Riddle on 12-16-2024 Triglyceride [Mass/Vol] 240 mg/dL High <199 [facility] Comment on above: The drugs N-Acetylcy steine and Metamizole may falsely depress this assay. Normal range: <150 mg/dLBorderline High: 150-199 mg/dLHigh: 200-499 mg/dLVery High: >500 mg/dL Vitamin D, 25-hydroxyOrdered By: Drake Cifuentes on 12-16-2024 Vitamin D 25-Hydroxy 99.9 ng/mL 30-100 [facility] Comment on above: Vitamin D StatusDefi ciency: <20 ng/mL (50nmol/L)Insufficiency: 20-30 ng/mL (50-75 nmol/L)Sufficiency: 30-100 ng/mL (75-250 nmol/L)Toxicity: >100 ng/mL (>250 nmol/L) Endocrinology Visit Reporton 07-27-2024 Endocrinology Visit Report [facility] [address] [place] [address] OFFICE VISIT Date of Service: 07/27/24 MR#: [id number] Acct: [id number] Name: MABEL RAZA Rep #: [id number] : 1945 Provider: Olman Barton Age/Sex: 78/F Location: [facility] Status: Signed Intake Vital Signs 01/27/24 10:08 04/10/24 09:06 07/27/24 08:59 Height 5 ft 7 in 5 ft 7 in 5 ft 7 in Weight: 187 lb 4 oz 194 lb 6 oz BMI 29.3 30.4 BP 118/64 135/77 H Blood Pressure Location Lt brachial Rt brachial Position Sitting Sitting Respiration 16 Pulse 78 63 Pulse Source Monitor Monitor Temp 97.6 F L Temp Source Temporal Pulse Oximetry (%) 94 94 Oxygen Delivery Method room air room air Intake Visit Reasons: 6 M FU Chief Complaint: Multiple endocrine Allergies adhesive tape Adverse Reaction (Verified 04/10/24 08:58) Other amoxicillin trihydrate (From Augmentin) Adverse Reaction (Verified 04/10/24 08:58) Upset Stomach potassium clavulanate (From Augmentin) Adverse Reaction (Verified 04/10/24 08:58) Upset Stomach Medications ???Medication ???Instructions ???Recorded ???Confirmed ???Type aspirin 81 mg chewable tablet 81 mg PO DAILY@0800 heart health 07/12/19 07/27/24 History acetaminophen 325 mg tablet 650 mg (2 x 325 mg) PO Q6H PRN PRN 07/14/19 07/27/24 Rx Pain Score 1-07/16 elderberry fruit 200 mg capsule 1,000 mg PO DAILY 01/22/22 07/27/24 History flaxseed oil 1,000 mg capsule 1,000 mg PO DAILY 01/22/22 07/27/24 History multivitamin 1 tab PO DAILY 01/22/22 07/27/24 History biotin 5,000 mcg-lutein 10 mg 1 tab PO DAILY 01/28/23 07/27/24 History tablet omega-3 fatty acids-fish oil 300 cap PO DAILY 07/12/23 07/27/24 History mg-500 mg capsule (Fish Oil) zoledronic acid 5 mg/100 mL in 1 ea .Route ONCE #100 mL 01/27/24 07/27/24 Rx mannitol 5 %-water intravenous piggybck amlodipine 5 mg tablet 5 mg PO DAILY #90 tabs 03/13/24 07/27/24 Rx carvedilol 12.5 mg tablet See Rx Instructions .Route 03/13/24 07/27/24 Rx .COMPLEX #180 tabs cholecalciferol (vitamin D3) 125 5,000 unit PO DAILY 3 months #90 03/13/24 07/27/24 Rx mcg (5,000 unit) capsule caps metformin 500 mg tablet 1,000 mg (2 x 500 mg) PO BID 03/13/24 07/27/24 Rx diabetes 3 months #360 tabs valsartan 80 mg tablet 80 mg PO DAILY #90 TABLETS 03/13/24 07/27/24 Rx blood sugar diagnostic (OneTouch #200 ea 04/15/24 07/27/24 Rx Ultra Test strips) lancets 30 gauge (OneTouch #200 ea 04/15/24 07/27/24 Rx UltraSoft 2 Lancet) dapagliflozin propanediol 10 mg 10 mg PO DAILY #90 tabs 07/27/24 07/27/24 Rx tablet (Farxiga) glimepiride 2 mg tablet 2 mg PO QAM #90 tabs 07/27/24 07/27/24 Rx Have you fallen in the past year?: No PFSH Medical History Low back pain Right hip pain Plantar fasciitis of left foot Nonscarring hair loss Left knee pain GERD (gastroesophageal reflux disease) Osteopenia determined by x-ray Hoarseness Hyperparathyroidism Hypercalcemia Flu vaccine need Health care maintenance Hyperlipidemia Other and unspecified hyperlipidemia Diabetes Cholecystitis, acute with cholelithiasis Surgical History Total knee replacement status History of section Total knee replacement status Hx of cholecystectomy Family History Mother Cancer Thyroid disorder Sister Cancer Social History Smoking Status: Never smoker alcohol intake: never substance use type: does not use caffeine: No additional social history: -Balwinder HPI HPI Chief Complaint: Multiple endocrine Details: MABEL RAZA, is a 78 F who presents to the office today for follow up. 1. DM A1C is 6.2% She is taking glimepiride 2 mg and Farxiga 10 mg. She denies lows. I reviewed her labs. 2. Hyperparathyroidism. Calcium is stable at 10.2 She is due for vitamin D level. 3. Osteopenia She has received 3 REclast infusions. She will receive number 4 in Feb, 2025 4. MNG She has been evaluated by Dr. Marin. FNA benign. Last ultrasound was January, Will monitor. ROS Const Constitutional: No fatigue, weight change or change in appetite Eyes Eyes: No change in vision ENT ENT: No dizziness/vertigo or difficulty swallowing Cardio Cardiology: No chest pain at rest, chest pain with exertion, shortness of breath or palpitations Musc Musculoskeletal: No abnormal gait, joint pain, numbness or tingling Neuro Neurology: No abnormal gait, memory loss, numbness or tingling Psych Psychiatric: No change in appetite, No memory loss and No Thoughts of harming yourself/Othe (more content not included)... Normal [facility] Absolute lymphocyte countOrd ered By: Robby Riddle on 01-15-2024 Lymphocytes Auto (Unsp spec) [#/Vol] 1.01 10*3/uL 0.83-4.51 [facility] Automated lymphocyte count a s percentage of total leukocytesOrdered By: Robby Riddle on 01-15-2024 Lymphocytes/100 WBC Auto (Unsp spec) 17.8 % 19-41 [facility] Basophil percentageOrdered B y: Robby Riddle on 01-15-2024 Basophils/100 WBC (Bld) 0.9 % 0-[address] [facility] Bilirubin [Mass/Vol] 0.80 mg/dL 0.20-1.00 [facility] Comment on above: For patients on eltr ombopag therapy, use of Dimension [place] TBIL is not recommended. Chloride [Moles/Vol] 106 mmol/L 98-107 [facility] Cholesterol [Mass/Vol] 206 mg/dL <200 [facility] Comment on above: <200 mg/dL Desirable 200-240 mg/dL Borderline >240 mg/dL High Risk Eosinophils/100 WBC (Bld) 7.4 % 0-5 [facility] Glucose [Mass/Vol] 167 mg/dL 74-106 [facility] Comment on above: Fasting Glucose resu lt greater than or equal to 126 mg/dL suggests DIABETES MELLITUS per A.D.A. criteria. Hemoglobin (Bld) [Mass/Vol] 13.5 g/dL 12.0-15.0 [facility] Monocytes/100 WBC (Bld) 10.1 % 0-10 [facility] Neutrophils (Bld) [#/Vol] 3.6 10*3/uL 2.0-7.7 [facility] Neutrophils/100 WBC (Bld) 63.4 % 47-70 [facility] Potassium [Moles/Vol] 4.1 mmol/L 3.5-5.1 [facility] Protein [Mass/Vol] 6.6 g/dL 6.4-8.2 [facility] Sodium [Moles/Vol] 137 mmol/L 136-145 [facility] Triglyceride [Mass/Vol] 303 mg/dL <199 [facility] Comment on above: The drugs N-Acetylcy steine and Metamizole may falsely depress this assay.Serum Triglycerides Reference Interval Normal <150 mg/dL Borderline high 150 - 199 mg/dL High 200 - 499 mg/dL Very High > or = 500 mg/dL WBC (Bld) [#/Vol] 5.7 10*3/uL 4.4-11.0 [facility] Determination of erythrocyte mean corpuscular volume (MCV)Ordered By: Robby Riddle on 01-15-2024 MCV (RBC) [Entitic vol] 86.7 fL 81-99 [facility] Erythrocyte distribution wid th ratioOrdered By: Robby Riddle on 01-15-2024 Erythrocyte distribution width (RBC) [Ratio] 12.8 % 11.6-14.6 [facility] Erythrocyte distribution wid th standard deviationOrdered By: Robby Riddle on 01-15-2024 Erythrocyte distribution width (RBC) [Entitic vol] 40.0 fL 35.1-43.9 [facility] Hematocrit Auto (Bld) [Volum e fraction]Ordered By: Robby Riddle on 01-15-2024 Hematocrit (Bld) [Volume fraction] 41.2 % 37-47 [facility] Immature granulocytes/100 WB C Auto (Bld)Ordered By: barbarajaspercody Riddle on 01-15-2024 Immature granulocytes/100 WBC (Bld) 0.400 % 0.0-0.9 [facility] Comment on above: IG% - Immature Granu locytes (promyelocytes, myelocytes and metamyelocytes) > 1% indicates that a LEFT SHIFT is Present. Laboratory - Chemistry and C hemistry - challengeOrdered By: barbarajaspercody Hookskarsten on 01-15-2024 Albumin/Globulin [Mass ratio] 1.3 {ratio} 0.9-2.4 [facility] ALP [Catalytic activity/Vol] 67 U/L 45-117 [facility] ALT [Catalytic activity/Vol] 55 U/L 13-56 [facility] Cholesterol in HDL [Mass/Vol] 34 mg/dL >40 [facility] Comment on above: The drugs N-Acetylcy steine and Metamizole may falsely depress this assay. Reference Range HDL <40 mg/dL Low HDL Cholesterol HDL >or= 60 mg/dL High HDL Cholesterol Cholesterol in LDL [Mass/Vol] 111 mg/dL 0-130 [facility] CO2 [Moles/Vol] 25.0 mmol/L 21.0-32.0 [facility] Globulin (S) [Mass/Vol] 2.9 g/dL 2.2-4.[address] [facility] Urea nitrogen/Creatinine [Mass ratio] 16.1 mg/mg 10-20 [facility] Laboratory - Hematology and Cell countsOrdered By: barbarajaspercody Riddle on 01-15-2024 MCH (RBC) [Entitic mass] 28.4 pg 27.0-32.0 [facility] MCHC (RBC) [Mass/Vol] 32.8 g/dL 32-36 [facility] Nucleated RBC/100 WBC (Bld) [Ratio] 0 % 0-5 [facility] Platelet mean volume (Bld) [Entitic vol] 10.2 fL 6.2-12.0 [facility] Platelets (Bld) [#/Vol] 142 10*3/uL 150-450 [facility] No Panel InformationOrdered By: Robby Riddle on 01-15-2024 Estimated GFR (MDRD) Amer 61 mL/min >60 [facility] Comment on above: GFR Calc Estimated GFR (MDRD) Non-Af Amer 50 mL/min >60 [facility] Comment on above: Non- GFR Calc Urine Microalbumin/Creatinine Ratio 32.1 mg/g CRE <30 [facility] VLDL Cholesterol 61 mg/dL 5-40 [facility] RBC Auto (Bld) [#/Vol]Ordere d By: Robby Riddle on 01-15-2024 RBC (Bld) [#/Vol] 4.75 10*6/uL 4.2-5.4 [facility] Serum or plasma calcium juno urement (mass/volume)Ordered By: Robby Riddle on 01-15-2024 Calcium [Mass/Vol] 10.2 mg/dL 8.5-10.1 [facility] Serum or plasma creatinine m easurement (mass/volume)Ordered By: Robby Riddle on 01-15-2024 Creatinine [Mass/Vol] 1.12 mg/dL 0.55-1.02 [facility] Comment on above: The validity of the calculated GFR & GFRAA in patients over 70 years has not been determined. Clinical correlation is essential. Serum or plasma urea nitroge n measurement (mass/volume)Ordered By: Robby Riddle on 01-15-2024 Urea nitrogen [Mass/Vol] 18 mg/dL 7-18 [facility] Thin prep Papanicolaou smear with manual screeningOrdered By: Robby Riddle on 01-15-2024 Thin prep Papanicolaou smear with manual screening 3.7 g/dL 3.2-5.0 [facility] Thin prep Papanicolaou smear with manual screening 41 U/L 15-37 [facility] Thin prep Papanicolaou smear with manual screening 6 5-15 [facility] Thin prep Papanicolaou smear with manual screening 56.5 mg/L NO RANGE EST. [facility] Urine creatinine measurement (mass/volume)Ordered By: Robby Riddle on 01-15-2024 Creatinine (U) [Mass/Vol] 176.00 mg/dL NO RANGE EST. [facility] Laboratory - Hematology and Cell countson 01-13-2024 HbA1c (Bld) [Mass fraction] 8.9 % 4.2-6.3 [facility] Basophil percentageOrdered B y: Dr. Cifuentes on 02-18-2023 Bilirubin [Mass/Vol] 0.40 mg/dL 0.20-1.00 [facility] Comment on above: For patients on eltr ombopag therapy, use of Dimension [place] TBIL is not recommended. Chloride [Moles/Vol] 108 mmol/L 98-107 [facility] Glucose [Mass/Vol] 171 mg/dL 74-106 [facility] Comment on above: Fasting Glucose resu lt greater than or equal to 126 mg/dL suggests DIABETES MELLITUS per A.D.A. criteria. Potassium [Moles/Vol] 4.1 mmol/L 3.5-5.1 [facility] Protein [Mass/Vol] 6.6 g/dL 6.4-8.2 [facility] Sodium [Moles/Vol] 141 mmol/L 136-145 [facility] Basophil percentageOrdered B y: Dr. Riddle on 02-18-2023 Cholesterol [Mass/Vol] 216 mg/dL <200 [facility] Comment on above: <200 mg/dL Desirable 200-240 mg/dL Borderline >240 mg/dL High Risk Triglyceride [Mass/Vol] 417 mg/dL <[address] [facility] Comment on above: The drugs N-Acetylcy steine and Metamizole may falsely depress this assay. TRIGLYCERIDE IS GREATER THAN 400 mg/dL. LDL RESULT IS INVALID AND WILL NOT BE REPORTED.Serum Triglycerides Reference Interval Normal <150 mg/dL Borderline high 150 - 199 mg/dL High 200 - 499 mg/dL Very High > or = 500 mg/dL Laboratory - Chemistry and C hemistry - challengeOrdered By: Dr. Cifuentes on 02-18-2023 ALP [Catalytic activity/Vol] 64 U/L 45-117 [facility] ALT [Catalytic activity/Vol] 33 U/L 13-56 [facility] CO2 [Moles/Vol] 24.0 mmol/L 21.0-32.0 [facility] Globulin (S) [Mass/Vol] 2.9 g/dL 2.2-4.[address] [facility] Urea nitrogen/Creatinine [Mass ratio] 21.5 mg/mg 10-20 [facility] No Panel InformationOrdered By: Dr. Cifuentes on 02-18-2023 Estimated GFR (MDRD) Amer 64 mL/min >60 [facility] Comment on above: GFR Calc Estimated GFR (MDRD) Non-Af Amer 53 mL/min >60 [facility] Comment on above: Non- GFR Calc Parathyroid Hormone (Intact) 72.1 pg/mL 18.4-80.1 [facility] Vitamin D 25-Hydroxy 87.3 ng/mL [facility] Comment on above: Vitamin D 25(OH) Sta tus Range Deficiency <20 ng/mL (50nmol/L) Insufficiency 20 - 30 ng/mL (50 - 75 nmol/L) Sufficiency 30 - 100 ng/mL (75 - 250 nmol/L) Toxicity >100 ng/mL (>250 nmol/L) Serum or plasma albumin juno urement (mass/volume)Ordered By: Dr. Cifuentes on 02-18-2023 Albumin [Mass/Vol] 3.7 g/dL 3.2-5.0 [facility] Serum or plasma albumin/glob ulin mass ratioOrdered By: Dr. Cifuentes on 02-18-2023 Albumin/Globulin [Mass ratio] 1.3 {ratio} 0.9-2.4 [facility] Serum or plasma calcium juno urement (mass/volume)Ordered By: Dr. Cifuentes on 02-18-2023 Calcium [Mass/Vol] 10.6 mg/dL 8.5-10.1 [facility] Serum or plasma cholesterol in HDL measurement (mass/volume)Ordered By: Dr. Riddle on 02-18-2023 Cholesterol in HDL [Mass/Vol] 34 mg/dL >40 [facility] Comment on above: The drugs N-Acetylcy steine and Metamizole may falsely depress this assay. Reference Range HDL <40 mg/dL Low HDL Cholesterol HDL >or= 60 mg/dL High HDL Cholesterol Serum or plasma cholesterol in VLDL measurement (mass/volume)Ordered By: Dr. Riddle on 02-18-2023 Cholesterol in VLDL [Mass/Vol] [facility] Comment on above: Test not performed Serum or plasma creatinine m easurement (mass/volume)Ordered By: Dr. Cifuentes on 02-18-2023 Creatinine [Mass/Vol] 1.07 mg/dL 0.55-1.02 [facility] Comment on above: The validity of the calculated GFR & GFRAA in patients over 70 years has not been determined. Clinical correlation is essential. Serum or plasma low density lipoprotein (LDL) cholesterol measurement (mass/volume)Ordered By: Dr. Riddle on 02-18-2023 Cholesterol in LDL [Mass/Vol] [facility] Comment on above: Test not performed Serum or plasma urea nitroge n measurement (mass/volume)Ordered By: Dr. Cifuentes on 02-18-2023 Urea nitrogen [Mass/Vol] 23 mg/dL 04-23 [facility] Thin prep Papanicolaou smear with manual screeningOrdered By: Dr. Cifuentes on 02-18-2023 Thin prep Papanicolaou smear with manual screening 20 U/L 15 [facility] Thin prep Papanicolaou smear with manual screening 9 5-15 [facility] Laboratory - Hematology and Cell countson 01-21-2023 HbA1c (Bld) [Mass fraction] 7.3 % [facility] Absolute lymphocyte countOrd ered By: Dr. Riddle on 10-31-2022 Lymphocytes Auto (Unsp spec) [#/Vol] 0.76 10*3/uL 0.83-4.51 [facility] Basophil percentageOrdered B y: Dr. Riddle on 10-31-2022 Basophils/100 WBC (Bld) 0.7 % 0-[address] [facility] Bilirubin [Mass/Vol] 0.70 mg/dL 0.20-1.00 [facility] Comment on above: For patients on eltr ombopag therapy, use of Dim[place] TBIL is not recommended. Chloride [Moles/Vol] 107 mmol/L 98-107 [facility] Eosinophils/100 WBC (Bld) 4.9 % 0-5 [facility] Glucose [Mass/Vol] 233 mg/dL 74-106 [facility] Comment on above: Glucose result great er than or equal to 200 mg/dLsuggests DIABETES MELLITUS per A.D.A. criteria. Neutrophils (Bld) [#/Vol] 5.8 10*3/uL 2.0-7.7 [facility] Neutrophils/100 WBC (Bld) 76.9 % 47-70 [facility] Potassium [Moles/Vol] 4.3 mmol/L 3.5-5.1 [facility] Protein [Mass/Vol] 7.0 g/dL 6.4-8.2 [facility] Sodium [Moles/Vol] 138 mmol/L 136-145 [facility] WBC (Bld) [#/Vol] 7.6 10*3/uL 4.4-11.0 [facility] Blood erythrocytes count (nu mber/volume)Ordered By: Dr. Riddle on 10-31-2022 RBC (Bld) [#/Vol] 4.83 10*6/uL 4.2-5.4 [facility] Blood hemoglobin measurement (mass/volume)Ordered By: Dr. Riddle on 10-31-2022 Hemoglobin (Bld) [Mass/Vol] 13.6 g/dL 12.0-15.0 [facility] Blood lymphocytes/100 leukoc ytesOrdered By: Dr. Riddle on 10-31-2022 Lymphocytes/100 WBC (Bld) 10.1 % 19-41 [facility] Blood monocytes/100 leukocyt esOrdered By: Dr. Riddle on 10-31-2022 Monocytes/100 WBC (Bld) 6.7 % 0-10 [facility] Blood platelet mean volumeOr dered By: Dr. Riddle on 10-31-2022 Platelet mean volume (Bld) [Entitic vol] 9.9 fL 6.2-12.0 [facility] Determination of erythrocyte mean corpuscular volume (MCV)Ordered By: Dr. Riddle on 10-31-2022 MCV (RBC) [Entitic vol] 86.7 fL 81-[address] [facility] Hematocrit Auto (Bld) [Volum e fraction]Ordered By: Dr. Riddle on 10-31-2022 Hematocrit (Bld) [Volume fraction] 41.9 % 37-47 [facility] Iron measurement (mass/mass) Ordered By: Dr. Riddle on 10-31-2022 Iron (Unsp spec) [Mass/Mass] 93 ug/dL 50-170 [facility] Laboratory - Chemistry and C hemistry - challengeOrdered By: Dr. Riddle on 10-31-2022 ALP [Catalytic activity/Vol] 66 U/L 45-117 [facility] ALT [Catalytic activity/Vol] 42 U/L 13-56 [facility] CO2 [Moles/Vol] 24.0 mmol/L 21.0-32.0 [facility] Free T4 [Mass/Vol] 1.20 ng/dL 0.76-1.46 [facility] Globulin (S) [Mass/Vol] 3.2 g/dL 2.2-4.[address] [facility] Urea nitrogen/Creatinine [Mass ratio] 15.5 mg/mg 10-20 [facility] Laboratory - Hematology and Cell countsOrdered By: Dr. Riddle on 10-31-2022 Erythrocyte distribution width (RBC) [Entitic vol] 40.2 fL 35.1-43.9 [facility] Erythrocyte distribution width (RBC) [Ratio] 13.0 % 11.6-14.6 [facility] Immature granulocytes/100 WBC (Bld) 0.700 % 0.0-0.9 [facility] Comment on above: IG% - Immature Granu locytes (promyelocytes, myelocytes and metamyelocytes) > 1% indicates that a LEFT SHIFT is Present. MCH (RBC) [Entitic mass] 28.2 pg 27.0-32.0 [facility] Nucleated RBC/100 WBC (Bld) [Ratio] 0 % 0-5 [facility] Laboratory - Hematology and Cell countson 10-31-2022 HbA1c (Bld) [Mass fraction] 7.7 % 4.2-6.3 [facility] MCHC Auto (RBC) [Mass/Vol]Or dered By: Dr. Riddle on 10-31-2022 MCHC (RBC) [Mass/Vol] 32.5 g/dL 32-36 [facility] No Panel InformationOrdered By: Dr. Riddle on 10-31-2022 Estimated GFR (MDRD) Amer 59 mL/min >60 [facility] Comment on above: GFR Calc Estimated GFR (MDRD) Non-Af Amer 48 mL/min >60 [facility] Comment on above: Non- GFR Calc Thyroid Stimulating Hormone (TSH) 0.77 uIU/mL 0.358-3.74 [facility] Total Iron Binding Capacity 269 ug/dL 250-450 [facility] Platelets bldOrdered By: Dr. Riddle on 10-31-2022 Platelets (Bld) [#/Vol] 197 10*3/uL 150-450 [facility] Serum or plasma albumin juno urement (mass/volume)Ordered By: Dr. Riddle on 10-31-2022 Albumin [Mass/Vol] 3.8 g/dL 3.2-5.0 [facility] Serum or plasma albumin/glob ulin mass ratioOrdered By: Dr. Riddle on 10-31-2022 Albumin/Globulin [Mass ratio] 1.2 {ratio} 0.9-2.4 [facility] Serum or plasma calcium juno urement (mass/volume)Ordered By: Dr. Riddle on 10-31-2022 Calcium [Mass/Vol] 10.3 mg/dL 8.5-10.1 [facility] Serum or plasma creatinine m easurement (mass/volume)Ordered By: Dr. Riddle on 10-31-2022 Creatinine [Mass/Vol] 1.16 mg/dL 0.55-1.02 [facility] Comment on above: The validity of the calculated GFR & GFRAA in patients over 70 years has not been determined. Clinical correlation is essential. Serum or plasma ferritin chandler surement (mass/volume)Ordered By: Dr. Riddle on 10-31-2022 Ferritin [Mass/Vol] 210 ng/mL 8-252 [facility] Serum or plasma urea nitroge n measurement (mass/volume)Ordered By: Dr. Riddle on 10-31-2022 Urea nitrogen [Mass/Vol] 18 mg/dL 7-18 [facility] Thin prep Papanicolaou smear with manual screeningOrdered By: Dr. Riddle on 10-31-2022 Thin prep Papanicolaou smear with manual screening 25 U/L 15-37 [facility] Thin prep Papanicolaou smear with manual screening 7 5-15 [facility] Absolute lymphocyte counton 05-09-2022 Lymphocytes Auto (Unsp spec) [#/Vol] 1.09 10*3/uL 0.83-4.51 [facility] Work Phone: Basophil percentageon 2021 Basophils/100 WBC (Bld) 0.7 % 0-1 [facility] Work Phone: [phone] Bilirubin [Mass/Vol] 0.50 mg/dL 0.20-1.00 [facility] Work Phone: [phone] Comment on above: For patients on eltr ombopag therapy, use of Dim[place] TBIL is not recommended. Chloride [Moles/Vol] 105 mmol/L 98-107 [facility] Work Phone: [phone] Eosinophils/100 WBC (Bld) 5.9 % 0-5 [facility] Work Phone: Glucose [Mass/Vol] 140 mg/dL 74-106 [facility] Work Phone: Comment on above: Fasting Glucose resu lt greater than or equal to 126 mg/dL suggests DIABETES MELLITUS per A.D.A. criteria. Neutrophils (Bld) [#/Vol] 3.6 10*3/uL 2.0-7.7 [facility] Work Phone: [phone] Neutrophils/100 WBC (Bld) 64.4 % 47-70 [facility] Work Phone: [phone] Potassium [Moles/Vol] 4.5 mmol/L 3.5-5.1 [facility] Work Phone: [phone] Protein [Mass/Vol] 6.8 g/dL 6.4-8.2 [facility] Work Phone: [phone] Sodium [Moles/Vol] 137 mmol/L 136-145 [facility] Work Phone: WBC (Bld) [#/Vol] 5.6 10*3/uL 4.4-11.0 [facility] Work Phone: Blood erythrocytes count (nu mber/volume)on 05-09-2022 RBC (Bld) [#/Vol] 4.28 10*6/uL 4.2-5.4 [facility] Work Phone: Blood hemoglobin measurement (mass/volume)on 05-09-2022 Hemoglobin (Bld) [Mass/Vol] 12.5 g/dL 12.0-15.0 [facility] Work Phone: Blood lymphocytes/100 leukoc yteson 05-09-2022 Lymphocytes/100 WBC (Bld) 19.6 % 19-41 [facility] Work Phone: Blood monocytes/100 leukocyt eson 05-09-2022 Monocytes/100 WBC (Bld) 9.2 % 0-[address] [facility] Work Phone: Blood platelet mean volumeon 05-09-2022 Platelet mean volume (Bld) [Entitic vol] 10.3 fL 6.2-12.0 [facility] Work Phone: Determination of erythrocyte mean corpuscular volume (MCV)on 05-09-2022 MCV (RBC) [Entitic vol] 89.7 fL 81-[address] [facility] Work Phone: Hematocrit Auto (Bld) [Volum e fraction]on 05-09-2022 Hematocrit (Bld) [Volume fraction] 38.4 % 37-47 [facility] Work Phone: Laboratory - Chemistry and C hemistry - challengeon 05-09-2022 ALP [Catalytic activity/Vol] 69 U/L 45-117 [facility] Work Phone: ALT [Catalytic activity/Vol] 33 U/L 13-56 [facility] Work Phone: CO2 [Moles/Vol] 26.0 mmol/L 21.0-32.0 [facility] Work Phone: Globulin (S) [Mass/Vol] 3.0 g/dL 2.2-4.[address] [facility] Work Phone: Urea nitrogen/Creatinine [Mass ratio] 17.0 mg/mg 10-20 [facility] Work Phone: Laboratory - Hematology and Cell countson 05-09-2022 Erythrocyte distribution width (RBC) [Entitic vol] 43.4 fL 35.1-43.9 [facility] Work Phone: Erythrocyte distribution width (RBC) [Ratio] 13.3 % 11.6-14.6 [facility] Work Phone: Immature granulocytes/100 WBC (Bld) 0.200 % 0.0-0.9 [facility] Work Phone: Comment on above: IG% - Immature Granu locytes (promyelocytes, myelocytes and metamyelocytes) > 1% indicates that a LEFT SHIFT is Present. MCH (RBC) [Entitic mass] 29.2 pg 27.0-32.0 [facility] Work Phone: Nucleated RBC/100 WBC (Bld) [Ratio] 0 % 0-5 [facility] Work Phone: MCHC Auto (RBC) [Mass/Vol]on 05-09-2022 MCHC (RBC) [Mass/Vol] 32.6 g/dL 32-36 [facility] Work Phone: No Panel Informationon 05-09 Estimated GFR (MDRD) Amer 61 mL/min >60 [facility] Work Phone: Comment on above: GFR Calc Estimated GFR (MDRD) Non-Af Amer 50 mL/min >60 [facility] Work Phone: Comment on above: Non- GFR Calc Parathyroid Hormone (Intact) 76.8 pg/mL 18.4-80.1 [facility] Work Phone: Platelets bldon 05-09-2022 Platelets (Bld) [#/Vol] 156 10*3/uL 150-450 [facility] Work Phone: Serum or plasma albumin juno urement (mass/volume)on 05-09-2022 Albumin [Mass/Vol] 3.8 g/dL 3.2-5.0 [facility] Work Phone: Serum or plasma albumin/glob ulin mass ratioon 05-09-2022 Albumin/Globulin [Mass ratio] 1.3 {ratio} 0.9-2.4 [facility] Work Phone: Serum or plasma calcium juno urement (mass/volume)on 05-09-2022 Calcium [Mass/Vol] 10.1 mg/dL 8.5-10.1 [facility] Work Phone: Serum or plasma creatinine m easurement (mass/volume)on 05-09-2022 Creatinine [Mass/Vol] 1.12 mg/dL 0.55-1.02 [facility] Work Phone: Comment on above: The validity of the calculated GFR & GFRAA in patients over 70 years has not been determined. Clinical correlation is essential. Serum or plasma urea nitroge n measurement (mass/volume)on 05-09-2022 Urea nitrogen [Mass/Vol] 19 mg/dL 7-18 [facility] Work Phone: Thin prep Papanicolaou smear with manual screeningon 05-09-2022 Thin prep Papanicolaou smear with manual screening 19 U/L 15-37 [facility] Work Phone: Thin prep Papanicolaou smear with manual screening 6 5-15 [facility] Work Phone: Laboratory - Hematology and Cell countson 04-27-2022 HbA1c (Bld) [Mass fraction] 6.7 % 4.2-6.3 [facility] Work Phone: Basophil percentageon 2021 Cholesterol [Mass/Vol] 213 mg/dL <200 [facility] Work Phone: Comment on above: <200 mg/dL Desirable 200-240 mg/dL Borderline >240 mg/dL High Risk Triglyceride [Mass/Vol] 326 mg/dL <[address] [facility] Work Phone: Comment on above: The drugs N-Acetylcy steine and Metamizole may falsely depress this assay.Serum Triglycerides Reference Interval Normal <150 mg/dL Borderline high 150 - 199 mg/dL High 200 - 499 mg/dL Very High > or = 500 mg/dL Serum or plasma cholesterol in HDL measurement (mass/volume)on 02-15-2022 Cholesterol in HDL [Mass/Vol] 34 mg/dL >40 [facility] Work Phone: Comment on above: The drugs N-Acetylcy steine and Metamizole may falsely depress this assay. Reference Range HDL <40 mg/dL Low HDL Cholesterol HDL >or= 60 mg/dL High HDL Cholesterol Serum or plasma cholesterol in VLDL measurement (mass/volume)on 02-15-2022 Cholesterol in VLDL [Mass/Vol] 65 mg/dL 5-40 [facility] Work Phone: Serum or plasma low density lipoprotein (LDL) cholesterol measurement (mass/volume)on 02-15-2022 Cholesterol in LDL [Mass/Vol] 114 mg/dL 0-130 [facility] Work Phone: Laboratory - Hematology and Cell countson 01-24-2022 HbA1c (Bld) [Mass fraction] 7.1 % 4.2-6.3 [facility] Work Phone: Laboratory - Chemistry and C hemistry - challengeon 01-22-2022 T4 [Mass/Vol] 8.2 ug/dL 4.8-13.9 [facility] Work Phone: No Panel Informationon 01-22 Free Triiodothyronine (T3) pg/dL 2.2 pg/mL 2.18-3.98 [facility] Work Phone: Parathyroid Hormone (Intact) 64.3 pg/mL 18.4-80.1 [facility] Work Phone: Thyroid Stimulating Hormone (TSH) 0.54 uIU/mL 0.358-3.74 [facility] Work Phone: Vitamin D 25-Hydroxy 53.5 ng/mL [facility] Work Phone: Comment on above: Vitamin D 25(OH) Sta tus Range Deficiency <20 ng/mL (50nmol/L) Insufficiency 20 - 30 ng/mL (50 - 75 nmol/L) Sufficiency 30 - 100 ng/mL (75 - 250 nmol/L) Toxicity >100 ng/mL (>250 nmol/L) Serum or plasma calcium juno urement (mass/volume)on 01-22-2022 Calcium [Mass/Vol] 11.0 mg/dL 8.5-10.1 [facility] Work Phone: Vital Signs Date Time Vital Sign Value Performing Clinician Faci breanay 05-11-2025 10:07-0400 Body height 170.[address] Robby Riddle MD Work Phone: [facility] 05-11-2025 10:07-0400 Body mass index (BMI) [Ratio] 31 kg/m2 Dr. Robby Riddle MD Work Phone: [facility] 05-11-2025 10:07-0400 Body weight 89.[address] Robby Riddle MD Work Phone: [facility] 05-11-2025 10:07-0400 Diastolic blood pressure 84 mm[Hg] Dr. Robby Riddle MD Work Phone: [facility] 05-11-2025 10:07-0400 Respiratory rate 16 /min Dr. Robby Riddle MD Work Phone: [facility] 05-11-2025 10:07-0400 Systolic blood pressure 138 mm[Hg] Dr. Robby Riddle MD Work Phone: [facility] 03-17-2025 13:51-0400 Body temperature 97 [degF] Dr. Robby Riddle MD Work Phone: [facility] 03-17-2025 13:51-0400 Diastolic blood pressure 59 mm[Hg] Dr. Robby Riddle MD Work Phone: [facility] 03-17-2025 13:51-0400 Heart rate 69 /min Dr. Robby Riddle MD Work Phone: [facility] 03-17-2025 13:51-0400 Respiratory rate 14 /min Dr. Robby Riddle MD Work Phone: [facility] 03-17-2025 13:51-0400 SaO2% (BldA) [Mass fraction] 93 % Dr. Robby Riddle MD Work Phone: [facility] 03-17-2025 13:51-0400 Systolic blood pressure 117 mm[Hg] Dr. Robby Riddle MD Work Phone: [facility] 03-17-2025 12:58-0400 Body height 170.[address] Robby Riddle MD Work Phone: [facility] 03-05-2025 13:10-0400 Body height 170.[address] Robby Riddle MD Work Phone: [facility] 03-05-2025 13:10-0400 Body mass index (BMI) [Ratio] 31.4 kg/m2 Dr. Robby Riddle MD Work Phone: [facility] 03-05-2025 13:10-0400 Body weight 91.[address] Robby Riddle MD Work Phone: [facility] 03-05-2025 13:10-0400 Diastolic blood pressure 84 mm[Hg] Dr. Robby Riddle MD Work Phone: [facility] 03-05-2025 13:10-0400 Heart rate 76 /min Dr. Robby Riddle MD Work Phone: [facility] 03-05-2025 13:10-0400 Respiratory rate 17 /min Dr. Robby Riddle MD Work Phone: [facility] 03-05-2025 13:10-0400 SaO2% (BldA) [Mass fraction] 97 % Dr. Robby Riddle MD Work Phone: [facility] 03-05-2025 13:10-0400 Systolic blood pressure 135 mm[Hg] Dr. Robby Riddle MD Work Phone: [facility] 12-16-2024 10:08-0400 Body height 170.[address] Robby Riddle MD Work Phone: [facility] 12-16-2024 10:08-0400 Body mass index (BMI) [Ratio] 30.5 kg/m2 Dr. Robby Riddle MD Work Phone: [facility] 12-16-2024 10:08-0400 Body temperature 96.7 [degF] Dr. Robby Riddle MD Work Phone: [facility] 12-16-2024 10:08-0400 Body weight 88.[address] Robby Riddle MD Work Phone: [facility] 12-16-2024 10:08-0400 Diastolic blood pressure 76 mm[Hg] Dr. Robby Riddle MD Work Phone: [facility] 12-16-2024 10:08-0400 Heart rate 67 /min Dr. Robby Riddle MD Work Phone: [facility] 12-16-2024 10:08-0400 Respiratory rate 16 /min Dr. Robby Riddle MD Work Phone: [facility] 12-16-2024 10:08-0400 SaO2% (BldA) [Mass fraction] 97 % Dr. Robby Riddle MD Work Phone: [facility] 12-16-2024 10:08-0400 Systolic blood pressure 128 mm[Hg] Dr. Robby Riddle MD Work Phone: [facility] 01-27-2024 10:08-0400 Body height 170.[address] Robby Riddle Work Phone: [facility] 01-27-2024 10:08-0400 Body mass index (BMI) [Ratio] 30.4 kg/m2 Dr. Robby Riddle Work Phone: [facility] 01-27-2024 10:08-0400 Body temperature 98.6 [degF] Dr. Robby Riddle Work Phone: [facility] 01-27-2024 10:08-0400 Body weight 87.[address] Robby Riddle Work Phone: [facility] 01-27-2024 10:08-0400 Diastolic blood pressure 75 mm[Hg] Dr. Robby Riddle Work Phone: [facility] 01-27-2024 10:08-0400 Heart rate 71 /min Dr. Robby Riddle Work Phone: [facility] 01-27-2024 10:08-0400 Respiratory rate 16 /min Dr. Robby Riddle Work Phone: [facility] 01-27-2024 10:08-0400 SaO2% (BldA) [Mass fraction] 93 % Dr. Robby Riddle Work Phone: [facility] 01-27-2024 10:08-0400 Systolic blood pressure 117 mm[Hg] Dr. Robby Riddle Work Phone: [facility] 01-13-2024 09:37-0400 Body height 170.[address] Robby Riddle Work Phone: [facility] 01-13-2024 09:37-0400 Body mass index (BMI) [Ratio] 30.2 kg/m2 Dr. Robby Riddle Work Phone: [facility] 01-13-2024 09:37-0400 Body temperature 98.5 [degF] Dr. Robby Riddle Work Phone: [facility] 01-13-2024 09:37-0400 Body weight 87.[address] Robby Riddle Work Phone: [facility] 01-13-2024 09:37-0400 Diastolic blood pressure 76 mm[Hg] Dr. Robby Riddle Work Phone: [facility] 01-13-2024 09:37-0400 Heart rate 80 /min Dr. Robby Riddle Work Phone: [facility] 01-13-2024 09:37-0400 Respiratory rate 14 /min Dr. Robby Riddle Work Phone: [facility] 01-13-2024 09:37-0400 SaO2% (BldA) [Mass fraction] 96 % Dr. Robby Riddle Work Phone: [facility] 01-13-2024 09:37-0400 Systolic blood pressure 120 mm[Hg] Dr. Robby Riddle Work Phone: [facility] 12-24-2023 10:17-0400 Body mass index (BMI) [Ratio] 30.1 kg/m2 Dr. Robby Riddle Work Phone: [facility] 12-24-2023 10:17-0400 Body weight 87.[address] Robby Riddle Work Phone: [facility] 12-24-2023 10:17-0400 Diastolic blood pressure 80 mm[Hg] Dr. Robby Riddle Work Phone: [facility] 12-24-2023 10:17-0400 Systolic blood pressure 145 mm[Hg] Dr. Robby Riddle Work Phone: [facility] 02-25-2023 09:21-0400 Body temperature 97.6 [degF] Dr. Robby Riddle Work Phone: [facility] 02-25-2023 09:21-0400 Diastolic blood pressure 70 mm[Hg] Dr. Robby Riddle Work Phone: [facility] 02-25-2023 09:21-0400 Heart rate 73 /min Dr. Robby Riddle Work Phone: [facility] 02-25-2023 09:21-0400 Respiratory rate 16 /min Dr. Robby Riddle Work Phone: [facility] 02-25-2023 09:21-0400 SaO2% (BldA) [Mass fraction] 96 % Dr. Robby Riddle Work Phone: [facility] 02-25-2023 09:21-0400 Systolic blood pressure 128 mm[Hg] Dr. Robby Riddle Work Phone: [facility] 02-25-2023 08:35-0400 Body height 170.[address] Robby Riddle Work Phone: [facility] 02-25-2023 08:35-0400 Body mass index (BMI) [Ratio] 29.7 kg/m2 Dr. Robby Riddle Work Phone: [facility] 02-25-2023 08:35-0400 Body weight 86.[address] Robby Riddle Work Phone: [facility] 02-15-2023 09:21-0400 Body mass index (BMI) [Ratio] 29.9 kg/m2 Dr. Robby Riddle Work Phone: [facility] 02-15-2023 09:21-0400 Body weight 86.[address] Robby Riddle Work Phone: [facility] 02-15-2023 09:21-0400 Diastolic blood pressure 84 mm[Hg] Dr. Robby Riddle Work Phone: [facility] 02-15-2023 09:21-0400 Heart rate 63 /min Dr. Robby Riddle Work Phone: [facility] 02-15-2023 09:21-0400 Respiratory rate 8 /min Dr. Robby Riddle Work Phone: [facility] 02-15-2023 09:21-0400 Systolic blood pressure 135 mm[Hg] Dr. Robby Riddle Work Phone: [facility] 01-28-2023 08:51-0400 Body height 170.[address] Robby Riddle Work Phone: [facility] 01-28-2023 08:51-0400 Body mass index (BMI) [Ratio] 29.9 kg/m2 Dr. Robby Riddle Work Phone: [facility] 01-28-2023 08:51-0400 Body temperature 98.1 [degF] Dr. Robby Riddle Work Phone: [facility] 01-28-2023 08:51-0400 Body weight 86.[address] Robby Riddle Work Phone: [facility] 01-28-2023 08:51-0400 Diastolic blood pressure 62 mm[Hg] Dr. Robby Riddle Work Phone: [facility] 01-28-2023 08:51-0400 Heart rate 67 /min Dr. Robby Riddle Work Phone: [facility] 01-28-2023 08:51-0400 Respiratory rate 16 /min Dr. Robby Riddle Work Phone: [facility] 01-28-2023 08:51-0400 SaO2% (BldA) [Mass fraction] 95 % Dr. Robby Riddle Work Phone: [facility] 01-28-2023 08:51-0400 Systolic blood pressure 118 mm[Hg] Dr. Robby Riddle Work Phone: [facility] 01-21-2023 09:59-0400 Body mass index (BMI) [Ratio] 30 kg/m2 Dr. Robby Riddle Work Phone: [facility] 01-21-2023 09:59-0400 Body temperature 98.4 [degF] Dr. Robby Riddle Work Phone: [facility] 01-21-2023 09:59-0400 Body weight 87.[address] Robby Riddle Work Phone: [facility] 01-21-2023 09:59-0400 Diastolic blood pressure 77 mm[Hg] Dr. Robby Riddle Work Phone: [facility] 01-21-2023 09:59-0400 Heart rate 82 /min Dr. Robby Riddle Work Phone: [facility] 01-21-2023 09:59-0400 Respiratory rate 18 /min Dr. Robby Riddle Work Phone: [facility] 01-21-2023 09:59-0400 SaO2% (BldA) [Mass fraction] 91 % Dr. Robby Riddle Work Phone: [facility] 01-21-2023 09:59-0400 Systolic blood pressure 138 mm[Hg] Dr. Robby Riddle Work Phone: [facility] 10-31-2022 09:10-0500 Body mass index (BMI) [Ratio] 29.6 kg/m2 Dr. Robby Riddle Work Phone: [facility] 10-31-2022 09:10-0500 Body temperature 96.4 [degF] Dr. Robby Riddle Work Phone: [facility] 10-31-2022 09:10-0500 Body weight 85.[address] Robby Riddle Work Phone: [facility] 10-31-2022 09:10-0500 Diastolic blood pressure 78 mm[Hg] Dr. Robby Riddle Work Phone: [facility] 10-31-2022 09:10-0500 Heart rate 64 /min Dr. Robby Riddle Work Phone: [facility] 10-31-2022 09:10-0500 Respiratory rate 18 /min Dr. Robby Riddle Work Phone: [facility] 10-31-2022 09:10-0500 SaO2% (BldA) [Mass fraction] 98 % Dr. Robby Riddle Work Phone: [facility] 10-31-2022 09:10-0500 Systolic blood pressure 144 mm[Hg] Dr. Robby Riddle Work Phone: [facility] 04-27-2022 10:15-0400 Body height 170.[address] Robby Riddle Work Phone: [facility] Work Phone: 04-27-2022 10:15-0400 Body mass index (BMI) [Ratio] 29 kg/m2 Dr. Robby Riddle Work Phone: [facility] Work Phone: 04-27-2022 10:15-0400 Body temperature 98 [degF] Dr. Robby Riddle Work Phone: [facility] Work Phone: 04-27-2022 10:15-0400 Body weight 83.[address] Robby Riddle Work Phone: [facility] Work Phone: 04-27-2022 10:15-0400 Diastolic blood pressure 64 mm[Hg] Dr. Robby Riddle Work Phone: [facility] Work Phone: 04-27-2022 10:15-0400 Heart rate 69 /min Dr. Robby Riddle Work Phone: [facility] Work Phone: 04-27-2022 10:15-0400 Respiratory rate 18 /min Dr. Robby Riddle Work Phone: [facility] Work Phone: 04-27-2022 10:15-0400 SaO2% (BldA) [Mass fraction] 95 % Dr. Robby Riddle Work Phone: [facility] Work Phone: 04-27-2022 10:15-0400 Systolic blood pressure 98 mm[Hg] Dr. Robby Riddle Work Phone: [facility] Work Phone: 04-11-2022 21:00-0400 Body temperature 98.7 [degF] Dr. Robby Riddle Work Phone: [facility] Work Phone: 04-11-2022 21:00-0400 Diastolic blood pressure 78 mm[Hg] Dr. Robby Riddle Work Phone: [facility] Work Phone: 04-11-2022 21:00-0400 Heart rate 66 /min Dr. Robby Riddle Work Phone: [facility] Work Phone: 04-11-2022 21:00-0400 Respiratory rate 14 /min Dr. Robby Riddle Work Phone: [facility] Work Phone: 04-11-2022 21:00-0400 SaO2% (BldA) [Mass fraction] 100 % Dr. Robby Riddle Work Phone: [facility] Work Phone: 04-11-2022 21:00-0400 Systolic blood pressure 132 mm[Hg] Dr. Robby Riddle Work Phone: [facility] Work Phone: 04-11-2022 19:01-0400 Body height 170.[address] Robby Riddle Work Phone: [facility] Work Phone: 04-11-2022 19:01-0400 Body mass index (BMI) [Ratio] 29 kg/m2 Dr. Robby Riddle Work Phone: [facility] Work Phone: 04-11-2022 19:01-0400 Body weight 83.[address] Robby Riddle Work Phone: [facility] Work Phone: 02-15-2022 11:16-0400 Body temperature 97.3 [degF] Dr. Robby Riddle Work Phone: [facility] Work Phone: 02-15-2022 11:16-0400 Diastolic blood pressure 69 mm[Hg] Dr. Robby Riddle Work Phone: [facility] Work Phone: 02-15-2022 11:16-0400 Heart rate 66 /min Dr. Robby Riddle Work Phone: [facility] Work Phone: 02-15-2022 11:16-0400 Respiratory rate 16 /min Dr. Robby Riddle Work Phone: [facility] Work Phone: 02-15-2022 11:16-0400 SaO2% (BldA) [Mass fraction] 97 % Dr. Robby Riddle Work Phone: [facility] Work Phone: 02-15-2022 11:16-0400 Systolic blood pressure 137 mm[Hg] Dr. Robby Riddle Work Phone: [facility] Work Phone: 02-15-2022 10:29-0400 Body mass index (BMI) [Ratio] 29.2 kg/m2 Dr. Robby Riddle Work Phone: [facility] Work Phone: 02-15-2022 10:29-0400 Body weight 84.[address] Robby Riddle Work Phone: [facility] Work Phone: 01-24-2022 10:41-0400 Body mass index (BMI) [Ratio] 29.8 kg/m2 Dr. Robby Riddle Work Phone: [facility] Work Phone: 01-24-2022 10:41-0400 Body temperature 96.8 [degF] Dr. Robby Riddle Work Phone: [facility] Work Phone: 01-24-2022 10:41-0400 Body weight 86.[address] Robby Riddle Work Phone: [facility] Work Phone: 01-24-2022 10:41-0400 Diastolic blood pressure 100 mm[Hg] Dr. Robby Riddle Work Phone: [facility] Work Phone: 01-24-2022 10:41-0400 Heart rate 68 /min Dr. Robby Riddle Work Phone: [facility] Work Phone: 01-24-2022 10:41-0400 Respiratory rate 18 /min Dr. Robby Riddle Work Phone: [facility] Work Phone: 01-24-2022 10:41-0400 SaO2% (BldA) [Mass fraction] 97 % Dr. Robby Riddle Work Phone: [facility] Work Phone: 01-24-2022 10:41-0400 Systolic blood pressure 142 mm[Hg] Dr. Robby Riddle Work Phone: [facility] Work Phone: 01-24-2022 10:41-0400 Body height 170.[address] Robby Riddle Work Phone: [facility] Work Phone: 01-24-2022 10:41-0400 Body mass index (BMI) [Ratio] 29.8 kg/m2 Dr. Robby Riddle Work Phone: [facility] Work Phone: 01-24-2022 10:41-0400 Body temperature 96.8 [degF] Dr. Robby Riddle Work Phone: [facility] Work Phone: 01-24-2022 10:41-0400 Body weight 86.[address] Robby Riddle Work Phone: [facility] Work Phone: 01-24-2022 10:41-0400 Diastolic blood pressure 100 mm[Hg] Dr. Robby Riddle Work Phone: [facility] Work Phone: 01-24-2022 10:41-0400 Heart rate 68 /min Dr. Robby Riddle Work Phone: [facility] Work Phone: 01-24-2022 10:41-0400 Respiratory rate 18 /min Dr. Robby Riddle Work Phone: [facility] Work Phone: 01-24-2022 10:41-0400 SaO2% (BldA) [Mass fraction] 97 % Dr. Robby Riddle Work Phone: [facility] Work Phone: 01-24-2022 10:41-0400 Systolic blood pressure 142 mm[Hg] Dr. Robby Riddle Work Phone: [facility] Work Phone: 01-23-2022 09:52-0400 Body mass index (BMI) [Ratio] 30 kg/m2 Dr. Robby Riddle Work Phone: [facility] Work Phone: 01-23-2022 09:52-0400 Body temperature 95.6 [degF] Dr. Robby Riddle Work Phone: [facility] Work Phone: 01-23-2022 09:52-0400 Body weight 87.[address] Robby Riddle Work Phone: [facility] Work Phone: 01-23-2022 09:52-0400 Diastolic blood pressure 88 mm[Hg] Dr. Robby Riddle Work Phone: [facility] Work Phone: 01-23-2022 09:52-0400 Heart rate 73 /min Dr. Robby Riddle Work Phone: [facility] Work Phone: 01-23-2022 09:52-0400 Respiratory rate 18 /min Dr. Robby Riddle Work Phone: [facility] Work Phone: 01-23-2022 09:52-0400 SaO2% (BldA) [Mass fraction] 94 % Dr. Robby Riddle Work Phone: [facility] Work Phone: 01-23-2022 09:52-0400 Systolic blood pressure 130 mm[Hg] Dr. Robby Riddle Work Phone: [facility] Work Phone: 01-23-2022 09:52-0400 Body mass index (BMI) [Ratio] 30 kg/m2 Dr. Robby Riddle Work Phone: [facility] Work Phone: 01-23-2022 09:52-0400 Body temperature 95.6 [degF] Dr. Robby Riddle Work Phone: [facility] Work Phone: 01-23-2022 09:52-0400 Body weight 87.[address] Robby Riddle Work Phone: [facility] Work Phone: 01-23-2022 09:52-0400 Diastolic blood pressure 88 mm[Hg] Dr. Robby Riddle Work Phone: [facility] Work Phone: 01-23-2022 09:52-0400 Heart rate 73 /min Dr. Robby Riddle Work Phone: [facility] Work Phone: 01-23-2022 09:52-0400 Respiratory rate 18 /min Dr. Robby Riddle Work Phone: [facility] Work Phone: 01-23-2022 09:52-0400 SaO2% (BldA) [Mass fraction] 94 % Dr. Robby Riddle Work Phone: [facility] Work Phone: 01-23-2022 09:52-0400 Systolic blood pressure 130 mm[Hg] Dr. Robby Riddle Work Phone: [facility] Work Phone: 01-22-2022 13:16-0400 Body mass index (BMI) [Ratio] 29.9 kg/m2 Dr. Robby Riddle Work Phone: [facility] Work Phone: 01-22-2022 13:16-0400 Body temperature 97.7 [degF] Dr. Robby Riddle Work Phone: [facility] Work Phone: 01-22-2022 13:16-0400 Body weight 86.[address] Robby Riddle Work Phone: [facility] Work Phone: 01-22-2022 13:16-0400 Diastolic blood pressure 84 mm[Hg] Dr. Robby Riddle Work Phone: [facility] Work Phone: 01-22-2022 13:16-0400 Heart rate 72 /min Dr. Robby Riddle Work Phone: [facility] Work Phone: 01-22-2022 13:16-0400 Respiratory rate 17 /min Dr. Robby Riddle Work Phone: [facility] Work Phone: 01-22-2022 13:16-0400 SaO2% (BldA) [Mass fraction] 94 % Dr. Robby Riddle Work Phone: [facility] Work Phone: 01-22-2022 13:16-0400 Systolic blood pressure 147 mm[Hg] Dr. Robby Riddle Work Phone: [facility] Work Phone: 01-22-2022 13:16-0400 Body mass index (BMI) [Ratio] 29.9 kg/m2 Dr. Robby Riddle Work Phone: [facility] Work Phone: 01-22-2022 13:16-0400 Body temperature 97.7 [degF] Dr. Robby Riddle Work Phone: [facility] Work Phone: 01-22-2022 13:16-0400 Body weight 86.[address] Robby Riddle Work Phone: [facility] Work Phone: 01-22-2022 13:16-0400 Diastolic blood pressure 84 mm[Hg] Dr. Robby Riddle Work Phone: [facility] Work Phone: 01-22-2022 13:16-0400 Heart rate 72 /min Dr. Robby Riddle Work Phone: [facility] Work Phone: 01-22-2022 13:16-0400 Respiratory rate 17 /min Dr. Robby Riddle Work Phone: [facility] Work Phone: 01-22-2022 13:16-0400 SaO2% (BldA) [Mass fraction] 94 % Dr. Robby Riddle Work Phone: [facility] Work Phone: 01-22-2022 13:16-0400 Systolic blood pressure 147 mm[Hg] Dr. Robby Riddle Work Phone: [facility] Work Phone: Encounters Encounter Date Encounter Type Care Provider Facility Start: 06-30-2025 [facility] Facility: [facility] Start: 05-20-2025 [facility] Start: 05-11-2025 End: 05-11-[address] Aquiles Marin MD -[facility] Work Phone: Start: 05-11-2025 End: 05-11-[address] Robby Riddle MD Work Phone: -[facility] Start: 05-07-2025 End: 05-07-[address] Robby Riddle MD Work Phone: -[facility] Start: 05-07-2025 End: 05-07-[address] Aquiles Marin MD -[facility] Start: 05-07-2025 End: 05-07-2025 ambulatory Aquiles Marin Facility:[facility] Start: 04-20-2025 End: 04-20-[address] Robby Riddle MD Work Phone: -Cat Scan [facility] Start: 04-20-2025 End: 04-20-[address] Aquiles Marin MD -Cat Scan [facility] Work Phone: Start: 04-20-2025 End: 04-20-2025 ambulatory Aquiles Marin Facility:[facility] Start: 04-02-2025 End: 04-02-[address] Robby Riddle MD Work Phone: -Cat Scan [facility] Start: 04-02-2025 End: 04-02-[address] Aquiles Marin MD -Cat Scan [facility] Work Phone: Start: 04-02-2025 End: 04-02-2025 ambulatory [facility] Facility:[facility] Start: 03-17-2025 End: 03-17-[address] Drake Cifuentes MD -Medical Out Work Phone: Start: 03-17-2025 End: 03-17-[address] Robby Riddle MD Work Phone: [facility] Work Phone: Start: 03-05-2025 End: 03-05-[address] Aquiles Marin MD -[facility] Work Phone: Start: 03-05-2025 End: 03-05-[address] Robby Riddle MD Work Phone: [facility] Work Phone: Start: 02-01-2025 End: 02-01-[address] Robby Riddle MD -Outpatient Breast Imaging Work Phone: Start: 02-01-2025 End: 02-01-20[facility] Start: 12-16-2024 End: 12-16-[address] Robby Riddle MD Work Phone: [facility] Work Phone: Start: 12-16-2024 End: 12-16-[address] Robby Riddle MD -Laboratory, [place] Start: 12-16-2024 End: 12-16-[address] Robby Riddle MD -[facility] Work Phone: Start: 12-16-2024 End: 12-16-2024 ambulatory [facility] [place] Start: 12-16-2024 End: 12-16-2024 ambulatory [facility] Facility:[facility] Start: 07-27-2024 End: 07-27-[address] [facility] [place] Start: 02-01-2024 End: 02-01-[address] Robby Riddle Work Phone: [facility] Work Phone: Start: 02-01-2024 End: 02-01-[address] Robby Riddle Work Phone: [facility]-Ultrasound, [facility] Work Phone: Start: 01-27-2024 End: 01-27-[address] Robby Riddle Work Phone: [facility] Work Phone: Start: 01-15-2024 End: 01-15-[address] Robby Riddle Work Phone: [facility] Work Phone: Start: 01-15-2024 End: 01-15-[address] Robby Riddle Work Phone: [facility]-Laboratory, [place] Start: 01-13-2024 End: 01-13-[address] Robby Riddle Work Phone: [facility] Work Phone: Start: 12-24-2023 End: 12-24-[address] Robby Riddle Work Phone: [facility] Work Phone: Start: 12-11-2023 End: 12-11-2023 ambulatory [facility] Work Phone: Start: 12-11-2023 End: 12-11-2023 Patient encounter procedure [facility]-Outpatient Breast Imaging Work Phone: Start: 04-04-2023 End: 04-04-[address] Robby Riddle Work Phone: [facility] Work Phone: Start: 04-04-2023 End: 04-04-[address] Robby Riddle Work Phone: [facility]-Radiology, [facility] Work Phone: Start: 03-08-2023 End: 03-08-[address] Robby Riddle Work Phone: [facility] Work Phone: Start: 03-08-2023 End: 03-08-[address] Robby Riddle Work Phone: [facility]-Nuclear Medicine, [facility] Start: 02-25-2023 End: 02-25-[address] Robby Riddle Work Phone: [facility]-Medical Out Start: 02-18-2023 End: 02-18-[address] Robby Riddle Work Phone: [facility]-Laboratory, [facility] Start: 02-15-2023 End: 02-15-[address] Robby Riddle Work Phone: [facility]-Laboratory, Specimen Start: 02-15-2023 End: 02-15-[address] Robby Riddle Work Phone: [facility] Start: 02-01-2023 End: 02-01-[address] Robby Riddle Work Phone: [facility] Work Phone: Start: 02-01-2023 End: 02-01-[address] Robby Riddle Work Phone: [facility]-Radiology, [facility] Start: 01-28-2023 End: 01-28-[address] Robby Riddle Work Phone: [facility] Start: 01-23-2023 End: 01-23-[address] Robby Riddle Work Phone: [facility] Work Phone: Start: 01-23-2023 End: 01-23-[address] Robby Riddle Work Phone: [facility]-Ultrasound, [facility] Start: 01-21-2023 End: 01-21-[address] Robby Riddle Work Phone: [facility] Start: 10-31-2022 End: 10-31-[address] Robby Valdez Phone: [facility] Start: 10-12-2022 End: 10-12-[address] Robby Riddle Work Phone: [facility]-Outpatient Breast Imaging Start: 05-23-[address] Robby Riddle Work Phone: [facility] Start: 05-09-2022 End: 05-09-[address] Robby Valdez Phone: [facility]-Laboratory, [facility] Start: 04-27-2022 End: 04-27-[address] Robby Valdez Phone: [facility] Start: 04-11-2022 End: 04-11-2022 Emergency department patient visit Dr. Robby Riddle Work Phone: [facility]-Emergency Department Start: 02-15-2022 End: 02-15-[address] Robby Valdez Phone: [facility]-Medical Out Start: 01-24-2022 End: 01-24-[address] Robby Riddle Work Phone: [facility] Start: 01-23-2022 End: 01-23-[address] Robby Valdez Phone: [facility] Start: 01-22-2022 End: 01-22-[address] [facility] Start: 01-22-2022 End: 01-22-[address] Robby Riddle Work Phone: [facility] Start: 01-17-2022 End: 01-17-[address] Robby Riddle Work Phone: [facility], [facility] Start: 04-17-[address] Robby Riddle Work Phone: [facility] Procedures Date Procedure Procedure Detail Performing Clinician Start: 05-07-[address] Robby Riddle MD Work Phone: Start: 05-07-2025 Vitamin D, 25-hydrox y measurement Dr. Robby Riddle MD Work Phone: Comment on above: Vitamin D StatusDefi ciency: <20 ng/mL (50nmol/L)Insufficiency: 20-30 ng/mL (50-75 nmol/L)Sufficiency: 30-100 ng/mL (75-250 nmol/L)Toxicity: >100 ng/mL (>250 nmol/L) Start: 04-20-2025 CT of chest without contrast Dr. Robby Riddle MD Work Phone: Start: 04-02-2025 CT of soft tissues o f neck with contrast Dr. Robby Riddle MD Work Phone: Start: 02-01-2025 Screening mammography Garth Riddle MD Work Phone: Start: 02-01-2025 US scan of thyroid Dr. Robby Riddle MD Work Phone: Start: 12-16-[address] Robby Riddle MD Work Phone: Start: 12-16-2024 Vitamin D, 25-hydrox y measurement Dr. Robby Riddle MD Work Phone: Comment on above: Vitamin D StatusDefi ciency: <20 ng/mL (50nmol/L)Insufficiency: 20-30 ng/mL (50-75 nmol/L)Sufficiency: 30-100 ng/mL (75-250 nmol/L)Toxicity: >100 ng/mL (>250 nmol/L) Start: 02-01-2024 US scan of thyroid Dr. Robby Riddle Work Phone: Start: 12-11-2023 Screening mammography Start: 04-04-[address] Robby Riddle Work Phone: Start: 03-08-2023 Single photon emissi on computed tomography of parathyroid Dr. Robby Riddle Work Phone: Start: 02-01-2023 Plain x-ray of pelvi s and lower extremity Dr. Robby Riddle Work Phone: Start: 02-01-2023 X-ray of lumbosacral spine Dr. Robby Riddle Work Phone: Start: 01-23-2023 US scan of thyroid Dr. Robby Riddle Work Phone: Start: 10-12-2022 Screening mammography Garth Riddle Work Phone: Start: 04-11-2022 Radiologic examinati on of knee Dr. Robby Riddle Work Phone: Start: 04-11-2022 CT of head without contrast Dr. Robby Riddle Work Phone: Start: 01-17-2022 US scan of thyroid Dr. Robby Riddle Work Phone: History of cholecystectomy Hx of cholecystectomy Dr. Robby Riddle Work Phone: Comment on above: 07/13/2019 Plan of Treatment Date Care Activity Detail Author Start: 05-20-2025 DXA Bone [Mass/Area] Bone density [facility] Start: 04-02-2025 CT Neck [facility] Start: 04-02-2025 CT of soft tissues o f neck with contrast Soft Tissue Neck W/WO Contrast [facility] Start: 03-17-2025 Iv infusion therapy/prophylaxis /dx 1st to 1 hr [facility] Start: 02-01-2025 MG Breast - bilatera l Screening [facility] Start: 02-25-2023 Iv infusion therapy/prophylaxis /dx 1st to 1 hr [facility] Start: 02-15-2022 Iv infusion therapy/prophylaxis /dx 1st to 1 hr THER[facility]PROPH[facility] Work Phone: [facility] DXA Bone [Mass/Area] Bone density [facility] Lipid 1996 panel - S gordo or Plasma [facility] [facility] Parathyroid hormone measurement [facility] Patient Education ED Mechanical Fall ED Head Injury (Adult) ED Knee Sprain [facility] Work Phone: Patient referral [facility] Work Phone: [place] Thyroid gland [facility] Vitamin D, 25-hydrox y measurement [facility] Vitamin D, 25-hydrox y measurement [facility] XR Pelvis and Hip Views [facility] XR Spine Lumbar and Sacrum GE 4 Views [facility] Payers Date Payer Category Payer Self-pay [id number] 2024 Medicare [id number] Private Health Insurance [id number] Unknown [id number] 2.16.8 [id number] Unknown [id number] 2.16.8 [id number] Unknown [id number] 2.16.8 [id number] Unknown [id number] 2.16.8 [id number] Unknown [id number] 2.16.8 [id number] Unknown [id number] 2.16.8 [id number] Unknown [id number] 2.16.8 [id number] Unknown [id number] 2.16.8 [id number] Unknown [id number] 2.16.8 [id number] Unknown [id number] 2.16.8 [id number] Unknown [id number] 2.16.8 [id number] Unknown [id number] 2.16.8 [id number] Social History Date Type Detail Facility Start: 01-24-2022 End: 01-13-2024 Tobacco smoking status MTIS Unknown if ever smoked [facility] Start: 07-12-2019 None [facility] Start: 07-12-2019 Spouse/ Signif icant Other [facility] Start: 1945 Sex Assigned At Female [facility] Start: 01-13-2024 Tobacco smoking status MTIS Never smoked tobacco (finding) [facility] Start: 12-23-2024 Sex Female (finding) [facility] Medical Equipment Procedure Code Equipment Code Equipment Origin al Text Equipment Identifier Dates Blood Sugar Diagnostic (Onetouch Ultra Test) strip Start: 04-15-2024 Lancets (Onetouc h Ultrasoft 2 Lancet) 30 gauge misc Start: 04-15-2024 Blood Sugar Diagnostic (Onetouch Ultra Test) strip Start: 04-10-2024 End: 04-15-2024 Lancets (Onetouc h Ultrasoft 2 Lancet) 30 gauge misc Start: 04-10-2024 End: 04-15-2024 Lancets (Onetouc h Ultrasoft 2 Lancet) 30 gauge misc Start: 04-15-2024 End: 04-15-2024 Blood Sugar Diagnostic (Onetouch Ultra Test) strip Start: 04-15-2024 Lancets (Onetouc h Ultrasoft 2 Lancet) 30 gauge misc Start: 04-15-2024 Blood Sugar Diagnostic (Onetouch Ultra Test) strip Start: 04-10-2024 End: 04-15-2024 Lancets (Onetouc h Ultrasoft 2 Lancet) 30 gauge misc Start: 04-10-2024 End: 04-15-2024 Lancets (Onetouc h Ultrasoft 2 Lancet) 30 gauge misc Start: 04-15-2024 End: 04-15-2024 Blood Sugar Diagnostic (Onetouch Ultra Test) strip Start: 04-15-2024 Lancets (Onetouc h Ultrasoft 2 Lancet) 30 gauge misc Start: 04-15-2024 Blood Sugar Diagnostic (Onetouch Ultra Test) strip Start: 04-10-2024 End: 04-15-2024 Lancets (Onetouc h Ultrasoft 2 Lancet) 30 gauge misc Start: 04-10-2024 End: 04-15-2024 Lancets (Onetouc h Ultrasoft 2 Lancet) 30 gauge misc Start: 04-15-2024 End: 04-15-2024 Blood Sugar Diagnostic (Onetouch Ultra Test) strip Start: 04-15-2024 Lancets (Onetouc h Ultrasoft 2 Lancet) 30 gauge misc Start: 04-15-2024 Blood Sugar Diagnostic (Onetouch Ultra Test) strip Start: 04-10-2024 End: 04-15-2024 Lancets (Onetouc h Ultrasoft 2 Lancet) 30 gauge misc Start: 04-10-2024 End: 04-15-2024 Lancets (Onetouc h Ultrasoft 2 Lancet) 30 gauge misc Start: 04-15-2024 End: 04-15-2024 Blood Sugar Diagnostic (Onetouch Ultra Test) strip Start: 04-15-2024 Lancets (Onetouc h Ultrasoft 2 Lancet) 30 gauge misc Start: 04-15-2024 Blood Sugar Diagnostic (Onetouch Ultra Test) strip Start: 04-10-2024 End: 04-15-2024 Lancets (Onetouc h Ultrasoft 2 Lancet) 30 gauge misc Start: 04-10-2024 End: 04-15-2024 Lancets (Onetouc h Ultrasoft 2 Lancet) 30 gauge misc Start: 04-15-2024 End: 04-15-2024 Blood Sugar Diagnostic (Onetouch Ultra Test) strip Start: 04-15-2024 Lancets (Onetouc h Ultrasoft 2 Lancet) 30 gauge misc Start: 04-15-2024 Blood Sugar Diagnostic (Onetouch Ultra Test) strip Start: 04-10-2024 End: 04-15-2024 Lancets (Onetouc h Ultrasoft 2 Lancet) 30 gauge misc Start: 04-10-2024 End: 04-15-2024 Lancets (Onetouc h Ultrasoft 2 Lancet) 30 gauge misc Start: 04-15-2024 End: 04-15-2024 Blood Sugar Diagnostic (Onetouch Ultra Test) strip Start: 04-15-2024 Lancets (Onetouc h Ultrasoft 2 Lancet) 30 gauge misc Start: 04-15-2024 Blood Sugar Diagnostic (Onetouch Ultra Test) strip Start: 04-10-2024 End: 04-15-2024 Lancets (Onetouc h Ultrasoft 2 Lancet) 30 gauge misc Start: 04-10-2024 End: 04-15-2024 Lancets (Onetouc h Ultrasoft 2 Lancet) 30 gauge misc Start: 04-15-2024 End: 04-15-2024 Mental Status Date Assessment Result Facility 03-17-2025 Cognitive function Awake;Alert;A ppropriate;Fol lows Commands [facility] Work Phone: 02-25-2023 Cognitive function Voice/Name [facility] Work Phone: 02-15-2022 Cognitive function Awake;Alert;A ppropriate;Fol lows Commands [facility] Work Phone: Clinical Notes 12-16-2024 to 04-21-2025 Note Date & Type Note Facility 04-21-2025 Radiology Diagnostic study note [facility] Imaging Services [address] [place] [address] Chest without Contrast MR#: [id number] Acct: [id number] Name: MABEL RAZA Rep #: [id number] : 1945 F 79 From: Cy Scott MD PCP: Dr. Robby Riddle MD Status: R EG CLI Study:Chest without Contrast Date of Exam: 04/20/25 Exam# [id number] Ordering Dr: Jaylin Marin MD PROCEDURE: CHEST WITHOUT CONTRAST 04/20/2025 REASON FOR EXAM: CHECK LUNG NODULE History of small nodule in the left lung apex on prior CT scan of the neck. TECHNIQUE: Chest CT without contrast. Coronal and Sagittal reconstruction series were provided. One or more dose reduction techniques were used (e.g., Automated exposure control, adjustment of the mA and/or kV according to patient size, use of iterative reconstruction technique RADIATION DOSE SUMMARY: CTDlvol: 13.72 mGy DLP: 395.07 mGycm COMPARISON: None FINDINGS: Punctate calcification in the posterior aspect of the upper pole of the enlargement of the left lobe of the thyroid with substernal extension. Hardware: None Lymph nodes: Small benign-appearing mediastinal lymph nodes. Heart and Vasculature: The heart is nonenlarged. Atherosclerotic calcificationsof the thoracic aorta. Thoracic aorta and pulmonary arteries have normal contours; noncontrast technique limits evaluation. Coronary Artery Calcifications: Present Lungs and Airways: There is a 10.5 mm noncalcified nodule in the peripheral lateral aspect of the left upper lobe as seen on axial image number 45. Six-month follow-up recommended. There is elevation of the right hemidiaphragm with the atelectasis and/or scarring at the right lung base. Pleura: No evidence of pleural effusion. Upper Abdomen: 1.9 cm cyst in the right lobe of the liver. The patient is status post cholecystectomy. Bones: Degenerative changes of the thoracic spine. CT/Chest without Contrast IMPRESSION: Coronary artery calcification (CAC) is is present 10.5 mm noncalcified nodule in the peripheral lateral aspect of the left upper lobe as seen on axial image number 45 six-month follow-up recommended. Elevation of the right hemidiaphragm with right basilar atelectasis. Reading Location: [place] [address] CC: Dr. Robby Riddle MD; Dr. Aquiles Marin MD ~ Development Director: Signed [facility] 03-05-2025 Evaluation note Diagnosis Onset Date Resolution Hyperparathyroidism chronic February 062024 12:54pm Multiple thyroid nodules chronic March 05, 2025 12:54pm [facility] Work Phone: 1(546) 956-212105-30-2025 Evaluation note* Diagnosis Onset Date Resolution Status Admit Date Hyperparathyroidism chronic February 062024 12:54pm Multiple thyroid nodules chronic March 05, 2025 12:54pm Hyperparathyroidism chronic 2024 9:58am Multiple thyroid nodules chronic May 11, 2025 9:58am [facility] Work Phone: 1(251) 236-521603-12-2025 Evaluation note* Diagnosis Onset Date Resolution Status Admit Date Cerumen impaction acute December 052024 9:58am Hyperparathyroidism chronic December 16, 2024 9:58am Hypertension chronic December 16, 2024 9:58am Thyroid nodule chronic December 9:58am Type 2 diabetes mellitus chronic December 16, 2024 9:58am [facility] Work Phone: 1(744) 318-488803-12-2025 Evaluation note* Diagnosis Onset Date Resolution Status Admit Date Cerumen impaction acute December 052024 9:58am Hyperparathyroidism chronic December 16, 2024 9:58am Hypertension chronic December 16, 2024 9:58am Thyroid nodule chronic December 9:58am Type 2 diabetes mellitus chronic December 16, 2024 9:58am Hyperparathyroidism chronic February 062024 12:54pm Multiple thyroid nodules chronic March 05, 2025 12:54pm [facility] Work Phone: Evaluation note* Diagnosis Onset Date Resolution Status Multiple thyroid nodules acu te Hypercalcemia chronic Hoarseness acute Hyperparathyroidism acute Multiple thyroid nodules acu te Osteopenia determined by x-ray acute Hypercalcemia chronic GERD (gastroesophageal reflux disease) acute Hypercalcemia chronic Hypertension chronic Type 2 diabetes mellitus chr onic [facility] Work Phone: Evaluation note* Diagnosis Onset Date Resolution Status Multiple thyroid nodules acu te Hypercalcemia chronic Hoarseness acute Hyperparathyroidism acute Multiple thyroid nodules acu te Osteopenia determined by x-ray acute Hypercalcemia chronic GERD (gastroesophageal reflux disease) acute Hypercalcemia chronic Hypertension chronic Type 2 diabetes mellitus chr onic Left knee pain acute Hypertension chronic Type 2 diabetes mellitus chr [facility] Work Phone: Evaluation note* Diagnosis Onset Date Resolution Status Hoarseness acute Hypertension chronic Nonscarring hair loss chroni c Plantar fasciitis of left foot chronic Type 2 diabetes mellitus chr onic Hyperparathyroidism acute Multiple thyroid nodules acu te Osteopenia determined by x-ray acute Type 2 diabetes mellitus chr onic Low back pain acute Right hip pain acute Hypertension chronic Type 2 diabetes mellitus chr [facility] Work Phone: Evaluation note* Diagnosis Onset Date Resolution Status Osteopenia determined by x-ray acute Hyperparathyroidism chronic Multiple thyroid nodules chr onic Type 2 diabetes mellitus chr onic Low back pain acute Right hip pain acute Hypertension chronic Type 2 diabetes mellitus chr onic Hyperparathyroidism chronic Multiple thyroid nodules chr [facility] Work Phone: Evaluation noteNo assessment information available [facility] Work Phone: Evaluation note* Diagnosis Onset Date Resolution Status Encounter for routine gynecological examination noneactive Hyperlipidemia chronic Hypertension chronic Persistent dry cough chronic Type 2 diabetes mellitus chr [facility] Work Phone: Evaluation note* Diagnosis Onset Date Resolution Status Encounter for routine gynecological examination noneactive Hyperlipidemia chronic Hypertension chronic Persistent dry cough chronic Type 2 diabetes mellitus chr onic Hyperparathyroidism chronic Multiple thyroid nodules chr onic Osteopenia determined by x-ray chronic Type 2 diabetes mellitus chr [facility] Work Phone: Reason for referral (narrative)No reason for referral [facility] Work [facility]: Chief Complaint and Reason for Visit Chief Complaint HYPERPARATHYROIDISM Hyperparathyroidism/US [facility] 01/17 [id number] PT 6 M FU Reason for Visit Multiple thyroid nod ules Hypercalcemia Hoarseness Hyperparathyroidism Multiple thyroid nodules Osteopenia determined by x-ray Hypercalcemia GERD (gastroesophageal reflux disease) Hypercalcemia Hypertension Type 2 diabetes mellitus Chief Complaint HYPERPARATHYROIDISM Hyperparathyroidism/US [facility] 01/17 [id number] PT 6 M FU RECLAST fall w/LT knee pain Reason for Visit Multiple thyroid nod ules Hypercalcemia Hoarseness Hyperparathyroidism Multiple thyroid nodules Osteopenia determined by x-ray Hypercalcemia GERD (gastroesophageal reflux disease) Hypercalcemia Hypertension Type 2 diabetes mellitus Chief Complaint HYPERPARATHYROIDISM Hyperparathyroidism/US [facility] 01/17 [id number]-BIM PT 6 M FU RECLAST fall w/LT knee pain 3 M FU LABWORK Reason for Visit Multiple thyroid nod ules Hypercalcemia Hoarseness Hyperparathyroidism Multiple thyroid nodules Osteopenia determined by x-ray Hypercalcemia GERD (gastroesophageal reflux disease) Hypercalcemia Hypertension Type 2 diabetes mellitus Left knee pain Hypertension Type 2 diabetes mellitus Chief Complaint SCREENING 3 M FU 1 Y FU NODULES 3 M FU Reason for Visit Hoarseness Hypertension Nonscarring hair loss Plantar fasciitis of left foot Type 2 diabetes mellitus Hyperparathyroidism Multiple thyroid nodules Osteopenia determined by x-ray Type 2 diabetes mellitus Low back pain Right hip pain Hypertension Type 2 diabetes mellitus Chief Complaint 1 Y FU NODULES 3 M FU THYROID THYROID NODULES RECLAST MULTIPLE THYROID NODULES; *SPECT W/CT* Reason for Visit Osteopenia determine d by x-ray Hyperparathyroidism Multiple thyroid nodules Type 2 diabetes mellitus Low back pain Right hip pain Hypertension Type 2 diabetes mellitus Hyperparathyroidism Multiple thyroid nodules Chief Complaint 1 Y FU NODULES 3 M FU THYROID THYROID NODULES RECLAST MULTIPLE THYROID NODULES; *SPECT W/CT* Dysphagia, pharyngoesophageal phase Reason for Visit Osteopenia determine d by x-ray Hyperparathyroidism Multiple thyroid nodules Type 2 diabetes mellitus Low back pain Right hip pain Hypertension Type 2 diabetes mellitus Hyperparathyroidism Multiple thyroid nodules Chief Complaint SCREENING Chief Complaint SCREENING Annual (RETAIL CLERK) 6 m fu Reason for Visit Encounter for routin e gynecological examination Hyperlipidemia Hypertension Persistent dry cough Type 2 diabetes mellitus Chief Complaint SCREENING Annual (RETAIL CLERK) 6 m fu 1 Y FU NONTOXIC NULTINODULAR GOITER Reason for Visit Encounter for routin e gynecological examination Hyperlipidemia Hypertension Persistent dry cough Type 2 diabetes mellitus Hyperparathyroidism Multiple thyroid nodules Osteopenia determined by x-ray Type 2 diabetes mellitus Chief Complaint Admit Date 6 M FU December 16, 2024 9:5 8am Reason for Visit Admit Date Cerumen impaction December 16, 2024 9:5 8am Hyperparathyroidism December 16, 2024 9:5 8am Hypertension December 16, 2024 9:5 8am Thyroid nodule December 16, 2024 9:5 8am Type 2 diabetes mellitus December 16 9:58am Chief Complaint Admit Date 6 M FU December 16, 2024 9:5 8am Breast Cancer Screening February 01, 2025 1:36pm THYROID NODULE March 05, 2025 12:54 pm Chief Complaint Admit Date 6 M FU December 16, 2024 9:5 8am Breast Cancer Screening February 01, 2025 1:36pm THYROID NODULE March 05, 2025 12:54 pm RECLAST March 17, 2025 12:4 4pm Reason for Visit Admit Date Cerumen impaction December 16, 2024 9:5 8am Hyperparathyroidism December 16, 2024 9:5 8am Hypertension December 16, 2024 9:5 8am Thyroid nodule December 16, 2024 9:5 8am Type 2 diabetes mellitus December 16 9:58am Hyperparathyroidism March 05, 2025 12:54 pm Multiple thyroid nodules March 05, 2025 12:54pm Chief Complaint Admit Date 6 M FU December 16, 2024 9:5 8am Breast Cancer Screening February 01, 2025 1:36pm THYROID NODULE March 05, 2025 12:54 pm RECLAST March 17, 2025 12:4 4pm parathyroid/ thyroid nodule April 02, 2 025 2:14pm Chief Complaint Admit Date Breast Cancer Screening February 01, 2025 1:36pm THYROID NODULE March 05, 2025 12:54 pm RECLAST March 17, 2025 12:4 4pm parathyroid/ thyroid nodule April 02, 2 025 2:14pm follow up to previous scan/lung nodule J amy 2024 12:12pm Reason for Visit Admit Date Hyperparathyroidism March 05, 2025 12:54 pm Multiple thyroid nodules March 05, 2025 12:54pm Chief Complaint Admit Date Breast Cancer Screening February 01, 2025 1:36pm THYROID NODULE March 05, 2025 12:54 pm RECLAST March 17, 2025 12:4 4pm parathyroid/ thyroid nodule April 02, 2 025 2:14pm follow up to previous scan/lung nodule J amy 2024 12:12pm DISCUSS THYROID SX May 11, 2025 9:5 8am Reason for Visit Admit Date Hyperparathyroidism May 30th, 2025 12:54 pm Multiple thyroid nodules March 05, 2025 12:54pm Hyperparathyroidism May 11, 2025 9:5 8am Multiple thyroid nodules May 11 9:58am Family History No Family History Records Found Relationship Condition Age at Onset Recorded Date/T marcin mother Malignant neoplasm Unknown Disorder of thyroid Unknown sister Malignant neoplasm Unknown Relationship Condition Age at Onset Recorded Date/T marcin mother Malignant neoplasm Unknown Disorder of thyroid Unknown Cardiac disease Unknown sister Malignant neoplasm Unknown brother Diabetes mellitus Unknown Pancreatitis Unknown Advance Directives No Advanced Directives Records Found Advance Directive Response Recorded Date/ Time Living Will No December 13, 2020 12:42pm Power of Communications Maintainer No December 13 12:42pm Advance Directive Response Recorded Date/ Time Living Will No April 11, 2022 7 :09pm Power of Communications Maintainer No April 11, 2022 7:09pm Advance Directive Response Recorded Date/ Time Living Will No April 11, 2022 7 :09pm Do you have a Healthcare Power of Communications Maintainer? No April 11, 2022 7:09pm Summary Purpose Additional Source Comments Goals (unrecognized section and content) Goals may be documented in a n alternate sectionGoals may be documented in an alternate sectionGoals may be documented in an alternate sectionGoals may be documented in an alternate sectionGoals may be documented in an alternate sectionGoals may be documented in an alternate sectionGoals may be documented in an alternate sectionGoals may be documented in an alternate sectionGoals may be documented in an alternate sectionGoals may be documented in an alternate sectionGoals may be documented in an alternate sectionGoals may be documented in an alternate sectionGoals may be documented in an alternate sectionGoals may be documented in an alternate sectionGoals may be documented in an alternate sectionGoals may be documented in an alternate sectionGoals may be documented in an alternate section Care Teams (unrecognized sec tion and content) Team Status: Active Member Role Status Dates Dr. Ammy Avery MD Family Provider Active Dr. Robby Riddle MD Primary Care Provider Active Team Status: Inactive Member Role Status Dates Dr. Rboby Riddle MD Primary Care Provider, Refer ring Provider Active Dr. Drake Cifuentes MD Attending Provider Active Team Status: Inactive Member Role Status Dates Dr. Robby Riddle MD Primary Care Wilmar dubois, Attending Provider, Referring Provider Active Team Status: Inactive Member Role Status Dates Dr. Robby Riddle MD Primary Care Provider Active Dr. Eliana Cuhng DO Attending Provider Activ e Team Status: Inactive Member Role Status Dates Dr. Robby Riddle MD Primary Care Provider Active Dr. Drake Cifuentes MD Attending Provider, Referring Provi jayy Active Team Status: Inactive Member Role Status Dates Dr. Robby Riddle MD Primary Care Provider, Refer ring Provider Active Dr. Aquiles Marin MD Attending Provider Active Team Status: Inactive Member Role Status Dates Dr. Robby Riddle MD Primary Care Provider Active Dr. Aquiles Marin MD Attending Provider, Referring P rovider Active Team Status: Inactive Member Role Status Dates Dr. Robby Riddle MD Primary Care Provider Active Dr. Drake Cifuentes MD Attending Provider Active Team Status: Inactive Member Role Status Dates Dr. Robby Riddle MD Primary Care Provider Active Dr. Julián North MD Attending Provider, Referring Pr ovider Active Team Status: Inactive Member Role Status Dates Dr. Robby Riddle MD Primary Care Provider Active Dr. Eliana Chung DO Attending Provider, Refe rring Provider Active Team Status: Inactive Member Role Status Dates Dr. Robby Riddle MD Primary Care Provider, Refer ring Provider Active Dr. Eliana Chung DO Attending Provider Activ e Team Status: Inactive Member Role Status Dates Dr. Robby Riddle MD Primary Care Provider Active Start: December 16, 2024 End: December 16, 2024 Dr. Robby Riddle MD Attending Provider Active Start: December 16, 2024 End: December 16, 2024 Dr. Robby Riddle MD Referring Provider Active Start: December 16, 2024 End: December 16, 2024 Team Status: Active Member Role Status Dates Dr. Robby Riddle MD Primary Care Provider Active Team Status: Inactive Member Role Status Dates Dr. Robby Riddle MD Primary Care Provider Active Start: February 01, 2025 End: February 01, 2025 Dr. Robby Riddle MD Attending Provider Active Start: February 01, 2025 End: February 01, 2025 Dr. Robby Riddle MD Referring Provider Active Start: February 01, 2025 End: February 01, 2025 Team Status: Inactive Member Role Status Dates Dr. Robby Riddle MD Primary Care Provider Active Start: March 05, 2025 End: March 05, 2025 Dr. Robby Riddle MD Referring Provider Active Start: March 05, 2025 End: March 05, 2025 Dr. Aquiles Marin MD Attending Provider Active Start: March 05, 2025 End: March 05, 2025 Team Status: Inactive Member Role Status Dates Dr. Robby Riddle MD Primary Care Provider Active Start: March 17, 2025 End: March 17, 2025 Dr. Drake Cifuentes MD Attending Provider Active Sta rt: March 17, 2025 End: March 17, 2025 Dr. Drake Cifuentes MD Referring Provider Active Sta rt: March 17, 2025 End: March 17, 2025 Team Status: Active Member Role/Relationship Status Dates Dr. Robby Riddle MD Primary Care Provider Active Team Status: Inactive Member Role/Relationship Status Dates Dr. Robby Riddle MD Primary Care Provider Active Start: December 16, 2024 End: December 16, 2024 Dr. Robby Riddle MD Attending Provider Active Start: December 16, 2024 End: December 16, 2024 Dr. Robby Riddle MD Referring Provider Active Start: December 16, 2024 End: December 16, 2024 Team Status: Inactive Member Role/Relationship Status Dates Dr. Robby Riddle MD Primary Care Provider Active Start: December 16, 2024 End: December 16, 2024 Dr. Robby Riddle MD Attending Provider Active Start: December 16, 2024 End: December 16, 2024 Dr. Robby Riddle MD Referring Provider Active Start: December 16, 2024 End: December 16, 2024 Team Status: Inactive Member Role/Relationship Status Dates Dr. Robby Riddle MD Primary Care Provider Active Start: February 01, 2025 End: February 01, 2025 Dr. Robby Riddle MD Attending Provider Active Start: February 01, 2025 End: February 01, 2025 Dr. Robby Riddle MD Referring Provider Active Start: February 01, 2025 End: February 01, 2025 Team Status: Inactive Member Role/Relationship Status Dates Dr. Robby Riddle MD Primary Care Provider Active Start: March 05, 2025 End: March 05, 2025 Dr. Robby Riddle MD Referring Provider Active Start: March 05, 2025 End: March 05, 2025 Dr. Aquiles Marin MD Attending Provider Active Start: March 05, 2025 End: March 05, 2025 Team Status: Inactive Member Role/Relationship Status Dates Dr. Robby Riddle MD Primary Care Provider Active Start: March 17, 2025 End: March 17, 2025 Dr. Drake Cifuentes MD Attending Provider Active Sta rt: March 17, 2025 End: March 17, 2025 Dr. Drake Cifuentes MD Referring Provider Active Sta rt: March 17, 2025 End: March 17, 2025 Team Status: Inactive Member Role/Relationship Status Dates Dr. Robby Riddle MD Primary Care Provider Active Start: April 02, 2025 End: April 02, 2025 Dr. Aquiles Marin MD Attending Provider Active Start: April 02, 2025 End: April 02, 2025 Dr. Aquiles Marin MD Referring Provider Active Start: April 02, 2025 End: April 02, 2025 Team Status: Inactive Member Role/Relationship Status Dates Dr. Robby Riddle MD Primary Care Provider Active Start: February 01, 2025 End: February 01, 2025 Dr. Robby Riddle MD Attending Provider Active Start: February 01, 2025 End: February 01, 2025 Dr. Robby Riddle MD Referring Provider Active Start: February 01, 2025 End: February 01, 2025 Team Status: Inactive Member Role/Relationship Status Dates Dr. Robby Riddle MD Primary Care Provider Active Start: March 05, 2025 End: March 05, 2025 Dr. Robby Riddle MD Referring Provider Active Start: March 05, 2025 End: March 05, 2025 Dr. Aquiles Marin MD Attending Provider Active Start: March 05, 2025 End: March 05, 2025 Team Status: Inactive Member Role/Relationship Status Dates Dr. Robby Riddle MD Primary Care Provider Active Start: March 17, 2025 End: March 17, 2025 Dr. Drake Cifuentes MD Attending Provider Active Sta rt: March 17, 2025 End: March 17, 2025 Dr. Drake Cifuentes MD Referring Provider Active Sta rt: March 17, 2025 End: March 17, 2025 Team Status: Inactive Member Role/Relationship Status Dates Dr. Robby Riddle MD Primary Care Provider Active Start: April 02, 2025 End: April 02, 2025 Dr. Aquiles Marin MD Attending Provider Active Start: April 02, 2025 End: April 02, 2025 Dr. Aquiles Marin MD Referring Provider Active Start: April 02, 2025 End: April 02, 2025 Team Status: Inactive Member Role/Relationship Status Dates Dr. Robby Riddle MD Primary Care Provider Active Start: April 20, 2025 End: April 20, 2025 Dr. Aquiles Marin MD Attending Provider Active Start: April 20, 2025 End: April 20, 2025 Dr. Aquilse Marin MD Referring Provider Active Start: April 20, 2025 End: April 20, 2025 Team Status: Active Member Role/Relationship Status Dates Dr. Robby Riddle MD Primary Care Provider Active Start: May 07, 2025 Dr. Aquiles Marin MD Attending Provider Active Start: May 07, 2025 Dr. Aquiles Marin MD Referring Provider Active Start: May 07, 2025 Team Status: Inactive Member Role/Relationship Status Dates Dr. Robby Riddle MD Primary Care Provider Active Start: May 11, 2025 End: May 11, 2025 Dr. Robby Riddle MD Referring Provider Active Start: May 11, 2025 End: May 11, 2025 Dr. Aquiles Marin MD Attending Provider Active Start: May 11, 2025 End: May 11, 2025 Team Status: Inactive Member Role/Relationship Status Dates Dr. Robby Riddle MD Primary Care Provider Active Start: May 07, 2025 End: May 07, 2025 Dr. Aquiles Marin MD Attending Provider Active Start: May 07, 2025 End: May 07, 2025 Dr. Aquiles Marin MD Referring Provider Active Start: May 07, 2025 End: May 07, 2025 INFORMATION SOURCE (unrecogn ized section and content) DATE CREATED AUTHOR 05/17/2025 [facility] FOR RECORDS PERTAINING TO PATIENTS WHO ARE OR HAVE BEEN ENROLLED IN A CHEMICAL DEPENDENCY/SUBSTANCEABUSE PROGRAM, SOME INFORMATION MAY BE OMITTED. This clinical summary was aggregated from multiple sources. Caution should be exercised in using it in the provision of clinical care. This summary normalizes information from multiple sources, and as a consequence, information in this document may materially change the coding, format and clinical context of patient data. In addition, data may be omitted in some cases. CLINICAL DECISIONS SHOULD BE BASED ON THE PRIMARY CLINICAL RECORDS. [employer] provides no warranty or guarantee of the accuracy or completeness of information in this document.
== END | disposition home or self-care (01) ==
LOC: OPBD 09:16
PROVIDERS: PCP Internal Medicine; Referring Provider Surgery; Visit Provider Surgery
DX: E21.3 Hyperparathyroidism, unspecified (principal)
CPT/HCPCS: 77080

== ENCOUNTER → 2025-06-16 | Outpatient (CLI) | payer MEDICARE, SELFPAY ==
[2025-06-16 15:27] LABS: Hematocrit 41.5 % (37-47); Hemoglobin 13.4 g/dL (12.0-15.0); Immature Granulocytes Count 0.010 X10^3/uL (0.0-0.0); Mean Corp Hgb Conc 32.3 g/dL (32-36); Mean Corpuscular Volume 89.4 fL (81-99); Mean Platelet Vol. 9.7 fl (6.2-12.0); NRBC Flagged by Analyzer 0 % (0-5); Platelet Count 128 K/mm3 (150-450); RBC Distribution Width CV 13.3 % (11.6-14.6); RBC Distribution Width SD 43.2 fl (35.1-43.9); Red Blood Count 4.64 M/mm3 (4.2-5.4); White Blood Count 5.3 K/mm3 (4.4-11.0)
[2025-06-16 15:55] LABS: AST(SGOT) 36 U/L (<=31); Alanine Aminotransfer ALT/SGPT 44 U/L (<=34); Albumin, Serum 4.2 g/dL (3.4-4.8); Alkaline Phosphatase 59 U/L (35-104); Anion Gap 11 (5-15); BUN 21 mg/dL (4-19); BUN/Creat Ratio 15.9 RATIO (10-20); Calcium,Total 10.9 mg/dL (7.6-11.0); Carbon Dioxide 22.0 mmol/L (21.0-32.0); Chloride 105 mmol/L (98-108); Cholesterol 205 mg/dL (<=200); Creatinine, Urine (random) 327.00 mg/dL (28.00-217.00); Globulin 2.4 g/dL (2.2-4.2); Glucose 145 mg/dL (70-99); Low Density Lipoprotein Calc. 103 mg/dL; Microalbumin,Random Urine 26.2 mg/L (<20 mg/L); Potassium 4.9 mmol/L (3.3-5.1); Triglycerides 346 mg/dL; Very Low Density Lipoprotein 69 mg/dL (5-40); cholesterol:hdl ratio screen 6.19
== END | disposition home or self-care (01) ==
LOC: BIMLAB 11:50
PROVIDERS: PCP Internal Medicine; Referring Provider Internal Medicine; Visit Provider Internal Medicine
DX: E11.22 Type 2 diabetes mellitus with diabetic chronic kidney disease (principal); N18.31 Chronic kidney disease, stage 3a
CPT/HCPCS: 36415; 80053; 80061; 82043; 82570; 83036; 85025

== ENCOUNTER 2025-06-30 05:54 | Day surgery (SDC) | payer MEDICARE, SELFPAY ==
--- NOTE | 2025-06-16 15:56 | PAT.ANESEVAL ---
Pre-Assessment Diagnosis/Proposed Procedure Planned Operative Procedure(s): (L) Parathyroidectomy w/PTH monitoring & left thyroid lobectomy w/isthmus and IONM Anesthesia History Anesthesia History - assistive technology specialist: Anesthesia History - assistive technology specialist Hx Hospitalization No 06/16/25 14:24 Any Problems With Anesthesia No 06/16/25 14:24 Cholinesterase deficiency No 06/16/25 14:24 You/Your Family Experience No 06/16/25 14:24 fever (hyperthermia) with Relationship Recent Exposure to Contagious No 12/13/20 11:42 Disease Does patient have nerve No 06/16/25 14:24 stimulator Patient instructed to have device shut off --Does patient have Pacemaker or ICD? When Was Last Pacemaker Check QUESTION #4 FULL TEXT: You/Your Family Experience fever (hyperthermia) with Anesthesia Last Oral Intake Last Oral intake: Last Oral Intake NPO since Meds taken in AM with sips of water? Meds patient instructed to take am of surgery PONV PONV - assistive technology specialist: PONV - assistive technology specialist Female Yes 06/16/25 14:24 HX of Motion Sickness Yes 06/16/25 14:24 HX of N/V After Surgery No 06/16/25 14:24 Non-Smoker Yes 06/16/25 14:24 Duration of Surgery greater Yes 06/16/25 14:24 than 60 minutes Number of Risk Factors 4 06/16/25 14:24 PONV Score Severe Risk 06/16/25 14:24 Height & Weight Height & Weight: Anesthesia: Height & Weight Height 5 ft 7 in 05/11/25 10:07 Respiratory Assessment Respiratory Assessment - assistive technology specialist: Respiratory Tract Infection Hx - assistive technology specialist Hx Respiratory Tract Infection No 06/16/25 14:24 STOP Sleep Apnea STOP Sleep Apnea - assistive technology specialist: STOP Sleep Apnea - assistive technology specialist Hx Hypertension Yes: CONTROLLED ON MED 06/16/25 14:24 Hx Sleep Apnea No 06/16/25 14:24 CPAP BIPAP Do you snore loudly (louder No 06/16/25 14:24 than talking or can be heard Do you often feel tired/ No 06/16/25 14:24 fatigued/ sleepy during daytime? Has anyone observed you stop No 06/16/25 14:24 breathing during sleep? STOP Results Negative 06/16/25 14:24 QUESTION #5 FULL TEXT : Do you snore loudly (louder than talking or can be heard through closed doors)? Tobacco Use History Tobacco Use History - assistive technology specialist: Tobacco Use History - assistive technology specialist Tobacco Use Smoking Status Never smoker 06/16/25 14:24 Hx Tobacco Use No 06/16/25 14:24 Years Smoking Packs Smoked per Day Smoking Cessation Date was within the last 15 years Hx Smoking Cessation Date Hx Smoking Cessation Counseling Hematologic Medial History Hematologic Hx - assistive technology specialist: Hematologic Medical Hx - physical geographer Hx of Blood Transfusion Yes 06/16/25 14:24 Hx of Transfusion in last 3 No 06/16/25 14:24 Months Date of Last Transfusion (if within last 3 months) Ever experience any problems No 06/16/25 14:24 with transfusion(s)? Specify any problems Hx of Preganancy in last 3 No 06/16/25 14:24 Months Nurse Filling Out Transfusion VCHRISTIN 06/16/25 14:24 & Questions: Date: 06/16/25 06/16/25 14:24 Time: 14:25 06/16/25 14:24 Patient unable to answer at this time (ie. confused, unrespo /Reproduction History /Reproductive History - assistive technology specialist: /Reproductive Hx- assistive technology specialist Hx Now No 06/16/25 14:24 Gestational Age (in weeks): EDC: Hx Hx Para Hx Section SAB No 06/16/25 14:24 PFSH Medical History (Updated 06/16/25 @ 14:23 by Diane Kim) Wears glasses Post-menopausal Thyroid disease Non-smoker Shortness of breath on exertion History of stress test Hypertension Cerumen impaction Thyroid nodule Low back pain Right hip pain Plantar fasciitis of left foot Nonscarring hair loss Left knee pain GERD (gastroesophageal reflux disease) Osteopenia determined by x-ray Hoarseness Hyperparathyroidism Hypercalcemia Flu vaccine need Health care maintenance Hyperlipidemia Other and unspecified hyperlipidemia Diabetes Cholecystitis, acute with cholelithiasis Home Medications ?Medication ?Instructions ?Recorded ?Last Taken ?Type aspirin 81 mg chewable tablet 81 mg PO DAILY@0800 heart health 07/12/19 07/10/19 History acetaminophen 325 mg tablet 650 mg (2 x 325 mg) PO Q6H PRN PRN 07/14/19 Unknown Rx Pain Score 1-07/16 elderberry fruit 200 mg capsule 1,000 mg PO DAILY 01/22/22 Unknown History flaxseed oil 1,000 mg capsule 1,000 mg PO DAILY 01/22/22 Unknown History multivitamin 1 tab PO DAILY 01/22/22 Unknown History biotin 5,000 mcg-lutein 10 mg 1 tab PO DAILY 01/28/23 Unknown History tablet omega-3 fatty acids-fish oil 300 1 cap PO DAILY 07/12/23 Unknown History mg-500 mg capsule (Fish Oil) blood sugar diagnostic (OneTouch #200 ea 04/15/24 Unknown Rx Ultra Test strips) lancets 30 gauge (OneTouch #200 ea 04/15/24 Unknown Rx UltraSoft 2 Lancet) dapagliflozin propanediol 10 mg 10 mg PO DAILY #90 tabs 07/27/24 Unknown Rx tablet (Farxiga) glimepiride 2 mg tablet 2 mg PO QAM #90 tabs 09/10/24 Unknown Rx metformin 500 mg tablet 1,000 mg (2 x 500 mg) PO BID 03/11/25 Unknown Rx diabetes 3 months #360 tabs valsartan 80 mg tablet 80 mg PO DAILY #90 TABLETS 03/11/25 Unknown Rx amlodipine 5 mg tablet 5 mg PO DAILY #90 tabs 03/22/25 Unknown Rx carvedilol 12.5 mg tablet 12.5 mg PO BID 06/16/25 Unknown History cholecalciferol (vitamin D3) 125 See Rx Instructions PO QWEEK 06/16/25 Unknown History mcg (5,000 unit) capsule zoledronic acid 5 mg/100 mL in 1 ea IV .QYEAR 06/16/25 Unknown History mannitol 5 %-water intravenous piggybck Allergy/AdvReac Type Severity Reaction Status Date / Time adhesive tape AdvReac Other Verified 06/16/25 12:42 amoxicillin trihydrate (From AdvReac Upset Verified 06/16/25 12:42 Augmentin) Stomach potassium clavulanate (From AdvReac Upset Verified 06/16/25 12:42 Augmentin) Stomach Family History Mother Cancer liver Thyroid disorder Heart disease Sister Cancer leukemia Brother Diabetes Pancreatitis Surgical History (Updated 06/16/25 @ 14:23 by Diane Kim) Total knee replacement status History of section Total knee replacement status Hx of cholecystectomy Social History Smoking Status: Never smoker alcohol intake: never substance use type: does not use caffeine: No 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 Normal sinus rhythm. Recommendation Anesthesia Recommendation Anesthesia recommendation: OPTIMIZED for anesthesia
[2025-06-30] VITALS (11 sets, daily range): BP systolic 121–174; BP diastolic 61–91; PULSE 72–90; RESP 16; TEMP 36.2–36.9; O2SAT 92–97; BMI 32.6
--- OUTSIDE RECORDS SUMMARY | 2025-06-30 05:57 | XMS RPT_ITS | CCD ---
Author Organization [facility] Care Team Providers Care Can Sealer Name Role Phone Dr. Robby Riddle Primary Care Provider [phone] Dr. Robby Riddle Referring Provider [phone] Dr. Aquiles Marin Attending Provider Dr. Drkae Cifuentes Attending Provider Dr. Robby Riddle Attending [...] [phone] Dr. Eliana Chung Attending Provider [phone] Dr. Robby Riddle Attending Provider [phone] Dr. Drake Cifuentes Attending Provider Janessa HILL, Dr. Bustamante Primary Care [...] HILL, Dr. Bustamante Referring Provider [phone] Janessa HILL, Dr. Bustamante Primary Care Provider Janessa HILL, Dr. Bustamante Referring Provider [phone] Janessa HILL, Dr. Bustamante Attending Provider [phone] Oleghe, Efewongbe Referring Unavailable Oleghe, Efewongbe Attending Unavailable Oleghe, Efewongbe Primary Care Unavailable Oleghe, Efewongbe Referring Unavailable Oleghe, Efewongbe Attending Unavailable Oleghe, Efewongbe Primary Care Unavailable Oleghe, Efewongbe Primary Care Unavailable Aquiles Marin Attending Unavailable Aquiles Marin Referring Unavailable Oleghe, Efewongbe Referring Unavailable Oleghe, Efewongbe Attending Unavailable Oleghe, Efewongbe Primary Care Unavailable Oleghe, Efewongbe Referring Unavailable Oleghe, Efewongbe Primary Care Unavailable Drake Cifuentes Attending Unavailable Oleghe, Efewongbe Referring Unavailable Oleghe, Efewongbe Attending Unavailable Oleghe, Efewongbe Primary Care Unavailable Oleghe, Efewongbe Referring Unavailable Aquiles Marin Attending Unavailable Oleghe, Efewongbe Primary Care Unavailable Oleghe, Efewongbe Referring Unavailable Aquiles Marin Attending Unavailable Oleghe, Efewongbe Primary Care Unavailable Oleghe, Efewongbe Referring Unavailable Olesigride, Efewongbe Attending Unavailable Olee, Efewongbe Primary Care Unavailable Olee, Efewongbe Primary Care Unavailable Aquiles Marin Attending Unavailable Aquiles Marin Referring Unavailable Aquiles Marin Attending Unavailable Aquiles Marin Referring Unavailable Olesigride, Efewongbe Primary Care Unavailable Aquiles Marin Attending Unavailable Tania, Aquiles Referring Unavailable Olee, Efewongbe Primary Care Unavailable Olee, Efewongbe Primary Care Unavailable Drake Cifuentes Referring Unavailable Drake Cifuentes Attending Unavailable Tania, Aquiles Referring Unavailable Tania, Aquiles Attending Unavailable Olee, Efbarbaraongbe Primary Care Unavailable Allergies Allergy Classification Reported Allergen(s) Allergy Type Date of Onset Reaction(s) Facility (20 sources) Amoxicillin; Translations: [amoxicillin trihydrate] Drug Allergy 2 Upset Stomach [facility] (20 sources) potassium clavulanate; Translations: [potassium clavulanate] Propensity to adverse reactions 2 Upset Stomach [facility] (19 sources) Adhesive Tape; Translations: [adhesive tape] Propensity to adverse reactions 2 Other [facility] Comment on above: redness/irritation Medications Current Medications Medication Drug Class(es) Dates Sig (Normalized) Sig (Original) acetaminophen 325 mg oral tablet (20 sources) Start: 07-14-2019 take 2 tablets by mouth every six hours as needed for pain Acetaminophen 325 MG tablet Active 650 mg PO EVERY 6 HOURS NEEDED as needed for Pain Score 1-10/10 0 July 14, 2019 12:00am Start: 07-14-2019 take 650 mg by mouth every six hours as needed Acetaminophen Active 650 MG PO EVERY 6 HOURS NEEDED July 14, 2019 12:00am aspirin 81 mg chewable tablet (20 sources) Platelet Aggregation Inhibitor, Nonsteroidal Anti-inflammatory Drug Start: 07-12-2019 take 1 tablet by mouth once daily Aspirin 81 MG tablet,chewable Active 81 mg PO DAILY@0800 July 12, 2019 12:00am S&N Airoflo [facility] Biotin-Lutein (7 sources) Start: 01-28-2023 take 1 tablet by mouth once daily Biotin-Lutein Active 1 TABLET PO DAILY January 28, 2023 12:00am Start: 01-28-2023 Biotin-Lutein Active TABLET PO January 28, 2023 12:00am Biotin-Lutein 5,000 mcg- 10 mg tablet (9 sources) Start: 01-28-2023 Biotin-Lutein 5,000 mcg- 10 mg tablet Active 1 {tbl} PO DAILY January 28, 2023 12:00am cholecalciferol 0.125 mg oral capsule (20 sources) Vitamin D Start: 06-16-2025 take 2 tablets by mouth every week Cholecalciferol (Vitamin D3) 125 mcg (5,000 unit) capsule Active 0 PO EVERY WEEK June 16, 2025 10:29am 2 tablets weekly orally every week; Start: 03-13-2024 End: 06-16-2025 take 1 capsule by mouth once daily Cholecalciferol (Vitamin D3) 125 mcg (5,000 unit) capsule Discontinued 5000 U PO DAILY 90 90 3 March 16, 2025 11:20am June 16, 2025 10:30am Start: 01-27-2024 End: 03-13-2024 take 1 capsule [...] 12:00am January 27, 2024 10:07am ELDERBERRY FRUIT (20 sources) Start: 01-22-2022 take 1000 mg by [...] 12:00am linseed oil 1000 mg oral capsule (20 sources) Start: 01-22-2022 take 1 capsule by [...] DAILY January 22, 2022 12:00am Multivitamin tablet (9 sources) Start: 01-22-2022 Multivitamin t ablet Active 1 {tbl} PO DAILY January 22, 2022 12:00am Martin-3 Fatty Acids-Fish Oil (Fish Oil) 300-500 mg capsule (12 sources) Start: 07-12-2023 Martin-3 Fatty Acids-Fish Oil (Fish Oil) 300-500 mg capsule Active 1 NMA PO DAILY July 12, 2023 12:00am Start: 07-12-2023 Martin-3 Fatty Acids-Fish Oil (Fish Oil) 300-500 mg capsule Active NMA PO DAILY July 12, 2023 12:00am Start: 07-12-2023 Martin-3 Fatty Acids-Fish Oil (Fish Oil) 300-500 mg capsule Active CAP PO July 12, 2023 12:00am Completed/Discontinued Medications Medication Drug Class(es) Dates Sig (Normalized) Sig (Original) alendronic acid 35 mg oral tablet (20 sources) Bisphosphonate Start: 09-04-2021 End: 01-23-2022 take [...] tablet Discontinued 5 mg PO DAILY 90 3 March 13, 2024 2:23pm March 22, 2025 8:01am amLODIPine 10 mg / benazepril hydrochloride 20 mg oral capsule (20 sources) Dihydropyridine Calcium Channel Angelo, Angiotensin Converting Enzyme Inhibitor Start: 07-12-2019 End: 06-22-2021 Amlodipine-Benaze pril 10-20 mg capsule Discontinued 1 NMA PO DAILY 90 1 March 09, 2021 2:01pm June 22, 2021 6:05pm bp Start: 07-12-2019 End: 09-16-2021 take 1 capsule by mouth once daily Amlodipine-Benazepril Discontinued 1 CAP PO DAILY 90 March 09, 2021 2:01pm [...] mg tablet Discontinued 20 mg PO DAILY June 22, 2022 4:40pm July 12, 2023 7:58am calcium carbonate 1500 mg oral tablet (20 sources) Start: 01-22-2022 End: 01-24-2022 take 1 [...] Discontinued 2 mg PO EVERY MORNING 90 1 March 24, 2024 7:59am July 27, 2024 [...] omeprazole 40 mg delayed release oral capsule (20 sources) Proton Pump Inhibitor Start: 01-24-2022 End: [...] Start: 11-04-2023 take 1 tablet by natali th once daily Valsartan Active 0 .ROUTE .COMPLEX November 04, 2023 9:17am Take 1 tablet by mouth once daily Start: 07-12-2023 End: 03-11-2025 take 1 tablet by mouth once daily Valsartan 80 mg tablet Discontinued 80 mg PO DAILY September 09, 2024 11:15am March 11, 2025 9:41am 100 ml zoledronic acid 0.05 mg/ml injection (20 sources) Bisphosphonate Start: 01-23-2022 End: 01-29-2025 Zoledronic Ejlt-Efyifdxk-Urkdq 5 mg/100 mL piggyback Discontinued 1 NMA .Route ONCE 100 0 January 27, 2024 10:35am January 29, 2025 7:12am infuse over 20 minutes Problems Active Problems Problem Classification Problem Date Documented Date Episodic/Chronic Biliary tract disease (20 sources) Calculus of gallbladder with acute cholecystitis; Translations: [Calculus of gallbladder with acute cholecystitis without obstruction] 07-27-2019 Episodic Chronic kidney disease (1 source) Chronic kidney disease; Translations: [Chronic kidney disease, stage 3a] Onset: 5 Diabetes mellitus with complications (1 source) Type 2 diabetes mellitus with diabetic chronic kidney disease; Translations: [Type 2 diabetes mellitus with diabetic chronic kidney disease] Onset: 5 Chronic Diabetes mellitus without complication (20 sources) Type 2 diabetes mellitus; Translations: [Type 2 diabetes mellitus without complications] Onset: 5 Chronic Disorders of lipid metabolism (20 sources) Hyperlipidemia; Translations: [Hyperlipidemia, unspecified] Onset: 5 08-30-2021 Chronic E Codes: Fall (18 sources) Fall; Translations: [Unspecified fall, initial encounter] 04-19-2022 Episodic Esophageal disorders (20 sources) Gastroesophageal reflux disease; Translations: [Gastro-esophageal reflux disease without esophagitis] Chronic Essential hypertension (20 sources) Hypertensive disorder; Translations: [Essential (primary) hypertension] Chronic Immunizations and screening for infectious disease (20 sources) Needs influenza immunization; Translations: [Encounter for immunization] 07-30-2022 Episodic Comment on above: Patient declined. Other bone disease and musculoskeletal deformities (8 sources) X-ray evidence of poor mineralization; Translations: [Other specified disorders of bone density and structure, unspecified site] 01-23-2022 Episodic Other bone disease and musculoskeletal deformities (12 sources) Osteopenia; Translations: [Other specified disorders of bone density and structure, unspecified site] 01-23-2022 Episodic Other connective tissue disease (4 sources) Plantar fasciitis; Translations: [Plantar fascial fibromatosis] 10-31-2022 Episodic Other connective tissue disease (2 sources) Plantar fascial fibromatosis; Translations: [Plantar fascial fibromatosis] 10-31-2022 Episodic Other connective tissue disease (12 sources) Plantar fasciitis of left foot; Translations: [Plantar fascial fibromatosis] 10-31-2022 Episodic Other ear and sense organ disorders (13 sources) Impacted cerumen; Translations: [Impacted cerumen, unspecified [...] but favored outpatient disposition. Other endocrine disorders (12 sources) Hyperparathyroidism, unspecified; Translations: [Hyperparathyroidism, unspecified] Onset: 5 Chronic Other lower respiratory disease (16 sources) Dry cough; Translations: [Persistent dry cough] 03-14-2023 Episodic Other lower respiratory disease (5 sources) Nodule of lung; Translations: [Solitary pulmonary nodule] 04-08-2025 Episodic Other lower respiratory disease (1 source) Solitary pulmonary nodule; Translations: [Solitary pulmonary nodule] Onset: 5 Episodic Other non-traumatic joint disorders (18 sources) Pain in left knee; Translations: [Left knee pain] Episodic Other non-traumatic joint disorders (16 sources) Hip pain; Translations: [Pain in right hip] 01-28-2023 Episodic Other non-traumatic joint disorders (4 sources) Pain in right hip; Translations: [Pain in joint, pelvic region and thigh] 01-28-2023 Episodic Other nutritional; endocrine; and metabolic disorders (20 sources) Hypercalcemia; Translations: [Hypercalcemia] 01-24-2022 Chronic Other nutritional; endocrine; and metabolic disorders (12 sources) Hypercalcemia; Translations: [Hypercalcemia] Chronic Other skin disorders (16 sources) Non-scarring alopecia; Translations: [Nonscarring hair loss, unspecified] 10-31-2022 Episodic Other skin disorders (2 sources) Nonscarring hair loss, unspecified; Translations: [Other alopecia] 10-31-2022 Episodic Other upper respiratory disease (20 sources) Hoarse; Translations: [Dysphonia] 01-23-2022 Episodic Other upper respiratory disease (6 sources) Dysphonia; Translations: [Dysphonia] Episodic Spondylosis; intervertebral disc disorders; other back problems (20 sources) Low back pain; Translations: [Low back pain] 01-28-2023 Episodic Sprains and strains (18 sources) Sprain of knee; Translations: [Sprain of unspecified site of left knee, initial encounter] 04-19-2022 Episodic Superficial injury; contusion (18 sources) Contusion of head; Translations: [Contusion of unspecified part of head, initial encounter] 04-19-2022 Episodic Thyroid disorders (20 sources) Multinodular goiter; Translations: [Nontoxic multinodular goiter] Onset: Chronic Comment on above: Patient is a 79-year -old female known to me for history of multiple thyroid nodule status post FNA with [place] 2 diagnosis who presents for surveillance after [...] multiple thyroid nodule status post FNA with [place] 2 diagnosis who presents for surveillance after [...] Problem Date Documented Da te Episodic/Chronic Other bone disease and musculoskeletal deformities (10 sources) Other specified disorders of bone density and structure, unspecified site; Translations: [Disorder of bone and cartilage, unspecified] Onset: 03-22-2025 Episodic Other ear and sense organ disorders (1 source) Impacted cerumen, bilateral; Translations: [Impacted cerumen, bilateral] Onset: 12-16-2024 Episodic Other screening for suspected conditions (not mental disorders or infectious disease) (1 source) Encounter for screening mammogram for malignant neoplasm of breast; Translations: [Encounter for screening mammogram for malignant neoplasm of breast] Onset: 02-04-2025 Episodic Results Test Name Value Interpretation Reference Range Facility CBC W/Diff, Automatedon 06-07 Absolute Lymph 1.03 X10 3/uL Normal 0.83-4.51 [facility] Comment on above: Performed By: #### L 502.0250, L500.4100, L100.0100, L500.4050, L501.9985 #### [facility] [address] [place], [address] Absolute Neut 3.4 X10 3/uL Normal 2.0-7.7 [facility] Comment on above: Performed By: #### L 502.0250, L500.4100, L100.0100, L500.4050, [id number] #### [facility] [address] [place], [address] Basophils/100 WBC (Bld) 0.9 % Normal 0-1 [facility] Comment on above: Performed By: #### L 502.0250, L500.4100, L100.0100, L500.4050, L501.9985 #### [facility] [address] [place], [address] Eosinophils/100 WBC (Bld) 7.3 % High 0-5 [facility] Comment on above: Performed By: #### L 502.0250, L500.4100, L100.0100, L500.4050, L501.9985 #### [facility] [address] [place], [address] Erythrocyte distribution width (RBC) [Ratio] 13.3 % Normal 11.6-14.6 [facility] Comment on above: Performed By: #### L 502.0250, L500.4100, L100.0100, L500.4050, L501.9985 #### [facility] [address] [place], [address] Hematocrit (Bld) [Volume fraction] 41.5 % Normal 37-47 [facility] Comment on above: Performed By: #### L 502.0250, L500.4100, L100.0100, L500.4050, L501.9985 #### [facility] [address] [place], [address] Hemoglobin (Bld) [Mass/Vol] 13.4 g/dL Normal 12.0-15.0 [facility] Comment on above: Performed By: #### L 502.0250, L500.4100, L100.0100, L500.4050, L501.9985 #### [facility] [address] [place], [address] IG% 0.200 Normal 0.0-0.9 [facility] Comment on above: Result Comment: IG% - Immature Granulocytes (promyelocytes, myelocytes and metamyelocytes) > 1% indicates that a LEFT SHIFT is Present. Performed By: #### L 502.0250, L500.4100, L100.0100, L500.4050, L501.9985 #### [facility] [address] [place], [address] Lymphocytes/100 WBC (Bld) 19.3 % Normal 19-41 [facility] Comment on above: Performed By: #### L 502.0250, L500.4100, L100.0100, L500.4050, L501.9985 #### [facility] [address] [facility] [place], [address] MCH (RBC) [Entitic mass] 28.9 pg Normal 27.0-32.0 [facility] Comment on above: Performed By: #### L 502.0250, L500.4100, L100.0100, L500.4050, L501.9985 #### [facility] [address] [place], [address] MCHC (RBC) [Mass/Vol] 32.3 g/dL Normal 32-36 [facility] Comment on above: Performed By: #### L 502.0250, L500.4100, L100.0100, L500.4050, L501.9985 #### [facility] [address] [place], [address] MCV (RBC) [Entitic vol] 89.4 fL Normal 81-99 [facility] [place] Comment on above: Performed By: #### L 502.0250, L500.4100, L100.0100, L500.4050, L501.9985 #### [facility] [address] [place], [address] Monocytes/100 WBC (Bld) 9.2 % Normal 0-10 [facility] Comment on above: Performed By: #### L 502.0250, L500.4100, L100.0100, L500.4050, L501.9985 #### [facility] [address] [place], [address] Neutrophils/100 WBC (Bld) 63.1 % Normal 47-70 [facility] Comment on above: Performed By: #### L 502.0250, L500.4100, L100.0100, L500.4050, L501.9985 #### [facility] [address] [place], [address] Nucleated RBC (Bld) [#/Vol] 0 10*3/uL Normal 0-5 [facility] Comment on above: Performed By: #### L 502.0250, L500.4100, L100.0100, L500.4050, L501.9985 #### [facility] [address] [place], [address] Platelet mean volume (Bld) [Entitic vol] 9.7 fL Normal 6.2-12.0 [facility] Comment on above: Performed By: #### L 502.0250, L500.4100, L100.0100, L500.4050, L501.9985 #### [facility] [address] [place], [address] Platelets (Bld) [#/Vol] 128 10*3/uL Low 150-450 [facility] Comment on above: Performed By: #### L 502.0250, L500.4100, L100.0100, L500.4050, L501.9985 #### [facility] [address] [place], [address] RBC (Bld) [#/Vol] 4.64 10*6/uL Normal 4.2-5.4 [facility] Comment on above: Performed By: #### L 502.0250, L500.4100, L100.0100, L500.4050, L501.9985 #### [facility] [address] [place], [address] RDW SD 43.2 fl Normal 35.1-43.9 [facility] Comment on above: Performed By: #### L 502.0250, L500.4100, L100.0100, L500.4050, L501.9985 #### [facility] [address] [place], [address] WBC (Bld) [#/Vol] 5.3 10*3/uL Normal 4.4-11.0 [facility] Comment on above: Performed By: #### L 502.0250, L500.4100, L100.0100, L500.4050, L501.9985 #### [facility] [address] [place], [address] [facility] 06-16-2025 Albumin [Mass/Vol] 4.2 g/dL Normal 3.4-4.8 [facility] Comment on above: Performed By: #### L 502.0250, L500.4100, L100.0100, L500.4050, L501.9985 #### [facility] [address] [place], [address] Albumin/Globulin [Mass ratio] 1.7 {ratio} Normal 0.9-2.4 [facility] Comment on above: Performed By: #### L 502.0250, L500.4100, L100.0100, L500.4050, L501.9985 #### [facility] [address] [place], [address] ALK PHOS 59 U/L Normal 35-104 [facility] Comment on above: Performed By: #### L 502.0250, L500.4100, L100.0100, L500.4050, L501.9985 #### [facility] [address] [place], [address] ALT [Catalytic activity/Vol] 44 U/L High <=34 [facility] Comment on above: Performed By: #### L 502.0250, L500.4100, L100.0100, L500.4050, L501.9985 #### [facility] [address] [place], [address] AST [Catalytic activity/Vol] 36 U/L High <=31 [facility] Comment on above: Performed By: #### L 502.0250, L500.4100, L100.0100, L500.4050, L501.9985 #### [facility] [address] [place], [address] Bilirubin [Mass/Vol] 0.52 mg/dL Normal 0.00-1.30 [facility] Comment on above: Performed By: #### L 502.0250, L500.4100, L100.0100, L500.4050, L501.9985 #### [facility] [address] [place], [address] BUN/CRE 15.9 RATIO Normal 10-20 [facility] Comment on above: Performed By: #### L 502.0250, L500.4100, L100.0100, L500.4050, L501.9985 #### [facility] [address] [place], [address] Calcium [Mass/Vol] 10.9 mg/dL Normal 7.6-11.0 [facility] Comment on above: Performed By: #### L 502.0250, L500.4100, L100.0100, L500.4050, L501.9985 #### [facility] [address] [place], [address] Chloride [Moles/Vol] 105 mmol/L Normal 98-108 [facility] Comment on above: Performed By: #### L 502.0250, L500.4100, L100.0100, L500.4050, L501.9985 #### [facility] [address] [place], [address] CO2 [Moles/Vol] 22.0 mmol/L Normal 21.0-32.0 [facility] Comment on above: Performed By: #### L 502.0250, L500.4100, L100.0100, L500.4050, L501.9985 #### [facility] [address] [place], [address] Creatinine [Mass/Vol] 1.29 mg/dL High 0.70-1.20 [facility] Comment on above: Performed By: #### L 502.0250, L500.4100, L100.0100, L500.4050, L501.9985 #### [facility] [address] [place], [address] GAP 11 Normal 5-15 [facility] Comment on above: Performed By: #### L 502.0250, L500.4100, L100.0100, L500.4050, L501.9985 #### [facility] [address] [place], [address] GFR/1.73 sq M.predicted among non-blacks MDRD (S/P/Bld) [Vol rate/Area] 43 mL/min/{1.73_m2} Low >60 [facility] Comment on above: Result Comment: mL/m in/1.73m2 CKD-EPI Creatinine Equation (2020) Performed By: #### L 502.0250, L500.4100, L100.0100, L500.4050, L501.9985 #### [facility] [address] [place], [address] Globulin (S) [Mass/Vol] 2.4 g/dL Normal 2.2-4.2 [facility] Comment on above: Performed By: #### L 502.0250, L500.4100, L100.0100, L500.4050, L501.9985 #### [facility] [address] [place], [address] Glucose [Mass/Vol] 145 mg/dL High 70-99 [facility] Comment on above: Performed By: #### L 502.0250, L500.4100, L100.0100, L500.4050, L501.9985 #### [facility] [address] [place], [address] Potassium [Moles/Vol] 4.9 mmol/L Normal 3.3-5.1 [facility] Comment on above: Performed By: #### L 502.0250, L500.4100, L100.0100, L500.4050, L501.9985 #### [facility] [address] [place], [address] Sodium [Moles/Vol] 139 mmol/L Normal 133-145 [facility] Comment on above: Performed By: #### L 502.0250, L500.4100, L100.0100, L500.4050, L501.9985 #### [facility] [address] [place], [address] T PROT 6.6 g/dL Normal 5.9-8.4 [facility] Comment on above: Performed By: #### L 502.0250, L500.4100, L100.0100, L500.4050, L501.9985 #### [facility] [address] [place], [address] Urea nitrogen [Mass/Vol] 21 mg/dL High 4-19 [facility] Comment on above: Performed By: #### L 502.0250, L500.4100, L100.0100, L500.4050, L501.9985 #### [facility] [address] [place], [address] Hemoglobin A1con 06-16-2025 HbA1c (Bld) [Mass fraction] 6.0 % High <=5.6 [facility] Comment on above: Result Comment: Norm al < 5.7 % Prediabetic 5.7 - 6.4 % Diabetic >or= 6.5 % Please note range changes. Performed By: #### L 502.0250, L500.4100, L100.0100, L500.4050, L501.9985 ####[facility] [address] [place], [address] Internal Medicine Office Vis iton 06-16-2025 Internal Medicine Office Visit [facility] [address] [place] [address] [place] [address] OFFICE VISIT Date of Service: 06/16/25 MR#: [id number] Acct: [id number] Name: MABEL RAZA Rep #: [id number] : 1945 Provider: Dr. 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: No Accompanied by: Is patient in pain?: No Allergies adhesive tape Adverse Reaction (Verified 06/16/25 12:42) Other amoxicillin trihydrate (From Augmentin) Adverse Reaction (Verified 06/16/25 12:42) Upset Stomach potassium clavulanate (From Augmentin) Adverse Reaction (Verified 06/16/25 12:42) Upset Stomach Medications ???Medication ???Instructions ???Recorded ???Confirmed ???Type aspirin 81 mg chewable tablet 81 mg PO DAILY@0800 heart health 1 06/16/25 History acetaminophen 325 mg tablet 650 mg (2 x 325 mg) PO Q6H PRN PRN 07/14/19 06/16/25 Rx Pain Score 1-07/16 elderberry fruit 200 mg capsule 1,000 mg PO DAILY 01/22/22 5 History flaxseed oil 1,000 mg capsule 1,000 mg PO DAILY 01/22/22 5 History multivitamin 1 tab PO DAILY 01/22/22 06/16/25 H istory biotin 5,000 mcg-lutein 10 mg 1 tab PO DAILY 01/28/23 06/16/25 H istory tablet omega-3 fatty acids-fish oil 300 1 cap PO DAILY 07/12/23 06/16/25 H istory mg-500 mg capsule (Fish Oil) blood sugar diagnostic (OneTouch #200 ea 04/15/24 06/16/25 Rx Ultra Test strips) lancets 30 gauge (OneTouch #200 ea 04/15/24 06/16/25 Rx UltraSoft 2 Lancet) dapagliflozin propanediol 10 mg 10 mg PO DAILY #90 tabs 07/27/24 0 06/16/25 Rx tablet (Farxiga) glimepiride 2 mg tablet 2 mg PO QAM #90 tabs 09/10/2406/07 Rx metformin 500 mg tablet 1,000 mg (2 x 500 mg) PO BID 03/1106/16/25 Rx diabetes 3 months #360 tabs valsartan 80 mg tablet 80 mg PO DAILY #90 TABLETS 5 06/16/25 Rx amlodipine 5 mg tablet 5 mg PO DAILY #90 tabs 03/22/25 Rx carvedilol 12.5 mg tablet 12.5 mg PO BID 06/16/25 06/16/25 H istory cholecalciferol (vitamin D3) 125 See Rx Instructions PO QWEEK 06/1606/16/25 History mcg (5,000 unit) capsule zoledronic acid 5 mg/100 mL in 1 ea IV .QYEAR 06/16/25 06/16/25 H istory mannitol 5 %-water intravenous piggybck Have you fallen in the past year?: No Nurse's Note: Pt is having partial throidectomy in [address] Marin will be doing the surgery. [facility] Medical History (Updated 06/16/25 @ 16:[address] Robby Riddle MD) Preoperative evaluation to rule out surgical contraindication Wears glasses Post-menopausal Thyroid disease Non-smoker Shortness of breath on exertion History of stress test Hypertension Cerumen impaction Thyroid nodule Low back pain Right hip pain Plantar fasciitis of left foot Nonscarring hair loss Left knee pain GERD (gastroesophageal reflux disease) Osteopenia determined by x-ray Hoarseness Hyperparathyroidism Hypercalcemia Flu vaccine need Health care maintenance Hyperlipidemia Other and unspecified hyperlipidemia Diabetes Cholecystitis, acute with cholelithiasis Surgical History (Updated 06/16/25 @ 14:23 by Diane Kim) Total knee replacement status History of section Total knee replacement status Hx of cholecystectomy Family History Mother Cancer liver Thyroid disorder Heart disease Sister Cancer leukemia Brother Diabetes Pancreatitis Social History Smoking Status: Never smoker alcohol intake: never substance use type: does not use caffeine: No additional social history: -Balwinder HPI HPI Chief Complaint: Follow-up chronic conditions, presurgical evaluation Details: MABEL RAZA, is a 79-year-old female presenting for follow-up of her chronic conditions. No acute concerns at this time. Scheduled for Left thyroid lobectomy with isthmusectomy and intraoperative nerve monitoring for management of compressive symptoms and parathyroidectomy. Furthermore, the patient describes symptoms of throat hoarseness and a raspy voice, alongside pressure sensations. There is also an intermittent difficulty with swallowing The patient has a history of general anesthesia use with no adverse effects or concerns. His (more content not included)... Normal [facility] Lipid Profileon 06-16-2025 CHOL:HDL 6.19 Normal [facility] Comment on above: Performed By: #### L 502.0250, L500.4100, L100.0100, L500.4050, L501.9985 #### [facility] [address], [address] Cholesterol [Mass/Vol] 205 mg/dL High <=200 [facility] Comment on above: Result Comment: Chol esterol level, Desirable <200 mg/dL Borderline high cholesterol 200-239 mg/dL High cholesterol >=240 mg/dL Recommendations of the NCEP Adult Treatment Panel for the following risk-cutoff thresholds for the [place] population. Performed By: #### L 502.0250, L500.4100, L100.0100, L500.4050, L501.9985 #### [facility] [address] [place], [address] Cholesterol in HDL [Mass/Vol] 33 mg/dL Low [facility] Comment on above: Result Comment: Ileana onal Cholesterol Education Program (NCEP) guidelines: <40 mg/dL: Low HDL-cholesterol (major risk factor for CHD) >= 60 mg/dL: High HDL-cholesterol (negative risk factor for CHD) HDL-cholesterol is affected by a number of factors, e.g. smoking, exercise, hormones, sex and age. Performed By: #### L 502.0250, L500.4100, L100.0100, L500.4050, L501.9985 #### [facility] [address] [place], [address] Cholesterol in LDL [Mass/Vol] 103 mg/dL Normal [facility] Comment on above: Result Comment: Bord qvqgcw=515-935 mg/dL Higher Ocjt=507 mg/dL or greater Friedwald Equation for LDL-C Performed By: #### L 502.0250, L500.4100, L100.0100, L500.4050, L501.9985 #### [facility] [address] [place], [address] Cholesterol in VLDL [Mass/Vol] 69 mg/dL High 5-40 [facility] Comment on above: Performed By: #### L 502.0250, L500.4100, L100.0100, L500.4050, L501.9985 #### [facility] [address] [place], [address] Triglyceride [Mass/Vol] 346 mg/dL High [facility] Comment on above: Result Comment: The drugs N-Acetylcysteine and Metamizole may falsely depress this assay. Normal range: <150 mg/dL Borderline High: 150-199 mg/dL High: 200-499 mg/dL Very High: >500 mg/dL Performed By: #### L 502.0250, L500.4100, L100.0100, L500.4050, L501.9985 #### [facility] [address] [place], [address] MR/PAT.ANEon 06-16-2025 MR/PAT.ANE [facility] Medical Records Department [address] [place] [address] PAT - Anesthesia 06/16/25 1556 MR#: [id number] Acct: [id number] Name: MABEL RAZA Rep #: [id number] : 1945 79 From: Jhonathan Cee MD PCP: Dr. 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 When Was Last Pacemaker Check QUESTION #4 FULL TEXT: You/Your Family Experience fever (hyperthermia) with Anesthesia Last Oral Intake Last Oral intake: Last Oral Intake NPO since Meds taken in AM with sips of water? Meds patient instructed to take am of surgery PONV PONV - cream maker: PONV - cream maker Female Yes 06/16/25 14:24 HX of Motion Sickness Yes 06/16/25 14:24 HX of N/V After Surgery No 06/16/25 14:24 Non-Smoker Yes 06/16/25 14:24 Duration of Surgery greater Yes 06/16/25 14:24 than 60 minutes Number of Risk Factors 4 06/16/25 14:24 PONV Score Severe Risk 06/16/25 14:24 Height Weight Height Weight: Anesthesia: Height Weight Height 5 ft 7 in 05/11/25 10:07 Respiratory Assessment Respiratory Assessment - cream maker: Respiratory Tract Infection Hx - cream maker Hx Respiratory Tract Infection No 06/16/25 14:24 STOP Sleep Apnea STOP Sleep Apnea - cream maker: STOP Sleep Apnea - cream maker Hx Hypertension Yes: CONTROLLED ON MED 06/16/25 14:24 Hx Sleep Apnea No 06/16/25 14:24 CPAP BIPAP Do you snore loudly (louder No 06/16/25 14:24 than talking or can be heard Do you often feel tired/ No 06/16/25 14:24 fatigued/ sleepy during daytime? Has anyone observed you stop No 06/16/25 14:24 breathing during sleep? STOP Results Negative 06/16/25 14:24 QUESTION #5 FULL TEXT : Do you snore loudly (louder than talking or can be heard through closed doors)? Tobacco Use History Tobacco Use History - cream maker: Tobacco Use History - cream maker Tobacco Use Smoking Status Never smoker 06/16/25 14:24 Hx Tobacco Use No 06/16/25 14:24 Years Smoking Packs Smoked per Day Smoking Cessation Date was within the last 15 years Hx Smoking Cessation Date Hx Smoking Cessation Counseling Hematologic Medial History Hematologic Hx - cream maker: Hematologic Medical Hx - stonecutter Hx of Blood Transfusion Yes 06/16/25 14:24 Hx of Transfusion in last 3 No 06/16/25 14:24 Months Date of Last Transfusion (if within last 3 months) Ever experience any problems No 06/16/25 14:24 with transfusion(s)? Specify any problems Hx of Preganancy in last 3 No 06/16/25 14:24 Months Nurse Filling Out Transfusion VCHRISTIN 06/16/25 14:24 Questions: Date: 06/16/25 06/16/25 14:24 Time: 14:25 06/16/25 14:24 Patient unable to answer at this time (ie. confused, unrespo /Reproductio n History /Reproductiv e History - cream maker: /Reproductiv e Hx- cream maker Hx Now No 06/16/25 14:24 Gestational Age (in weeks): EDC: Hx Hx Para Hx Section SAB No 06/16/25 14:24 [facility] Medical History (Updated 06/16/25 @ 14:23 by Diane Kim) Wears glasses Post-menopausal Thyroid disease Non-smoker Shortness of breath on exertion History of stress test Hypertension Cerumen impaction Thyroid nodule Low back pain Right hip pain Plantar fasciitis of left foot Nonscarring hair loss Left knee pain GERD (gastroesophageal reflux disease) Osteopenia determined by x-ray Hoarseness Hyperparathyroidism Hypercalcemia Flu vaccine need Health care maintenance Hyperlipidemia Other and unspecified hyperlipidemia Diabetes Cholecystitis, acute with cholelithiasis Home Medications ???Medication ???Instructions ???Recorded ???Last Taken ???Type aspirin 81 mg chewable tablet 81 mg PO DAILY@0800 heart health 1 07/10/19 History acetaminophen 325 mg tablet 650 mg (2 x 325 mg) PO Q6H PRN PRN 07/14/19 Unknown Rx Pain S (more content not included)... Normal [facility] Microalb:Creat Ratio,Random URon 06-16-2025 Creatinine [Mass/Vol] 327.00 mg/dL High 28.00-217.00 [facility] Comment on above: Performed By: #### L 502.0250, L500.4100, L100.0100, L500.4050, L501.9985 #### [facility] [address] [place], [address] MALB:CREAT 8.0 mg/g CRE Normal <30 mg/g CRE [facility] Comment on above: Performed By: #### L 502.0250, L500.4100, L100.0100, L500.4050, L501.9985 #### [facility] [address] [place], [address] MICROALBUMIN,UR 26.2 mg/L Normal <20 mg/L [facility] Comment on above: Performed By: #### L 502.0250, L500.4100, L100.0100, L500.4050, L501.9985 #### [facility] [address] [place], [address] Bone density reportOrdered B y: Carlos Glass on 05-20-2025 Study report Skeletal system DXA [facility] Imaging Services [address] [place] [address] Dexa Bone Density Study MR#: [id number] Acct: [id number] Name: MABEL RAZA Rep #: [id number] : 1945 F 79 From: Candis Glass MD PCP: Dr. Robby Riddle MD Status: R EG CLI Study:Dexa Bone Density Study Date of Exam: 05/20/25 Exam# [id number] Ordering Dr: Jaylin Marin MD PROCEDURE: DEXA BONE DENSITY STUDY 05/20/2025 REASON FOR EXAM: HYPERPARATHYROIDISM F, age 79 y/o . Postmenopausal. TECHNIQUE: DEXA BONE DENSITY STUDY COMPARISON: 2020 FINDINGS: BMD and T-SCORES Lumbar spine: 1.258 g/cm2, T-score 1.9 Levels: L1 through L4 Change from prior: Increase of 1.9%. Left femoral neck: 0.675 g/cm2, T-score -1.6 Femoral neck comparison data not recommended for monitoring change. Prior T-score Left total hip: 0.820 g/cm2, T-score -1.0 Change from prior: Increase of 8.3%. Right femoral neck: 0.718 g/cm2, T-score -1.2 Femoral neck comparison data not recommended for monitoring change. Prior T-score Right total hip: 0.852 g/cm2, T-score -0.7 Change from prior: Increase of 4.7%. The World Health Organization has defined the following categories based on bonedensity: Normal bone density: T-score equal to or greater than -1.0 Osteopenia: T-score between -1.0 and -2.5 Osteoporosis: T-score equal to or less than -2.5 FRAX (or Comparable) Fracture Risk Assessment: 10 Year Probability of Fracture: Major Osteoporotic Fracture: 12% Hip Fracture: 2.5% (Note: FRAX is not to be reported in setting of normal range bone density, osteoporosis on DEXA, known history of osteoporosis, prior osteoporotic hip or vertebral fracture, or for any patient undergoing pharmacological treatment for bone loss.) The National Osteoporosis Foundation (NOF) recommends pharmacological treatment for patients with a FRAX 10-year risk of 3% or higher for a hip fracture, or 20% or higher for a major osteoporotic fracture, to prevent osteoporosis and reduce fracture risk. The patient does not meet the pharmacological treatment recommendations for prevention of osteoporosis. BD/Dexa Bone Density Study IMPRESSION: OSTEOPENIA. Recommend follow-up as clinically warranted. Reading Location: [id number] CC: Dr. Robby Riddle MD; Dr. Aquiles Marin MD ~ Finish Photographer: Signed [facility] Dexa Bone Density Studyon Dexa Bone Density Study [facility] Imaging Services [address] [place] [address] Dexa Bone Density Study MR#: [id number] Acct: [id number] Name: MABEL RAZA Rep #: [id number] : 1945 F 79 From: Carlos Glass MD PCP: Dr. Robby Riddle MD Status: REG CLI Study: Dexa Bone Density Study Date of Exam: 05/20/25 Exam# [id number] Ordering Dr: Aquiles Marin MD PROCEDURE: DEXA BONE DENSITY STUDY 05/20/2025 REASON FOR EXAM: HYPERPARATHYROIDISM F, age 79 y/o . Postmenopausal. TECHNIQUE: DEXA BONE DENSITY STUDY COMPARISON: 2020 FINDINGS: BMD and T-SCORES Lumbar spine: 1.258 g/cm2, T-score 1.9 Levels: L1 through L4 Change from prior: Increase of 1.9%. Left femoral neck: 0.675 g/cm2, T-score -1.6 Femoral neck comparison data not recommended for monitoring change. Prior T-score Left total hip: 0.820 g/cm2, T-score -1.0 Change from prior: Increase of 8.3%. Right femoral neck: 0.718 g/cm2, T-score -1.2 Femoral neck comparison data not recommended for monitoring change. Prior T-score Right total hip: 0.852 g/cm2, T-score -0.7 Change from prior: Increase of 4.7%. The World Health Organization has defined the following categories based on bone density: Normal bone density: T-score equal to or greater than -1.0 Osteopenia: T-score between -1.0 and -2.5 Osteoporosis: T-score equal to or less than -2.5 FRAX (or Comparable) Fracture Risk Assessment: 10 Year Probability of Fracture: Major Osteoporotic Fracture: 12% Hip Fracture: 2.5% (Note: FRAX is not to be reported in setting of normal range bone density, osteoporosis on DEXA, known history of osteoporosis, prior osteoporotic hip or vertebral fracture, or for any patient undergoing pharmacological treatment for bone loss.) The National Osteoporosis Foundation (NOF) recommends pharmacological treatment for patients with a FRAX 10-year risk of 3% or higher for a hip fracture, or 20% or higher for a major osteoporotic fracture, to prevent osteoporosis and reduce fracture risk. The patient does not meet the pharmacological treatment recommendations for prevention of osteoporosis. BD/Dexa Bone Density Study IMPRESSION: OSTEOPENIA. Recommend follow-up as clinically warranted. Reading Location: [id number] CC: Dr. Robby Riddle MD; Dr. Aquiles Marin MD Finish Photographer: Signed Normal [facility] Surgery Visit Reporton 05-11 Surgery Visit Report [facility] [address] [place] [address] OFFICE VISIT Date of Service: 05/11/25 MR#: [id number] Acct: [id number] Name: MABEL RAZA Rep #: [id number] : 1945 Provider: Dr. 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 Normal [facility] Free T3on 05-07-2025 Free T3 [Mass/Vol] 2.7 pg/mL Normal 2.18-3.98 [facility] Comment on above: Performed By: #### L 506.1001, L501.78185, L501.9520, L506.0400, L509.1000 ####[facility] [address] [place], [address] Free [id number] By: Aquiles heredia on 05-07-2025 Free T3 [Mass/Vol] 2.7 pg/mL 2.18-3.98 [facility] PTHINon 05-07-2025 PTH 68 pg/mL High 11-61 [facility] Comment on above: Performed By: #### L 506.1001, L501.27588, L501.9520, L506.0400, L509.1000 ####[facility] [address] [place], [address] T4 Free Directon 05-07-2025 T4 FREE DIRECT 1.30 ng/dL Normal 0.76-1.46 [facility] Comment on above: Performed By: #### L 506.1001, L501.29782, L501.9520, L506.0400, L509.1000 ####[facility] [address] [place], [address] T4 freeOrdered By: Aquiles heredia on 05-07-2025 Free T4 [Mass/Vol] 1.30 ng/dL 0.76-1.46 [facility] TSH DL <= 0.005 mIU/L QnOrde red By: Aquiles Marin on 05-07-2025 TSH Qn 0.637 uIU/mL 0.300-4.200 [facility] Thyroid Stim Hormone (TSH)on 05-07-2025 TSH 0.637 uIU/mL Normal 0.300-4.200 [facility] Comment on above: Performed By: #### L 506.1001, L501.10222, L501.9520, L506.0400, L509.1000 ####[facility] [address] [place], [address] Vitamin D,25 Hydroxyon 05-07 Vitamin D 25-OH 64.2 ng/mL Normal 30-100 [facility] Comment on above: Result Comment: Pat min D Status Deficiency: <20 ng/mL (50nmol/L) Insufficiency: 20-30 ng/mL (50-75 nmol/L) Sufficiency: 30-100 ng/mL (75-250 nmol/L) Toxicity: >100 ng/mL (>250 nmol/L) Performed By: #### L 506.1001, L501.52202, L501.9520, L506.0400, L509.1000 ####[facility] [address] [place], [address] Chest without Contraston Chest without Contrast [facility] Imaging Services [address] [place] [address] Chest without Contrast MR#: [id number] Acct: [id number] Name: MABEL RAZA Rep #: [id number] : 1945 F 79 From: Aureliano murillo MD PCP: Dr. Robby Riddle MD Status: REG CLI Study: Chest without Contrast Date of Exam: 04/20/25 Exam# [id number] Ordering Dr: Aquiles Marin MD PROCEDURE: CHEST [...] hemidiaphragm with right basilar atelectasis. Reading Location: [place] [address] CC: Dr. Robby Riddle MD; Dr. Aquiles Marin MD Finish Photographer: Signed Normal [facility] CREATININE FINGERSTICKon Creatinine [Mass/Vol] 1.2 mg/dL High 0.55-1.02 [facility] Comment on above: Performed By: #### L 9100.0200 ####[facility] [address] [place], [place], [id number] GFR/1.73 sq M.predicted among non-blacks MDRD (S/P/Bld) [Vol rate/Area] 44.0000 mL/min/{1.73_m2} Low >60 [facility] Comment on above: Performed By: #### L 9100.0200 ####[facility] [address] [place], [place], [id number] Creatinine measurement at dsideOrdered By: Aquiles Marin on 04-02-2025 Creatinine [Mass/Vol] 1.2 mg/dL High 0.55-1.02 [facility] EGFROrdered By: Aquiles renee on 04-02-2025 GFR/1.73 sq M.predicted among non-blacks MDRD (S/P/Bld) [Vol rate/Area] 44.0000 mL/min/{1.73_m2} Low >60 [facility] Soft Tissue Neck W/WO Contra ston 04-02-2025 Soft Tissue Neck W/WO Contrast [facility] Imaging Services [address] [place] [address] Soft Tissue Neck W/WO Contrast MR#: [id number] Acct: [id number] Name: MABEL RAZA Rep #: [id number] : 1945 F 79 From: Alejandro Hinds MD PCP: Dr. Robby Riddle MD Status: [facility] CLI Study: Soft Tissue Neck W/WO Contrast Date of Exam: 0 04/02/25 Exam# [id number] Ordering Dr: Aquiles Marin MD ADDENDUM by [...] delayed series with washout noted. [facility] 04/[facility]25 0906 Date cc: Dr. Robby [...] chest CT correlation is recommended. Reading Location: [facility] CC: Dr. Robby Riddle MD; Dr. Aquiles Marin MD Finish Photographer: Signed Normal [facility] Surgery Visit Reporton 03-05 Surgery Visit Report [facility] [address] [place] [address] OFFICE VISIT Date of Service: 03/05/25 MR#: [id number] Acct: [id number] Name: MABEL RAZA Rep #: [id number] : 1945 Provider: Dr. Aquiles renee MD Age/Sex: 79/F Location: [facility] Status: Signed Intake Vital Signs 12/16/24 10:08 [...] This s (more content not included)... Normal [facility] SCRN MAMM (CAD)W/CRISTÓBAL BILATo n 02-01-2025 SCRN MAMM (CAD)W/CRISTÓBAL BILAT [facility] Imaging Services [address] [place] [address] SCRN MAMM (CAD)W/CRISTÓBAL BILAT MR#: [id number] Acct: [id number] Name: MABEL RAZA Rep #: [id number] : 1945 F 79 From: Chloé Blake PCP: Dr. Robby Riddle MD Status: [facility] Study: SCRN MAMM (CAD)W/CRISTÓBAL BILAT Date of Exam: 01/06 05/31 Exam# [id number] Ordering Dr: Robby Riddle MD EXAM: SCRN [...] be mailed to the patient. Reading Location: [id number] CC: Dr. Robby Riddle MD Finish Photographer: Signed Normal [facility] Thyroidon 02-01-2025 Thyroid [facility] Imaging Services [address] [place] [address] Thyroid MR#: [id number] Acct: [id number] Name: MABEL RAZA Rep #: [id number] : 1945 F 79 From: Chip Boyd MD PCP: Dr. Robby Riddle MD Status: REG CLI Study: Thyroid Date of Exam: 02/01/25 Exam# [id number] Ordering Dr: Robby Riddle MD PROCEDURE: THYROID 02/01/2025 REASON FOR EXAM: FU THYROID NODULES TECHNIQUE: High-frequency thyroid ultrasound, including grayscale and color-flow images. REFERENCE LINKS: TI-RADS Chart: [email or web address] -[email or web address]/ti-[email or web address] TI-RADS Calculator Tool with Reference Images: [email or web address]-[email or web address] s/body-imaging/tirads -calculator/ FINDINGS: Right thyroid lobe [...] no more than 2 nodules. Reading Location: [facility]-AUPAEVW-NW CC: Dr. Robby Riddle MD Finish Photographer: Signed Normal [facility] Anion gap in Serum or Plasma Ordered By: Robby Riddle on 12-16-2024 Anion gap [Moles/Vol] 12 mmol/L 5-15 [facility] BUN/creatinine ratioOrdered By: Robby Riddle on 12-16-2024 Urea nitrogen/Creatinine [Mass ratio] 19.1 mg/mg 10-20 [facility] Bilirubin, totalOrdered By: Robby Riddle on 12-16-2024 Bilirubin [Mass/Vol] 0.60 mg/dL 0.00-1.30 [facility] Calculated very low density lipoprotein (VLDL) cholesterol measurementOrdered By: Robby Riddle on 12-16-2024 Calculated very low density lipoprotein (VLDL) cholesterol measurement 48 mg/dL High 5-40 [facility] VLDL Cholesterol 48 mg/dL High 5-40 [facility] Carbon dioxide, total [Moles /volume] in Central venous bloodOrdered By: Robby Riddle on 12-16-2024 CO2 [Moles/Vol] 23.5 mmol/L 21.0-32.0 [facility] Chloride assayOrdered By: Jonny Riddle on 12-16-2024 Chloride [Moles/Vol] 104 mmol/L 98-108 [facility] Comprehensive Metabolic Prof ilon 12-16-2024 Albumin [Mass/Vol] 4.4 g/dL Normal 3.4-4.8 [facility] Comment on above: Performed By: #### L 500.4100, L500.4050, L501.9985 #### [facility] [address] [place], [address] Albumin/Globulin [Mass ratio] 1.8 {ratio} Normal 0.9-2.4 [facility] Comment on above: Performed By: #### L 500.4100, L500.4050, L501.9985 #### [facility] [address] [place], [address] ALK PHOS 67 U/L Normal 35-104 [facility] Comment on above: Performed By: #### L 500.4100, L500.4050, L501.9985 #### [facility] [address] [place], [address] ALT [Catalytic activity/Vol] 33 U/L Normal <=34 [facility] Comment on above: Performed By: #### L 500.4100, L500.4050, L501.9985 #### [facility] [address] [place], [address] AST [Catalytic activity/Vol] 31 U/L Normal <=31 [facility] Comment on above: Performed By: #### L 500.4100, L500.4050, L501.9985 #### [facility] [address] [place], [address] Bilirubin [Mass/Vol] 0.60 mg/dL Normal 0.00-1.30 [facility] Comment on above: Performed By: #### L 500.4100, L500.4050, L501.9985 #### [facility] [address] [place], [address] BUN/CRE 19.1 RATIO Normal 10-20 [facility] Comment on above: Performed By: #### L 500.4100, L500.4050, L501.9985 #### [facility] [address] [place], [address] Calcium [Mass/Vol] 11.4 mg/dL High 7.6-11.0 [facility] Comment on above: Performed By: #### L 500.4100, L500.4050, L501.9985 #### [facility] [address] [place], [address] Chloride [Moles/Vol] 104 mmol/L Normal 98-108 [facility] Comment on above: Performed By: #### L 500.4100, L500.4050, L501.9985 #### [facility] [address] [place], [address] CO2 [Moles/Vol] 23.5 mmol/L Normal 21.0-32.0 [facility] Comment on above: Performed By: #### L 500.4100, L500.4050, L501.9985 #### [facility] [address] [place], [address] Creatinine [Mass/Vol] 1.19 mg/dL Normal 0.70-1.20 [facility] Comment on above: Performed By: #### L 500.4100, L500.4050, L501.9985 #### [facility] [address] [place], [address] GAP 12 Normal 5-15 [facility] Comment on above: Performed By: #### L 500.4100, L500.4050, L501.9985 #### [facility] [address] [place], [address] GFR/1.73 sq M.predicted among non-blacks MDRD (S/P/Bld) [Vol rate/Area] 47 mL/min/{1.73_m2} Low >60 [facility] Comment on above: Result Comment: mL/m in/1.73m2 CKD-EPI Creatinine Equation (2020) Performed By: #### L 500.4100, L500.4050, L501.9985 #### [facility] [address] [place], [address] Globulin (S) [Mass/Vol] 2.5 g/dL Normal 2.2-4.2 [facility] Comment on above: Performed By: #### L 500.4100, L500.4050, L501.9985 #### [facility] [address] [place], [address] Glucose [Mass/Vol] 129 mg/dL High 70-99 [facility] Comment on above: Performed By: #### L 500.4100, L500.4050, L501.9985 #### [facility] [address] [place], [address] Potassium [Moles/Vol] 4.8 mmol/L Normal 3.3-5.1 [facility] Comment on above: Performed By: #### L 500.4100, L500.4050, L501.9985 #### [facility] [address] [place], [address] Sodium [Moles/Vol] 139 mmol/L Normal 133-145 [facility] Comment on above: Performed By: #### L 500.4100, L500.4050, L501.9985 #### [facility] [address] [place], [address] T PROT 6.8 g/dL Normal 5.9-8.4 [facility] Comment on above: Performed By: #### L 500.4100, L500.4050, L501.9985 #### [facility] [address] [place], [address] Urea nitrogen [Mass/Vol] 23 mg/dL High 4-19 [facility] Comment on above: Performed By: #### L 500.4100, L500.4050, L501.9985 #### [facility] [address] [place], [address] GFR/1.73 sq M.predicted ev g non-blacks MDRD (S/P/Bld) [Vol rate/Area]Ordered By: Robby Riddle on 12-16-2024 Estimated GFR (MDRD) Non-Af Amer 47 Low >60 [facility] Comment on above: mL/min/1.73m2 CKD-EP I Creatinine Equation (2020) Glomerular filtration rate ( GFR) estimation/1.73 sq m using serum, plasma, or whole bOrdered By: Robby Riddle on 12-16-2024 GFR/1.73 sq M.predicted among non-blacks MDRD (S/P/Bld) [Vol rate/Area] 47 mL/min/{1.73_m2} Low >60 [facility] Comment on above: mL/min/1.73m2 CKD-EP I Creatinine Equation (2020) Hemoglobin A1con 12-16-2024 HbA1c (Bld) [Mass fraction] 6.0 % Normal <=5.6 [facility] Comment on above: Performed By: #### L 500.4100, L500.4050, L501.9985 #### [facility] [address] [place], [address] Hemoglobin A1c percentageOrd ered By: Robby Riddle on 12-16-2024 HbA1c (Bld) [Mass fraction] 6.0 % >5.7 [facility] Internal Medicine Office Vis iton 12-16-2024 Internal Medicine Office Visit [facility] [place], [place] [address] OFFICE VISIT Date of Service: 12/16/24 MR#: [id number] Acct: [id number] Name: MABEL RAZA Rep #: [id number] : 1945 Provider: Dr. Robby powell MD Age/Sex: 79/F Location[place] [facility] [place] Status: Signed Intake Vital Signs 04/10/24 09:06 [...] Complaint: Follow-up chronic conditions. 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 Normal [facility] L506.1001on 12-16-2024 Vitamin D 25-OH 99.9 ng/mL Normal 30-100 [facility] Comment on above: Result Comment: Pat min D Status Deficiency: <20 ng/mL (50nmol/L) Insufficiency: 20-30 ng/mL (50-75 nmol/L) Sufficiency: 30-100 ng/mL (75-250 nmol/L) Toxicity: >100 ng/mL (>250 nmol/L) Performed By: #### L 509.1000, L506.1001 ####[facility] [address] [place], [address] LDL calc ser/plasOrdered By: Robby Riddle on 12-16-2024 Cholesterol in LDL [Mass/Vol] 130 mg/dL [facility] Comment on above: Snsdtuojgy=368-244 m g/dL & Higher Byfe=767 mg/dL or greater LDL Cholesterol, Calculated 130 mg/dL [facility] Comment on above: Zehmwnlrli=989-132 m g/dL & Higher Afca=483 mg/dL or greater Laboratory - Chemistry and C hemistry - challengeOrdered By: Robby Riddle on 12-16-2024 AST [Catalytic activity/Vol] 31 U/L <32 [facility] Lipid Profileon 12-16-2024 CHOL:HDL 5.55 Normal [facility] Comment on above: Performed By: #### L 500.4100, L500.4050, L501.9985 #### [facility] [address] [place], [address] Cholesterol [Mass/Vol] 217 mg/dL High <=200 [facility] Comment on above: Result Comment: Chol esterol level, Desirable <200 mg/dL Borderline high cholesterol 200-239 mg/dL High cholesterol >=240 mg/dL Recommendations of the NCEP Adult Treatment Panel for the following risk-cutoff thresholds for the [place] population. Performed By: #### L 500.4100, L500.4050, L501.9985 #### [facility] [address] [place], [address] Cholesterol in HDL [Mass/Vol] 39 mg/dL Low [facility] Comment on above: Result Comment: Ileana onal Cholesterol Education Program (NCEP) guidelines: <40 mg/dL: Low HDL-cholesterol (major risk factor for CHD) >= 60 mg/dL: High HDL-cholesterol (negative risk factor for CHD) HDL-cholesterol is affected by a number of factors, e.g. smoking, exercise, hormones, sex and age. Performed By: #### L 500.4100, L500.4050, L501.9985 #### [facility] [address] [place], [address] Cholesterol in LDL [Mass/Vol] 130 mg/dL Normal [facility] Comment on above: Result Comment: Bord vpnvvs=895-529 mg/dL Higher Nokw=791 mg/dL or greater Performed By: #### L 500.4100, L500.4050, L501.9985 #### [facility] [address] [place], [address] Cholesterol in VLDL [Mass/Vol] 48 mg/dL High 5-40 [facility] Comment on above: Performed By: #### L 500.4100, L500.4050, L501.9985 #### [facility] [address] [place], [place], [address] Triglyceride [Mass/Vol] 240 mg/dL High [facility] Comment on above: Result Comment: The drugs N-Acetylcysteine and Metamizole may falsely depress this assay. Normal range: <150 mg/dL Borderline High: 150-199 mg/dL High: 200-499 mg/dL Very High: >500 mg/dL Performed By: #### L 500.4100, L500.4050, L501.9985 #### [facility] [address] [place], [place], [address] PTH intactOrdered By: Drake hankins on 12-16-2024 Parathyroid Hormone (Intact) 65 pg/mL High [facility] PTHINon 12-16-2024 PTH 65 pg/mL High [facility] Comment on above: Performed By: #### L 509.1000, L506.1001 ####[facility] [address] [facility] [place], [address] Potassium (Unsp spec) [Mass/ Vol]Ordered By: Robby Riddle on 12-16-2024 Potassium [Moles/Vol] 4.8 mmol/L 3.3-5.1 [facility] Potassium measurement (mass/ volume)Ordered By: Robby Riddle on 12-16-2024 Potassium (Unsp spec) [Mass/Vol] 4.8 mmol/L 3.3-5.1 [facility] Screening total cholesterol/ high density lipoprotein (HDL) cholesterol ratioOrdered By: Robby Riddle on 12-16-2024 Cholesterol.total/Anne sterol in HDL [Mass ratio] 5.55 {ratio} [facility] Serum creatinine measurement (mass/volume)Ordered By: Robby Riddle on 12-16-2024 Creatinine [Mass/Vol] 1.19 mg/dL 0.70-1.20 [facility] Serum globulin measurementOr dered By: Robby Riddle on 12-16-2024 Globulin (S) [Mass/Vol] 2.5 g/dL 2.2-4.2 [facility] Serum glucose measurement (m ass/volume)Ordered By: Robby Riddle on 12-16-2024 Glucose [Mass/Vol] 129 mg/dL High 70-99 [facility] Serum or plasma alanine morillo otransferase (ALT) measurementOrdered By: Robby Riddle on 12-16-2024 ALT [Catalytic activity/Vol] 33 U/L <35 [facility] Serum or plasma albumin juno urement (mass/volume)Ordered By: Robby Riddle on 12-16-2024 Albumin [Mass/Vol] 4.4 g/dL 3.4-4.8 [facility] Serum or plasma albumin/glob ulin mass ratioOrdered By: Jonnyst. joseph's hospitalcody Riddle on 12-16-2024 Albumin/Globulin [Mass ratio] 1.8 {ratio} 0.9-2.4 [facility] Serum or plasma alkaline winston sphatase measurementOrdered By: Robby Riddle on 12-16-2024 ALP [Catalytic activity/Vol] 67 U/L 35-104 [facility] Serum or plasma calcium juno urement (mass/volume)Ordered By: Robby Riddle on 12-16-2024 Calcium [Mass/Vol] 11.4 mg/dL High 7.6-11.0 [facility] Serum or plasma cholesterol in HDL measurement (mass/volume)Ordered By: Robby Riddle on 12-16-2024 Cholesterol in HDL [Mass/Vol] 39 mg/dL Low >40 [facility] Comment on above: National Cholesterol Education Program (NCEP) guidelines:<40 mg/dL: Low HDL-cholesterol (major risk factor for CHD)>= 60 mg/dL: High HDL-cholesterol (negative risk factor for CHD)HDL-cholesterol is affected by a number of factors, e.g. smoking, exercise, hormones, sex and age. Serum or plasma cholesterol measurement (mass/volume)Ordered By: Robby Riddle on 12-16-2024 Cholesterol [Mass/Vol] 217 mg/dL High <201 [facility] Comment on above: Cholesterol level, D esirable <200 mg/dLBorderline high cholesterol 200-239 mg/dLHigh cholesterol >=240 mg/dLRecommendations of the NCEP Adult Treatment Panel for the following risk-cutoff thresholds for the [place] population. Serum or plasma urea nitroge n measurement (mass/volume)Ordered By: Jonnyisaías Riddle on 12-16-2024 Urea nitrogen [Mass/Vol] 23 mg/dL High 4-19 [facility] Sodium levelOrdered By: Katharina levine Jesseesigridkarsten on 12-16-2024 Sodium [Moles/Vol] 139 mmol/L 133-145 [facility] Total proteinOrdered By: Ney tillman Jesseejustin on 12-16-2024 Protein [Mass/Vol] 6.8 g/dL 5.9-8.4 [facility] Triglycerides measurementOrd ered By: Jordyncody Hookssigridkarsten on 12-16-2024 Triglyceride [Mass/Vol] 240 mg/dL High <199 [facility] Comment on above: The drugs N-Acetylcy steine and Metamizole may falsely depress this assay. Normal range: <150 mg/dLBorderline High: 150-199 mg/dLHigh: 200-499 mg/dLVery High: >500 mg/dL Vitamin D, 25-hydroxyOrdered By: Drake Cifuentes on 12-16-2024 Vitamin D 25-Hydroxy 99.9 ng/mL 30-100 [facility] Comment on above: Vitamin D StatusDefi ciency: <20 ng/mL (50nmol/L)Insufficiency: 20-30 ng/mL (50-75 nmol/L)Sufficiency: 30-100 ng/mL (75-250 nmol/L)Toxicity: >100 ng/mL (>250 nmol/L) Endocrinology Visit Reporton 07-27-2024 Endocrinology Visit Report [facility] [address] [place], [place] [address] OFFICE VISIT Date of Service: 07/27/24 MR#: [id number] Acct: [id number] Name: MABEL RAZA Rep #: [id number] : 1945 Provider: Olman Barton Age/Sex: 78/F Location: [facility] [place] Status: Signed Intake Vital Signs 01/27/24 10:08 07/05/24 09:06 07/27/24 08:59 Height 5 ft 7 [...] harming yourself/Othe (more content not included)... Normal [facility] Absolute lymphocyte countOrd ered By: Robby Riddle on 01-15-2024 Lymphocytes Auto (Unsp spec) [#/Vol] 1.01 10*3/uL 0.83-4.51 [facility] Automated lymphocyte count a s percentage of total leukocytesOrdered By: Robby Riddle on 01-15-2024 Lymphocytes/100 WBC Auto (Unsp spec) 17.8 % 19-41 [facility] Basophil percentageOrdered B y: Robby Riddle on 01-15-2024 Basophils/100 WBC (Bld) 0.9 % 0-1 [facility] Bilirubin [Mass/Vol] 0.80 mg/dL 0.20-1.00 [facility] Comment on above: For patients on eltr ombopag therapy, use of Dimension [place] TBIL is not recommended. Chloride [Moles/Vol] 106 mmol/L 98-107 [facility] Cholesterol [Mass/Vol] 206 mg/dL <200 [facility] Comment on above: <200 mg/dL Desirable 200-240 mg/dL Borderline >240 mg/dL High Risk Eosinophils/100 WBC (Bld) 7.4 % 0-5 [facility] Glucose [Mass/Vol] 167 mg/dL 74-106 [facility] Comment on above: Fasting Glucose resu lt greater than or equal to 126 mg/dL suggests DIABETES MELLITUS per A.D.A. criteria. Hemoglobin (Bld) [Mass/Vol] 13.5 g/dL 12.0-15.0 [facility] Monocytes/100 WBC (Bld) 10.1 % 0-10 [facility] Neutrophils (Bld) [#/Vol] 3.6 10*3/uL 2.0-7.7 [facility] Neutrophils/100 WBC (Bld) 63.4 % 47-70 [facility] Potassium [Moles/Vol] 4.1 mmol/L 3.5-5.1 [facility] Protein [Mass/Vol] 6.6 g/dL 6.4-8.2 [facility] Sodium [Moles/Vol] 137 mmol/L 136-145 [facility] Triglyceride [Mass/Vol] 303 mg/dL <199 [facility] Comment on above: The drugs N-Acetylcy steine and Metamizole may falsely depress this assay.Serum Triglycerides Reference Interval Normal <150 mg/dL Borderline high 150 - 199 mg/dL High 200 - 499 mg/dL Very High > or = 500 mg/dL WBC (Bld) [#/Vol] 5.7 10*3/uL 4.4-11.0 [facility] Determination of erythrocyte mean corpuscular volume (MCV)Ordered By: Robby Riddle on 01-15-2024 MCV (RBC) [Entitic vol] 86.7 fL 81-99 [facility] Erythrocyte distribution wid th ratioOrdered By: barbaracrumrodcody Hookskarsten on 01-15-2024 Erythrocyte distribution width (RBC) [Ratio] 12.8 % 11.6-14.6 [facility] Erythrocyte distribution wid th standard deviationOrdered By: [facility] [facility] [place] Jesseekarsten on 01-15-2024 Erythrocyte distribution width (RBC) [Entitic vol] 40.0 fL 35.1-43.9 [facility] Hematocrit Auto (Bld) [Volum e fraction]Ordered By: Katharinacrumrodcody Riddle on 01-15-2024 Hematocrit (Bld) [Volume fraction] 41.2 % 37-47 [facility] Immature granulocytes/100 WB C Auto (Bld)Ordered By: barbaracrumrodcody Riddle on 01-15-2024 Immature granulocytes/100 WBC (Bld) 0.400 % 0.0-0.9 [facility] Comment on above: IG% - Immature Granu locytes (promyelocytes, myelocytes and metamyelocytes) > 1% indicates that a LEFT SHIFT is Present. Laboratory - Chemistry and C hemistry - challengeOrdered By: Robby Riddle on 01-15-2024 Albumin/Globulin [Mass ratio] 1.3 {ratio} 0.9-2.4 [facility] ALP [Catalytic activity/Vol] 67 U/L 45-117 [facility] ALT [Catalytic activity/Vol] 55 U/L 13-56 [facility] Cholesterol in HDL [Mass/Vol] 34 mg/dL >40 [facility] Comment on above: The drugs N-Acetylcy steine and Metamizole may falsely depress this assay. Reference Range HDL <40 mg/dL Low HDL Cholesterol HDL >or= 60 mg/dL High HDL Cholesterol Cholesterol in LDL [Mass/Vol] 111 mg/dL 0-130 [facility] CO2 [Moles/Vol] 25.0 mmol/L 21.0-32.0 [facility] Globulin (S) [Mass/Vol] 2.9 g/dL 2.2-4.2 [facility] Urea nitrogen/Creatinine [Mass ratio] 16.1 mg/mg 10-20 [facility] Laboratory - Hematology and Cell countsOrdered By: Robby Riddle on 01-15-2024 MCH (RBC) [Entitic mass] 28.4 pg 27.0-32.0 [facility] MCHC (RBC) [Mass/Vol] 32.8 g/dL 32-36 [facility] Nucleated RBC/100 WBC (Bld) [Ratio] 0 % 0-5 [facility] Platelet mean volume (Bld) [Entitic vol] 10.2 fL 6.2-12.0 [facility] Platelets (Bld) [#/Vol] 142 10*3/uL 150-450 [facility] No Panel InformationOrdered By: Robby Riddle on 01-15-2024 Estimated GFR (MDRD) Amer 61 mL/min >60 [facility] Comment on above: GFR Calc Estimated GFR (MDRD) Non-Af Amer 50 mL/min >60 [facility] Comment on above: Non- GFR Calc Urine Microalbumin/Creatinine Ratio 32.1 mg/g CRE <30 [facility] VLDL Cholesterol 61 mg/dL 5-40 [facility] RBC Auto (Bld) [#/Vol]Ordere d By: Robby Riddle on 01-15-2024 RBC (Bld) [#/Vol] 4.75 10*6/uL 4.2-5.4 [facility] Serum or plasma calcium juno urement (mass/volume)Ordered By: Robby Riddle on 01-15-2024 Calcium [Mass/Vol] 10.2 mg/dL 8.5-10.1 [facility] Serum or plasma creatinine m easurement (mass/volume)Ordered By: Robby Riddle on 01-15-2024 Creatinine [Mass/Vol] 1.12 mg/dL 0.55-1.02 [facility] Comment on above: The validity of the calculated GFR & GFRAA in patients over 70 years has not been determined. Clinical correlation is essential. Serum or plasma urea nitroge n measurement (mass/volume)Ordered By: Robby Riddle on 01-15-2024 Urea nitrogen [Mass/Vol] 18 mg/dL 7-18 [facility] Thin prep Papanicolaou smear with manual screeningOrdered By: Rboby Riddle on 01-15-2024 Thin prep Papanicolaou smear with manual screening 3.7 g/dL 3.2-5.0 [facility] Thin prep Papanicolaou smear with manual screening 41 U/L 15-37 [facility] Thin prep Papanicolaou smear with manual screening 6 5-15 [facility] Thin prep Papanicolaou smear with manual screening 56.5 mg/L NO RANGE EST. [facility] Urine creatinine measurement (mass/volume)Ordered By: Robby Riddle on 01-15-2024 Creatinine (U) [Mass/Vol] 176.00 mg/dL NO RANGE EST. [facility] Laboratory - Hematology and Cell countson 01-13-2024 HbA1c (Bld) [Mass fraction] 8.9 % 4.2-6.3 [facility] Basophil percentageOrdered B y: Dr. Cifuentes on 02-18-2023 Bilirubin [Mass/Vol] 0.40 mg/dL 0.20-1.00 [facility] Comment on above: For patients on eltr ombopag therapy, use of Dimension [place] TBIL is not recommended. Chloride [Moles/Vol] 108 mmol/L 98-107 [facility] Glucose [Mass/Vol] 171 mg/dL 74-106 [facility] Comment on above: Fasting Glucose resu lt greater than or equal to 126 mg/dL suggests DIABETES MELLITUS per A.D.A. criteria. Potassium [Moles/Vol] 4.1 mmol/L 3.5-5.1 [facility] Protein [Mass/Vol] 6.6 g/dL 6.4-8.2 [facility] Sodium [Moles/Vol] 141 mmol/L 136-145 [facility] Basophil percentageOrdered B y: Dr. Riddle on 02-18-2023 Cholesterol [Mass/Vol] 216 mg/dL <200 [facility] Comment on above: <200 mg/dL Desirable 200-240 mg/dL Borderline >240 mg/dL High Risk Triglyceride [Mass/Vol] 417 mg/dL <199 [facility] Comment on above: The drugs N-Acetylcy steine [...] 02-18-2023 ALP [Catalytic activity/Vol] 64 U/L 45-117 [facility] ALT [Catalytic activity/Vol] 33 U/L 13-56 [facility] CO2 [Moles/Vol] 24.0 mmol/L 21.0-32.0 [facility] Globulin (S) [Mass/Vol] 2.9 g/dL 2.2-4.2 [facility] Urea nitrogen/Creatinine [Mass ratio] 21.5 mg/mg 10-20 [facility] No Panel InformationOrdered By: Dr. Cifuentes on 02-18-2023 Estimated GFR (MDRD) Amer 64 mL/min >60 [facility] Comment on above: GFR Calc Estimated GFR (MDRD) Non-Af Amer 53 mL/min >60 [facility] Comment on above: Non- GFR Calc Parathyroid Hormone (Intact) 72.1 pg/mL 18.4-80.1 [facility] Vitamin D 25-Hydroxy 87.3 ng/mL [facility] Comment on above: Vitamin D 25(OH) Sta tus Range Deficiency <20 ng/mL (50nmol/L) Insufficiency 20 - 30 ng/mL (50 - 75 nmol/L) Sufficiency 30 - 100 ng/mL (75 - 250 nmol/L) Toxicity >100 ng/mL (>250 nmol/L) Serum or plasma albumin juno urement (mass/volume)Ordered By: Dr. Cifuentes on 02-18-2023 Albumin [Mass/Vol] 3.7 g/dL 3.2-5.0 [facility] Serum or plasma albumin/glob ulin mass ratioOrdered By: Dr. Cifuentes on 02-18-2023 Albumin/Globulin [Mass ratio] 1.3 {ratio} 0.9-2.4 [facility] Serum or plasma calcium juno urement (mass/volume)Ordered By: Dr. Cifuentes on 02-18-2023 Calcium [Mass/Vol] 10.6 mg/dL 8.5-10.1 [facility] Serum or plasma cholesterol in HDL measurement (mass/volume)Ordered By: Dr. Riddle on 02-18-2023 Cholesterol in HDL [Mass/Vol] 34 mg/dL >40 [facility] Comment on above: The drugs N-Acetylcy steine and Metamizole may falsely depress this assay. Reference Range HDL <40 mg/dL Low HDL Cholesterol HDL >or= 60 mg/dL High HDL Cholesterol Serum or plasma cholesterol in VLDL measurement (mass/volume)Ordered By: Dr. Riddle on 02-18-2023 Cholesterol in VLDL [Mass/Vol] TNP [facility] Comment on above: Test not performed Serum or plasma creatinine m easurement (mass/volume)Ordered By: Dr. Cifuentes on 02-18-2023 Creatinine [Mass/Vol] 1.07 mg/dL 0.55-1.02 [facility] Comment on above: The validity of the calculated GFR & GFRAA in patients over 70 years has not been determined. Clinical correlation is essential. Serum or plasma low density lipoprotein (LDL) cholesterol measurement (mass/volume)Ordered By: Dr. Riddle on 02-18-2023 Cholesterol in LDL [Mass/Vol] TNP [facility] Comment on above: Test not performed Serum or plasma urea nitroge n measurement (mass/volume)Ordered By: Dr. Cifuentes on 02-18-2023 Urea nitrogen [Mass/Vol] 23 mg/dL 7-18 [facility] Thin prep Papanicolaou smear with manual screeningOrdered By: Dr. Cifuentes on 02-18-2023 Thin prep Papanicolaou smear with manual screening 20 U/L 15- [facility] Thin prep Papanicolaou smear with manual screening 9 - [facility] Laboratory - Hematology and Cell countson 01-21-2023 HbA1c (Bld) [Mass fraction] 7.3 % [facility] Absolute lymphocyte countOrd ered By: Dr. Riddle on 10-31-2022 Lymphocytes Auto (Unsp spec) [#/Vol] 0.76 10*3/uL 0.83-4.51 [facility] Basophil percentageOrdered B y: Dr. Riddle on 10-31-2022 Basophils/100 WBC (Bld) 0.7 % 0-1 [facility] [place] Bilirubin [Mass/Vol] 0.70 mg/dL 0.20-1.00 [facility] Comment on above: For patients on eltr ombopag therapy, use of Dimension [place] TBIL is not recommended. Chloride [Moles/Vol] 107 mmol/L 98-107 [facility] Eosinophils/100 WBC (Bld) 4.9 % 0-5 [facility] Glucose [Mass/Vol] 233 mg/dL 74-106 [facility] Comment on above: Glucose result great er than or equal to 200 mg/dLsuggests DIABETES MELLITUS per A.D.A. criteria. Neutrophils (Bld) [#/Vol] 5.8 10*3/uL 2.0-7.7 [facility] Neutrophils/100 WBC (Bld) 76.9 % 47-70 [facility] Potassium [Moles/Vol] 4.3 mmol/L 3.5-5.1 [facility] Protein [Mass/Vol] 7.0 g/dL 6.4-8.2 [facility] Sodium [Moles/Vol] 138 mmol/L 136-145 [facility] WBC (Bld) [#/Vol] 7.6 10*3/uL 4.4-11.0 [facility] Blood erythrocytes count (nu mber/volume)Ordered By: Dr. Riddle on 10-31-2022 RBC (Bld) [#/Vol] 4.83 10*6/uL 4.2-5.4 [facility] Blood hemoglobin measurement (mass/volume)Ordered By: Dr. Riddle on 10-31-2022 Hemoglobin (Bld) [Mass/Vol] 13.6 g/dL 12.0-15.0 [facility] Blood lymphocytes/100 leukoc ytesOrdered By: Dr. Riddle on 10-31-2022 Lymphocytes/100 WBC (Bld) 10.1 % 19-41 [facility] Blood monocytes/100 leukocyt esOrdered By: Dr. Riddle on 10-31-2022 Monocytes/100 WBC (Bld) 6.7 % 0-10 [facility] [place] Blood platelet mean volumeOr dered By: Dr. Riddle on 10-31-2022 Platelet mean volume (Bld) [Entitic vol] 9.9 fL 6.2-12.0 [facility] Determination of erythrocyte mean corpuscular volume (MCV)Ordered By: Dr. Ridlde on 10-31-2022 MCV (RBC) [Entitic vol] 86.7 fL 81-99 [facility] [place] Hematocrit Auto (Bld) [Volum e fraction]Ordered By: Dr. Riddle on 10-31-2022 Hematocrit (Bld) [Volume fraction] 41.9 % 37-47 [facility] Iron measurement (mass/mass) Ordered By: Dr. Riddle on 10-31-2022 Iron (Unsp spec) [Mass/Mass] 93 ug/dL 50-170 [facility] Laboratory - Chemistry and C hemistry - challengeOrdered By: Dr. Riddle on 10-31-2022 ALP [Catalytic activity/Vol] 66 U/L 45-117 [facility] ALT [Catalytic activity/Vol] 42 U/L 13-56 [facility] CO2 [Moles/Vol] 24.0 mmol/L 21.0-32.0 [facility] Free T4 [Mass/Vol] 1.20 ng/dL 0.76-1.46 [facility] Globulin (S) [Mass/Vol] 3.2 g/dL 2.2-4.2 [facility] Urea nitrogen/Creatinine [Mass ratio] 15.5 mg/mg 10-20 [facility] Laboratory - Hematology and Cell countsOrdered By: Dr. Riddle on 10-31-2022 Erythrocyte distribution width (RBC) [Entitic vol] 40.2 fL 35.1-43.9 [facility] Erythrocyte distribution width (RBC) [Ratio] 13.0 % 11.6-14.6 [facility] Immature granulocytes/100 WBC (Bld) 0.700 % 0.0-0.9 [facility] Comment on above: IG% - Immature Granu locytes (promyelocytes, myelocytes and metamyelocytes) > 1% indicates that a LEFT SHIFT is Present. MCH (RBC) [Entitic mass] 28.2 pg 27.0-32.0 [facility] Nucleated RBC/100 WBC (Bld) [Ratio] 0 % 0-5 [facility] Laboratory - Hematology and Cell countson 10-31-2022 HbA1c (Bld) [Mass fraction] 7.7 % 4.2-6.3 [facility] MCHC Auto (RBC) [Mass/Vol]Or dered By: Dr. Riddle on 10-31-2022 MCHC (RBC) [Mass/Vol] 32.5 g/dL 32-36 [facility] No Panel InformationOrdered By: Dr. Riddle on 10-31-2022 Estimated GFR (MDRD) Amer 59 mL/min >60 [facility] Comment on above: GFR Calc Estimated GFR (MDRD) Non-Af Amer 48 mL/min >60 [facility] Comment on above: Non- GFR Calc Thyroid Stimulating Hormone (TSH) 0.77 uIU/mL 0.358-3.74 [facility] Total Iron Binding Capacity 269 ug/dL 250-450 [facility] Platelets bldOrdered By: Dr. Riddle on 10-31-2022 Platelets (Bld) [#/Vol] 197 10*3/uL 150-450 [facility] Serum or plasma albumin juno urement (mass/volume)Ordered By: Dr. Riddle on 10-31-2022 Albumin [Mass/Vol] 3.8 g/dL 3.2-5.0 [facility] Serum or plasma albumin/glob ulin mass ratioOrdered By: Dr. Riddle on 10-31-2022 Albumin/Globulin [Mass ratio] 1.2 {ratio} 0.9-2.4 [facility] Serum or plasma calcium juno urement (mass/volume)Ordered By: Dr. Riddle on 10-31-2022 Calcium [Mass/Vol] 10.3 mg/dL 8.5-10.1 [facility] Serum or plasma creatinine m easurement (mass/volume)Ordered By: Dr. Riddle on 10-31-2022 Creatinine [Mass/Vol] 1.16 mg/dL 0.55-1.02 [facility] Comment on above: The validity of the calculated GFR & GFRAA in patients over 70 years has not been determined. Clinical correlation is essential. Serum or plasma ferritin chandler surement (mass/volume)Ordered By: Dr. Riddle on 10-31-2022 Ferritin [Mass/Vol] 210 ng/mL 8-252 [facility] Serum or plasma urea nitroge n measurement (mass/volume)Ordered By: Dr. Riddle on 10-31-2022 Urea nitrogen [Mass/Vol] 18 mg/dL 7-18 [facility] Thin prep Papanicolaou smear with manual screeningOrdered By: Dr. Riddle on 10-31-2022 Thin prep Papanicolaou smear with manual screening 25 U/L 15-37 [facility] Thin prep Papanicolaou smear with manual screening 7 5-15 [facility] Absolute lymphocyte counton 05-09-2022 Lymphocytes Auto (Unsp spec) [#/Vol] 1.09 10*3/uL 0.83-4.51 [facility] Work Phone: Basophil percentageon 2021 Basophils/100 WBC (Bld) 0.7 % 0-1 [facility] Work Phone: Bilirubin [Mass/Vol] 0.50 mg/dL 0.20-1.00 [facility] Work Phone: Comment on above: For patients on eltr ombopag therapy, use of Dimension [place] TBIL is not recommended. Chloride [Moles/Vol] 105 mmol/L 98-107 [facility] Work Phone: Eosinophils/100 WBC (Bld) 5.9 % 0-5 [facility] Work Phone: Glucose [Mass/Vol] 140 mg/dL 74-106 [facility] Work Phone: Comment on above: Fasting Glucose resu lt greater than or equal to 126 mg/dL suggests DIABETES MELLITUS per A.D.A. criteria. Neutrophils (Bld) [#/Vol] 3.6 10*3/uL 2.0-7.7 [facility] Work Phone: Neutrophils/100 WBC (Bld) 64.4 % 47-70 [facility] Work Phone: Potassium [Moles/Vol] 4.5 mmol/L 3.5-5.1 [facility] Work Phone: Protein [Mass/Vol] 6.8 g/dL 6.4-8.2 [facility] Work Phone: Sodium [Moles/Vol] 137 mmol/L 136-145 [facility] Work Phone: WBC (Bld) [#/Vol] 5.6 10*3/uL 4.4-11.0 [facility] Work Phone: Blood erythrocytes count (nu mber/volume)on 05-09-2022 RBC (Bld) [#/Vol] 4.28 10*6/uL 4.2-5.4 [facility] Work Phone: Blood hemoglobin measurement (mass/volume)on 05-09-2022 Hemoglobin (Bld) [Mass/Vol] 12.5 g/dL 12.0-15.0 [facility] Work Phone: Blood lymphocytes/100 leukoc yteson 05-09-2022 Lymphocytes/100 WBC (Bld) 19.6 % 19-41 [facility] Work Phone: Blood monocytes/100 leukocyt eson 05-09-2022 Monocytes/100 WBC (Bld) 9.2 % 0-10 [facility] Work Phone: Blood platelet mean volumeon 05-09-2022 Platelet mean volume (Bld) [Entitic vol] 10.3 fL 6.2-12.0 [facility] Work Phone: Determination of erythrocyte mean corpuscular volume (MCV)on 05-09-2022 MCV (RBC) [Entitic vol] 89.7 fL 81-99 [facility] Work Phone: Hematocrit Auto (Bld) [Volum e fraction]on 05-09-2022 Hematocrit (Bld) [Volume fraction] 38.4 % 37-47 [facility] Work Phone: Laboratory - Chemistry and C hemistry - challengeon 05-09-2022 ALP [Catalytic activity/Vol] 69 U/L 45-117 [facility] Work Phone: ALT [Catalytic activity/Vol] 33 U/L 13-56 [facility] Work Phone: CO2 [Moles/Vol] 26.0 mmol/L 21.0-32.0 [facility] Work Phone: Globulin (S) [Mass/Vol] 3.0 g/dL 2.2-4.2 [facility] Work Phone: Urea nitrogen/Creatinine [Mass ratio] 17.0 mg/mg 10-20 [facility] Work Phone: Laboratory - Hematology and Cell countson 05-09-2022 Erythrocyte distribution width (RBC) [Entitic vol] 43.4 fL 35.1-43.9 [facility] Work Phone: Erythrocyte distribution width (RBC) [Ratio] 13.3 % 11.6-14.6 [facility] Work Phone: Immature granulocytes/100 WBC (Bld) 0.200 % 0.0-0.9 [facility] Work Phone: Comment on above: IG% - Immature Granu locytes (promyelocytes, myelocytes and metamyelocytes) > 1% indicates that a LEFT SHIFT is Present. MCH (RBC) [Entitic mass] 29.2 pg 27.0-32.0 [facility] Work Phone: Nucleated RBC/100 WBC (Bld) [Ratio] 0 % 0-5 [facility] Work Phone: MCHC Auto (RBC) [Mass/Vol]on 05-09-2022 MCHC (RBC) [Mass/Vol] 32.6 g/dL 32-36 [facility] Work Phone: No Panel Informationon 05-09 Estimated GFR (MDRD) Amer 61 mL/min >60 [facility] Work Phone: Comment on above: GFR Calc Estimated GFR (MDRD) Non-Af Amer 50 mL/min >60 [facility] Work Phone: Comment on above: Non- GFR Calc Parathyroid Hormone (Intact) 76.8 pg/mL 18.4-80.1 [facility] Work Phone: Platelets bldon 05-09-2022 Platelets (Bld) [#/Vol] 156 10*3/uL 150-450 [facility] Work Phone: Serum or plasma albumin juno urement (mass/volume)on 05-09-2022 Albumin [Mass/Vol] 3.8 g/dL 3.2-5.0 [facility] Work Phone: Serum or plasma albumin/glob ulin mass ratioon 05-09-2022 Albumin/Globulin [Mass ratio] 1.3 {ratio} 0.9-2.4 [facility] Work Phone: Serum or plasma calcium juno urement (mass/volume)on 05-09-2022 Calcium [Mass/Vol] 10.1 mg/dL 8.5-10.1 [facility] Work Phone: Serum or plasma creatinine m easurement (mass/volume)on 05-09-2022 Creatinine [Mass/Vol] 1.12 mg/dL 0.55-1.02 [facility] Work Phone: Comment on above: The validity of the calculated GFR & GFRAA in patients over 70 years has not been determined. Clinical correlation is essential. Serum or plasma urea nitroge n measurement (mass/volume)on 05-09-2022 Urea nitrogen [Mass/Vol] 19 mg/dL 7-18 [facility] Work Phone: Thin prep Papanicolaou smear with manual screeningon 05-09-2022 Thin prep Papanicolaou smear with manual screening 19 U/L 15-37 [facility] Work Phone: Thin prep Papanicolaou smear with manual screening 6 5-15 [facility] Work Phone: Laboratory - Hematology and Cell countson 04-27-2022 HbA1c (Bld) [Mass fraction] 6.7 % 4.2-6.3 [facility] Work Phone: Basophil percentageon 2021 Cholesterol [Mass/Vol] 213 mg/dL <200 [facility] Work Phone: Comment on above: <200 mg/dL Desirable 200-240 mg/dL Borderline >240 mg/dL High Risk Triglyceride [Mass/Vol] 326 mg/dL <199 [facility] [place] Work Phone: Comment on above: The drugs N-Acetylcy steine and Metamizole may falsely depress this assay.Serum Triglycerides Reference Interval Normal <150 mg/dL Borderline high 150 - 199 mg/dL High 200 - 499 mg/dL Very High > or = 500 mg/dL Serum or plasma cholesterol in HDL measurement (mass/volume)on 02-15-2022 Cholesterol in HDL [Mass/Vol] 34 mg/dL >40 [facility] Work Phone: Comment on above: The drugs N-Acetylcy steine and Metamizole may falsely depress this assay. Reference Range HDL <40 mg/dL Low HDL Cholesterol HDL >or= 60 mg/dL High HDL Cholesterol Serum or plasma cholesterol in VLDL measurement (mass/volume)on 02-15-2022 Cholesterol in VLDL [Mass/Vol] 65 mg/dL 5-40 [facility] Work Phone: Serum or plasma low density lipoprotein (LDL) cholesterol measurement (mass/volume)on 02-15-2022 Cholesterol in LDL [Mass/Vol] 114 mg/dL 0-130 [facility] Work Phone: Laboratory - Hematology and Cell countson 01-24-2022 HbA1c (Bld) [Mass fraction] 7.1 % 4.2-6.3 [facility] Work Phone: Laboratory - Chemistry and C hemistry - challengeon 01-22-2022 T4 [Mass/Vol] 8.2 ug/dL 4.8-13.9 [facility] Work Phone: No Panel Informationon 01-22 Free Triiodothyronine (T3) pg/dL 2.2 pg/mL 2.18-3.98 [facility] Work Phone: Parathyroid Hormone (Intact) 64.3 pg/mL 18.4-80.1 [facility] Work Phone: Thyroid Stimulating Hormone (TSH) 0.54 uIU/mL 0.358-3.74 [facility] Work Phone: Vitamin D 25-Hydroxy 53.5 ng/mL [facility] Work Phone: Comment on above: Vitamin D 25(OH) Sta tus Range Deficiency <20 ng/mL (50nmol/L) Insufficiency 20 - 30 ng/mL (50 - 75 nmol/L) Sufficiency 30 - 100 ng/mL (75 - 250 nmol/L) Toxicity >100 ng/mL (>250 nmol/L) Serum or plasma calcium juno urement (mass/volume)on 01-22-2022 Calcium [Mass/Vol] 11.0 mg/dL 8.5-10.1 [facility] Work Phone: Vital Signs Date Time Vital Sign Value Performing Clinician Sammie sosa 06-16-2025 10:31-0400 Body height 166.[address] Robby Riddle MD Work Phone: [facility] 06-16-2025 10:31-0400 Body mass index (BMI) [Ratio] 31.8 kg/m2 Dr. Robby Riddle MD Work Phone: [facility] 06-16-2025 10:31-0400 Body temperature 97.9 [degF] Dr. Robby Riddle MD Work Phone: [facility] 06-16-2025 10:31-0400 Body weight 87.[address] Robby Riddle MD Work Phone: [facility] 06-16-2025 10:31-0400 Diastolic blood pressure 66 mm[Hg] Dr. Robby Riddle MD Work Phone: [facility] 06-16-2025 10:31-0400 Heart rate 68 /min Dr. Robby Riddle MD Work Phone: [facility] 06-16-2025 10:31-0400 Respiratory rate 16 /min Dr. Robby Riddle MD Work Phone: [facility] 06-16-2025 10:31-0400 SaO2% (BldA) [Mass fraction] 98 % Dr. Robby Riddle MD Work Phone: [facility] 06-16-2025 10:31-0400 Systolic blood pressure 116 mm[Hg] Dr. Robby Riddle MD Work Phone: [facility] 05-11-2025 10:07-0400 Body height 170.[address] Robby Riddle MD Work Phone: [facility] 05-11-2025 10:07-0400 Body mass index (BMI) [Ratio] 31 kg/m2 Dr. Robby Riddle MD Work Phone: [facility] 05-11-2025 10:07-0400 Body weight 89.[address] Robby Riddle MD Work Phone: [facility] 05-11-2025 10:07-0400 Diastolic blood pressure 84 mm[Hg] Dr. Robby Riddle MD Work Phone: [facility] 05-11-2025 10:07-0400 Respiratory rate 16 /min Dr. Robby Riddle MD Work Phone: [facility] 05-11-2025 10:07-0400 Systolic blood pressure 138 mm[Hg] Dr. Robby Riddle MD Work Phone: [facility] 03-17-2025 13:51-0400 Body temperature 97 [degF] Dr. Robby Riddle MD Work Phone: [facility] 03-17-2025 13:51-0400 Diastolic blood pressure 59 mm[Hg] Dr. Robby Riddle MD Work Phone: [facility] 03-17-2025 13:51-0400 Heart rate 69 /min Dr. Robby Riddle MD Work Phone: [facility] 03-17-2025 13:51-0400 Respiratory rate 14 /min Dr. Robby Riddle MD Work Phone: [facility] 03-17-2025 13:51-0400 SaO2% (BldA) [Mass fraction] 93 % Dr. Robby Riddle MD Work Phone: [facility] 03-17-2025 13:51-0400 Systolic blood pressure 117 mm[Hg] Dr. Robby Riddle MD Work Phone: [facility] 03-17-2025 12:58-0400 Body height 170.[address] Robby Riddle MD Work Phone: [facility] 03-05-2025 13:10-0400 Body height 170.[address] Robby Riddle MD Work Phone: [facility] 03-05-2025 13:10-0400 Body mass index (BMI) [Ratio] 31.4 kg/m2 Dr. Robby Riddle MD Work Phone: [facility] 03-05-2025 13:10-0400 Body weight 91.[address] Robby Riddle MD Work Phone: [facility] 03-05-2025 13:10-0400 Diastolic blood pressure 84 mm[Hg] Dr. Robby Riddle MD Work Phone: [facility] 03-05-2025 13:10-0400 Heart rate 76 /min Dr. Robby Riddle MD Work Phone: [facility] 03-05-2025 13:10-0400 Respiratory rate 17 /min Dr. Robby Riddle MD Work Phone: [facility] 03-05-2025 13:10-0400 SaO2% (BldA) [Mass fraction] 97 % Dr. Robby Riddle MD Work Phone: [facility] 03-05-2025 13:10-0400 Systolic blood pressure 135 mm[Hg] Dr. Robby Riddle MD Work Phone: [facility] 12-16-2024 10:08-0400 Body height 170.[address] Robby Riddle MD Work Phone: [facility] 12-16-2024 10:08-0400 Body mass index (BMI) [Ratio] 30.5 kg/m2 Dr. Robby Riddle MD Work Phone: [facility] 12-16-2024 10:08-0400 Body temperature 96.7 [degF] Dr. Robby Riddle MD Work Phone: [facility] 12-16-2024 10:08-0400 Body weight 88.[address] Robby Riddle MD Work Phone: [facility] 12-16-2024 10:08-0400 Diastolic blood pressure 76 mm[Hg] Dr. Robby Riddle MD Work Phone: [facility] 12-16-2024 10:08-0400 Heart rate 67 /min Dr. Robby Riddle MD Work Phone: [facility] 12-16-2024 10:08-0400 Respiratory rate 16 /min Dr. Robby Riddle MD Work Phone: [facility] 12-16-2024 10:08-0400 SaO2% (BldA) [Mass fraction] 97 % Dr. Robby Riddle MD Work Phone: [facility] 12-16-2024 10:08-0400 Systolic blood pressure 128 mm[Hg] Dr. Robby Riddle MD Work Phone: [facility] 01-27-2024 10:08-0400 Body height 170.[address] Robby Riddle Work Phone: [facility] 01-27-2024 10:08-0400 Body mass index (BMI) [Ratio] 30.4 kg/m2 Dr. Robby Riddle Work Phone: [facility] 01-27-2024 10:08-0400 Body temperature 98.6 [degF] Dr. Robby Riddle Work Phone: [facility] 01-27-2024 10:08-0400 Body weight 87.[address] Robyb Riddle Work Phone: [facility] 01-27-2024 10:08-0400 Diastolic blood pressure 75 mm[Hg] Dr. Robby Riddle Work Phone: [facility] 01-27-2024 10:08-0400 Heart rate 71 /min Dr. Robby Riddle Work Phone: [facility] 01-27-2024 10:08-0400 Respiratory rate 16 /min Dr. Robby Riddle Work Phone: [facility] 01-27-2024 10:08-0400 SaO2% (BldA) [Mass fraction] 93 % Dr. Robby Riddle Work Phone: [facility] 01-27-2024 10:08-0400 Systolic blood pressure 117 mm[Hg] Dr. Robby Riddle Work Phone: [facility] 01-13-2024 09:37-0400 Body height 170.[address] Robby Riddle Work Phone: [facility] 01-13-2024 09:37-0400 Body mass index (BMI) [Ratio] 30.2 kg/m2 Dr. Robby Riddle Work Phone: [facility] 01-13-2024 09:37-0400 Body temperature 98.5 [degF] Dr. Robby Riddle Work Phone: [facility] 01-13-2024 09:37-0400 Body weight 87.[address] Robby Riddle Work Phone: [facility] 01-13-2024 09:37-0400 Diastolic blood pressure 76 mm[Hg] Dr. Robby Riddle Work Phone: [facility] 01-13-2024 09:37-0400 Heart rate 80 /min Dr. Robby Riddle Work Phone: [facility] 01-13-2024 09:37-0400 Respiratory rate 14 /min Dr. Robby Riddle Work Phone: [facility] 01-13-2024 09:37-0400 SaO2% (BldA) [Mass fraction] 96 % Dr. Robby Riddle Work Phone: [facility] 01-13-2024 09:37-0400 Systolic blood pressure 120 mm[Hg] Dr. Robby Riddle Work Phone: [facility] 12-24-2023 10:17-0400 Body mass index (BMI) [Ratio] 30.1 kg/m2 Dr. Robby Riddle Work Phone: [facility] 12-24-2023 10:17-0400 Body weight 87.[address] Robby Riddle Work Phone: [facility] 12-24-2023 10:17-0400 Diastolic blood pressure 80 mm[Hg] Dr. Robby Riddle Work Phone: [facility] 12-24-2023 10:17-0400 Systolic blood pressure 145 mm[Hg] Dr. Robby Riddle Work Phone: [facility] 02-25-2023 09:21-0400 Body temperature 97.6 [degF] Dr. Robby Riddle Work Phone: [facility] 02-25-2023 09:21-0400 Diastolic blood pressure 70 mm[Hg] Dr. Robby Riddle Work Phone: [facility] 02-25-2023 09:21-0400 Heart rate 73 /min Dr. Robby Riddle Work Phone: [facility] 02-25-2023 09:21-0400 Respiratory rate 16 /min Dr. Robby Riddle Work Phone: [facility] 02-25-2023 09:21-0400 SaO2% (BldA) [Mass fraction] 96 % Dr. Robby Riddle Work Phone: [facility] 02-25-2023 09:21-0400 Systolic blood pressure 128 mm[Hg] Dr. Robby Riddle Work Phone: [facility] 02-25-2023 08:35-0400 Body height 170.[address] Robby Riddle Work Phone: [facility] 02-25-2023 08:35-0400 Body mass index (BMI) [Ratio] 29.7 kg/m2 Dr. Robby Riddle Work Phone: [facility] 02-25-2023 08:35-0400 Body weight 86.[address] Robby Riddle Work Phone: [facility] 02-15-2023 09:21-0400 Body mass index (BMI) [Ratio] 29.9 kg/m2 Dr. Robby Riddle Work Phone: [facility] 02-15-2023 09:21-0400 Body weight 86.[address] Robby Riddle Work Phone: [facility] 02-15-2023 09:21-0400 Diastolic blood pressure 84 mm[Hg] Dr. Robby Riddle Work Phone: [facility] 02-15-2023 09:21-0400 Heart rate 63 /min Dr. Robby Riddle Work Phone: [facility] 02-15-2023 09:21-0400 Respiratory rate 8 /min Dr. Robby Riddle Work Phone: [facility] 02-15-2023 09:21-0400 Systolic blood pressure 135 mm[Hg] Dr. Robby Riddle Work Phone: [facility] 01-28-2023 08:51-0400 Body height 170.[address] Robby Riddle Work Phone: [facility] 01-28-2023 08:51-0400 Body mass index (BMI) [Ratio] 29.9 kg/m2 Dr. Robby Riddle Work Phone: [facility] 01-28-2023 08:51-0400 Body temperature 98.1 [degF] Dr. Robby Riddle Work Phone: [facility] 01-28-2023 08:51-0400 Body weight 86.[address] Robby Riddle Work Phone: [facility] 01-28-2023 08:51-0400 Diastolic blood pressure 62 mm[Hg] Dr. Robby Riddle Work Phone: [facility] 01-28-2023 08:51-0400 Heart rate 67 /min Dr. Robby Riddle Work Phone: [facility] 01-28-2023 08:51-0400 Respiratory rate 16 /min Dr. Robby Riddle Work Phone: [facility] 01-28-2023 08:51-0400 SaO2% (BldA) [Mass fraction] 95 % Dr. Robby Riddle Work Phone: [facility] 01-28-2023 08:51-0400 Systolic blood pressure 118 mm[Hg] Dr. Robby Riddle Work Phone: [facility] 01-21-2023 09:59-0400 Body mass index (BMI) [Ratio] 30 kg/m2 Dr. Robby Riddle Work Phone: [facility] 01-21-2023 09:59-0400 Body temperature 98.4 [degF] Dr. Robby Riddle Work Phone: [facility] 01-21-2023 09:59-0400 Body weight 87.[address] Robby Riddle Work Phone: [facility] 01-21-2023 09:59-0400 Diastolic blood pressure 77 mm[Hg] Dr. Robby Riddle Work Phone: [facility] 01-21-2023 09:59-0400 Heart rate 82 /min Dr. Robby Riddle Work Phone: [facility] 01-21-2023 09:59-0400 Respiratory rate 18 /min Dr. Robby Riddle Work Phone: [facility] 01-21-2023 09:59-0400 SaO2% (BldA) [Mass fraction] 91 % Dr. Robby Riddle Work Phone: [facility] 01-21-2023 09:59-0400 Systolic blood pressure 138 mm[Hg] Dr. Robby Riddle Work Phone: [facility] 10-31-2022 09:10-0500 Body mass index (BMI) [Ratio] 29.6 kg/m2 Dr. oRbby Riddle Work Phone: [facility] 10-31-2022 09:10-0500 Body temperature 96.4 [degF] Dr. Robby Riddle Work Phone: [facility] 10-31-2022 09:10-0500 Body weight 85.[address] Robby Riddle Work Phone: [facility] 10-31-2022 09:10-0500 Diastolic blood pressure 78 mm[Hg] Dr. Robby Riddle Work Phone: [facility] 10-31-2022 09:10-0500 Heart rate 64 /min Dr. Robby Riddle Work Phone: [facility] 10-31-2022 09:10-0500 Respiratory rate 18 /min Dr. Robby Riddle Work Phone: [facility] 10-31-2022 09:10-0500 SaO2% (BldA) [Mass fraction] 98 % Dr. Robby Riddle Work Phone: [facility] 10-31-2022 09:10-0500 Systolic blood pressure 144 mm[Hg] Dr. Robby Riddle Work Phone: [facility] 04-27-2022 10:15-0400 Body height 170.[address] Robby Riddle Work Phone: [facility] Work Phone: 04-27-2022 10:15-0400 Body mass index (BMI) [Ratio] 29 kg/m2 Dr. Robby Riddle Work Phone: [facility] Work Phone: 04-27-2022 10:15-0400 Body temperature 98 [degF] Dr. Robby Riddle Work Phone: [facility] Work Phone: 04-27-2022 10:15-0400 Body weight 83.[address] Robby Riddle Work Phone: [facility] Work Phone: 04-27-2022 10:15-0400 Diastolic blood pressure 64 mm[Hg] Dr. Robby Riddle Work Phone: [facility] Work Phone: 04-27-2022 10:15-0400 Heart rate 69 /min Dr. Robby Riddle Work Phone: [facility] Work Phone: 04-27-2022 10:15-0400 Respiratory rate 18 /min Dr. Robby Riddle Work Phone: [facility] Work Phone: 04-27-2022 10:15-0400 SaO2% (BldA) [Mass fraction] 95 % Dr. Robby Riddle Work Phone: [facility] Work Phone: 04-27-2022 10:15-0400 Systolic blood pressure 98 mm[Hg] Dr. Robby Riddle Work Phone: [facility] Work Phone: 04-11-2022 21:00-0400 Body temperature 98.7 [degF] Dr. Robby Riddle Work Phone: [facility] Work Phone: 04-11-2022 21:00-0400 Diastolic blood pressure 78 mm[Hg] Dr. Robby Riddle Work Phone: [facility] Work Phone: 04-11-2022 21:00-0400 Heart rate 66 /min Dr. Robby Riddle Work Phone: [facility] Work Phone: 04-11-2022 21:00-0400 Respiratory rate 14 /min Dr. Robby Riddle Work Phone: [facility] Work Phone: 04-11-2022 21:00-0400 SaO2% (BldA) [Mass fraction] 100 % Dr. Robby Riddle Work Phone: [facility] Work Phone: 04-11-2022 21:00-0400 Systolic blood pressure 132 mm[Hg] Dr. Robby Riddle Work Phone: [facility] Work Phone: 04-11-2022 19:01-0400 Body height 170.[address] Robby Riddle Work Phone: [facility] Work Phone: 04-11-2022 19:01-0400 Body mass index (BMI) [Ratio] 29 kg/m2 Dr. Robby Riddle Work Phone: [facility] Work Phone: 04-11-2022 19:01-0400 Body weight 83.[address] Robby Riddle Work Phone: [facility] Work Phone: 02-15-2022 11:16-0400 Body temperature 97.3 [degF] Dr. Robby Riddle Work Phone: [facility] Work Phone: 02-15-2022 11:16-0400 Diastolic blood pressure 69 mm[Hg] Dr. Robby Riddle Work Phone: [facility] Work Phone: 02-15-2022 11:16-0400 Heart rate 66 /min Dr. Robby Riddle Work Phone: [facility] Work Phone: 02-15-2022 11:16-0400 Respiratory rate 16 /min Dr. Robby Riddle Work Phone: [facility] Work Phone: 02-15-2022 11:16-0400 SaO2% (BldA) [Mass fraction] 97 % Dr. Robby Riddle Work Phone: [facility] Work Phone: 02-15-2022 11:16-0400 Systolic blood pressure 137 mm[Hg] Dr. Robby Riddle Work Phone: [facility] Work Phone: 02-15-2022 10:29-0400 Body mass index (BMI) [Ratio] 29.2 kg/m2 Dr. Robby Riddle Work Phone: [facility] Work Phone: 02-15-2022 10:29-0400 Body weight 84.[address] Robby Riddle Work Phone: [facility] Work Phone: 01-24-2022 10:41-0400 Body mass index (BMI) [Ratio] 29.8 kg/m2 Dr. Robby Riddle Work Phone: [facility] Work Phone: 01-24-2022 10:41-0400 Body temperature 96.8 [degF] Dr. Robby Riddle Work Phone: [facility] Work Phone: 01-24-2022 10:41-0400 Body weight 86.[address] Robby Riddle Work Phone: [facility] Work Phone: 01-24-2022 10:41-0400 Diastolic blood pressure 100 mm[Hg] Dr. Robby Riddle Work Phone: [facility] Work Phone: 01-24-2022 10:41-0400 Heart rate 68 /min Dr. Robby Riddle Work Phone: [facility] Work Phone: 01-24-2022 10:41-0400 Respiratory rate 18 /min Dr. Robby Riddle Work Phone: [facility] Work Phone: 01-24-2022 10:41-0400 SaO2% (BldA) [Mass fraction] 97 % Dr. Robby Riddle Work Phone: [facility] Work Phone: 01-24-2022 10:41-0400 Systolic blood pressure 142 mm[Hg] Dr. Robby Riddle Work Phone: [facility] Work Phone: 01-24-2022 10:41-0400 Body height 170.[address] Robby Riddle Work Phone: [facility] Work Phone: 01-24-2022 10:41-0400 Body mass index (BMI) [Ratio] 29.8 kg/m2 Dr. Robby Riddle Work Phone: [facility] Work Phone: 01-24-2022 10:41-0400 Body temperature 96.8 [degF] Dr. Robby Riddle Work Phone: [facility] Work Phone: 01-24-2022 10:41-0400 Body weight 86.[address] Robby Riddle Work Phone: [facility] Work Phone: 01-24-2022 10:41-0400 Diastolic blood pressure 100 mm[Hg] Dr. Robby Riddle Work Phone: [facility] Work Phone: 01-24-2022 10:41-0400 Heart rate 68 /min Dr. Robby Riddle Work Phone: [facility] Work Phone: 01-24-2022 10:41-0400 Respiratory rate 18 /min Dr. Robby Riddle Work Phone: [facility] Work Phone: 01-24-2022 10:41-0400 SaO2% (BldA) [Mass fraction] 97 % Dr. Robby Riddle Work Phone: [facility] Work Phone: 01-24-2022 10:41-0400 Systolic blood pressure 142 mm[Hg] Dr. Robby Riddle Work Phone: [facility] Work Phone: 01-23-2022 09:52-0400 Body mass index (BMI) [Ratio] 30 kg/m2 Dr. Robby Riddle Work Phone: [facility] Work Phone: 01-23-2022 09:52-0400 Body temperature 95.6 [degF] Dr. Robby Riddle Work Phone: [facility] Work Phone: 01-23-2022 09:52-0400 Body weight 87.[address] Robby Riddle Work Phone: [facility] Work Phone: 01-23-2022 09:52-0400 Diastolic blood pressure 88 mm[Hg] Dr. Robby Riddle Work Phone: [facility] Work Phone: 01-23-2022 09:52-0400 Heart rate 73 /min Dr. Robby Riddle Work Phone: [facility] Work Phone: 01-23-2022 09:52-0400 Respiratory rate 18 /min Dr. Robby Riddle Work Phone: [facility] Work Phone: 01-23-2022 09:52-0400 SaO2% (BldA) [Mass fraction] 94 % Dr. Robby Riddle Work Phone: [facility] Work Phone: 01-23-2022 09:52-0400 Systolic blood pressure 130 mm[Hg] Dr. Robby Riddle Work Phone: [facility] Work Phone: 01-23-2022 09:52-0400 Body mass index (BMI) [Ratio] 30 kg/m2 Dr. Robby Riddle Work Phone: [facility] Work Phone: 01-23-2022 09:52-0400 Body temperature 95.6 [degF] Dr. Robby Riddle Work Phone: [facility] Work Phone: 01-23-2022 09:52-0400 Body weight 87.[address] Robby Riddle Work Phone: [facility] Work Phone: 01-23-2022 09:52-0400 Diastolic blood pressure 88 mm[Hg] Dr. Robby Riddle Work Phone: [facility] Work Phone: 01-23-2022 09:52-0400 Heart rate 73 /min Dr. Robby Riddle Work Phone: [facility] Work Phone: 01-23-2022 09:52-0400 Respiratory rate 18 /min Dr. Robby Riddle Work Phone: [facility] Work Phone: 01-23-2022 09:52-0400 SaO2% (BldA) [Mass fraction] 94 % Dr. Robby Riddle Work Phone: [facility] Work Phone: 01-23-2022 09:52-0400 Systolic blood pressure 130 mm[Hg] Dr. Robby Riddle Work Phone: [facility] Work Phone: 01-22-2022 13:16-0400 Body mass index (BMI) [Ratio] 29.9 kg/m2 Dr. Robby Riddle Work Phone: [facility] Work Phone: 01-22-2022 13:16-0400 Body temperature 97.7 [degF] Dr. Robby Riddle Work Phone: [facility] Work Phone: 01-22-2022 13:16-0400 Body weight 86.[address] Robby Riddle Work Phone: [facility] Work Phone: 01-22-2022 13:16-0400 Diastolic blood pressure 84 mm[Hg] Dr. Robby Riddle Work Phone: [facility] Work Phone: 01-22-2022 13:16-0400 Heart rate 72 /min Dr. Robby Riddle Work Phone: [facility] Work Phone: 01-22-2022 13:16-0400 Respiratory rate 17 /min Dr. Robby Riddle Work Phone: [facility] Work Phone: 01-22-2022 13:16-0400 SaO2% (BldA) [Mass fraction] 94 % Dr. Robby Riddle Work Phone: [facility] Work Phone: 01-22-2022 13:16-0400 Systolic blood pressure 147 mm[Hg] Dr. Robby Riddle Work Phone: [facility] Work Phone: 01-22-2022 13:16-0400 Body mass index (BMI) [Ratio] 29.9 kg/m2 Dr. Robby Riddle Work Phone: [facility] Work Phone: 01-22-2022 13:16-0400 Body temperature 97.7 [degF] Dr. Robby Riddle Work Phone: [facility] Work Phone: 01-22-2022 13:16-0400 Body weight 86.[address] Robby Riddle Work Phone: [facility] Work Phone: 01-22-2022 13:16-0400 Diastolic blood pressure 84 mm[Hg] Dr. Robby Riddle Work Phone: [facility] Work Phone: 01-22-2022 13:16-0400 Heart rate 72 /min Dr. Robby Riddle Work Phone: [facility] Work Phone: 01-22-2022 13:16-0400 Respiratory rate 17 /min Dr. Robby Riddle Work Phone: [facility] Work Phone: 01-22-2022 13:16-0400 SaO2% (BldA) [Mass fraction] 94 % Dr. Robby Riddle Work Phone: [facility] Work Phone: 01-22-2022 13:16-0400 Systolic blood pressure 147 mm[Hg] Dr. Robby Riddle Work Phone: [facility] Work Phone: Encounters Encounter Date Encounter Type Care Provider Facility Start: 06-30-2025 ambulatory Robby Riddle Facili ty:[facility] Start: 06-16-[address] Robby Riddle MD -[facility] Start: 06-16-2025 End: 06-16-[address] Robby Riddle MD -[facility] Work Phone: Start: 06-16-2025 End: 06-16-[address] Robby Riddle MD Work Phone: -[facility] Start: 06-16-2025 End: 06-16-2025 ambulatory Robby Riddle Facility:[facility] Start: 05-20-2025 End: 05-20-[address] Robby Riddle MD Work Phone: -Outpatient Bone Densitometry Start: 05-20-2025 End: 05-20-[address] Aquiles Marin MD -Outpatient Bone Densitometry Work Phone: Start: 05-20-2025 End: 05-20-2025 ambulatory Robby Riddle Facility:[facility] Start: 05-11-2025 End: 05-11-[address] Aquiles Marin MD -[facility] Work Phone: Start: 05-11-2025 End: 05-11-[address] Robby Riddle MD Work Phone: -[facility] Start: 05-07-2025 End: 05-07-[address] Robby Riddle MD Work Phone: -[facility] Start: 05-07-2025 End: 05-07-[address] Aquiles Marin MD -[facility] Start: 05-07-2025 End: 05-07-2025 ambulatory Aquiles Marin Facility:[facility] Start: 04-20-2025 End: 04-20-[address] Robby Riddle MD Work Phone: -Cat Scan [facility] Start: 04-20-2025 End: 04-20-[address] Aquiles Marin MD -Cat Scan [facility] Work Phone: Start: 04-20-2025 End: 04-20-2025 ambulatory Aquiles Marin Facility:[facility] Start: 04-02-2025 End: 04-02-[address] Robby Riddle MD Work Phone: -Cat Scan [facility] Start: 04-02-2025 End: 04-02-[address] Aquiles Marin MD -Cat Scan [facility] Work Phone: Start: 04-02-2025 End: 04-02-2025 ambulatory Aquiles Marin Facility:[facility] Start: 03-17-2025 End: 03-17-[address] Drake Cifuentes MD -Medical Out Work Phone: Start: 03-17-2025 End: 03-17-[address] Robby Riddle MD Work Phone: [facility] Work Phone: Start: 03-05-2025 End: 03-05-[address] Aquiles Marin MD -[facility] Work Phone: Start: 03-05-2025 End: 03-05-[address] Robby Riddle MD Work Phone: [facility] Work Phone: Start: 02-01-2025 End: 02-01-[address] Robby Riddle MD -Outpatient Breast Imaging Work Phone: Start: 02-01-2025 End: 02-01-2025 ambulatory Robby Riddle Facility:[facility] Start: 12-16-2024 End: 12-16-[address] Robby Riddle MD Work Phone: [facility] Work Phone: Start: 12-16-2024 End: 12-16-[address] Robby Riddle MD -Laboratory, [place] Start: 12-16-2024 End: 12-16-[address] Robby Riddle MD -[facility] Work Phone: Start: 12-16-2024 End: 12-16-2024 ambulatory Robby Riddle Facility:[facility] Start: 12-16-2024 End: 12-16-2024 ambulatory Katharinacrumrodcody Riddle Facility:[facility] Start: 07-27-2024 End: 07-27-2024 ambulatory Efisaías Riddle Facility:[facility] Start: 02-01-2024 End: 02-01-[address] Robby Riddle Work Phone: [facility] Work Phone: Start: 02-01-2024 End: 02-01-[address] Robby Riddle Work Phone: [facility], [facility] Work Phone: Start: 01-27-2024 End: 01-27-[address] Robby Riddle Work Phone: [facility] Work Phone: Start: 01-15-2024 End: 01-15-[address] Robby Riddle Work Phone: [facility] Work Phone: Start: 01-15-2024 End: 01-15-[address] Robby Riddle Work Phone: [facility]-Laboratory, [place] Start: 01-13-2024 End: 01-13-[address] Robby Riddle Work Phone: [facility] Internal [facility] Work Phone: Start: 12-24-2023 End: 12-24-[address] Robby Riddle Work Phone: [facility] Work Phone: Start: 12-11-2023 End: 12-11-2023 ambulatory [facility] Work Phone: Start: 12-11-2023 End: 12-11-2023 Patient encounter procedure [facility]-Outpatient Breast Imaging Work Phone: Start: 04-04-2023 End: 04-04-[address] Robby Riddle Work Phone: [facility] Work Phone: Start: 04-04-2023 End: 04-04-[address] Robby Riddle Work Phone: [facility]-Radiology, [facility] Work Phone: Start: 03-08-2023 End: 03-08-[address] Robby Riddle Work Phone: [facility] Work Phone: Start: 03-08-2023 End: 03-08-[address] Robby Riddle Work Phone: [facility]-Nuclear Medicine, [facility] Start: 02-25-2023 End: 02-25-[address] Robby Riddle Work Phone: [facility]-Medical Out Start: 02-18-2023 End: 02-18-[address] Robby Riddle Work Phone: [facility]-Laboratory, [facility] Start: 02-15-2023 End: 02-15-[address] Robby Riddle Work Phone: [facility]-Laboratory, Specimen Start: 02-15-2023 End: 02-15-[address] Robby Riddle Work Phone: [facility] Start: 02-01-2023 End: 02-01-[address] Robby Riddle Work Phone: [facility] Work Phone: Start: 02-01-2023 End: 02-01-[address] Robby Riddle Work Phone: [facility]-Radiology, [facility] Start: 01-28-2023 End: 01-28-[address] Robby Riddle Work Phone: [facility] Start: 01-23-2023 End: 01-23-[address] Robby Riddle Work Phone: [facility] Work Phone: Start: 01-23-2023 End: 01-23-[address] Robby Riddle Work Phone: [facility]-Ultrasound, [facility] Start: 01-21-2023 End: 01-21-[address] Robby Valdez Phone: [facility] Start: 10-31-2022 End: 10-31-[address] Robby Valdez Phone: [facility] Start: 10-12-2022 End: 10-12-[address] Robby Riddle Work Phone: [facility]-Outpatient Breast Imaging Start: 05-23-[address] Robby Valdez Phone: [facility] Start: 05-09-2022 End: 05-09-[address] Robby Valdez Phone: [facility]-Laboratory, [facility] Start: 04-27-2022 End: 04-27-[address] Robby Riddle Work Phone: [facility] Start: 04-11-2022 End: 04-11-2022 Emergency department patient visit Dr. Robby Riddle Work Phone: [facility]-Emergency Department Start: 02-15-2022 End: 02-15-[address] Robby Valdez Phone: [facility]-Medical Out Start: 01-24-2022 End: 01-24-[address] Robby Riddle Work Phone: [facility] Start: 01-23-2022 End: 01-23-[address] Robby Riddle Work Phone: [facility] Start: 01-22-2022 End: 01-22-[address] Robby Valdez Phone: [facility]-Laboratory, [facility] Start: 01-22-2022 End: 01-22-[address] Robby Riddle Work Phone: [facility] Start: 01-17-2022 End: 01-17-[address] Robby Riddle Work Phone: [facility] Start: 04-17-[address] Robby Riddle Work Phone: [facility] Procedures Date Procedure Procedure Detail Performing Clinician Start: 05-20-2025 Dual energy X-ray absorptiometry Dr. Robby Riddle MD Work Phone: Start: 05-07-[address] Robby [...] Treatment Date Care Activity Detail Author Start: 06-16-2025 CBC W Auto Differential panel - Blood [facility] Start: 06-16-2025 Comprehensive metabolic 2000 panel - Serum or Plasma [facility] Start: 06-16-2025 Hemoglobin A1c/Hemoglobin.total in Blood [facility] Start: 06-16-2025 Lipid 1996 panel - Serum or Plasma [facility] Start: 06-16-2025 Urine microalbumin/creatinine ratio measurement [facility] Start: 05-20-2025 DXA Bone [Mass/Area] Bone density [facility] Start: 04-02-2025 CT Neck [facility] Start: 04-02-2025 CT of soft tissues of neck with contrast Soft Tissue Neck W/WO Contrast [facility] Start: 03-17-2025 Iv infusion therapy/prophylaxis /dx 1st to 1 hr THER/PROPH/DIAG IV INF [facility] Start: 02-01-2025 MG Breast - bilateral Screening [facility] Start: 02-25-2023 Iv infusion therapy/prophylaxis /dx 1st to 1 hr THER/PROPH/DIAG IV INF [facility] Start: 02-15-2022 Iv infusion therapy/prophylaxis /dx 1st to 1 hr THER/PROPH/DIAG IV INF [facility] Work Phone: Alanine aminotransfe rase [Enzymatic activity/volume] in Serum or Plasma [facility] Albumin [Mass/volume ] in Serum or Plasma [facility] Alkaline phosphatase [Enzymatic activity/volume] in Serum or Plasma [facility] Anion gap in Serum or Plasma [facility] Bilirubin, total measurement [facility] BUN/Creatinine ratio [facility] Calcium [Mass/volume ] in Serum or Plasma [facility] Carbon dioxide, tota l [Moles/volume] in Central venous blood [facility] Cholesterol [Mass/vo lume] in Serum or Plasma [facility] Cholesterol in HDL [Mass/volume] in Serum or Plasma [facility] Creatinine [Mass/vol ume] in Serum or Plasma [facility] Creatinine [Mass/vol ume] in Urine collected for unspecified duration [facility] CT Neck [facility] DXA Bone [Mass/Area] Bone density [facility] Erythrocyte mean cor puscular volume determination [facility] Glucose [Mass/volume ] in Serum or Plasma [facility] Hematocrit [Volume F raction] of Blood [facility] Hemoglobin [Mass/vol ume] in Blood [facility] Leukocytes [#/volume ] in Blood [facility] Lipid 1996 panel - S gordo or Plasma [facility] Low density lipoprot ein cholesterol measurement [facility] Mean corpuscular hem oglobin concentration determination [facility] Mean corpuscular hem oglobin determination [facility] Measurement of renal function [facility] Microalbumin [Mass/v olume] in Urine [facility] Neutrophil count [facility] Neutrophil percent differential count [facility] Parathyroid hormone measurement [facility] Patient Education ED Mechanical Fall ED Head Injury (Adult) ED Knee Sprain [facility] Work Phone: Patient referral [facility] Work Phone: Platelets [#/volume] in Blood [facility] Potassium measurement [facility] Red blood cell count [facility] Red cell distributio n width determination [facility] [facility] Serum chloride measurement [facility] Sodium measurement [facility] Total cholesterol:HD L ratio measurement [facility] Total protein measurement [facility] Triglycerides measurement [facility] Urea nitrogen [Mass/ volume] in Serum or Plasma [facility] US Thyroid gland [facility] Vitamin D, 25-hydrox y measurement [facility] Vitamin D, 25-hydrox y measurement [facility] VLDL cholesterol measurement [facility] XR Pelvis and Hip Views [facility] XR Spine Lumbar and Sacrum GE 4 Views [facility] Payers Date Payer Category Payer Self-pay [id number] 2024 Medicare [id number] Private Health Insurance 101 [id number] Unknown [id number] 2.16.8 [id number] Unknown [id number] 2.16.8 [id number] Unknown [id number] 2.16.8 [id number] Unknown [id number] 2.16.8 [id number] Unknown [id number] 2.16.8 [id number] Unknown [id number] 2.16.8 [id number] Unknown [id number] 2.16.8 [id number] Unknown [id number] 2.16.8 [id number] Unknown [id number] 2.16.8 [id number] Unknown [id number] 2.16.8 [id number] Unknown [id number] 2.16.8 [id number] Unknown [id number] 2.16.8 [id number] Unknown [id number] 2.16.8 [id number] Unknown [id number] 2.16.8 [id number] Social History Date Type Detail Facility Start: 01-24-2022 End: 01-13-2024 Tobacco smoking status WVIS Unknown if ever smoked [facility] Start: 07-12-2019 None [facility] Start: 07-12-2019 Spouse/ Signif icant Other [facility] Start: 1945 Sex Assigned At Female W [facility] Start: 01-13-2024 Tobacco smoking status WVIS Never smoked tobacco (finding) [facility] Start: 12-23-2024 Sex Female (finding) [facility] Medical Equipment Procedure Code Equipment Code [...] 03-17-2025 Cognitive function Awake;Alert;A ppropriate;Fol lows Commands [facility] Work Phone: 02-25-2023 Cognitive function Voice/Name [facility] Work Phone: 02-15-2022 Cognitive function Awake;Alert;A ppropriate;Fol lows Commands [facility] Work Phone: Clinical Notes 12-16-2024 to 04-21-2025 Note Date & Type Note Facility 04-21-2025 Radiology Diagnostic study note [facility] Imaging Services [address] [place] [address] Chest without Contrast MR#: [id number] Acct: [id number] Name: MABEL RAZA Rep #: [id number] : 1945 F 79 From: Cy Scott MD PCP: Dr. Robby Riddle MD Status: R EG CLI Study:Chest without Contrast Date of Exam: 04/20/25 Exam# [id number] Ordering Dr: Jaylin Marin MD PROCEDURE: CHEST [...] hemidiaphragm with right basilar atelectasis. Reading Location: [place] [address] CC: Dr. Robby Riddle MD; Dr. Aquiles Marin MD ~ Finish Photographer: Signed [facility] 03-05-2025 Evaluation note Diagnosis Onset Date Resolution Hyperparathyroidism chronic February 062024 12:54pm Multiple thyroid nodules chronic March 05, 2025 12:54pm [facility] Work Phone: 1(104) 289-719805-30-2025 Evaluation note* Diagnosis Onset Date Resolution Status Admit Date Hyperparathyroidism chronic February 062024 12:54pm Multiple thyroid nodules chronic March 05, 2025 12:54pm Hyperparathyroidism chronic 2024 9:58am Multiple thyroid nodules chronic May 11, 2025 9:58am [facility] Work Phone: 1(962) 331-792403-12-2025 Evaluation note* Diagnosis Onset Date Resolution Status Admit Date Cerumen impaction acute December 052024 9:58am Hyperparathyroidism chronic December 16, 2024 9:58am Hypertension chronic December 16, 2024 9:58am Thyroid nodule chronic December 9:58am Type 2 diabetes mellitus chronic December 16, 2024 9:58am [facility] Work Phone: 1(981) 847-593203-12-2025 Evaluation note* Diagnosis Onset Date Resolution Status Admit Date Cerumen impaction acute December 052024 9:58am Hyperparathyroidism chronic December 16, 2024 9:58am Hypertension chronic December 16, 2024 9:58am Thyroid nodule chronic December 9:58am Type 2 diabetes mellitus chronic December 16, 2024 9:58am Hyperparathyroidism chronic February 062024 12:54pm Multiple thyroid nodules chronic March 05, 2025 12:54pm [facility] Work Phone: Evaluation note* Diagnosis Onset Date Resolution Status Multiple thyroid nodules acu te Hypercalcemia chronic Hoarseness acute Hyperparathyroidism acute Multiple thyroid nodules acu te Osteopenia determined by x-ray acute Hypercalcemia chronic GERD (gastroesophageal reflux disease) acute Hypercalcemia chronic Hypertension chronic Type 2 diabetes mellitus [facility] Work Phone: Evaluation note* Diagnosis Onset Date Resolution Status Multiple thyroid nodules acu te Hypercalcemia chronic Hoarseness acute Hyperparathyroidism acute Multiple thyroid nodules acu te Osteopenia determined by x-ray acute Hypercalcemia chronic GERD (gastroesophageal reflux disease) acute Hypercalcemia chronic Hypertension chronic Type 2 diabetes mellitus [facility] on Left knee pain acute Hypertension chronic Type 2 diabetes mellitus [facility] Work Phone: Evaluation note* Diagnosis Onset [...] Hypertension chronic Type 2 diabetes mellitus chr [facility] Work Phone: Evaluation note* Diagnosis Onset Date Resolution Status Osteopenia determined by x-ray acute Hyperparathyroidism chronic Multiple thyroid nodules chr onic Type 2 diabetes mellitus chr onic Low back pain acute Right hip pain acute Hypertension chronic Type 2 diabetes mellitus chr onic Hyperparathyroidism chronic Multiple thyroid nodules [facility] Work Phone: Evaluation noteNo assessment information available [facility] Work Phone: Evaluation note* Diagnosis Onset Date Resolution Status Encounter for routine gynecological examination noneactive Hyperlipidemia chronic Hypertension chronic Persistent dry cough chronic Type 2 diabetes mellitus chr [facility] Work Phone: Evaluation note* Diagnosis Onset Date Resolution Status Encounter for routine gynecological examination noneactive Hyperlipidemia chronic Hypertension chronic Persistent dry cough chronic Type 2 diabetes mellitus chr onic Hyperparathyroidism chronic Multiple thyroid nodules chr onic Osteopenia determined by x-ray chronic Type 2 diabetes mellitus [facility] Work Phone: Reason for referral (narrative)No reason for referral [facility] Work [facility]: Chief Complaint and Reason for Visit Chief Complaint HYPERPARATHYROIDISM Hyperparathyroidism/US [facility] 01/17 [id number] PT 6 M FU Reason for Visit Multiple thyroid nod ules Hypercalcemia Hoarseness Hyperparathyroidism Multiple thyroid nodules Osteopenia determined by x-ray Hypercalcemia GERD (gastroesophageal reflux disease) Hypercalcemia Hypertension Type 2 diabetes mellitus Chief Complaint HYPERPARATHYROIDISM Hyperparathyroidism/US [facility] 01/17 [id number] PT 6 M FU RECLAST fall w/LT knee pain Reason for Visit Multiple thyroid nod ules Hypercalcemia Hoarseness Hyperparathyroidism Multiple thyroid nodules Osteopenia determined by x-ray Hypercalcemia GERD (gastroesophageal reflux disease) Hypercalcemia Hypertension Type 2 diabetes mellitus Chief Complaint HYPERPARATHYROIDISM Hyperparathyroidism/US [facility] 01/17 [id number] PT 6 M FU RECLAST fall w/LT [...] Chief Complaint SCREENING Chief Complaint 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) 6 m fu Reason for Visit Encounter for routin e gynecological examination Hyperlipidemia Hypertension Persistent dry cough Type 2 diabetes mellitus Chief Complaint SCREENING 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) 6 m fu 1 Y FU NONTOXIC [...] 8am Reason for Visit Admit Date Hyperparathyroidism March 05, 2025 12:54 pm Multiple thyroid nodules March 05, 2025 12:54pm Hyperparathyroidism May 11, 2025 9:5 8am Multiple thyroid nodules May 11 9:58am Chief Complaint Admit Date Breast Cancer Screening February 01, 2025 1:36pm THYROID NODULE March 05, 2025 12:54 pm RECLAST March 17, 2025 12:4 4pm parathyroid/ thyroid nodule April 02, 2 025 2:14pm follow up to previous scan/lung nodule J amy 2024 12:12pm DISCUSS THYROID SX May 11, 2025 9:5 8am Hyperparathyroidism, OSTEOPENIA May 072024 9:16am Chief Complaint Admit Date THYROID NODULE March 05, 2025 12:54 pm RECLAST March 17, 2025 12:4 4pm parathyroid/ thyroid nodule April 02, 2 025 2:14pm follow up to previous scan/lung nodule J amy 2024 12:12pm DISCUSS THYROID SX May 11, 2025 9:5 8am Hyperparathyroidism, OSTEOPENIA May 072024 9:16am 6 M FU June 16, 2025 10:12am Family History No Family History Records Found [...] No December 13, 2020 12:42pm Power of Logging Engineer No December 13 12:42pm Advance Directive Response Recorded Date/ Time Living Will No April 11, 2022 7 :09pm Power of Logging Engineer No April 11, 2022 7:09pm Advance Directive Response Recorded Date/ Time Living Will No April 11, 2022 7 :09pm Do you have a Healthcare Power of Logging Engineer? No April 11, 2022 7:09pm Summary Purpose [...] Dates Dr. Robby Riddle MD Primary Care P rovider, Attending Provider, Referring Provider Active Team Status: [...] 2025 End: February 01, 2025 Dr. Robby iRddle MD Referring Provider Active Start: February 01, [...] April 20, 2025 Dr. Aquiles Marin MD Referring Provider [...] May 07, 2025 End: May 07, 2025 Team Status: Inactive Member Role/Relationship Status Dates Dr. Robby Riddle MD Primary Care Provider Active Start: May 20, 2025 End: May 20, 2025 Dr. Aquiles Marin MD Attending Provider Active Start: May 20, 2025 End: May 20, 2025 Dr. Aquiles Marin MD Referring Provider Active Start: May 20, 2025 End: May 20, 2025 Team Status: Inactive Member Role/Relationship Status [...] 20, 2025 End: April 20, 2025 Dr. Auqiles Marin MD Referring Provider Active Start: April 20, 2025 End: April 20, 2025 Team Status: Inactive Member Role/Relationship Status Dates Dr. Robby Riddle MD Primary Care Provider Active Start: May 07, 2025 End: May 07, 2025 Dr. Aquiles Marin MD Attending Provider Active Start: May 07, 2025 End: May 07, 2025 Dr. Aquiles Marin MD Referring Provider Active Start: May 07, 2025 End: May 07, 2025 Team Status: Inactive Member [...] MD Primary Care Provider Active Start: May 20, 2025 End: May 20, 2025 Dr. Aquiles Marin MD Attending Provider Active Start: May 20, 2025 End: May 20, 2025 Dr. Aquiles Marin MD Referring Provider Active Start: May 20, 2025 End: May 20, 2025 Team Status: Inactive Member Role/Relationship Status Dates Dr. Robby Riddle MD Primary Care Provider Active Start: June 16, 2025 End: June 16, 2025 Dr. Robby Riddle MD Attending Provider Active Start: June 16, 2025 End: June 16, 2025 Dr. Robby Riddle MD Referring Provider Active Start: June 16, 2025 End: June 16, 2025 Team Status: Active Member Role/Relationship Status Dates Dr. Robby Riddle MD Primary Care Provider Active Start: June 16, 2025 Dr. Robby Riddle MD Attending Provider Active Start: June 16, 2025 Dr. Robby Riddle MD Referring Provider Active Start: June 16, 2025 INFORMATION SOURCE (unrecogn ized section and content) DATE CREATED AUTHOR 06/28/2025 [facility] FOR RECORDS PERTAINING TO PATIENTS WHO [...] BE BASED ON THE PRIMARY CLINICAL RECORDS. [email or web address] provides no warranty or guarantee of the accuracy or completeness of information in this document.
[2025-06-30] MEDS: Lactated Ringers 1,000 ML 15 ML IV (06:44)
--- NOTE | 2025-06-30 06:52 | PCM.PRE.AN2 ---
ASA Classification* ASA Classification ASA Classification: 2 Assessment & Plan Anesthesia* Anesthesia Assessment Anesthesia Assessment: Discussed sedation and/or anesthesia options, risks, benefits, and alternatives with patient/parents/legal guardian/POA. Questions invited. The patient/parents/legal guardian/POA seems to understand and agrees to proceed with anesthesia plan. Reviewed the physical assessment, medical history, allergy history and patient home medications list prior to surgery/procedure/anesthetic and documented any changes. Performed airway and anesthesia risk assessments. Anesthesia Type Anesthesia Type: General History Source History Obtained from:: Patient, Chart and Significant Other (Spouse and daughter) Anesthesia Focused Assessment* Temperature: 98.5 F Pulse Rate: 72 Blood Pressure: 123/78 Respiratory Rate: 16 Pulse Ox: 96 Oxygen Delivery Method: Room Air Airway Assessment Mouth opens: >3 cm Mallampati Score: II Teeth Condition: Intact and Missing Neck Range of motion (ROM): Limited ROM Labs Anesthesia Preop lab: CBC WBC, (4.4-11.0) 5.3 K/mm3 06/16/25, 11: RBC, (4.2-5.4) 4.64 M/mm3 06/16/25, 11:51 Hgb, (12.0-15.0) 13.4 g/dL 06/16/25, : Hct, (37-47) 41.5 % 06/16/25, : Plt Count, (150-450) 128 K/mm3 L 06/16/25, 11:51 CHEMISTRY Potassium, (3.3-5.1) 4.9 mmol/L 06/16/25, 11: Sodium, (133-145) 139 mmol/L 06/16/25, 11:51 BUN, (4-19) 21 mg/dL H 06/16/25, 11:51 Creatinine, (0.70-1.20) 1.29 mg/dL H 06/16/25, 11: Glucose, (70-99) 145 mg/dL H 06/16/25, 11:51 POC Glucose, (70-110) 127 mg/dL H 07/14/19, 06:55 TSH, (0.300-4.200) 0.637 uIU/mL 05/07/25, 13:09 COAG Pre-Assessment Diagnosis/Proposed Procedure Planned Operative Procedure(s): (L) Parathyroidectomy w/PTH monitoring & left thyroid lobectomy w/isthmus and IONM Anesthesia History Anesthesia History - last putter away: Anesthesia History - last putter away Hx Hospitalization No 06/16/25 14:24 Any Problems With Anesthesia No 06/16/25 14:24 Cholinesterase deficiency No 06/16/25 14:24 You/Your Family Experience No 06/16/25 14:24 fever (hyperthermia) with Relationship Recent Exposure to Contagious No 06/30/25 06:35 Disease Does patient have nerve No 06/16/25 14:24 stimulator Patient instructed to have device shut off --Does patient have Pacemaker No 06/30/25 06:35 or ICD? When Was Last Pacemaker Check QUESTION #4 FULL TEXT: You/Your Family Experience fever (hyperthermia) with Anesthesia Last Oral Intake Last Oral intake: Last Oral Intake NPO since 20:00 06/30/25 06:35 Meds taken in AM with sips of water? Meds patient instructed to take am of surgery PONV PONV - last putter away: PONV - last putter away Female Yes 06/16/25 14:24 HX of Motion Sickness Yes 06/16/25 14:24 HX of N/V After Surgery No 06/16/25 14:24 Non-Smoker Yes 06/16/25 14:24 Duration of Surgery greater Yes 06/16/25 14:24 than 60 minutes Number of Risk Factors 4 06/16/25 14:24 PONV Score Severe Risk 06/16/25 14:24 Height & Weight Height & Weight: Anesthesia: Height & Weight Height 5 ft 5 in 06/30/25 06:35 Weight: 89 kg 06/30/25 06:35 Body Mass Index (BMI) 32.6 06/30/25 06:35 Respiratory Assessment Respiratory Assessment - last putter away: Respiratory Tract Infection Hx - last putter away Hx Respiratory Tract Infection No 06/16/25 14:24 STOP Sleep Apnea STOP Sleep Apnea - last putter away: STOP Sleep Apnea - last putter away Hx Hypertension Yes: CONTROLLED ON MED 06/16/25 14:24 Hx Sleep Apnea No 06/16/25 14:24 CPAP BIPAP Do you snore loudly (louder No 06/16/25 14:24 than talking or can be heard Do you often feel tired/ No 06/16/25 14:24 fatigued/ sleepy during daytime? Has anyone observed you stop No 06/16/25 14:24 breathing during sleep? STOP Results Negative 06/16/25 14:24 QUESTION #5 FULL TEXT : Do you snore loudly (louder than talking or can be heard through closed doors)? 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 Specify any problems Hx of Preganancy in last 3 No 06/16/25 14:24 Months Nurse Filling Out Transfusion VCHRISTIN 06/16/25 14:24 & Questions: Date: 06/16/25 06/16/25 14:24 Time: 14:25 06/16/25 14:24 Patient unable to answer at this time (ie. confused, unrespo /Reproduction History /Reproductive History - last putter away: /Reproductive Hx- last putter away Hx Now No 06/16/25 14:24 Gestational Age (in weeks): EDC: Hx Hx Para Hx Section SAB No 06/16/25 14:24 Active Medications Active Medications: Current Medications Generic Name Dose Route Start Last Admin Trade Name Freq PRN Reason Stop Dose Admin Lactated Ringer's 1,000 mls @ 15 mls/hr 06/30/25 06:15 06/30/25 06:44 IV 15 mls/hr .Q48H JOHN Administration PFSH Medical History Preoperative evaluation to rule out surgical contraindication Wears glasses Post-menopausal Thyroid disease Non-smoker Shortness of breath on exertion History of stress test Hypertension Cerumen impaction Thyroid nodule Low back pain Right hip pain Plantar fasciitis of left foot Nonscarring hair loss Left knee pain GERD (gastroesophageal reflux disease) Osteopenia determined by x-ray Hoarseness Hyperparathyroidism Hypercalcemia Flu vaccine need Health care maintenance Hyperlipidemia Other and unspecified hyperlipidemia Diabetes Cholecystitis, acute with cholelithiasis Home Medications ?Medication ?Instructions ?Recorded ?Last Taken ?Type aspirin 81 mg chewable tablet 81 mg PO DAILY@0800 heart health 07/12/19 06/24/25 History acetaminophen 325 mg tablet 650 mg (2 x 325 mg) PO Q6H PRN PRN 07/14/19 Unknown Rx Pain Score 1-07/16 elderberry fruit 200 mg capsule 1,000 mg PO DAILY 01/22/22 06/24/25 History flaxseed oil 1,000 mg capsule 1,000 mg PO DAILY 01/22/22 06/24/25 History multivitamin 1 tab PO DAILY 01/22/22 06/24/25 History biotin 5,000 mcg-lutein 10 mg 1 tab PO DAILY 01/28/23 06/24/25 History tablet omega-3 fatty acids-fish oil 300 1 cap PO DAILY 07/12/23 06/24/25 History mg-500 mg capsule (Fish Oil) blood sugar diagnostic (OneTouch #200 ea 04/15/24 Unknown Rx Ultra Test strips) lancets 30 gauge (OneTouch #200 ea 04/15/24 Unknown Rx UltraSoft 2 Lancet) dapagliflozin propanediol 10 mg 10 mg PO DAILY #90 tabs 07/27/24 06/24/25 Rx tablet (Farxiga) glimepiride 2 mg tablet 2 mg PO QAM #90 tabs 09/10/24 06/29/25 Rx metformin 500 mg tablet 1,000 mg (2 x 500 mg) PO BID 03/11/25 06/29/25 Rx diabetes 3 months #360 tabs valsartan 80 mg tablet 80 mg PO DAILY #90 TABLETS 03/11/25 06/30/25 Rx amlodipine 5 mg tablet 5 mg PO DAILY #90 tabs 03/22/25 06/30/25 Rx carvedilol 12.5 mg tablet 12.5 mg PO BID 06/16/25 06/30/25 History cholecalciferol (vitamin D3) 125 See Rx Instructions PO QWEEK 06/16/25 06/24/25 History mcg (5,000 unit) capsule zoledronic acid 5 mg/100 mL in 1 ea IV .QYEAR 06/16/25 06/24/25 History mannitol 5 %-water intravenous piggybck Allergy/AdvReac Type Severity Reaction Status Date / Time adhesive tape AdvReac Other Verified 06/30/25 06:28 amoxicillin trihydrate (From AdvReac Upset Verified 06/30/25 06:28 Augmentin) Stomach potassium clavulanate (From AdvReac Upset Verified 06/30/25 06:28 Augmentin) Stomach Family History Mother Cancer liver Thyroid disorder Heart disease Sister Cancer leukemia Brother Diabetes Pancreatitis Surgical History Total knee replacement status History of section Total knee replacement status Hx of cholecystectomy Social History Smoking Status: Never smoker alcohol intake: never substance use type: does not use caffeine: No additional social history: -Balwinder Review of Systems (Anesthesia) ROS Narrative System reviewed and no additional complaints, except as documented.
--- NOTE | 2025-06-30 07:14 | PCM.HP.BLA ---
History and Physical Date of Admission: 06/30/25 Date of Service: 05/11/25 MR#: [id number] Acct: [id number] Name: MABEL RAZA Rep #: [id number] : 1945 Provider: Dr. 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 Is patient in pain?: No Allergies adhesive tape Adverse Reaction (Verified 05/11/25 10:07) Other amoxicillin trihydrate (From Augmentin) Adverse Reaction (Verified 05/11/25 10:07) Upset Stomach potassium clavulanate (From Augmentin) Adverse Reaction (Verified 05/11/25 10:07) Upset Stomach Medications ?Medication ?Instructions ?Recorded ?Confirmed ?Type aspirin 81 mg chewable tablet 81 mg PO DAILY@0800 reportbrain 07/12/19 05/11/25 History acetaminophen 325 mg tablet 650 mg (2 x 325 mg) PO Q6H PRN PRN 07/14/19 05/11/25 Rx Pain Score 1-07/16 elderberry fruit 200 mg capsule 1,000 mg PO DAILY 01/22/22 05/11/25 History flaxseed oil 1,000 mg capsule 1,000 mg PO DAILY 01/22/22 05/11/25 History multivitamin 1 tab PO DAILY 01/22/22 05/11/25 History biotin 5,000 mcg-lutein 10 mg 1 tab PO DAILY 01/28/23 05/11/25 History tablet omega-3 fatty acids-fish oil 300 1 cap PO DAILY 07/12/23 05/11/25 History mg-500 mg capsule (Fish Oil) blood sugar diagnostic (OneTouch #200 ea 04/15/24 05/11/25 Rx Ultra Test strips) lancets 30 gauge (OneTouch #200 ea 04/15/24 05/11/25 Rx UltraSoft 2 Lancet) dapagliflozin propanediol 10 mg 10 mg PO DAILY #90 tabs 07/27/24 05/11/25 Rx tablet (Farxiga) glimepiride 2 mg tablet 2 mg PO QAM #90 tabs 09/10/24 05/11/25 Rx zoledronic acid 5 mg/100 mL in 1 ea .Route ONCE #100 mL 01/29/25 05/11/25 Rx mannitol 5 %-water intravenous piggybck carvedilol 12.5 mg tablet See Rx Instructions .Route 03/11/25 05/11/25 Rx .COMPLEX #180 tabs metformin 500 mg tablet 1,000 mg (2 x 500 mg) PO BID 03/11/25 05/11/25 Rx diabetes 3 months #360 tabs valsartan 80 mg tablet 80 mg PO DAILY #90 TABLETS 03/11/25 05/11/25 Rx cholecalciferol (vitamin D3) 125 5,000 unit PO DAILY 3 months #90 03/16/25 05/11/25 Rx mcg (5,000 unit) capsule caps amlodipine 5 mg tablet 5 mg PO DAILY #90 tabs 03/22/25 05/11/25 Rx Have you fallen in the past year?: No PFSH Medical History Cerumen impaction Thyroid nodule Low back pain Right hip pain Plantar fasciitis of left foot Nonscarring hair loss Left knee pain GERD (gastroesophageal reflux disease) Osteopenia determined by x-ray Hoarseness Hyperparathyroidism Hypercalcemia Flu vaccine need Health care maintenance Hyperlipidemia Other and unspecified hyperlipidemia Diabetes Cholecystitis, acute with cholelithiasis Surgical History Total knee replacement status History of section Total knee replacement status Hx of cholecystectomy Family History Mother Cancer liver Thyroid disorder Heart disease Sister Cancer leukemia Brother Diabetes Pancreatitis Social History Smoking Status: Never smoker alcohol intake: never substance use type: does not use caffeine: No additional social history: -Balwinder HPI HPI HPI: Last visit 03/05/2025. Patient is 79-year-old female who arrives today to discuss operative planning. She is followed for a history of thyroid nodularity (particularly left) as well as hyperparathyroidism. She was last seen 03/05/2025. She is joined today by both her and her daughter. She initially denies any new developments, however, later in the course of our discussion she notes that she is choked twice in the last week on food. She reports ongoing difficulty with changes of her voice and a cough. Below is recapitulated from patient's prior visit for ease of review: Patient makes follow-up for surveillance of thyroid nodularity as well as a diagnosis of primary hyperparathyroidism. Patient last seen 02/15/2023. She presents today by herself. She states that she has some occasional raspiness but questions whether this is age-related. She states she is still singing. She had previously complained of this issue but states that it has been pretty consistent over the past 6 months. She denies any new dry cough. She also reports some difficulty swallowing where she states she feels a difference and slowly commits to a declaration that she has some choking with bigger bites of food (citing sandwiches as a particular problem some food). She also notes that she currently feels tight. She admits to some seasonal allergies and states that her eyes are watering presently. She denies any history of gastroesophageal reflux disease. She follows up today after ultrasound exam was performed at the request of her primary care provider because they believed her thyroid to be enlarged. This study was completed 02/01/2025. ROS General General: No weight change, appetite, fatigue, colon cancer, breast cancer or weakness HEENT HEENT: No difficulty swallowing, eye injury, eye surgery, swollen glands or hoarseness Endo Endocrine: Yes diabetes mellitus; No thyroid disease, thyroid cancer, Hair loss, heat intolerance or cold intolerance Skin Skin: No rash or changing moles Musc Musculoskeletal: No back problems, arthritis, rheumatoid arthritis, gout or joint pain Cardio Cardiovascular: Yes high blood pressure; No murmur, pacemaker, heart disease, atrial fibrillation, heart attack, heart stent, palpitations, shortness of breath with exertion or chest pain Psych Psychiatric: No depression, anxiety or hearing voices Resp Respiratory: No shortness of breath, No sleep apnea, No cough, No COPD, No asthma, No emphysema and No wheezing Gastro Gastrointestinal: No abdominal pain, No nausea or vomiting, No diarrhea, No constipation, No blood in stool, No acid reflux, No hemorrhoids, No ulcers, No gallbladder problem and No black,tarry stools Uriel Hematologic: No blood thinners, No blood disorders, No bleeding, No anemia and No blood clots Neuro Neurologic: No system reviewed and no additional complaints, except as documented, No as per HPI, No abnormal gait, No abnormal hearing, No abnormal movements, No abnormal speech, No behavioral changes, No burning sensations, No confusion, No convulsions, No disequilibrium, No dizziness, No localized weakness, No frequent falls, No headache(s), No lack of coordination, No loss of vision, No memory loss, No numbness, No other visual disturbances, No radicular pain, No restless legs, No sensory deficit, No syncope, No tingling, No tremor(s), No weakness and No other Exam Const General: cooperative, comfortable and no acute distress Orientation: alert, awake and oriented x3 Neck Other: Thyromegaly with subtly palpable left thyroid nodule. Nontender. No cervical lymphadenopathy appreciated. No scars overlying Assessment and Plan Assessment and Plan (1) Multiple thyroid nodules: Status: Chronic Comment: Patient is a 79-year-old female known to me for history of multiple thyroid nodule status post FNA with [place] 2 diagnosis who presents for surveillance after thyroid ultrasound was repeated by her primary care provider 02/01/2025. Interestingly, radiology did not draw out any significant nodules but stated that she simply exhibited appearance of thyroiditis with multiple tiny adenomas and a colloid cyst. In review of her imaging there does appear to be a dominant left-sided thyroid nodule, however, when I compare this to her imaging from 2022 and performed a dimensional comparison using the JUAN CARLOS change in volume calculator this nodule has only increased in volume by approximately 25%. At the same time I examined the overall size of her thyroid from 2022 to 2024 and find a general reduction in the size of the gland as a whole. Therefore I am cautious about interpreting her interval health update that suggest possible progression of some compressive symptoms. I suggest possible workup could include laryngoscopy versus EGD versus CT imaging to assess for spatial relationship to surrounding anatomy. Patient reminds me that we did complete laryngoscopy in 2022 when she first complained raspiness and ENT reported normal cord mobility. There is also no suggestion of reflux disease with that exam. Therefore combined with items to I recommend that we proceed with CT imaging to assess for any signs of compression from the thyroid. Update 05/11/2025: CT imaging of the neck was obtained, however, radiology did not comment significantly on the impact of the thyroid to the surrounding anatomy. My independent review I do not see significant compression of the trachea by the thyroid, however, patient's thyroid nodule is growing posteriorly and looks to be nearing impingement of the esophagus. Associated with this observation, there looks to be risk for distraction of the left recurrent laryngeal nerve. Patient is now complaining of more swallowing difficulty, hoarseness of her voice, and cough?corroborating these concerns. Notably, however, there is no evidence of substernal extension. With these observations I have recommended we consider left thyroid lobectomy with isthmusectomy using intraoperative nerve monitoring. Original CT imaging was reviewed with patient and her family. I reviewed use of intraoperative nerve monitoring as a means of trying to minimize the risk to the recurrent laryngeal nerve. Hand drawings were used to illustrate relevant points. Patient emphasizes that she would like to proceed conservatively and is interested in minimizing her anesthetic time where possible. Plan: ? Left thyroid lobectomy with isthmusectomy and intraoperative nerve monitoring for management of compressive symptoms. (2) Hyperparathyroidism: Status: Chronic Comment: Patient with what appears to be stable hyperparathyroidism that was nonlocalizing at first evaluation. Patient does have a history of osteopenia. Is difficult to interpret her calcium in light of a change in the reference range. I shared with patient that I believe any consideration of repeating her sestamibi will be low yield given her multiple thyroid nodules. I repeated her thyroid ultrasound during today's visit and find 2 candidates in both the mid polar and inferior pole regions on the left. I suggested to her that this could make for an optimal arrangement if we ultimately concluded that she does have some compressive signs that can be attributed to her left thyroid lobe which morphologically is significantly more abnormal than the right side. I suggested that we could potentially consider left thyroid lobectomy with isthmusectomy and concurrent parathyroidectomy. I also suggested that a 4D CT scan is generally reserved for nonlocalizing parathyroid disease in a reoperative phase but could be duly beneficial in her case as it may give us a more definitive indication for an adenoma and provide information to clarify whether she is suffering any compressive signs (see multiple thyroid nodules above). Update 05/11/2025: Patient with rather stable hyperparathyroidism. Last PTH noted at 68. Calcium remains elevated. I reviewed the surgical indications for hyperparathyroidism and discussed that we have not obtained a recent bone density study (last being 2020). Recommended we obtain a baseline. 4D CT imaging was positive with probable parathyroid localized posterior to the inferior pole on the left. I shared with family that this is advantageous given that the patient's largest lobe was also on the left side. I discussed the possibility of concurrent left thyroid lobectomy and parathyroidectomy. Procedure?specific risks were discussed to include risk for hypoparathyroidism. I also discussed that patient's marginally elevated PTH puts her at somewhat higher associative risk for 4 gland hyperplasia. I discussed the different operations available for management of hyperparathyroidism, however, patient reiterated to her conservative stance and clearly articulates that she would prefer I limit my operation to removal of the parathyroid gland seen on CT and examination for a superior parathyroid gland but not proceed to the contralateral side even if indicated by failure of the PTH to drop. I stressed that hyperparathyroidism is 80 to 90% of the time caused by a single adenoma so I would hope patient abides by his population statistic, however, I did discuss there would be a potential risk for persistent hyperparathyroidism. I shared that and marking the left superior parathyroid gland we could potentially create a more advantageous situation if patient were to go on to require reoperation by not inciting inflammatory change on the right. Patient and her family discussed this at some length but ultimately provided their consensus that they would like to proceed with left thyroid lobectomy and isthmusectomy and concurrent parathyroidectomy. I shared with family possibility of needing to observe patient overnight for ongoing calcium/PTH monitoring, but favored outpatient disposition. Plan: Parathyroidectomy with intraoperative PTH monitoring (in conjunction with above left thyroid lobectomy with isthmusectomy and intraoperative neuromonitoring). Outpatient disposition anticipated. I have examined the patient and the H&P has been reviewed. There are no clinical changes since date of exam. Patient presents today with her daughter and . She denies any health changes. Several questions were answered related to postoperative recovery expectations. I then proceeded to confirm the operative plan as jointly decided?that we will plan for left thyroid lobectomy and isthmusectomy using intraoperative nerve monitoring as well as parathyroidectomy only from the left side with PTH monitoring. Consents were confirmed. Will now proceed to the operating room for procedure.
--- NOTE | 2025-06-30 07:30 | PARA_PTH ---
PATIENT: MABEL RAZA LOC: [facility] [place] U#:[id number] AGE/SX: 79/F ROOM: RE06/30/[address]: Dr. Aquiles Marin MD : 1945 BED: DIS: 06/30/2025 SPEC #: [id number] RECD: 06/30/25 10:01 STATUS: PARVEEN GOLDEN #: [id number] DEMETRIUS: 06/30/25 07:[address]: Aquiles Marin DEPT: SURGICAL PATHOLOGY RECD BY: Charan Lezama ENTERED: 06/30/25 10:58 SP TYPE: PARATHY OTHR DR: Dr. Robby Riddle MD Tissues: A - Parathyroid B - Parathyroid C - Parathyroid D - Thyroid gland, NOS Procedures: Frozen Section (charge) Immunohistochemical Stains Frozen Section Add'l ([facility]) Surgery Specimen Level IV Surgery Specimen Level V IHC Stain ADDITIONAL HEADER OPERATION: Parathyroidectomy with PTH monitoring and left thyroid lobectomy PRE-OP DIAGNOSIS: Multiple thyroid nodules, hyperparathyroidism TISSUE SUBMITTED: A- Left inferior parathyroid, B- Confirming left superior parathyroid, C- Left inferior parathyroid, D- Left thyroid lobe and isthmus FROZEN SECTION DIAGNOSIS A. Left inferior parathyroid, parathyroidectomy: Thyroid tissue with inflammation and fibrosis. B. Left superior parathyroid, parathyroidectomy: Parathyroid tissue. C. Left inferior parathyroid, parathyroidectomy: Parathyroid tissue. MS/mr 06/30/2025 MICROSCOPIC DIAGNOSIS A. Parathyroid, left, inferior, excision: * Benign thyroid tissue with focal fibrosis and chronic inflammation. B. Parathyroid, left, superior, excision: * Parathyroid tissue, benign (0.003 gram). C. Parathyroid, left, inferior, excision: * Parathyroid tissue, benign (0.002 gram). D. Thyroid, left lobe and isthmus, hemithyroidectomy: * Multinodular goiter with patchy mild chronic inflammation. * Focal oncocytic nodule - see note and Comment. * Focal reactive/degenerative change with hemosiderin-laden macrophages, suggestive of previous FNA biopsy site. * No malignant change is seen in these sections. Note: The cells of the oncocytic nodule are positive for TTF-1 and PAX8, and negative for GATA3, consistent with thyroid origin. A prominent capsule is lacking. COMMENT D) Selected slides/images were reviewed in intradepartmental consultation by Dr Jagruti Gonzales (head & neck pathology division, [facility]). MICROSCOPIC DESCRIPTION Slides are reviewed. GROSS DESCRIPTION Received fresh in 3 containers, labeled the patient's name and date of . Designated as: A. Left inferior parathyroid is a 0.270 g red-brown tissue fragment. Entirely submitted for frozen section diagnosis and subsequently placed in cassette A1 for permanent sections. B. Left superior parathyroid is a 0.003 g reyes-light brown tissue fragment. Entirely submitted for frozen section diagnosis and subsequently placed in cassette B1 for permanent sections. C. Left inferior parathyroid is a 0.002 g red-brown tissue fragment. Entirely submitted for frozen section diagnosis and subsequently placed in cassette C1 for permanent sections. D. Received in formalin labeled with the patient's name and date of . Designated as left thyroid lobe and isthmus is a 23.6 g pink-red lobulated and somewhat shaggy hemithyroidectomy comprised of a 6.3 x 3.5 x 2.6 cm left lobe and 4.7 x 1.3 x 0.9 cm isthmus. There is a suture designated as superior pole. The specimen is inked as follows: Left anterior: GreenIsthmus anterior: OrangePosterior: Black The specimen is serially sectioned from superior to inferior dark red parenchyma with multiple, reyes nodules, some containing colloid material, ranging 0.1 cm to 2.4 cm; no definitive capsules are identified. Additionally, there is a 1.1 cm possible nodule within the isthmus (? parathyroid). Sample Selector sections are submitted, sequentially from superior to inferior as follows: D1: Left superior, perpendicularD2-D3: Left superiorD4-D6: Left mid (including portion of isthmus in A6)D7-D9: Left inferior with largest noduleD9: Left inferior with largest nodule, [id number]: Isthmus and nodule (? Parathyroid) SD 06/30/2025 CPT:[id number]
[2025-06-30] MEDS: Lidocaine 1% (5 ml sdv) 5 ML Vial IV (07:33)
[2025-06-30 07:42] LABS: PTHIN 98 pg/mL (11-61)
[2025-06-30] MEDS: REMIFENTANIL HCL 1 MG VIAL 2.372 MG IV (07:53)
[2025-06-30 08:51] LABS: PTHIN 100 pg/mL (11-61)
[2025-06-30 10:20] LABS: PTHIN 87 pg/mL (11-61)
[2025-06-30 10:24] LABS: PTHIN 94 pg/mL (11-61)
--- NOTE | 2025-06-30 11:23 | OP.PCM_ITS ---
Operative Report (Standard) Operative Information Date of Procedure: 06/30/25 Pre-Operative Diagnosis: 1. Multinodular goiter with compressive symptomology 2. Primary hyperparathyroidism Post-Operative Diagnosis: Same Surgery/Procedure Performed: 1. Left thyroid lobectomy with isthmusectomy using intraoperative neuromonitoring 2. 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 Big Data Engineer: Ashlyn Abdalla Tasks completed by assistant men's lacrosse coach: Opening & closing Type of Anesthesia: General/Supplemental RN Documented Start/Stop Times: Operation Date: 06/30/25 07:30 Case Time Into Pre-Op 06/30/25 06:00 Out of Pre-Op 06/30/25 07:22 Anesthesia Start 06/30/25 07:27 Into Room 06/30/25 07:27 Procedure Start 06/30/25 08:06 Procedure End 06/30/25 11:23 Anesthesia End 06/30/25 11:32 Out of Room 06/30/25 11:32 Into Recovery 06/30/25 11:34 Into Phase II Recovery 06/30/25 12:33 Out of Recovery 06/30/25 12:33 Out of Phase II 06/30/25 15:26 Procedure Start Time: 08:06 Procedure Stop Time: 11:23 Select all DRAINS/GRAFTS/IMPLANTS that apply: None Estimated Blood Loss: 15 Specimen collected: Yes Description of specimen(s) removed: 1. Left inferior parathyroid (frozen section revealed fibrotic thyroid tissue with some cystic degeneration) 2. Confirming left superior parathyroid (frozen section confirmed parathyroid tissue) 3. Rule out left inferior parathyroid (frozen section confirmed parathyroid tissue) 4. Left thyroid lobe and isthmus; stitch castro left superior pole Description of surgery: After appropriate identification in the preoperative holding area, the patient was brought to the operating room where she was positioned supine on the operating room table. Induction of general endotracheal anesthetic was begun and a NIMS tube was placed under glidescope view to confirm coaptation with the vocal cords anteriorly. Tube was then secured and the patient was positioned with a shoulder roll so that her head was in extension but supported. The Nims electrodes were placed and connected to the monitor. We had appropriate resistance showing on the monitor and tapping at the level of the cricoid produce a graphical representation of the impulse on the monitor. Patient's neck was then prepped and draped in usual sterile fashion and a formal timeout was conducted from those present. The lowest skin fold to the sternal notch was selected for incision site (this resided approximately 2 fingerbreadths cephalad to the notch). An incision was extended for 2.5 cm on either side of midline. Electrocautery was used to deepen this incision through the level of the platysma. An engorged anterior jugular vein was present in the midline it appeared to interfere with further dissection so I circumferentially dissected this vessel and divided it with the use of LigaSure energy. Subplatysmal flaps were raised with the use of electrocautery and blunt dissection. The strap muscles were then divided along the medial raphe bringing us down to the level of the thyroid. To avoid any confounding with the PTH level due to dissection I immediately proceeded with obtaining a central baseline level from patient's left internal jugular vein. To facilitate exposure of the vein the overlying sternohyoid muscle was from the sternothyroid muscle proceeding laterally. Once the jugular vein was sufficiently exposed I obtained a baseline central vein PTH level using a 5 cc syringe and a 22-gauge needle. This ultimately returned at 100. As I awaited this result I returned to the mobi lization of the thyroid. Capsular attachments to the thyroid were divided with the use of electrocautery or bluntly swept away with dissection from a tonsil clamp. Retractors were placed providing visualization of the left superior pole of the thyroid. The vessels of the superior pole were sequentially ligated with the use of the LigaSure device. As we moved towards the thyroid gland away from the pole vessels I examined the posterior aspect of the superior pole for possible parathyroid but did not immediately visualize a candidate gland. We then moved inferiorly and divided those polar vessels with LigaSure. This proved somewhat challenging requiring additional traction as the inferior pole was partially lodged behind the left clavicle. After these vessels were successfully ligated I then ligated the middle thyroid vein and removed the lateral attachments of the capsule to the remaining strap muscle fibers. With the poles freed the thyroid was mobilized medially. Using blunt dissection parallel to the presumed course of the recurrent laryngeal nerve, I exposed the tracheoesophageal groove. Inferiorly I inspected the surgical bed and identified what appeared to be 2 projections of the tubercle of Zuckerkandl as well as a third area that appeared adherent to the trachea?likely representing our target parathyroid gland. However, palpation showed this area to be firmer than expected and as I began circumferential dissection there was rupture of a cystic portion of the structure. Still, I maintained suspicion for a parathyroid gland with atypical features and took care to try to avoid any further glandular disruption?even irrigating with water to disrupt any viable cells. Uncharacteristically I found the structure rather adherent inferiorly and appeared to be confluent with the superior portion of the involuted thymus. Gentle traction was applied as I continued circumferential dissection inferiorly until I had thinned the connection to the thymus. I then placed a small titanium clip across this connection and sharply divided the structure. This specimen was passed off the field for frozen section confirmation labeled inferior parathyroid. During the course of my dissection of the inferior parathyroid candidate I also continued a capsular dissection against the known tubercle of Zuckerkandl and was gradually able to expose a pearlescent structure that appeared to represent the left recurrent laryngeal nerve. Indeed, when Nims probe was applied there was an excellent signal on the Nims monitor. This location of the nerve appeared to confirm our parathyroid target that was being removed as an inferior gland. The nerve positively identified, I relieved the attachments of the thyroid gland to the underlying trachea with the use of LigaSure. After 10 minutes had elapsed since removal of the inferior parathyroid candidate I returned to my lateral dissection where left internal jugular ex vivo blood draws were made with a 22-gauge needle and syringe at 10 and 15 minutes. Eventually the PTH level was reported by the lab on the specimens and were 87 and 94, respectively. It was shortly after this time that I received a phone call from pathology on our submitted left inferior parathyroid candidate where they stated this tissue, in fact, represented inflamed/fibrotic thyroid tissue. There was no concern for malignancy conveyed. With this result I returned to the neck where identified a grossly normal?appearing left superior parathyroid. I placed a medium size titanium clip across the tip of the structure and sharply amputated a small section for submission to frozen section for identity confirmation. Searching more inferiorly I found a second structure that appeared to represent ischemic (but viable) left inferior parathyroid and a similar biopsy technique was used in this location. Ultimately both frozen section results would return confirmatory as parathyroid tissue. Returning to my thyroid dissection in the region of the ligament of Rojo I found the thyroid to be tightly adherent to the insertion point in the cricothyroid membrane so I elected to leave a minuscule amount of thyroid tissue intact adjacent to the nerve using 4-0 silk ligatures. The recurrent laryngeal nerve signal was checked prior to the division of any thyroid tissue. Once I had assured clearance from the nerve, the remaining thyr oid tissue was removed from the anterior surface of the trachea with electrocautery to include the entirety of the thyroid isthmus. In the cephalad portion of the incision, I did encounter what appeared to be a pyramidal lobe over the anterior surface of the thyroid cartilage and took this en bloc with the specimen. The specimen was divided with the LigaSure device for hemostasis, oriented with a silk suture through the superior pole, and passed off the field for permanent section. Pressure was applied to the surgical cavity and there was some slight oozing along the anterior surface of the trachea well away from the recurrent laryngeal nerve where selective electrocautery was applied. Closer to the nerve there was some additional oozing and a single 4-0 silk suture was used to secure the thyroid tissue against the trachea that had been bleeding. Tying of this ligature resulting in hemostasis in that region. Surgicel hemostatic agent was placed against the trachea while pressure was applied. Once this pressure was relieved, the surgical cavity was again inspected and we found hemostasis to be intact. We also confirmed the presence of both the superior and inferior parathyroid glands (michelle now with titanium clips) as well as a well-functioning recurrent laryngeal nerve. Having discussed with patient that she wished for us to refrain from any dissection on the contralateral side?even if the parathyroid disease proved to be found in that location?the case was terminated at this point. Satisfied with this result, the strap muscles were closed with a running 3-0 Vicryl stitch leaving a small gap at the inferior aspect of the suture line. The platysmal flaps were closed with interrupted 3-0 Vicryl. Some additional local anesthetic was infiltrated throughout the dermis and the skin was closed in a subcuticular fashion using 4-0 Monocryl. Telfa and Tegaderm were used as a dressing. The patient was then awakened from anesthetic without event and was taken to PACU for ongoing recovery. Surgical Findings: ? Multilobulated thyroid with lobulated border particularly in the region of the tubercle of Zuckerkandl ? Firm nodule anterior to the trachea in expected location of parathyroid adenoma with partial cystic component. Nodule extended to the level of the thymus inferiorly ? Grossly intact/perfused left superior and inferior parathyroid glands marked with titanium clips after biopsy confirmation of their identity ? Visible and functionally intact left recurrent laryngeal nerve ? Mildly prominent pyramidal lobe Complications Complications: No
[2025-06-30] MEDS: fentaNYL 100 MCG/2 ML Ampul IV (11:27)
--- NOTE | 2025-06-30 11:28 | DCINST_ITS ---
Discharge Instructions Diet Discharge Diet: No restrictions (However recommend a liquid to soft diet initially postoperatively) Activity Discharge Activity: May Not Drive (While it remains difficult to check blind spots quickly) May shower in (days): 2 Ice area for (Minutes): 20 Lifting Restrictions: No lifting greater than 15 pounds for 2 weeks after surgery Dressing / Incision Call your doctor if your incision/area has: Continuous Slow Oozing, Sudden Increased Bleeding, Increased Pain/ Swelling, Increased Redness and Swelling at the incision site Call your doctor if you observe: Numbness or Tingling Remove Dressing in: 2 days Cleanse incision/area with: Soap & Water Follow Up Care Please Follow Up With: Aquiles Marin MD When: 7 days postop Test Results: Test results from this visit will be discussed in further detail at your follow- up appointment, if applicable. Discharge Plan Admission Primary Reason for Your Visit: Thyroid/parathyroid surgery Attending Provider: Aquiles Marin Primary Care Provider: Robby Riddle Instructions Print Language: Frisian Discharge Orders/Prescriptions Prescriptions: Continued multivitamin Tablet 1 tab PO DAILY flaxseed oil 1,000 mg capsule 1,000 mg PO DAILY Rx Instructions: administer with a meal elderberry fruit 200 mg capsule 1,000 mg PO DAILY biotin-lutein 5,000 mcg- 10 mg tablet 1 tab PO DAILY Fish Oil 300-500 mg capsule 1 cap PO DAILY dapagliflozin propanediol [Farxiga] 10 mg tablet 10 mg PO DAILY Qty: 90 3RF cholecalciferol (vitamin D3) 125 mcg (5,000 unit) capsule See Rx Instructions PO QWEEK Rx Instructions: 2 tablets weekly orally every week; aspirin 81 MG tablet,chewable 81 mg PO DAILY@0800 acetaminophen 325 MG tablet 650 mg PO Q6H PRN PRN (Reason: Pain Score 1-10/10) 0RF carvedilol 12.5 mg tablet 12.5 mg PO BID zoledronic [id number] 5 mg/100 mL piggyback 1 ea IV .QYEAR Rx Instructions: 1 ea intravenously once; infuse over 20 minutes (DME) OneTouch Ultra Test Strip See Rx Instructions .Route Qty: 200 3RF Rx Instructions: As directed to check blood glucose once daily for DMII (DME) lancets [OneTouch UltraSoft 2 Lancet] 30 gauge misc See Rx Instructions .Route Qty: 200 3RF Rx Instructions: As directed to check blood glucose once daily for DMII glimepiride 2 mg tablet 2 mg PO QAM Qty: 90 3RF Rx Instructions: administer with breakfast valsartan 80 mg tablet 80 mg PO DAILY Qty: 90 1RF metformin 500 mg tablet 1,000 mg PO BID 90 Days Qty: 360 1RF amlodipine 5 mg tablet 5 mg PO DAILY Qty: 90 3RF Referrals / Follow Up: Robby Riddle MD [Primary Care Provider, Internal Medicine] Disposition Disposition (needs filled in before D/C Order can be placed): Home, Self Care
--- NOTE | 2025-06-30 11:40 | PCM.POST.ANE ---
Anesthesia: Postop Eval I Current Vital Signs Temperature: 97.2 F Pulse Rate: 82 Blood Pressure: 163/91 Respiratory Rate: 16 Pulse Ox: 97 Assessment Airway patent: Yes Spontaneous unlabored respirations: Yes nausea: No Vomiting: No Anesthesia Complication: No Fluid Hydration Crystalloid volume administer (ml): 1,500 Total IV fluid infused: 1,500 Progress Note Anesthesia document: Postop Eval 1 completed: Yes
--- NOTE | 2025-06-30 15:52 | POSTOPAN2_ITS ---
Anesthesia Postop Eval I Sum Postop Eval Completion status Anesthesia document: Postop Eval 1 completed: Yes Anesthesia Postop Eval I Summary Anesthesia Postop Eval I Summary: Anesthesia Postop Eval I: Assessment Summary Airway patent Yes 06/30/25 11:40 [email or web address] Spontaneous unlabored Yes 06/30/25 11:40 [email or web address] respirations Mental status nausea No 06/30/25 11:40 [email or web address] Vomiting No 06/30/25 11:40 [email or web address] Anesthesia Postop Eval I: Fluid Summary Crystalloid volume administer 1,500 06/30/25 11:40 [email or web address] (ml) Colloids volume administered ( ml) Blood Product volume administered (ml) Total IV fluid infused 1,500 06/30/25 11:40 [email or web address] Anesthesia Postop Eval I: Summary Notes Anesthesia Complication No 06/30/25 11:40 [email or web address] Anesthesia Complication Comment: Post-operative progress note Anesthesia: Postop Eval II Evaluation Mental status: Awake and Calm Pain Level: 1 nausea: No Vomiting: No Complications Anesthesia Complication: No
--- NOTE | 2025-06-30 15:52 | PCM.POSTANE2 ---
Anesthesia Postop Eval I Sum Postop Eval Completion status Anesthesia document: Postop Eval 1 completed: Yes Anesthesia Postop Eval I Summary Anesthesia Postop Eval I Summary: Anesthesia Postop Eval I: Assessment Summary Airway patent Yes 06/30/25 11:40 [email or web address] Spontaneous unlabored Yes 06/30/25 11:40 [email or web address] respirations Mental status nausea No 06/30/25 11:40 [email or web address] Vomiting No 06/30/25 11:40 [email or web address] Anesthesia Postop Eval I: Fluid Summary Crystalloid volume administer 1,500 06/30/25 11:40 [email or web address] (ml) Colloids volume administered ( ml) Blood Product volume administered (ml) Total IV fluid infused 1,500 06/30/25 11:40 [email or web address] Anesthesia Postop Eval I: Summary Notes Anesthesia Complication No 06/30/25 11:40 [email or web address] Anesthesia Complication Comment: Post-operative progress note Anesthesia: Postop Eval II Evaluation Mental status: Awake and Calm Pain Level: 1 nausea: No Vomiting: No Complications Anesthesia Complication: No
== END 2025-06-30 15:26 | disposition home or self-care (01) ==
LOC: SDC 05:55 → AC 05:57
PROVIDERS: PCP Internal Medicine; Referring Provider Surgery; Visit Provider Surgery
PROC: (CPT 60500; principal; 2025-06-30 07:15)
DX: E05.20 Thyrotoxicosis with toxic multinodular goiter without thyrotoxic crisis or storm (principal); E11.9 Type 2 diabetes mellitus without complications; E21.0 Primary hyperparathyroidism; E78.5 Hyperlipidemia, unspecified; K21.9 Gastro-esophageal reflux disease without esophagitis; Z79.82 Long term (current) use of aspirin; Z79.899 Other long term (current) drug therapy; Z79.84 Long term (current) use of oral hypoglycemic drugs
CPT/HCPCS: 60220; 60100; 00320; 82962; 83970; 88305; 88307; 88331; 88332; 88341; 88342; A4648; J2405

== ENCOUNTER → 2025-08-05 | Outpatient (CLI) | payer MEDICARE, SELFPAY ==
[2025-08-05 09:56] LABS: Calcium 10.6 mg/dL (7.6-11.0); Free T3 2.9 pg/mL (2.18-3.98); T4 Total, Thyroxin 6.5 ug/dL (4.8-13.9)
[2025-08-05 10:11] LABS: PTHIN 80 pg/mL (11-61)
[2025-08-09 14:08] LABS: Vitamin D 1,25-Dihydroxy 44.3 pg/mL (24.8-81.5)
== END | disposition home or self-care (01) ==
LOC: LAB 08:45
PROVIDERS: PCP Internal Medicine; Referring Provider Surgery; Visit Provider Surgery
DX: E21.3 Hyperparathyroidism, unspecified (principal); Z90.09 Acquired absence of other part of head and neck; E04.2 Nontoxic multinodular goiter
CPT/HCPCS: 36415; 82310; 82652; 83970; 84436; 84443; 84481